=== PATIENT | male | born 1965 | race African-American/Black ===

== ENCOUNTER 2018-02-19 10:45 | Inpatient (IN) | payer OTHER ==
[2018-02-19] MEDS ORDERED: SODIUM CHLORIDE 0.9% 1000 ML INFUS.BAG IV ONE ×2 (11:26→14:38)
[2018-02-19] MEDS ORDERED: ACETAMINOPHEN 1000 MG/100 ML VIAL (NON FORMULARY) IVPB ONE (11:26)
--- NOTE | 2018-02-19 11:31 | PDOC ---
Attending Attestation - Resident Resident Name: DanielPhillip hollingsworth - ED Attending Attestation I have performed the following: I have examined & evaluated the patient, The case was reviewed & discussed with the resident, I agree w/resident's findings & plan, Exceptions are as noted - HPI HPI: 02/19/18 11:42 52y M hx of heroin abuse (currently on methadone maintenance), asthma presents with cough productive of yellowish/green x 3 days, fevers/body aches. no recent travel/known sick contacts. pt notes some mild chest pain when he coughs. denies any exertional dyspnea. pmd: dr. yuen vitals noted for hypoxia to 88r GENERAL: The patient is awake, alert, and fully oriented, Nontoxic - in no acute distress. HEAD: Normocephalic, atraumatic. EYES: extraocular movements intact, sclera anicteric, conjunctiva clear. ENT: Normal voice, Moist mucous membranes. NECK: Normal range of motion, supple LUNGS: mild expiratory wheezing/rales most prominent in R base, no acute respiratory distress, speaking complete sentences. HEART: tachycardic, normal S1 and S2 without murmur, rub or gallop. ABDOMEN: Soft, nontender, normoactive bowel sounds. No guarding, no rebound. . No CVA tenderness EXTREMITIES: Normal range of motion, no edema. negative homans, no calf tenderness NEUROLOGICAL: No facial assymetry, Normal speech, PSYCH: Normal mood, normal affect. SKIN: hot to touch, Dry, normal turgor,In your mouth in your eyes suspect pna vs flu sepsis orderset obtained pt placed on o2 2L with imrveoent of saturation to 96% 02/19/18 16:31 - Physicial Exam PE: 02/19/18 18:45 see aove - Critical Care Time Total Critical Care Time: 45 Critical Care Statement: The care of this patient involved high complexity decision making to prevent further life threatening deterioration of the patient 's condition and/or to evaluate & treat vital organ system(s) failure or risk of failure. - Medical Decision Making 02/19/18 16:31 The patient's lab work shows no signs of leukocytosis, left shift. Flu negative. Chest x-ray negative for acute processes. The patient's fever has defervesced. Unclear cause of the patient's hypoxia, we'll obtain a CT chest to rule out PE and further evaluated for parynchamal disease anticipate admission for further management 02/19/18 18:[address] chest is negative for PE there are signs of possible pneumonia the patient was given antibiotics will admit patient for further management A portion of this note was documented by scribe services under my direction. I have reviewed the details of the note, within reason, and agree with the documentation with the following case summary and management plan written by me Heart Score/ECG Review - ECG Impressions Comment:: 02/19/18 18:46 Twelve-lead EKG was performed and reviewed by me. There is normal sinus rhythm with a normal rate. rate of 92 The axis is normal. The intervals are normal. There is normal R wave progression nonspecific tw abnormalities
[2018-02-19] MEDS ORDERED: ACETAMINOPHEN INJECTION 100 ML IVPB ONE (11:32)
[2018-02-19 12:02] LABS: VENOUS PC02 37.1 mmHg (38-52); VENOUS PH 7.43 (7.32-7.42)
[2018-02-19 12:05] LABS: BASO % 0.4 % (0-2.0); HEMATOCRIT 38.9 % (35.4-49); HEMOGLOBIN 13.9 GM/dL (11.7-16.9); LYMPH % 12.4 % (8-40); MCH 32.8 pg (25.7-33.7); MCHC 35.6 g/dl (32.0-35.9); MEAN PLT VOLUME 7.8 fl (7.5-11.1); MONO % 6.3 % (3.8-10.2); NEUT % 80.9 % (42.8-82.8); PLATELET COUNT 153 K/MM3 (134-434); RBC 4.23 M/mm3 (4.00-5.60); RDW 12.7 % (11.9-15.9); WHITE BLOOD COUNT 9.9 K/mm3 (4.0-10.0)
[2018-02-19 12:33] LABS: ALBUMIN 3.8 g/dl (3.4-5.0); ALK PHOS 60 U/L (45-117); ANION GAP 8 MMOL/L (8-16); BILIRUBIN,TOTAL 0.6 mg/dL (0.2-1); BLOOD UREA NITROGEN 16 mg/dL (7-18); CALCIUM 8.1 mg/dL (8.5-10.1); CHLORIDE 102 mmol/L (98-107); CO2 25 mmol/L (21-32); CREATININE 1.3 mg/dL (0.55-1.3); GLUCOSE,RANDOM 116 mg/dL (74-106); POTASSIUM 3.6 mmol/L (3.5-5.1); SGOT/AST 59 U/L (15-37); SGPT/ALT 31 U/L (13-61); SODIUM 135 mmol/L (136-145); TOT PROT 7.7 g/dl (6.4-8.2)
--- NOTE | 2018-02-19 13:34 | EKG ---
Test Reason : Blood Pressure : / mmHG Vent. Rate : 092 BPM Atrial Rate : 092 BPM P-R Int : 158 ms QRS Dur : 088 ms QT Int : 334 ms P-R-T Axes : 061 059 034 degrees QTc Int : 413 ms NORMAL SINUS RHYTHM NONSPECIFIC T WAVE ABNORMALITY ABNORMAL ECG NO PREVIOUS ECGS AVAILABLE Confirmed by JUAN ALBERTO JAMISON MD ([id number]) on 02/19/2018 1:33:41 PM Referred By: Confirmed By:JUAN ALBERTO JAMISON MD
--- NOTE | 2018-02-19 14:26 | PDOC ---
History of Present Illness - General Chief Complaint: Respiratory Stated Complaint: Cold Symptoms Time Seen by Provider: 02/19/18 11:17 History Source: Patient Exam Limitations: No Limitations - History of Present Illness Initial Comments: 02/19/18 13:43 The patient is a 52M with a PMH of asthma and substance abuse in the past ( heroine, on methadone treatment currently) who presents to the ER with complaints of fever, chills, cough, and body aches x 3 days. The patient denies any sick contacts. He admits to a yellow/brown sputum with his cough. He states that he smokes "a few" cigarettes per day but denies any drinking and recreational drugs. Past History - Past Medical History Allergies/Adverse Reactions: Allergies Allergy/AdvReac Type Severity Reaction Status Date / Time No Known Allergies Allergy Verified 02/19/18 11:10 Home Medications: Ambulatory Orders NK [No Known Home Medication] 02/19/18 COPD: No - Immunization History Immunization Up to Date: Yes - Suicide/Smoking/Psychosocial Hx Smoking History: Current every day smoker Number of Cigarettes Smoked Daily: 5 Information on smoking cessation initiated: No Hx Alcohol Use: No Drug/Substance Use Hx: No Review of Systems - Review of Systems Able to Perform ROS?: Yes Comments:: 02/19/18 15:54 GENERAL/CONSTITUTIONAL: Positive for fevers and chills. No weakness. HEAD, EYES, EARS, NOSE AND THROAT: Positive for sore throat. No change in vision. No ear pain or discharge. CARDIOVASCULAR: No chest pain, palpitations, or lightheadedness. RESPIRATORY: Positive for cough. No wheezing, shortness of breath, or hemoptysis. GASTROINTESTINAL: Positive for nausea. No vomiting, diarrhea, constipation, or abdominal pain. GENITOURINARY: No dysuria, frequency, hematuria, or change in urination. MUSCULOSKELETAL: Positive for myalgias. No neck or back pain. SKIN: No rash or lesions. NEUROLOGIC: Positive for headache. No numbness, tingling, weakness, loss of consciousness, or change in strength/sensation. ENDOCRINE: No increased thirst. No abnormal weight change. HEMATOLOGIC/LYMPHATIC: No anemia, easy bleeding, or history of blood clots. ALLERGIC/IMMUNOLOGIC: No hives or skin allergy. Is the patient limited Green[place]ic proficient: No *Physical Exam - Vital Signs Last Vital Signs Temp Pulse Resp BP Pulse Ox 102.2 F H 114 H 20 126/73 100 02/19/18 11:11 02/19/18 11:11 02/19/18 11:11 02/19/18 11:11 02/19/18 11:15 - Physical Exam Comments: 02/19/18 15:56 GENERAL: Well developed, well nourished. Awake and alert. No acute distress. Warm to touch. HEENT: Normocephalic, atraumatic. Hearing grossly normal. Moist mucous membranes. PERRLA, EOMI. No conjunctival pallor. Sclera are non-icteric. NECK: Supple. Full ROM. No JVD. CARDIOVASCULAR: Regular rate and rhythm. No murmurs, rubs, or gallops. PULMONARY: No evidence of respiratory distress. Diffuse rhonchi in all lung sr. ABDOMINAL: Soft. Non-tender. Non-distended. No rebound or guarding. GENITOURINARY: No CVA tenderness bilaterally. MUSCULOSKELETAL: Normal range of motion at all joints. No bony deformities or tenderness. EXTREMITIES: No cyanosis. No clubbing. No edema. No calf tenderness or swelling. SKIN: Warm and dry. Normal capillary refill. No rashes. No jaundice. NEUROLOGICAL: Alert, awake, appropriate. Cranial nerves 2-12 grossly intact. Normal speech. Gait is normal without ataxia. PSYCHIATRIC: Cooperative. Good eye contact. Appropriate mood and affect. Moderate Sedation - Procedure Monitoring Vital Signs: Procedure Monitoring Vital Signs Temperature 102.2 F H 02/19/18 11:11 Pulse Rate 114 H 02/19/18 11:11 Respiratory Rate 20 02/19/18 11:11 Blood Pressure 126/73 02/19/18 11:11 O2 Sat by Pulse Oximetry (%) 100 02/19/18 11:15 ED Treatment Course - LABORATORY CBC & Chemistry Diagram: 02/19/18 11:50 02/19/18 11:26 - ADDITIONAL ORDERS Additional order review: Laboratory Results 02/19/18 02/19/18 02/19/18 11:40 11:33 11:30 VBG pH 7.43 H POC VBG pCO2 37.1 L POC VBG pO2 161.0 H* Mixed VBG HCO3 24.1 Sodium Potassium Chloride Carbon Dioxide Anion Gap BUN Creatinine Creat Clearance w eGFR Random Glucose Lactic Acid 1.3 Calcium Total Bilirubin AST ALT Alkaline Phosphatase Troponin I < 0.02 Total Protein Albumin 02/19/18 11:26 VBG pH POC VBG pCO2 POC VBG pO2 Mixed VBG HCO3 Sodium 135 L Potassium 3.6 Chloride 102 Carbon Dioxide 25 Anion Gap 8 BUN 16 Creatinine 1.3 Creat Clearance w eGFR 58.20 Random Glucose 116 H Lactic Acid Calcium 8.1 L Total Bilirubin 0.6 AST 59 H ALT 31 Alkaline Phosphatase 60 Troponin I Total Protein 7.7 Albumin 3.8 02/19/18 11:50 RBC 4.23 MCV 92.0 MCHC 35.6 RDW 12.7 MPV 7.8 Neutrophils % 80.9 Lymphocytes % 12.4 Monocytes % 6.3 Eosinophils % 0.0 Basophils % 0.4 - Medications Given in the ED: ED Medications Discontinued Medications Generic Name Dose Route Start Last Admin Trade Name Freq PRN Reason Stop Dose Admin Acetaminophen 1,000 mg 02/19/18 11:26 02/19/18 11:39 Ofirmev Injection - IVPB 02/19/18 11:27 1,000 mg ONCE ONE Administration Sodium Chloride 1,000 ml 02/19/18 11:26 02/19/18 11:39 Normal Saline - IV 02/19/18 11:27 1,000 ml ONCE ONE Administration Medical Decision Making - Medical Decision Making 02/19/18 15:58 The patient is a 52M with a PMH of asthma who presents with 3 days of cough, fevers, myalgias, concerning for PNA vs influenza. Giving fluids and tylenol for fever and tachycardia. Pt noted to be hypoxic, tachycardic, and tachypneic on initial evaluation - septic protocol is being followed. CXR negative. CBC, CMP WNL. Due to recurrent hypoxia, will order CT of chest to evaluate for lung pathology. 02/19/18 16:03 Pt off O2 for 5 minutes and desatted to 88. Will order CT. 02/19/18 17:53 CT Impression: No CT evidence of pulmonary embolism. Bilateral lower lobe and right upper lobe infiltrates as noted above. Probable centrilobular emphysema. Several nonspecific mildly enlarged mediastinal and bilateral hilar lymph nodes are noted - ? reactive in nature. 3 month follow-up CT may be performed. Attending ordered ceftriaxone. Will add azithromycin. Hospitalist microblogged for admission. 02/19/18 18:37 I have endorsed the patient to [employer] for admission under Dr. Nunez. *DC/Admit/Observation/Transfer Diagnosis at time of Disposition: Sepsis Qualifiers: Sepsis type: sepsis due to unspecified organism Qualified Code(s): A41.9 - Sepsis, unspecified organism Pneumonia Qualifiers: Pneumonia type: due to unspecified organism Laterality: right Lung location: unspecified part of lung Qualified Code(s): J18.9 - Pneumonia, unspecified organism - Discharge Dispostion Condition at time of disposition: Guarded Decision to Admit order: Yes Decision to Admit order Date/Time: Decision to Admit Order Category Date Time Status Decision to Admit to Hospital Routine Admission 02/19/18 13:26 Active - Referrals Referrals: Parker Carter MD [Primary Care Provider] - - Patient Instructions - Post Discharge Activity
[2018-02-19 15:28] LABS: INR 1.39 (0.83-1.09); PROTHROMBIN TIME (PATIENT) 16.4 SEC (9.7-13.0)
[2018-02-19] MEDS ORDERED: CEFTRIAXONE 1 GM in DEXTROSE 5%-WATER - 50 ML IVPB ONE (16:32)
[2018-02-19] MEDS ORDERED: CEFTRIAXONE 1 GM/50 ML BAG ONE (16:40)
[2018-02-19] MEDS ORDERED: AZITHROMYCIN IVPB 500 MG in DEXTROSE 5%-WATER - 250 ML IVPB ONE (17:52)
[2018-02-19 17:56] LABS: URINE APPEARANCE CLEAR; URINE BILIRUBIN NEGATIVE (<2.0 mg/dL); URINE COLOR YELLOW; URINE GLUCOSE (UA) NEGATIVE (NEGATIVE); URINE KETONE NEGATIVE (NEGATIVE); URINE LEUK ESTERASE NEGATIVE (NEGATIVE); URINE NITRITE NEGATIVE (NEGATIVE); URINE PROTEIN 1+ (NEGATIVE)
[2018-02-19] MEDS ORDERED: clonazePAM 0.5 MG TABLET PO ONE (17:56)
[2018-02-19 18:00] LABS: URINE MUCUS RARE
[2018-02-19] MEDS ORDERED: AZITHROMYCIN IVPB 500 MG/250 ML BAG IVPB ONE (18:12)
[2018-02-19] MEDS ORDERED: clonazePAM 0.5 MG TABLET ONE (18:12)
[2018-02-19] MEDS ORDERED: ALBUTEROL SO4 0.083% IH SOL 2.5 MG/3 ML VIAL.NEB. NEB PRN (19:08)
[2018-02-19] MEDS ORDERED: AZITHROMYCIN IVPB 250 MG in DEXTROSE 5%-WATER - 250 ML IVPB ONE (19:22)
--- NOTE | 2018-02-19 19:30 | HP ---
CHIEF COMPLAINT: SOB and cough PCP: Parker Carter MD HISTORY OF PRESENT ILLNESS: 52 year old male with a PMH of asthma and opiod dependence (On methadone) presented to the ED with 3 weeks of worsening SOB and cough. He first noticed he would become more out of breath than usual when walking up inclines. Over the past 3 days he started getting body aches and chills. Denies lightheadedness , syncope, seizure, chest pain, palpitations, n/v/d. Upon admission to the ED temperature was 102.2, pulse 114. CT positive for multilobe PNA. He was given a dose of Ceftriaxone and Azithromycin, IV APAP, and 2 liters of NS. Recent Travel: No PAST MEDICAL HISTORY: Opiod dependence (On methadone) Asthma PAST SURGICAL HISTORY: Left mcgregor cyst removal Social History: Smoking: Current every day smoker for 20 years Alcohol: Denies Drugs: Former IV heroin user, quit 3 years ago, used for 5 years Family History: Dad: Liver problems, Sister: Lung cancer Allergies No Known Allergies Allergy (Verified 02/19/18 11:10) HOME MEDICATIONS: Home Medications Medication Instructions Recorded NK [No Known Home Medication] 02/19/18 REVIEW OF SYSTEMS CONSTITUTIONAL: (+) generalized weakness, Absent: fever, chills, diaphoresis, malaise, loss of appetite, weight change HEENT: Absent: rhinorrhea, nasal congestion, throat pain, throat swelling, difficulty swallowing, mouth swelling, ear pain, eye pain, visual changes CARDIOVASCULAR: Absent: chest pain, syncope, palpitations, irregular heart rate, lightheadedness , peripheral edema RESPIRATORY: (+) dyspnea with exertion, cough, shortness of breath Absent: orthopnea, wheezing, stridor, hemoptysis GASTROINTESTINAL: Absent: abdominal pain, abdominal distension, nausea, vomiting, diarrhea, constipation, melena, hematochezia GENITOURINARY: Absent: dysuria, frequency, urgency, hesitancy, hematuria, flank pain, genital pain MUSCULOSKELETAL: Absent: myalgia, arthralgia, joint swelling, back pain, neck pain SKIN: Absent: rash, itching, pallor HEMATOLOGIC/IMMUNOLOGIC: Absent: easy bleeding, easy bruising, lymphadenopathy, frequent infections ENDOCRINE: Absent: unexplained weight gain, unexplained weight loss, heat intolerance, cold intolerance NEUROLOGIC: Absent: headache, focal weakness or paresthesias, dizziness, unsteady gait, seizure, mental status changes, bladder or bowel incontinence PSYCHIATRIC: (+) Anxiety Absent: depression, suicidal or homicidal ideation, hallucinations. PHYSICAL EXAMINATION Vital Signs - 24 hr 02/19/18 02/19/18 02/19/18 11:11 11:15 14:40 Temperature 102.2 F H 98.3 F Pulse Rate 114 H Pulse Rate [ 64 Right Radial] Respiratory 20 20 Rate Blood Pressure 126/73 Blood Pressure 98/73 [Right Arm] O2 Sat by Pulse 87 L 100 96 Oximetry (%) 02/19/18 02/19/18 18:49 19:03 Temperature 98.1 F Pulse Rate Pulse Rate [ 76 Right Radial] Respiratory 18 Rate Blood Pressure Blood Pressure 120/90 [Right Arm] O2 Sat by Pulse 97 Oximetry (%) GENERAL: Tremulous, weak, awake, alert, and fully oriented HEAD: Normal with no signs of trauma. EYES: Arcus senils b/l, muddy sclera, pupils equal, round and reactive to light , extraocular movements intact, conjunctiva clear. No lid lag. EARS, NOSE, THROAT: +NC,upper dentures,nares patent, oropharynx clear without exudates. Moist mucous membranes. NECK: Normal range of motion, supple without lymphadenopathy, JVD, or masses. LUNGS: Roncherous breath sounds b/l HEART: +Systolic murmor, Regular rate and rhythm ABDOMEN: Soft, nontender, not distended, normoactive bowel sounds, no guarding, no rebound, no masses. No hepatomegaly or splenomegaly. MUSCULOSKELETAL: Normal range of motion at all joints. No bony deformities or tenderness. No CVA tenderness. UPPER EXTREMITIES: 2+ pulses, warm, well-perfused. No cyanosis. No clubbing. No peripheral edema. LOWER EXTREMITIES: 2+ pulses, warm, well-perfused. No calf tenderness. No peripheral edema. NEUROLOGICAL: Normal speech, tongue midline PSYCHIATRIC: Cooperative. Good eye contact. Appropriate mood and affect. SKIN: Diaphoretic, warm, normal turgor, no rashes or lesions noted, normal capillary refill. Laboratory Results - last 24 hr 02/19/18 02/19/18 02/19/18 11:26 11:30 11:33 WBC RBC Hgb Hct MCV MCH MCHC RDW Plt Count MPV Absolute Neuts (auto) Neutrophils % Lymphocytes % Monocytes % Eosinophils % Basophils % Nucleated RBC % PT with INR INR PTT (Actin FS) VBG pH POC VBG pCO2 POC VBG pO2 Mixed VBG HCO3 Sodium 135 L Potassium 3.6 Chloride 102 Carbon Dioxide 25 Anion Gap 8 BUN 16 Creatinine 1.3 Creat Clearance w eGFR 58.20 Random Glucose 116 H Lactic Acid 1.3 Calcium 8.1 L Total Bilirubin 0.6 AST 59 H ALT 31 Alkaline Phosphatase 60 Troponin I < 0.02 Total Protein 7.7 Albumin 3.8 Urine Color Urine Appearance Urine pH Ur Specific [place] Urine Protein Urine Glucose (UA) Urine Ketones Urine Blood Urine Nitrite Urine Bilirubin Urine Urobilinogen Ur Leukocyte Esterase Urine WBC (Auto) Urine RBC (Auto) Urine Mucus Influenza A (Rapid) Influenza B (Rapid) 02/19/18 02/19/18 02/19/18 11:40 11:50 15:02 WBC 9.9 RBC 4.23 Hgb 13.9 Hct 38.9 MCV 92.0 MCH 32.8 MCHC 35.6 RDW 12.7 Plt Count 153 D MPV 7.8 Absolute Neuts (auto) 8.0 Neutrophils % 80.9 Lymphocytes % 12.4 Monocytes % 6.3 Eosinophils % 0.0 Basophils % 0.4 Nucleated RBC % 0 PT with INR INR PTT (Actin FS) VBG pH 7.43 H POC VBG pCO2 37.1 L POC VBG pO2 161.0 H* Mixed VBG HCO3 24.1 Sodium Potassium Chloride Carbon Dioxide Anion Gap BUN Creatinine Creat Clearance w eGFR Random Glucose Lactic Acid Calcium Total Bilirubin AST ALT Alkaline Phosphatase Troponin I Total Protein Albumin Urine Color Urine Appearance Urine pH Ur Specific [place] Urine Protein Urine Glucose (UA) Urine Ketones Urine Blood Urine Nitrite Urine Bilirubin Urine Urobilinogen Ur Leukocyte Esterase Urine WBC (Auto) Urine RBC (Auto) Urine Mucus Influenza A (Rapid) Negative Influenza B (Rapid) Negative 02/19/18 02/19/18 15:05 17:42 WBC RBC Hgb Hct MCV MCH MCHC RDW Plt Count MPV Absolute Neuts (auto) Neutrophils % Lymphocytes % Monocytes % Eosinophils % Basophils % Nucleated RBC % PT with INR 16.40 H INR 1.39 H PTT (Actin FS) 32.0 VBG pH POC VBG pCO2 POC VBG pO2 Mixed VBG HCO3 Sodium Potassium Chloride Carbon Dioxide Anion Gap BUN Creatinine Creat Clearance w eGFR Random Glucose Lactic Acid Calcium Total Bilirubin AST ALT Alkaline Phosphatase Troponin I Total Protein Albumin Urine Color Yellow Urine Appearance Clear Urine pH 5.0 Ur Specific [place] 1.044 H Urine Protein 1+ H Urine Glucose (UA) Negative Urine Ketones Negative Urine Blood 1+ H Urine Nitrite Negative Urine Bilirubin Negative Urine Urobilinogen 2.0 Ur Leukocyte Esterase Negative Urine WBC (Auto) 1 Urine RBC (Auto) 9 Urine Mucus Rare Influenza A (Rapid) Influenza B (Rapid) ASSESSMENT/PLAN: 52 year old male with a PMH of asthma and opiod dependence presented to the ED with 3 weeks of worsening SOB and cough. CT showed multilobar PNA. He was admitted for treatment with IV antibiotics. Sepsis secondary to multilobar PNA/Asthma - Continue Ceftiraxone and Axithromycin until ID sees - Supplemental o2 va NC - Nebs PRN - Pulmonary and ID consult ordered Opiod dependence - Methadone 125 mg PO qday Anxiety/Depression - Seroquel 50 mg PO QHS Prophylaxis - DVT: Heparin SQ FEN - PO intake adequate - Replete as needed - Regular diet Disp: Requires further inpatient monitoring. Visit type - Emergency Visit Emergency Visit: Yes Care time: The patient presented to the Emergency Department on the above date and was hospitalized for further evaluation of their emergent condition. - New Patient This patient is new to me today: Yes Date on this admission: 02/19/18 - Critical Care Critical Care patient: No
[2018-02-19] MEDS ORDERED: QUEtiapine FUMARATE 25 MG TABLET (FP) ONE (22:29)
[2018-02-19] MEDS: QUEtiapine FUMARATE 50 MG TABLET PO SCH (22:29)
[2018-02-20] MEDS: HEPARIN NA (PORCINE) 5,000 UNITS/ML 1ML VIAL SQ SCH ×3 (05:40→21:04)
[2018-02-20] MEDS ORDERED: cefTRIAXone SODIUM 1 GM VIAL ONE (08:34)
[2018-02-20] MEDS ORDERED: DEXTROSE 5%-WATER - 50 ML IVPB ONE ×2 (08:34→17:30)
[2018-02-20 09:39] LABS: HEMATOCRIT 35.8 % (35.4-49); HEMOGLOBIN 12.5 GM/dL (11.7-16.9); MCH 32.4 pg (25.7-33.7); MCHC 34.9 g/dl (32.0-35.9); MEAN CELL VOLUME 92.8 fl (80-96); MEAN PLT VOLUME 8.5 fl (7.5-11.1); PLATELET COUNT 135 K/MM3 (134-434); RBC 3.85 M/mm3 (4.00-5.60)
[2018-02-20] MEDS ORDERED: CEFTRIAXONE 1 GM in DEXTROSE 5%-WATER - 50 ML IVPB ONE (10:00)
[2018-02-20] MEDS ORDERED: AZITHROMYCIN IVPB 250 MG in DEXTROSE 5%-WATER - 250 ML IVPB ONE (10:00)
[2018-02-20] MEDS ORDERED: METHADONE HCL 40 MG DISPERSABLE TABLET PO SCH (10:00)
[2018-02-20 10:05] LABS: ANION GAP 7 MMOL/L (8-16); BLOOD UREA NITROGEN 8 mg/dL (7-18); CALCIUM 7.8 mg/dL (8.5-10.1); CHLORIDE 107 mmol/L (98-107); CO2 26 mmol/L (21-32); CREATININE 0.8 mg/dL (0.55-1.3); GLUCOSE,RANDOM 100 mg/dL (74-106); MAGNESIUM 2.1 mg/dL (1.8-2.4); POTASSIUM 3.7 mmol/L (3.5-5.1); SODIUM 141 mmol/L (136-145)
[2018-02-20] MEDS ORDERED: ALBUTEROL SO4 2.5/IPRATROPIUM 0.5 INH SOL 3 ML VIAL.NEB. NEB PRN (11:15)
[2018-02-20] MEDS ORDERED: D5-NS + 20 MEQ KCL - 20 MEQ/1,000 ML INFUS.BAG IV SCH (11:15)
--- NOTE | 2018-02-20 11:23 | PN ---
Progress Note, Physician History of Present Illness: pt seen/ examined chart reviewed awake/ no distress mild sob + cough + mild anxiety + - Current Medication List Current Medications: Active Medications Albuterol/Ipratropium (Duoneb -) 1 amp NEB Q6H PRN PRN Reason: SHORTNESS OF BREATH Heparin Sodium (Porcine) (Heparin -) 5,000 unit SQ TID CAN Last Admin: 02/20/18 05:40 Dose: 5,000 unit Potassium Chloride/Sodium Chloride (Ns+20 Meq Kcl -) 20 meq in 1,000 mls @ 100 mls/hr IV ASDIR CAN Ceftriaxone Sodium 1 gm/ (Dextrose) 100 mls @ 200 mls/hr IVPB DAILY CAN; Protocol Methadone HCl (Dolophine -) 125 mg PO DAILY CAN Quetiapine Fumarate (Seroquel -) 50 mg PO HS [facility] Last Admin: 02/19/18 22:29 Dose: 50 mg - Objective Vital Signs: Vital Signs Temperature 98.4 F 02/20/18 09:00 Pulse Rate 86 02/20/18 09:00 Respiratory Rate 18 02/20/18 09:00 Blood Pressure 104/63 02/20/18 09:00 O2 Sat by Pulse Oximetry (%) 95 02/20/18 01:00 Constitutional: Yes: No Distress Eyes: Yes: Conjunctiva Clear Neck: Yes: Supple Cardiovascular: Yes: Regular Rate and Rhythm Respiratory: Yes: Rhonchi Edema: No Neurological: Yes: Alert Psychiatric: Yes: Alert Labs: CBC, BMP 02/20/18 08:50 02/20/18 08:50 INR, PTT INR 1.39 (0.83-1.09) H 02/19/18 15:05 - ....Imaging Cat Scan: Report Reviewed Problem List - Problems (1) Methadone dependence Code(s): F11.20 - OPIOID DEPENDENCE, UNCOMPLICATED (2) Smoker Code(s): F17.200 - NICOTINE DEPENDENCE, UNSPECIFIED, UNCOMPLICATED (3) Pneumonia Code(s): J18.9 - PNEUMONIA, UNSPECIFIED ORGANISM Qualifiers: Pneumonia type: due to unspecified organism Laterality: right Lung location: unspecified part of lung Qualified Code(s): J18.9 - Pneumonia, unspecified organism Assessment/Plan community acquired pneumonia smoker On methadone program Continue abx Duoneb. On methadone 125 mg -- unable to cofirm with clinic - no one there Pharmacy refusing to give-- says per hospital policy --40 mg max discussed with pt-- agree forsame i/d, pulmonary consult pending check legionella/ mycoplasma start on fluids will follow discussed with nursing staff time spend approx 30 min .
[2018-02-20] MEDS ORDERED: PT OWN MED DRAWER 7, Y5N ONE ×2 (11:44→21:13)
[2018-02-20] MEDS ORDERED: CEFTRIAXONE 1 GM in DEXTROSE 5%-WATER - 50 ML IVPB SCH (12:00)
[2018-02-20] MEDS: METHADONE HCL 40 MG DISPERSABLE TABLET PO SCH (12:19)
--- NOTE | 2018-02-20 12:42 | PN ---
Progress Note (short form) - Note Progress Note: PULMONARY CONSULTATION DICTATED 02/20/18 IMP ACUTE HYPOXEMIC RESPIRATORY FAILURE BILATERAL PNEUMONIA ASTHMA EXACERBATION OPIOID DEPENDENCE TOBACCO ABUSE PLAN IV ABX O2 MEDROL INHALED BRONCHODILATORS CULTURES LEGIONELLA URINAY ANTIGEN PFTS OUTPATIENT F/U CHEST CT 6-8 WKS TO CONFIRM RESOLUTION OF INFILTRATES SMOKING CESSATION COUNSELED DR SAMSON Problem List - Problems (1) Asthma attack Code(s): J45.901 - UNSPECIFIED ASTHMA WITH (ACUTE) EXACERBATION (2) Methadone dependence Code(s): F11.20 - OPIOID DEPENDENCE, UNCOMPLICATED (3) Pneumonia Code(s): J18.9 - PNEUMONIA, UNSPECIFIED ORGANISM Qualifiers: Pneumonia type: due to unspecified organism Laterality: right Lung location: unspecified part of lung Qualified Code(s): J18.9 - Pneumonia, unspecified organism (4) Smoker Code(s): F17.200 - NICOTINE DEPENDENCE, UNSPECIFIED, UNCOMPLICATED (5) Acute hypoxemic respiratory failure Code(s): J96.01 - ACUTE RESPIRATORY FAILURE WITH HYPOXIA (6) Tobacco abuse Code(s): Z72.0 - TOBACCO USE (7) Tobacco abuse counseling Code(s): Z71.6 - TOBACCO ABUSE COUNSELING
[2018-02-20] MEDS: SODIUM CHLORIDE 0.9%/KCL 20 MEQ/1,000 ML INFUS.BAG IV SCH (12:43)
--- NOTE | 2018-02-20 13:51 | CON.ID ---
Consult Consult Specialty:: infectious diseases Referred by:: Stephanie Reason for Consultation:: pneumonia - History of Present Illness Chief Complaint: sob,cough History of Present Illness: 52 year old male with a PMH of asthma and opiod dependence (On methadone) admitted because of 3 weeks of worsening SOB and cough. He first noticed he would become more out of breath than usual when walking up inclines. Over the past 3 days he started getting body aches and chills. Denies lightheadedness, syncope, seizure, chest pain, palpitations, n/v/d. Upon admission to the ED temperature was 102.2, pulse 114. CT positive for multilobe PNA. He was given a dose of Ceftriaxone and Azithromycin, IV APAP, and 2 liters of NS. patient used to use heroin - History Source History Provided By: Patient Limitations to Obtaining History: No Limitations - Alcohol/Substance Use Hx Alcohol Use: No - Smoking History Smoking history: Former smoker Have you smoked in the past 12 months: Yes Aproximately how many cigarettes per day: 5 Home Medications - Allergies Allergies/Adverse Reactions: Allergies Allergy/AdvReac Type Severity Reaction Status Date / Time No Known Allergies Allergy Verified 02/19/18 11:10 - Home Medications Home Medications: Ambulatory Orders Albuterol 0.083% Nebulizer Chelsey [Ventolin 0.083%] 1 neb NEB Q4H 02/19/18 Methadone [Dolophine -] 125 mg PO DAILY 02/19/18 Quetiapine Fumarate [Seroquel -] 50 mg PO HS 02/19/18 clonazePAM [Klonopin -] 0.5 mg PO TID 02/20/18 Review of Systems - Review of Systems Constitutional: reports: No Symptoms Eyes: reports: No Symptoms HENT: reports: No Symptoms Neck: reports: No Symptoms Cardiovascular: reports: No Symptoms Respiratory: reports: Cough, SOB, SOB on Exertion Musculoskeletal: reports: No Symptoms Integumentary: reports: No Symptoms Neurological: reports: No Symptoms Endocrine: reports: No Symptoms Hematology/Lymphatic: reports: No Symptoms Psychiatric: reports: No Symptoms Physical Exam Vital Signs: Vital Signs Temperature 98.4 F 02/20/18 09:00 Pulse Rate 86 02/20/18 09:00 Respiratory Rate 18 02/20/18 09:00 Blood Pressure 104/63 02/20/18 09:00 O2 Sat by Pulse Oximetry (%) 95 02/20/18 01:00 Constitutional: Yes: No Distress, Calm Cardiovascular: Yes: Regular Rate and Rhythm Respiratory: Yes: On Nasal O2, Poor Air Entry, Rhonchi Gastrointestinal: Yes: Normal Bowel Sounds, Soft Musculoskeletal: Yes: WNL Extremities: Yes: WNL Neurological: Yes: Alert, Oriented Psychiatric: Yes: Alert, Oriented Labs: CBC, BMP 02/20/18 08:50 02/20/18 08:50 Imaging - Results Chest X-ray: Report Reviewed, Image Reviewed Cat Scan: Report Reviewed, Image Reviewed Assessment/Plan Problem List - Problems (1) Methadone dependence Code(s): F11.20 - OPIOID DEPENDENCE, UNCOMPLICATED (2) Smoker Code(s): F17.200 - NICOTINE DEPENDENCE, UNSPECIFIED, UNCOMPLICATED (3) Pneumonia Code(s): J18.9 - PNEUMONIA, UNSPECIFIED ORGANISM Qualifiers: Pneumonia type: due to unspecified organism Laterality: right Lung location: unspecified part of lung Qualified Code(s): J18.9 - Pneumonia, unspecified organism 4 weakness plan will switch to zosyn await for all reports incentive noman rest as per the team
[2018-02-20] MEDS: methylPREDNISolone NA SUCC 40 MG/1 ML VIAL IVPUSH SCH ×3 (14:43→21:04)
--- NOTE | 2018-02-20 14:59 | CONS ---
PULMONARY CONSULTATION DATE OF CONSULTATION: 02/20/2018 REFERRING PHYSICIAN: Dr. Carter HISTORY OF PRESENT ILLNESS: The patient is a 52-year-old, black male with past medical history of asthma, history of opioid dependence, currently on methadone, previous tobacco use, previously smoked approximately a pack a day, currently a few cigarettes daily for approximately 20 years, admitted to [facility], complaining of increasing shortness of breath, cough, and chest congestion. Patient states he started developing increasing shortness of breath and dyspnea on exertion approximately 3 weeks ago. His symptoms continued to worsen. Over the past 3 days prior to this admission, he started getting generalized body aches, chills, fevers, and cough. He presented to the emergency department. In the ER, he was noted to be febrile with a temp of 102.2. He underwent a CT scan of the chest which revealed bilateral pneumonia. He was admitted, started on broad-spectrum antibiotics, and transferred to the medical floor for further management. The patient has a history of asthma for approximately 4 years. There is no history of recent travel. He was previously employed [employer] and he states he was exposed to chemicals. There is no history of DVT or PE in the past. There is no history of respiratory failure in the past or any ventilatory support. He denies hemoptysis. PAST MEDICAL HISTORY: Again, includes asthma and opioid dependence. SOCIAL HISTORY: History of tobacco use, approximately 1 pack a day. Currently, smoking a few cigarettes daily. History of IVDA. Currently, on methadone for approximately 3 years. No EtOH. REVIEW OF SYSTEMS: Positive cough. Positive shortness of breath. Positive wheezing. No chest pain. No palpitations. No nausea. No vomiting. No hemoptysis. CURRENT MEDICATIONS: Include ceftriaxone, Seroquel, DuoNeb. PHYSICAL EXAMINATION: General: On physical examination, the patient is a well-developed, thin, black male, awake, alert, in no acute distress. Vital signs: He is afebrile, blood pressure 104/63, respiratory rate is 18, O2 saturation is 95% on 2 L. HEENT: Exam is normocephalic, atraumatic. Neck: Supple. Heart: Regular S1 and S2. Chest: Diffuse bilateral wheezes. Abdomen: Soft. Bowel sounds are positive. Extremities: No cyanosis, edema. LABORATORIES: WBC 6, hemoglobin 12.5, hematocrit 35.8, with a platelet count of 135,000. INR is 1.39. BUN 8, creatinine 0.8. IMAGING: Chest CT, as noted earlier, revealed bilateral lower lobe infiltrates, there is a right upper lobe infiltrate, as well as mild mediastinal adenopathy. IMPRESSION: 1. Bilateral pneumonia, community acquired. 2. Asthma exacerbation. 3. History of substance abuse. PLAN: IV antibiotics. Inhaled bronchodilators. A short course of IV steroids. Supplemental O2. Sputum for C and S, cold agglutinin, legionella urine antigen. Obtain follow up chest x-rays, as well as follow up chest CT as an outpatient to document resolution of infiltrates. Will follow closely with you. PFTs outpatient. USHA SAMSON M.D. DUONG/[id number]
[2018-02-20] MEDS ORDERED: PIPERACILLIN/TAZOBACTAM 3.375 GM VIAL IVPB ONE (17:30)
[2018-02-20] MEDS: PIPERACILLIN/TAZOB 3.375 GM 3.375 GM in DEXTROSE 5%-WATER - 50 ML IVPB SCH (18:00)
[2018-02-20] MEDS ORDERED: ACETAMINOPHEN 325 MG TABLET (FP) PO PRN (18:40)
[2018-02-20] MEDS ORDERED: QUEtiapine FUMARATE 25 MG TABLET (FP) ONE (20:58)
[2018-02-20] MEDS: clonazePAM 0.5 MG TABLET PO PRN (21:04)
[2018-02-20] MEDS: QUEtiapine FUMARATE 50 MG TABLET PO SCH (21:14)
[2018-02-21] MEDS ORDERED: PIPERACILLIN/TAZOBACTAM 3.375 GM VIAL IVPB ONE ×3 (01:52→17:24)
[2018-02-21] MEDS ORDERED: DEXTROSE 5%-WATER - 50 ML IVPB ONE ×3 (01:52→17:25)
[2018-02-21] MEDS: methylPREDNISolone NA SUCC 40 MG/1 ML VIAL IVPUSH SCH ×4 (02:19→21:20)
[2018-02-21] MEDS: PIPERACILLIN/TAZOB 3.375 GM 3.375 GM in DEXTROSE 5%-WATER - 50 ML IVPB SCH ×3 (02:19→17:51)
[2018-02-21] MEDS: SODIUM CHLORIDE 0.9%/KCL 20 MEQ/1,000 ML INFUS.BAG IV SCH ×3 (03:19→20:30)
[2018-02-21] MEDS: HEPARIN NA (PORCINE) 5,000 UNITS/ML 1ML VIAL SQ SCH ×3 (06:30→21:20)
[2018-02-21] MEDS ORDERED: METHADONE HCL 5 MG TABLET ONE (08:44)
[2018-02-21] MEDS ORDERED: METHADONE HCL 40 MG DISPERSABLE TABLET ONE (08:44)
[2018-02-21] MEDS ORDERED: PT OWN MED DRAWER 7, Y5N ONE (08:45)
[2018-02-21] MEDS: METHADONE 120 MG, METHADONE 5 MG PO SCH (09:06)
[2018-02-21] MEDS: METHADONE HCL 40 MG DISPERSABLE TABLET PO SCH (09:20)
--- NOTE | 2018-02-21 14:01 | PN ---
Progress Note (short form) - Note Progress Note: Better still tight and wheezing all f/u noted/ aprrecaited discussed with i/d and pulmonary denies pain decreased sob Vital Signs Temp 98.6 F 02/21/18 09:00 Pulse 68 02/21/18 09:00 Resp 18 02/21/18 09:00 BP 124/75 02/21/18 09:00 Pulse Ox 100 02/21/18 09:00 Intake & Output 02/20/18 02/21/18 02/21/18 23:59 11:59 23:59 Intake Total 1475 1080 Balance 1475 1080 Intake: IV 1025 700 NS+20 MEQ KCL - 20 meq In 1025 700 1,000 ml @ 100 mls/hr IV ASDIR CAN Rx#: [id number] IVPB 450 Oral 380 Other: Voiding Method Toilet Toilet Active Medications Acetaminophen (Tylenol -) 650 mg PO Q4H PRN PRN Reason: PAIN SCALE 3-8 Albuterol/Ipratropium (Duoneb -) 1 amp NEB Q6H PRN PRN Reason: SHORTNESS OF BREATH Clonazepam (Klonopin -) 0.5 mg PO Q8H PRN PRN Reason: ANXIETY Last Admin: 02/20/18 21:04 Dose: 0.5 mg Heparin Sodium (Porcine) (Heparin -) 5,000 unit SQ TID CAN Last Admin: 02/21/18 06:30 Dose: 5,000 unit Potassium Chloride/Sodium Chloride (Ns+20 Meq Kcl -) 20 meq in 1,000 mls @ 100 mls/hr IV ASDIR CAN Last Admin: 02/21/18 03:19 Dose: 100 mls/hr Piperacillin Sod/Tazobactam (Sod 3.375 gm/ Dextrose) 50 mls @ 100 mls/hr IVPB Q8H-IV CAN; Protocol Last Admin: 02/21/18 09:07 Dose: 100 mls/hr Methadone HCl (Dolophine -) 40 mg PO DAILY CAN Last Admin: 02/21/18 09:20 Dose: Not Given Methadone HCl 120 mg/ (Methadone HCl 5 mg) 125 mg PO DAILY@0600 [facility] Last Admin: 02/21/18 09:06 Dose: 125 mg Methylprednisolone Sodium Succinate (Solu-Medrol -) 40 mg IVPUSH Q6H-IV CAN Last Admin: 02/21/18 09:07 Dose: 40 mg Quetiapine Fumarate (Seroquel -) 50 mg PO HS CAN Last Admin: 02/20/18 21:14 Dose: 50 mg Ranitidine HCl (Zantac -) 150 mg PO BID CAN CBC, BMP 02/20/18 08:50 02/20/18 08:50 Microbiology 02/19/18 11:40 Blood Culture - Preliminary Blood - Peripheral Venous NO GROWTH OBTAINED AFTER 48 HOURS, INCUBATION TO CONTINUE FOR 3 DAYS. 02/19/18 11:30 Blood Culture - Preliminary Blood - Peripheral Venous NO GROWTH OBTAINED AFTER 48 HOURS, INCUBATION TO CONTINUE FOR 3 DAYS. 02/20/18 20:00 Legionella Antigen - Final Urine For Antigen Detection Streptococcus pneumoniae Antigen (M - Final 02/19/18 17:42 Urine Culture - Final Urine - Urine Clean Catch NO GROWTH OBTAINED Physical Exam Constitutional: Yes: No Distress. comfortable. Eyes: Yes: Conjunctiva Clear Neck: Yes: Supple. no jvd. Cardiovascular: Yes: Regular Rate and Rhythm Respiratory: Yes: Bilateral wheezes Edema: No Neurological: Yes: Alert Psychiatric: Yes: Alert Assessment/Plan Better Continue present care abx steroids On methadone daily oob - chair will follow Problem List - Problems (1) Methadone dependence Code(s): F11.20 - OPIOID DEPENDENCE, UNCOMPLICATED (2) Smoker Code(s): F17.200 - NICOTINE DEPENDENCE, UNSPECIFIED, UNCOMPLICATED (3) Pneumonia Code(s): J18.9 - PNEUMONIA, UNSPECIFIED ORGANISM Qualifiers: Pneumonia type: due to unspecified organism Laterality: right Lung location: unspecified part of lung Qualified Code(s): J18.9 - Pneumonia, unspecified organism
[2018-02-21] MEDS: clonazePAM 0.5 MG TABLET PO PRN ×2 (14:04→21:20)
--- NOTE | 2018-02-21 14:07 | PN ---
Progress Note, Physician History of Present Illness: pulmonary alert,feeling better,less dyspneic,less congested - Current Medication List Current Medications: Active Medications Acetaminophen (Tylenol -) 650 mg PO Q4H PRN PRN Reason: PAIN SCALE 3-8 Albuterol/Ipratropium (Duoneb -) 1 amp NEB Q6H PRN PRN Reason: SHORTNESS OF BREATH Clonazepam (Klonopin -) 0.5 mg PO Q8H PRN PRN Reason: ANXIETY Last Admin: 02/21/18 14:04 Dose: 0.5 mg Heparin Sodium (Porcine) (Heparin -) 5,000 unit SQ TID CAN Last Admin: 02/21/18 14:01 Dose: 5,000 unit Potassium Chloride/Sodium Chloride (Ns+20 Meq Kcl -) 20 meq in 1,000 mls @ 100 mls/hr IV ASDIR [facility] Last Admin: 02/21/18 14:02 Dose: Not Given Piperacillin Sod/Tazobactam (Sod 3.375 gm/ Dextrose) 50 mls @ 100 mls/hr IVPB Q8H-IV CAN; Protocol Last Admin: 02/21/18 09:07 Dose: 100 mls/hr Methadone HCl (Dolophine -) 40 mg PO DAILY [facility] Last Admin: 02/21/18 09:20 Dose: Not Given Methadone HCl 120 mg/ (Methadone HCl 5 mg) 125 mg PO DAILY@0600 [facility] Last Admin: 02/21/18 09:06 Dose: 125 mg Methylprednisolone Sodium Succinate (Solu-Medrol -) 40 mg IVPUSH Q6H-IV CAN Last Admin: 02/21/18 14:02 Dose: 40 mg Quetiapine Fumarate (Seroquel -) 50 mg PO HS [facility] Last Admin: 02/20/18 21:14 Dose: 50 mg Ranitidine HCl (Zantac -) 150 mg PO BID [facility] - Objective Vital Signs: Vital Signs Temperature 98.6 F 02/21/18 09:00 Pulse Rate 68 02/21/18 09:00 Respiratory Rate 18 02/21/18 09:00 Blood Pressure 124/75 02/21/18 09:00 O2 Sat by Pulse Oximetry (%) 100 02/21/18 09:00 Constitutional: Yes: Well Nourished, Calm Eyes: Yes: WNL HENT: Yes: WNL Neck: Yes: WNL Cardiovascular: Yes: Regular Rate and Rhythm, S1, S2 Respiratory: Yes: Wheezes (bilateral wheezes) Gastrointestinal: Yes: Normal Bowel Sounds, Soft Extremities: Yes: WNL Edema: No Labs: CBC, BMP Problem List - Problems (1) Asthma attack Code(s): J45.901 - UNSPECIFIED ASTHMA WITH (ACUTE) EXACERBATION (2) Methadone dependence Code(s): F11.20 - OPIOID DEPENDENCE, UNCOMPLICATED (3) Pneumonia Code(s): J18.9 - PNEUMONIA, UNSPECIFIED ORGANISM Qualifiers: Pneumonia type: due to unspecified organism Laterality: right Lung location: unspecified part of lung Qualified Code(s): J18.9 - Pneumonia, unspecified organism (4) Smoker Code(s): F17.200 - NICOTINE DEPENDENCE, UNSPECIFIED, UNCOMPLICATED (5) Acute hypoxemic respiratory failure Code(s): J96.01 - ACUTE RESPIRATORY FAILURE WITH HYPOXIA (6) Tobacco abuse Code(s): Z72.0 - TOBACCO USE (7) Tobacco abuse counseling Code(s): Z71.6 - TOBACCO ABUSE COUNSELING Assessment/Plan IMP ACUTE HYPOXEMIC RESPIRATORY FAILURE BILATERAL PNEUMONIA ASTHMA EXACERBATION OPIOID DEPENDENCE TOBACCO ABUSE PLAN IV ABX O2 MEDROL SAME DOSE INHALED BRONCHODILATORS CULTURES PFTS OUTPATIENT F/U CHEST CT 6-8 WKS TO CONFIRM RESOLUTION OF INFILTRATES SMOKING CESSATION COUNSELED DR SAMSON Problem List - Problems (1) Asthma attack Code(s): J45.901 - UNSPECIFIED ASTHMA WITH (ACUTE) EXACERBATION (2) Methadone dependence Code(s): F11.20 - OPIOID DEPENDENCE, UNCOMPLICATED (3) Pneumonia Code(s): J18.9 - PNEUMONIA, UNSPECIFIED ORGANISM Qualifiers: Pneumonia type: due to unspecified organism Laterality: right Lung location: unspecified part of lung Qualified Code(s): J18.9 - Pneumonia, unspecified organism (4) Smoker Code(s): F17.200 - NICOTINE DEPENDENCE, UNSPECIFIED, UNCOMPLICATED (5) Acute hypoxemic respiratory failure Code(s): J96.01 - ACUTE RESPIRATORY FAILURE WITH HYPOXIA (6) Tobacco abuse Code(s): Z72.0 - TOBACCO USE (7) Tobacco abuse counseling Code(s): Z71.6 - TOBACCO ABUSE COUNSELING
[2018-02-21] MEDS: QUEtiapine FUMARATE 50 MG TABLET PO SCH (21:20)
[2018-02-21] MEDS: RANITIDINE HCL 150 MG TABLET (FP) PO SCH (21:20)
[2018-02-21] MEDS: BUDESONIDE/FORMETEROL FUMARATE 160/4.5 mcg INHALER IH SCH (21:21)
[2018-02-22] MEDS ORDERED: PIPERACILLIN/TAZOBACTAM 3.375 GM VIAL IVPB ONE ×3 (01:48→17:33)
[2018-02-22] MEDS ORDERED: DEXTROSE 5%-WATER - 50 ML IVPB ONE ×3 (01:48→17:34)
[2018-02-22] MEDS: PIPERACILLIN/TAZOB 3.375 GM 3.375 GM in DEXTROSE 5%-WATER - 50 ML IVPB SCH ×3 (01:57→17:44)
[2018-02-22] MEDS: methylPREDNISolone NA SUCC 40 MG/1 ML VIAL IVPUSH SCH ×4 (02:07→20:37)
[2018-02-22] MEDS ORDERED: METHADONE HCL 5 MG TABLET ONE (05:21)
[2018-02-22] MEDS ORDERED: METHADONE HCL 40 MG DISPERSABLE TABLET ONE (05:22)
[2018-02-22] MEDS: HEPARIN NA (PORCINE) 5,000 UNITS/ML 1ML VIAL SQ SCH ×3 (05:34→21:00)
[2018-02-22] MEDS: METHADONE 120 MG, METHADONE 5 MG PO SCH (05:36)
[2018-02-22] MEDS: SODIUM CHLORIDE 0.9%/KCL 20 MEQ/1,000 ML INFUS.BAG IV SCH ×2 (05:58→13:52)
[2018-02-22] MEDS ORDERED: PT OWN MED DRAWER 7, Y5N ONE (10:23)
[2018-02-22] MEDS: RANITIDINE HCL 150 MG TABLET (FP) PO SCH ×2 (10:26→21:00)
[2018-02-22] MEDS: BUDESONIDE/FORMETEROL FUMARATE 160/4.5 mcg INHALER IH SCH ×2 (10:26→21:00)
--- NOTE | 2018-02-22 10:35 | PN ---
Progress Note, Physician History of Present Illness: patient doing well no new issues still with cough - Current Medication List Current Medications: Active Medications Acetaminophen (Tylenol -) 650 mg PO Q4H PRN PRN Reason: PAIN SCALE 3-8 Albuterol/Ipratropium (Duoneb -) 1 amp NEB Q6H PRN PRN Reason: SHORTNESS OF BREATH Budesonide/Formoterol Fumarate (Symbicort 160/4.5mcg -) 2 puff IH BID CAN Last Admin: 02/22/18 10:26 Dose: 2 puff Clonazepam (Klonopin -) 0.5 mg PO Q8H PRN PRN Reason: ANXIETY Last Admin: 02/21/18 21:20 Dose: 0.5 mg Heparin Sodium (Porcine) (Heparin -) 5,000 unit SQ TID [facility] Last Admin: 02/22/18 05:34 Dose: 5,000 unit Potassium Chloride/Sodium Chloride (Ns+20 Meq Kcl -) 20 meq in 1,000 mls @ 100 mls/hr IV ASDIR [facility] Last Admin: 02/22/18 05:58 Dose: 100 mls/hr Piperacillin Sod/Tazobactam (Sod 3.375 gm/ Dextrose) 50 mls @ 100 mls/hr IVPB Q8H-IV CAN; Protocol Last Admin: 02/22/18 10:26 Dose: 100 mls/hr Methadone HCl 120 mg/ (Methadone HCl 5 mg) 125 mg PO DAILY@0600 [facility] Last Admin: 02/22/18 05:36 Dose: 125 mg Methylprednisolone Sodium Succinate (Solu-Medrol -) 40 mg IVPUSH Q6H-IV CAN Last Admin: 02/22/18 08:14 Dose: 40 mg Quetiapine Fumarate (Seroquel -) 50 mg PO HS [facility] Last Admin: 02/21/18 21:20 Dose: 50 mg Ranitidine HCl (Zantac -) 150 mg PO BID [facility] Last Admin: 02/22/18 10:26 Dose: 150 mg - Objective Vital Signs: Vital Signs Temperature 97.5 F L 02/22/18 06:00 Pulse Rate 53 L 02/22/18 06:00 Respiratory Rate 20 02/22/18 06:00 Blood Pressure 139/81 02/22/18 06:00 O2 Sat by Pulse Oximetry (%) 100 02/21/18 21:00 Constitutional: Yes: No Distress, Calm Cardiovascular: Yes: Regular Rate and Rhythm Respiratory: Yes: Regular, On Nasal O2, Poor Air Entry, Rhonchi Gastrointestinal: Yes: Normal Bowel Sounds, Soft Musculoskeletal: Yes: WNL Extremities: Yes: WNL Neurological: Yes: Alert, Oriented Psychiatric: Yes: Alert, Oriented Labs: CBC, BMP 02/20/18 08:50 02/20/18 08:50 INR, PTT INR 1.39 (0.83-1.09) H 02/19/18 15:05 Assessment/Plan Problem List - Problems (1) Methadone dependence Code(s): F11.20 - OPIOID DEPENDENCE, UNCOMPLICATED (2) Smoker Code(s): F17.200 - NICOTINE DEPENDENCE, UNSPECIFIED, UNCOMPLICATED (3) Pneumonia Code(s): J18.9 - PNEUMONIA, UNSPECIFIED ORGANISM Qualifiers: Pneumonia type: due to unspecified organism Laterality: right Lung location: unspecified part of lung Qualified Code(s): J18.9 - Pneumonia, unspecified organism 4 weakness plan continue current abx incentive noman rest as per the team monitor cough
--- NOTE | 2018-02-22 10:36 | PN ---
Progress Note, Physician History of Present Illness: continues to improve still has cough dry non productive says he is still not feeling completely well - Current Medication List Current Medications: Active Medications Acetaminophen (Tylenol -) 650 mg PO Q4H PRN PRN Reason: PAIN SCALE 3-8 Albuterol/Ipratropium (Duoneb -) 1 amp NEB Q6H PRN PRN Reason: SHORTNESS OF BREATH Budesonide/Formoterol Fumarate (Symbicort 160/4.5mcg -) 2 puff IH BID CAN Last Admin: 02/22/18 10:26 Dose: 2 puff Clonazepam (Klonopin -) 0.5 mg PO Q8H PRN PRN Reason: ANXIETY Last Admin: 02/21/18 21:20 Dose: 0.5 mg Heparin Sodium (Porcine) (Heparin -) 5,000 unit SQ TID [facility] Last Admin: 02/22/18 05:34 Dose: 5,000 unit Potassium Chloride/Sodium Chloride (Ns+20 Meq Kcl -) 20 meq in 1,000 mls @ 100 mls/hr IV ASDIR CAN Last Admin: 02/22/18 05:58 Dose: 100 mls/hr Piperacillin Sod/Tazobactam (Sod 3.375 gm/ Dextrose) 50 mls @ 100 mls/hr IVPB Q8H-IV CAN; Protocol Last Admin: 02/22/18 10:26 Dose: 100 mls/hr Methadone HCl 120 mg/ (Methadone HCl 5 mg) 125 mg PO DAILY@0600 [facility] Last Admin: 02/22/18 05:36 Dose: 125 mg Methylprednisolone Sodium Succinate (Solu-Medrol -) 40 mg IVPUSH Q6H-IV CAN Last Admin: 02/22/18 08:14 Dose: 40 mg Quetiapine Fumarate (Seroquel -) 50 mg PO HS [facility] Last Admin: 02/21/18 21:20 Dose: 50 mg Ranitidine HCl (Zantac -) 150 mg PO BID [facility] Last Admin: 02/22/18 10:26 Dose: 150 mg - Objective Vital Signs: Vital Signs Temperature 97.5 F L 02/22/18 06:00 Pulse Rate 53 L 02/22/18 06:00 Respiratory Rate 20 02/22/18 06:00 Blood Pressure 139/81 02/22/18 06:00 O2 Sat by Pulse Oximetry (%) 100 02/21/18 21:00 Constitutional: Yes: No Distress, Calm Cardiovascular: Yes: Regular Rate and Rhythm Respiratory: Yes: Regular, On Nasal O2, Poor Air Entry Gastrointestinal: Yes: Normal Bowel Sounds, Soft Musculoskeletal: Yes: WNL Extremities: Yes: WNL Neurological: Yes: Alert, Oriented Psychiatric: Yes: Alert, Oriented Labs: CBC, BMP 02/20/18 08:50 02/20/18 08:50 INR, PTT INR 1.39 (0.83-1.09) H 02/19/18 15:05 Assessment/Plan Problem List - Problems (1) Methadone dependence Code(s): F11.20 - OPIOID DEPENDENCE, UNCOMPLICATED (2) Smoker Code(s): F17.200 - NICOTINE DEPENDENCE, UNSPECIFIED, UNCOMPLICATED (3) Pneumonia Code(s): J18.9 - PNEUMONIA, UNSPECIFIED ORGANISM Qualifiers: Pneumonia type: due to unspecified organism Laterality: right Lung location: unspecified part of lung Qualified Code(s): J18.9 - Pneumonia, unspecified organism 4 weakness plan continue current abx incentive noman rest as per the team monitor cough
--- NOTE | 2018-02-22 12:26 | PN ---
Progress Note (short form) - Note Progress Note: pt feels little better still coughing / wheezing afebrile all f/u noted Vital Signs Temp 97.9 F 02/22/18 10:42 Pulse 67 02/22/18 10:42 Resp 18 02/22/18 10:42 BP 128/77 02/22/18 10:42 Pulse Ox 100 02/21/18 21:00 Intake & Output 02/21/18 02/22/18 02/22/18 23:59 11:59 23:59 Intake Total 1400 1050 400 Balance 1400 1050 400 Intake: IV 1300 700 NS+20 MEQ KCL - 20 meq In 1300 700 1,000 ml @ 100 mls/hr IV ASDIR CAN Rx#: [id number] IVPB 100 50 Oral 300 400 Other: Voiding Method Toilet Toilet Active Medications Acetaminophen (Tylenol -) 650 mg PO Q4H PRN PRN Reason: PAIN SCALE 3-8 Albuterol/Ipratropium (Duoneb -) 1 amp NEB Q6H PRN PRN Reason: SHORTNESS OF BREATH Budesonide/Formoterol Fumarate (Symbicort 160/4.5mcg -) 2 puff IH BID [facility] Last Admin: 02/22/18 10:26 Dose: 2 puff Clonazepam (Klonopin -) 0.5 mg PO Q8H PRN PRN Reason: ANXIETY Last Admin: 02/21/18 21:20 Dose: 0.5 mg Heparin Sodium (Porcine) (Heparin -) 5,000 unit SQ TID CAN Last Admin: 02/22/18 05:34 Dose: 5,000 unit Potassium Chloride/Sodium Chloride (Ns+20 Meq Kcl -) 20 meq in 1,000 mls @ 100 mls/hr IV ASDIR CAN Last Admin: 02/22/18 05:58 Dose: 100 mls/hr Piperacillin Sod/Tazobactam (Sod 3.375 gm/ Dextrose) 50 mls @ 100 mls/hr IVPB Q8H-IV CAN; Protocol Last Admin: 02/22/18 10:26 Dose: 100 mls/hr Methadone HCl 120 mg/ (Methadone HCl 5 mg) 125 mg PO DAILY@0600 [facility] Last Admin: 02/22/18 05:36 Dose: 125 mg Methylprednisolone Sodium Succinate (Solu-Medrol -) 40 mg IVPUSH Q6H-IV CAN Last Admin: 02/22/18 08:14 Dose: 40 mg Quetiapine Fumarate (Seroquel -) 50 mg PO HS CAN Last Admin: 02/21/18 21:20 Dose: 50 mg Ranitidine HCl (Zantac -) 150 mg PO BID CAN Last Admin: 02/22/18 10:26 Dose: 150 mg CBC, BMP 02/20/18 08:50 02/20/18 08:50 Physical Exam. Constitutional: Yes: No Distress. comfortable. Eyes: Yes: Conjunctiva Clear Neck: Yes: Supple. no jvd. Cardiovascular: Yes: Regular Rate and Rhythm Respiratory: Yes: Bilateral wheezes Edema: No Neurological: Yes: Alert Psychiatric: Yes: Alert Assessment/Plan Clinically same stll wheezing Continue present care abx steroids On methadone daily oob - chair will follow. Problem List - Problems (1) Methadone dependence Code(s): F11.20 - OPIOID DEPENDENCE, UNCOMPLICATED (2) Smoker Code(s): F17.200 - NICOTINE DEPENDENCE, UNSPECIFIED, UNCOMPLICATED (3) Pneumonia Code(s): J18.9 - PNEUMONIA, UNSPECIFIED ORGANISM Qualifiers: Pneumonia type: due to unspecified organism Laterality: right Lung location: unspecified part of lung Qualified Code(s): J18.9 - Pneumonia, unspecified organism
--- NOTE | 2018-02-22 13:28 | PN ---
Progress Note, Physician History of Present Illness: PULMONARY ALERT,SLOWLY IMPROVING,LESS CONGESTED,LESS DYSPNEIC - Current Medication List Current Medications: Active Medications Acetaminophen (Tylenol -) 650 mg PO Q4H PRN PRN Reason: PAIN SCALE 3-8 Albuterol/Ipratropium (Duoneb -) 1 amp NEB Q6H PRN PRN Reason: SHORTNESS OF BREATH Budesonide/Formoterol Fumarate (Symbicort 160/4.5mcg -) 2 puff IH BID [facility] Last Admin: 02/22/18 10:26 Dose: 2 puff Clonazepam (Klonopin -) 0.5 mg PO Q8H PRN PRN Reason: ANXIETY Last Admin: 02/21/18 21:20 Dose: 0.5 mg Heparin Sodium (Porcine) (Heparin -) 5,000 unit SQ TID [facility] Last Admin: 02/22/18 05:34 Dose: 5,000 unit Potassium Chloride/Sodium Chloride (Ns+20 Meq Kcl -) 20 meq in 1,000 mls @ 100 mls/hr IV ASDIR [facility] Last Admin: 02/22/18 05:58 Dose: 100 mls/hr Piperacillin Sod/Tazobactam (Sod 3.375 gm/ Dextrose) 50 mls @ 100 mls/hr IVPB Q8H-IV [facility]; Protocol Last Admin: 02/22/18 10:26 Dose: 100 mls/hr Methadone HCl 120 mg/ (Methadone HCl 5 mg) 125 mg PO DAILY@0600 [facility] Last Admin: 02/22/18 05:36 Dose: 125 mg Methylprednisolone Sodium Succinate (Solu-Medrol -) 40 mg IVPUSH Q6H-IV [facility] Last Admin: 02/22/18 08:14 Dose: 40 mg Quetiapine Fumarate (Seroquel -) 50 mg PO HS [facility] Last Admin: 02/21/18 21:20 Dose: 50 mg Ranitidine HCl (Zantac -) 150 mg PO BID [facility] Last Admin: 02/22/18 10:26 Dose: 150 mg - Objective Vital Signs: Vital Signs Temperature 97.9 F 02/22/18 10:42 Pulse Rate 67 02/22/18 10:42 Respiratory Rate 18 02/22/18 10:42 Blood Pressure 128/77 02/22/18 10:42 O2 Sat by Pulse Oximetry (%) 100 02/21/18 21:00 Constitutional: Yes: Well Nourished, Calm Eyes: Yes: WNL HENT: Yes: WNL Neck: Yes: WNL Cardiovascular: Yes: Regular Rate and Rhythm, S1, S2 Respiratory: Yes: Wheezes (BILATERAL WHEEZES) Gastrointestinal: Yes: Normal Bowel Sounds, Soft Extremities: Yes: WNL Edema: No Labs: Problem List - Problems (1) Asthma attack Code(s): J45.901 - UNSPECIFIED ASTHMA WITH (ACUTE) EXACERBATION (2) Methadone dependence Code(s): F11.20 - OPIOID DEPENDENCE, UNCOMPLICATED (3) Pneumonia Code(s): J18.9 - PNEUMONIA, UNSPECIFIED ORGANISM Qualifiers: Pneumonia type: due to unspecified organism Laterality: right Lung location: unspecified part of lung Qualified Code(s): J18.9 - Pneumonia, unspecified organism (4) Smoker Code(s): F17.200 - NICOTINE DEPENDENCE, UNSPECIFIED, UNCOMPLICATED (5) Acute hypoxemic respiratory failure Code(s): J96.01 - ACUTE RESPIRATORY FAILURE WITH HYPOXIA (6) Tobacco abuse Code(s): Z72.0 - TOBACCO USE (7) Tobacco abuse counseling Code(s): Z71.6 - TOBACCO ABUSE COUNSELING Assessment/Plan IMP ACUTE HYPOXEMIC RESPIRATORY FAILURE BILATERAL PNEUMONIA ASTHMA EXACERBATION OPIOID DEPENDENCE TOBACCO ABUSE PLAN IV ABX O2 MEDROL SAME DOSE INHALED BRONCHODILATORS CULTURES PFTS OUTPATIENT F/U CHEST CT 6-8 WKS TO CONFIRM RESOLUTION OF INFILTRATES SMOKING CESSATION COUNSELED DR SAMSON Problem List - Problems (1) Asthma attack Code(s): J45.901 - UNSPECIFIED ASTHMA WITH (ACUTE) EXACERBATION (2) Methadone dependence Code(s): F11.20 - OPIOID DEPENDENCE, UNCOMPLICATED (3) Pneumonia Code(s): J18.9 - PNEUMONIA, UNSPECIFIED ORGANISM Qualifiers: Pneumonia type: due to unspecified organism Laterality: right Lung location: unspecified part of lung Qualified Code(s): J18.9 - Pneumonia, unspecified organism (4) Smoker Code(s): F17.200 - NICOTINE DEPENDENCE, UNSPECIFIED, UNCOMPLICATED (5) Acute hypoxemic respiratory failure Code(s): J96.01 - ACUTE RESPIRATORY FAILURE WITH HYPOXIA (6) Tobacco abuse Code(s): Z72.0 - TOBACCO USE (7) Tobacco abuse counseling Code(s): Z71.6 - TOBACCO ABUSE COUNSELING
[2018-02-22] MEDS: clonazePAM 0.5 MG TABLET PO PRN (13:52)
[2018-02-22] MEDS ORDERED: QUEtiapine FUMARATE 25 MG TABLET (FP) ONE (20:10)
[2018-02-22] MEDS: QUEtiapine FUMARATE 50 MG TABLET PO SCH (21:00)
[2018-02-22] MEDS ORDERED: LOPERAMIDE HCL 2 MG CAPSULE PO ONE (23:00)
[2018-02-23] MEDS ORDERED: PIPERACILLIN/TAZOBACTAM 3.375 GM VIAL IVPB ONE ×3 (01:03→16:46)
[2018-02-23] MEDS ORDERED: DEXTROSE 5%-WATER - 50 ML IVPB ONE ×3 (01:03→16:47)
[2018-02-23] MEDS: PIPERACILLIN/TAZOB 3.375 GM 3.375 GM in DEXTROSE 5%-WATER - 50 ML IVPB SCH ×3 (01:32→17:23)
[2018-02-23] MEDS: methylPREDNISolone NA SUCC 40 MG/1 ML VIAL IVPUSH SCH ×4 (02:10→21:41)
[2018-02-23] MEDS ORDERED: METHADONE HCL 5 MG TABLET ONE (05:29)
[2018-02-23] MEDS ORDERED: METHADONE HCL 40 MG DISPERSABLE TABLET ONE (05:29)
[2018-02-23] MEDS: METHADONE 120 MG, METHADONE 5 MG PO SCH (05:46)
[2018-02-23] MEDS: HEPARIN NA (PORCINE) 5,000 UNITS/ML 1ML VIAL SQ SCH ×3 (05:46→21:41)
--- NOTE | 2018-02-23 09:33 | PN ---
Progress Note (short form) - Note Progress Note: pt feels same still coughing / wheezing Vital Signs Temp 97.7 F 02/23/18 05:00 Pulse 46 L 02/23/18 05:00 Resp 20 02/23/18 05:00 BP 106/97 02/23/18 05:00 Pulse Ox 97 02/22/18 21:00 Intake & Output 02/22/18 02/22/18 02/23/18 11:59 23:59 11:59 Intake Total 1050 1650 640 Balance 1050 1650 640 Intake: IV 700 700 NS+20 MEQ KCL - 20 meq In 700 700 1,000 ml @ 100 mls/hr IV ASDIR [facility] Rx#: [id number] IVPB 50 150 Oral 300 800 640 Other: Voiding Method Toilet Toilet Toilet Active Medications Acetaminophen (Tylenol -) 650 mg PO Q4H PRN PRN Reason: PAIN SCALE 3-8 Albuterol/Ipratropium (Duoneb -) 1 amp NEB Q6H PRN PRN Reason: SHORTNESS OF BREATH Budesonide/Formoterol Fumarate (Symbicort 160/4.5mcg -) 2 puff IH BID [facility] Last Admin: 02/22/18 21:00 Dose: 2 puff Clonazepam (Klonopin -) 0.5 mg PO Q8H PRN PRN Reason: ANXIETY Last Admin: 02/22/18 13:52 Dose: 0.5 mg Heparin Sodium (Porcine) (Heparin -) 5,000 unit SQ TID [facility] Last Admin: 02/23/18 05:46 Dose: 5,000 unit Piperacillin Sod/Tazobactam (Sod 3.375 gm/ Dextrose) 50 mls @ 100 mls/hr IVPB Q8H-IV [facility]; Protocol Last Admin: 02/23/18 01:32 Dose: 100 mls/hr Methadone HCl 120 mg/ (Methadone HCl 5 mg) 125 mg PO DAILY@0600 [facility] Last Admin: 02/23/18 05:46 Dose: 125 mg Methylprednisolone Sodium Succinate (Solu-Medrol -) 40 mg IVPUSH Q6H-IV [facility] Last Admin: 02/23/18 02:10 Dose: 40 mg Quetiapine Fumarate (Seroquel -) 50 mg PO HS [facility] Last Admin: 02/22/18 21:00 Dose: 50 mg Ranitidine HCl (Zantac -) 150 mg PO BID [facility] Last Admin: 02/22/18 21:00 Dose: 150 mg CBC, BMP 02/20/18 08:50 02/20/18 08:50 Physical Exam. Constitutional: Yes: No Distress. mid anxiety + Eyes: Yes: Conjunctiva Clear Neck: Yes: Supple. no jvd. Cardiovascular: Yes: Regular Rate and Rhythm Respiratory: Yes: Bilateral wheezes Edema: No Neurological: Yes: Alert Psychiatric: Yes: Alert Assessment/Plan Clinically same still wheezing Continue present care abx steroids On methadone daily oob - chair Pulmonary to follow. will follow. Problem List - Problems (1) Methadone dependence Code(s): F11.20 - OPIOID DEPENDENCE, UNCOMPLICATED (2) Smoker Code(s): F17.200 - NICOTINE DEPENDENCE, UNSPECIFIED, UNCOMPLICATED (3) Pneumonia Code(s): J18.9 - PNEUMONIA, UNSPECIFIED ORGANISM Qualifiers: Pneumonia type: due to unspecified organism Laterality: right Lung location: unspecified part of lung Qualified Code(s): J18.9 - Pneumonia, unspecified organism
[2018-02-23] MEDS: RANITIDINE HCL 150 MG TABLET (FP) PO SCH ×2 (09:57→21:42)
[2018-02-23] MEDS: BUDESONIDE/FORMETEROL FUMARATE 160/4.5 mcg INHALER IH SCH ×2 (10:31→21:42)
[2018-02-23] MEDS: clonazePAM 0.5 MG TABLET PO PRN ×2 (10:58→17:26)
--- NOTE | 2018-02-23 14:34 | PN ---
Progress Note (short form) - Note Progress Note: PULMONARY Still with shortness of breath, cough with brown sputum and wheezing. No fevers. Vital Signs Period Temp Pulse Resp BP Sys/Bermudez Pulse Ox Last 24 Hr 97.6 F-98.2 F 46-80 18-20 106-143/78-97 97 Gen: tachypneic with ambulating Heart: RRR Lung: bilateral rhonchi, wheezes Abd: soft, nontender Ext: no edema CBC, BMP 02/20/18 08:50 02/20/18 08:50 Active Medications Acetaminophen (Tylenol -) 650 mg PO Q4H PRN PRN Reason: PAIN SCALE 3-8 Albuterol/Ipratropium (Duoneb -) 1 amp NEB Q6H PRN PRN Reason: SHORTNESS OF BREATH Budesonide/Formoterol Fumarate (Symbicort 160/4.5mcg -) 2 puff IH BID [facility] Last Admin: 02/23/18 10:31 Dose: 2 puff Clonazepam (Klonopin -) 0.5 mg PO Q8H PRN PRN Reason: ANXIETY Last Admin: 02/23/18 10:58 Dose: 0.5 mg Heparin Sodium (Porcine) (Heparin -) 5,000 unit SQ TID [facility] Last Admin: 02/23/18 13:58 Dose: 5,000 unit Piperacillin Sod/Tazobactam (Sod 3.375 gm/ Dextrose) 50 mls @ 100 mls/hr IVPB Q8H-IV [facility]; Protocol Last Admin: 02/23/18 09:57 Dose: 100 mls/hr Methadone HCl 120 mg/ (Methadone HCl 5 mg) 125 mg PO DAILY@0600 [facility] Last Admin: 02/23/18 05:46 Dose: 125 mg Methylprednisolone Sodium Succinate (Solu-Medrol -) 40 mg IVPUSH Q6H-IV [facility] Last Admin: 02/23/18 09:57 Dose: 40 mg Quetiapine Fumarate (Seroquel -) 50 mg PO HS [facility] Last Admin: 02/22/18 21:00 Dose: 50 mg Ranitidine HCl (Zantac -) 150 mg PO BID [facility] Last Admin: 02/23/18 09:57 Dose: 150 mg A/P Acute Hypoxic Respiratory Failure Pneumonia Acute Asthma Exacerbation Methadone Maintenance Smoker - continue medrol at current dose - inhaled bronchodilators - O2 to keep Spo2 >90% - continue antibiotics - DVT prophylaxis - will need outpt f/u of chest imaging to ensure resolution of infiltrates - smoking cessation
--- NOTE | 2018-02-23 17:43 | PN ---
Progress Note, Physician History of Present Illness: still coughing says he is getting better - Current Medication List Current Medications: Active Medications Acetaminophen (Tylenol -) 650 mg PO Q4H PRN PRN Reason: PAIN SCALE 3-8 Albuterol/Ipratropium (Duoneb -) 1 amp NEB Q6H PRN PRN Reason: SHORTNESS OF BREATH Budesonide/Formoterol Fumarate (Symbicort 160/4.5mcg -) 2 puff IH BID [facility] Last Admin: 02/23/18 10:31 Dose: 2 puff Clonazepam (Klonopin -) 0.5 mg PO Q8H PRN PRN Reason: ANXIETY Last Admin: 02/23/18 17:26 Dose: 0.5 mg Heparin Sodium (Porcine) (Heparin -) 5,000 unit SQ TID [facility] Last Admin: 02/23/18 13:58 Dose: 5,000 unit Piperacillin Sod/Tazobactam (Sod 3.375 gm/ Dextrose) 50 mls @ 100 mls/hr IVPB Q8H-IV [facility]; Protocol Last Admin: 02/23/18 17:23 Dose: 100 mls/hr Methadone HCl 120 mg/ (Methadone HCl 5 mg) 125 mg PO DAILY@0600 [facility] Last Admin: 02/23/18 05:46 Dose: 125 mg Methylprednisolone Sodium Succinate (Solu-Medrol -) 40 mg IVPUSH Q6H-IV [facility] Last Admin: 02/23/18 16:08 Dose: 40 mg Quetiapine Fumarate (Seroquel -) 50 mg PO HS [facility] Last Admin: 02/22/18 21:00 Dose: 50 mg Ranitidine HCl (Zantac -) 150 mg PO BID [facility] Last Admin: 02/23/18 09:57 Dose: 150 mg - Objective Vital Signs: Vital Signs Temperature 98.2 F 02/23/18 16:49 Pulse Rate 57 L 02/23/18 16:49 Respiratory Rate 20 02/23/18 16:49 Blood Pressure 134/94 02/23/18 16:49 O2 Sat by Pulse Oximetry (%) 97 02/22/18 21:00 Constitutional: Yes: No Distress, Calm Cardiovascular: Yes: Regular Rate and Rhythm Respiratory: Yes: Regular, Other (wheezins still present) Gastrointestinal: Yes: Normal Bowel Sounds, Soft Musculoskeletal: Yes: WNL Extremities: Yes: WNL Neurological: Yes: Alert, Oriented Psychiatric: Yes: Alert, Oriented Labs: CBC, BMP 02/20/18 08:50 02/20/18 08:50 INR, PTT INR 1.39 (0.83-1.09) H 02/19/18 15:05 Assessment/Plan Problem List - Problems (1) Methadone dependence Code(s): F11.20 - OPIOID DEPENDENCE, UNCOMPLICATED (2) Smoker Code(s): F17.200 - NICOTINE DEPENDENCE, UNSPECIFIED, UNCOMPLICATED (3) Pneumonia Code(s): J18.9 - PNEUMONIA, UNSPECIFIED ORGANISM Qualifiers: Pneumonia type: due to unspecified organism Laterality: right Lung location: unspecified part of lung Qualified Code(s): J18.9 - Pneumonia, unspecified organism 4 weakness plan continue current abx incentive noman rest as per the team monitor cough
[2018-02-23] MEDS ORDERED: QUEtiapine FUMARATE 25 MG TABLET (FP) ONE (21:38)
[2018-02-23] MEDS: QUEtiapine FUMARATE 50 MG TABLET PO SCH (21:42)
[2018-02-24] MEDS ORDERED: PIPERACILLIN/TAZOBACTAM 3.375 GM VIAL IVPB ONE ×3 (02:01→17:45)
[2018-02-24] MEDS ORDERED: DEXTROSE 5%-WATER - 50 ML IVPB ONE ×3 (02:01→17:46)
[2018-02-24] MEDS: methylPREDNISolone NA SUCC 40 MG/1 ML VIAL IVPUSH SCH ×4 (02:09→21:59)
[2018-02-24] MEDS: PIPERACILLIN/TAZOB 3.375 GM 3.375 GM in DEXTROSE 5%-WATER - 50 ML IVPB SCH ×3 (02:09→18:11)
[2018-02-24] MEDS ORDERED: MAG HYDROX/AL HYDROX/SIMETH 30 ML UNIT-DOSE CUP PO PRN (02:33)
[2018-02-24] MEDS ORDERED: METHADONE HCL 5 MG TABLET ONE (05:49)
[2018-02-24] MEDS ORDERED: METHADONE HCL 40 MG DISPERSABLE TABLET ONE (05:49)
[2018-02-24] MEDS: METHADONE 120 MG, METHADONE 5 MG PO SCH (05:54)
[2018-02-24] MEDS: HEPARIN NA (PORCINE) 5,000 UNITS/ML 1ML VIAL SQ SCH ×3 (05:55→21:59)
[2018-02-24] MEDS: RANITIDINE HCL 150 MG TABLET (FP) PO SCH ×2 (09:13→21:58)
[2018-02-24] MEDS: BUDESONIDE/FORMETEROL FUMARATE 160/4.5 mcg INHALER IH SCH ×2 (09:16→21:59)
[2018-02-24] MEDS ORDERED: ALBUTEROL SO4 0.083% IH SOL 2.5 MG/3 ML VIAL.NEB. NEB PRN (10:00)
--- NOTE | 2018-02-24 10:00 | PN ---
Progress Note (short form) - Note Progress Note: Vital Signs - 24 hr states that SOB is better Coughing_, productive-- yellowish to brown phlegm 02/23/18 02/23/18 02/23/18 15:52 16:49 21:00 Temperature 97.9 F 98.2 F 98.4 F Pulse Rate 68 57 L 83 Respiratory 18 20 22 H Rate Blood Pressure 119/92 134/94 143/85 O2 Sat by Pulse 94 L Oximetry (%) 02/24/18 02/24/18 06:35 09:11 Temperature 98.4 F 98.4 F Pulse Rate 79 92 H Respiratory 20 18 Rate Blood Pressure 144/74 100/70 O2 Sat by Pulse Oximetry (%) Current Medications Generic Name Dose Route Start Last Admin Trade Name Freq PRN Reason Stop Dose Admin Acetaminophen 650 mg 02/20/18 18:40 Tylenol - PO Q4H PRN PAIN SCALE 3-8 Al Hydroxide/Mg Hydroxide 30 ml 02/24/18 02:33 02/24/18 02:42 Mylanta Oral Suspension - PO 30 ml Q6H PRN Administration DYSPEPSIA Budesonide/Formoterol Fumarate 2 puff 02/21/18 22:00 02/24/18 09:16 Symbicort 160/4.5mcg - IH 2 puff BID [facility] Administration Clonazepam 0.5 mg 02/24/18 02:34 Klonopin - PO Q8H PRN ANXIETY Heparin Sodium (Porcine) 5,000 unit 02/20/18 06:00 02/24/18 05:55 Heparin - SQ 5,000 unit TID [facility] Administration Piperacillin Sod/Tazobactam 50 mls @ 100 mls/hr 02/20/18 18:00 02/24/18 09:13 Sod 3.375 gm/ Dextrose IVPB 100 mls/hr Q8H-IV [facility] Administration Protocol Methadone HCl 120 mg/ 125 mg 02/21/18 08:00 02/24/18 05:54 Methadone HCl 5 mg PO 125 mg DAILY@0600 [facility] Administration Methylprednisolone Sodium Succinate 40 mg 02/20/18 13:00 02/24/18 09:13 Solu-Medrol - IVPUSH 40 mg Q6H-IV [facility] Administration Quetiapine Fumarate 50 mg 02/19/18 22:00 02/23/18 21:42 Seroquel - PO 50 mg HS [facility] Administration Ranitidine HCl 150 mg 02/21/18 22:00 02/24/18 09:13 Zantac - PO 150 mg BID [facility] Administration S1 S2 RRR Lungs ronchi B/L Abd- soft, NT No edema PLAN B/L pneumonia -nebs standing - iv antibiotics - solumedrol add Robitussin Problem List - Problems (1) Acute hypoxemic respiratory failure Code(s): J96.01 - ACUTE RESPIRATORY FAILURE WITH HYPOXIA (2) Asthma attack Code(s): J45.901 - UNSPECIFIED ASTHMA WITH (ACUTE) EXACERBATION (3) Methadone dependence Code(s): F11.20 - OPIOID DEPENDENCE, UNCOMPLICATED (4) Pneumonia Code(s): J18.9 - PNEUMONIA, UNSPECIFIED ORGANISM Qualifiers: Pneumonia type: due to unspecified organism Laterality: right Lung location: unspecified part of lung Qualified Code(s): J18.9 - Pneumonia, unspecified organism (5) Sepsis Code(s): A41.9 - SEPSIS, UNSPECIFIED ORGANISM Qualifiers: Sepsis type: sepsis due to unspecified organism Qualified Code(s): A41.9 - Sepsis, unspecified organism (6) Smoker Code(s): F17.200 - NICOTINE DEPENDENCE, UNSPECIFIED, UNCOMPLICATED (7) Tobacco abuse Code(s): Z72.0 - TOBACCO USE
[2018-02-24] MEDS: clonazePAM 0.5 MG TABLET PO PRN ×2 (10:35→21:58)
[2018-02-24] MEDS: ALBUTEROL SO4 2.5/IPRATROPIUM 0.5 INH SOL 3 ML VIAL.NEB. NEB SCH ×3 (11:00→21:00)
--- NOTE | 2018-02-24 12:39 | PN ---
Progress Note, Physician History of Present Illness: still with wheeze says still coughing - Current Medication List Current Medications: Active Medications Acetaminophen (Tylenol -) 650 mg PO Q4H PRN PRN Reason: PAIN SCALE 3-8 Al Hydroxide/Mg Hydroxide (Mylanta Oral Suspension -) 30 ml PO Q6H PRN PRN Reason: DYSPEPSIA Last Admin: 02/24/18 02:42 Dose: 30 ml Albuterol Sulfate (Ventolin 0.083% Nebulizer Soln -) 1 amp NEB Q6H PRN PRN Reason: SHORT OF BREATH/WHEEZING Albuterol/Ipratropium (Duoneb -) 1 amp NEB RQ4H [facility] Budesonide/Formoterol Fumarate (Symbicort 160/4.5mcg -) 2 puff IH BID [facility] Last Admin: 02/24/18 09:16 Dose: 2 puff Clonazepam (Klonopin -) 0.5 mg PO Q8H PRN PRN Reason: ANXIETY Last Admin: 02/24/18 10:35 Dose: 0.5 mg Heparin Sodium (Porcine) (Heparin -) 5,000 unit SQ TID [facility] Last Admin: 02/24/18 05:55 Dose: 5,000 unit Piperacillin Sod/Tazobactam (Sod 3.375 gm/ Dextrose) 50 mls @ 100 mls/hr IVPB Q8H-IV [facility]; Protocol Last Admin: 02/24/18 09:13 Dose: 100 mls/hr Methadone HCl 120 mg/ (Methadone HCl 5 mg) 125 mg PO DAILY@0600 [facility] Last Admin: 02/24/18 05:54 Dose: 125 mg Methylprednisolone Sodium Succinate (Solu-Medrol -) 40 mg IVPUSH Q6H-IV [facility] Last Admin: 02/24/18 09:13 Dose: 40 mg Quetiapine Fumarate (Seroquel -) 50 mg PO HS [facility] Last Admin: 02/23/18 21:42 Dose: 50 mg Ranitidine HCl (Zantac -) 150 mg PO BID [facility] Last Admin: 02/24/18 09:13 Dose: 150 mg - Objective Vital Signs: Vital Signs Temperature 98.4 F 02/24/18 09:11 Pulse Rate 92 H 02/24/18 09:11 Respiratory Rate 18 02/24/18 09:11 Blood Pressure 100/70 02/24/18 09:11 O2 Sat by Pulse Oximetry (%) 94 L 02/23/18 21:00 Constitutional: Yes: No Distress, Calm Cardiovascular: Yes: Regular Rate and Rhythm Respiratory: Yes: Regular, On Nasal O2, Wheezes Gastrointestinal: Yes: Normal Bowel Sounds, Soft Musculoskeletal: Yes: WNL Extremities: Yes: WNL Neurological: Yes: Alert, Oriented Psychiatric: Yes: Alert, Oriented Labs: CBC, BMP 02/20/18 08:50 02/20/18 08:50 INR, PTT INR 1.39 (0.83-1.09) H 02/19/18 15:05 Assessment/Plan Problem List - Problems (1) Methadone dependence Code(s): F11.20 - OPIOID DEPENDENCE, UNCOMPLICATED (2) Smoker Code(s): F17.200 - NICOTINE DEPENDENCE, UNSPECIFIED, UNCOMPLICATED (3) Pneumonia Code(s): J18.9 - PNEUMONIA, UNSPECIFIED ORGANISM Qualifiers: Pneumonia type: due to unspecified organism Laterality: right Lung location: unspecified part of lung Qualified Code(s): J18.9 - Pneumonia, unspecified organism 4 weakness plan continue current abx incentive noman rest as per the team monitor cough
--- NOTE | 2018-02-24 14:06 | PN ---
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 No fevers. Vital Signs Period Temp Pulse Resp BP Sys/Bermudez Pulse Ox Last 24 Hr 97.9 F-98.4 F 57-92 18-22 100-145/70-94 94 Gen: less tachypneic with speaking Heart: RRR Lung: less rhonchi, wheezes Abd: soft, nontender Ext: no edema CBC, BMP 02/20/18 08:50 02/20/18 08:50 Active Medications Acetaminophen (Tylenol -) 650 mg PO Q4H PRN PRN Reason: PAIN SCALE 3-8 Al Hydroxide/Mg Hydroxide (Mylanta Oral Suspension -) 30 ml PO Q6H PRN PRN Reason: DYSPEPSIA Last Admin: 02/24/18 02:42 Dose: 30 ml Albuterol Sulfate (Ventolin 0.083% Nebulizer Soln -) 1 amp NEB Q6H PRN PRN Reason: SHORT OF BREATH/WHEEZING Albuterol/Ipratropium (Duoneb -) 1 amp NEB RQ4H [facility] Budesonide/Formoterol Fumarate (Symbicort 160/4.5mcg -) 2 puff IH BID [facility] Last Admin: 02/24/18 09:16 Dose: 2 puff Clonazepam (Klonopin -) 0.5 mg PO Q8H PRN PRN Reason: ANXIETY Last Admin: 02/24/18 10:35 Dose: 0.5 mg Heparin Sodium (Porcine) (Heparin -) 5,000 unit SQ TID [facility] Last Admin: 02/24/18 05:55 Dose: 5,000 unit Piperacillin Sod/Tazobactam (Sod 3.375 gm/ Dextrose) 50 mls @ 100 mls/hr IVPB Q8H-IV [facility]; Protocol Last Admin: 02/24/18 09:13 Dose: 100 mls/hr Methadone HCl 120 mg/ (Methadone HCl 5 mg) 125 mg PO DAILY@0600 [facility] Last Admin: 02/24/18 05:54 Dose: 125 mg Methylprednisolone Sodium Succinate (Solu-Medrol -) 40 mg IVPUSH Q6H-IV [facility] Last Admin: 02/24/18 09:13 Dose: 40 mg Quetiapine Fumarate (Seroquel -) 50 mg PO HS [facility] Last Admin: 02/23/18 21:42 Dose: 50 mg Ranitidine HCl (Zantac -) 150 mg PO BID [facility] Last Admin: 02/24/18 09:13 Dose: 150 mg A/P Acute Hypoxic Respiratory Failure Pneumonia Acute Asthma Exacerbation Methadone Maintenance Smoker - continue medrol at current dose - inhaled bronchodilators - O2 to keep Spo2 >90% - continue antibiotics - DVT prophylaxis - will need outpt f/u of chest imaging to ensure resolution of infiltrates - smoking cessation - when ready for discharge, check ambulatory SpO2 on room air to assess for home O2
[2018-02-24 17:17] LABS: MYCOPLASMA PNEUMONIAE,IG G AB 250 U/mL (0-99); MYCOPLASMA PNEUMONIAE,IGM AB <770 U/mL (0-769)
[2018-02-24] MEDS ORDERED: guaiFENesin 200 MG/10 ML 10 ML UNIT-DOSE CUPS PO PRN (19:21)
[2018-02-24] MEDS ORDERED: QUEtiapine FUMARATE 25 MG TABLET (FP) ONE (21:18)
[2018-02-24] MEDS: QUEtiapine FUMARATE 50 MG TABLET PO SCH (21:59)
[2018-02-25] MEDS: ALBUTEROL SO4 2.5/IPRATROPIUM 0.5 INH SOL 3 ML VIAL.NEB. NEB SCH ×6 (00:20→19:20)
[2018-02-25] MEDS ORDERED: PIPERACILLIN/TAZOBACTAM 3.375 GM VIAL IVPB ONE ×3 (00:56→18:20)
[2018-02-25] MEDS ORDERED: DEXTROSE 5%-WATER - 50 ML IVPB ONE ×3 (00:57→18:21)
[2018-02-25] MEDS: PIPERACILLIN/TAZOB 3.375 GM 3.375 GM in DEXTROSE 5%-WATER - 50 ML IVPB SCH ×3 (01:55→18:22)
[2018-02-25] MEDS: methylPREDNISolone NA SUCC 40 MG/1 ML VIAL IVPUSH SCH ×4 (01:59→18:22)
[2018-02-25] MEDS ORDERED: METHADONE HCL 5 MG TABLET ONE (05:15)
[2018-02-25] MEDS ORDERED: METHADONE HCL 40 MG DISPERSABLE TABLET ONE (05:15)
[2018-02-25] MEDS: METHADONE 120 MG, METHADONE 5 MG PO SCH (05:31)
[2018-02-25 08:01] LABS: ALBUMIN 3.2 g/dl (3.4-5.0); ALK PHOS 70 U/L (45-117); ANION GAP 6 MMOL/L (8-16); BILIRUBIN,TOTAL 0.2 mg/dL (0.2-1); BLOOD UREA NITROGEN 12 mg/dL (7-18); CALCIUM 8.9 mg/dL (8.5-10.1); CHLORIDE 102 mmol/L (98-107); CO2 30 mmol/L (21-32); CREATININE 0.9 mg/dL (0.55-1.3); GLUCOSE,RANDOM 151 mg/dL (74-106); POTASSIUM 4.2 mmol/L (3.5-5.1); SGOT/AST 37 U/L (15-37); SGPT/ALT 64 U/L (13-61); SODIUM 138 mmol/L (136-145); TOT PROT 7.2 g/dl (6.4-8.2)
[2018-02-25 08:30] LABS: BASO % 0.2 % (0-2.0); HEMATOCRIT 38.5 % (35.4-49); HEMOGLOBIN 13.4 GM/dL (11.7-16.9); LYMPH % 8.5 % (8-40); MCH 32.3 pg (25.7-33.7); MCHC 34.8 g/dl (32.0-35.9); MEAN CELL VOLUME 92.8 fl (80-96); MEAN PLT VOLUME 7.9 fl (7.5-11.1); NEUT % 86.3 % (42.8-82.8); PLATELET COUNT 319 K/MM3 (134-434); RBC 4.14 M/mm3 (4.00-5.60); WHITE BLOOD COUNT 9.2 K/mm3 (4.0-10.0)
--- NOTE | 2018-02-25 10:02 | PN ---
Progress Note (short form) - Note Progress Note: PULMONARY Feels about the same as yetserday. 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 No fevers. Vital Signs Period Temp Pulse Resp BP Sys/Bermudez Pulse Ox Last 24 Hr 97.7 F-98.9 F 54-76 20-20 131-149/80-85 95 Gen: less tachypneic with speaking Heart: RRR Lung: less rhonchi, wheezes Abd: soft, nontender Ext: no edema CBC, BMP 02/25/18 06:30 02/25/18 06:30 Active Medications Acetaminophen (Tylenol -) 650 mg PO Q4H PRN PRN Reason: PAIN SCALE 3-8 Al Hydroxide/Mg Hydroxide (Mylanta Oral Suspension -) 30 ml PO Q6H PRN PRN Reason: DYSPEPSIA Last Admin: 02/24/18 02:42 Dose: 30 ml Albuterol Sulfate (Ventolin 0.083% Nebulizer Soln -) 1 amp NEB Q6H PRN PRN Reason: SHORT OF BREATH/WHEEZING Albuterol/Ipratropium (Duoneb -) 1 amp NEB RQ4H [facility] Last Admin: 02/25/18 07:36 Dose: 1 amp Budesonide/Formoterol Fumarate (Symbicort 160/4.5mcg -) 2 puff IH BID [facility] Last Admin: 02/24/18 21:59 Dose: 2 puff Clonazepam (Klonopin -) 0.5 mg PO Q8H PRN PRN Reason: ANXIETY Last Admin: 02/24/18 21:58 Dose: 0.5 mg Guaifenesin (Robitussin -) 10 ml PO Q4H PRN PRN Reason: COUGH Heparin Sodium (Porcine) (Heparin -) 5,000 unit SQ BID [facility] Last Admin: 02/24/18 21:59 Dose: 5,000 unit Piperacillin Sod/Tazobactam (Sod 3.375 gm/ Dextrose) 50 mls @ 100 mls/hr IVPB Q8H-IV [facility]; Protocol Last Admin: 02/25/18 01:55 Dose: 100 mls/hr Methadone HCl 120 mg/ (Methadone HCl 5 mg) 125 mg PO DAILY@0600 [facility] Last Admin: 02/25/18 05:31 Dose: 125 mg Methylprednisolone Sodium Succinate (Solu-Medrol -) 40 mg IVPUSH Q8H-IV [facility] Quetiapine Fumarate (Seroquel -) 50 mg PO HS [facility] Last Admin: 02/24/18 21:59 Dose: 50 mg Ranitidine HCl (Zantac -) 150 mg PO BID [facility] Last Admin: 02/24/18 21:58 Dose: 150 mg A/P Acute Hypoxic Respiratory Failure Pneumonia Acute Asthma Exacerbation Methadone Maintenance Smoker - decreased medrol to q8h - inhaled bronchodilators - O2 to keep Spo2 >90% - continue antibiotics - DVT prophylaxis - will need outpt f/u of chest imaging to ensure resolution of infiltrates - smoking cessation - when ready for discharge, check ambulatory SpO2 on room air to assess for home O2
[2018-02-25] MEDS: RANITIDINE HCL 150 MG TABLET (FP) PO SCH ×2 (10:57→21:47)
[2018-02-25] MEDS: HEPARIN NA (PORCINE) 5,000 UNITS/ML 1ML VIAL SQ SCH ×2 (10:57→21:47)
[2018-02-25] MEDS: BUDESONIDE/FORMETEROL FUMARATE 160/4.5 mcg INHALER IH SCH ×2 (10:58→21:46)
--- NOTE | 2018-02-25 12:03 | PN ---
Progress Note (short form) - Note Progress Note: states that SOB is better he is able to ambulate the [place] Vital Signs - 24 hr 02/24/18 02/24/18 02/25/18 18:09 21:00 00:00 Temperature 98.2 F 98.9 F Pulse Rate 76 56 L Respiratory 20 20 20 Rate Blood Pressure 137/85 131/80 O2 Sat by Pulse 95 Oximetry (%) 02/25/18 02/25/18 02/25/18 06:39 11:18 15:04 Temperature 97.7 F 98.4 F Pulse Rate 54 L 86 84 Respiratory 20 18 Rate Blood Pressure 149/82 139/50 L O2 Sat by Pulse 94 L Oximetry (%) Current Medications Generic Name Dose Route Start Last Admin Trade Name Freq PRN Reason Stop Dose Admin Acetaminophen 650 mg 02/20/18 18:40 Tylenol - PO Q4H PRN PAIN SCALE 3-8 Al Hydroxide/Mg Hydroxide 30 ml 02/24/18 02:33 02/24/18 02:42 Mylanta Oral Suspension - PO 30 ml Q6H PRN Administration DYSPEPSIA Albuterol Sulfate 1 amp 02/24/18 10:00 Ventolin 0.083% Nebulizer Soln - NEB Q6H PRN SHORT OF BREATH/WHEEZING Albuterol/Ipratropium 1 amp 02/24/18 10:00 02/25/18 16:15 Duoneb - NEB 1 amp RQ4H CAN Administration Budesonide/Formoterol Fumarate 2 puff 02/21/18 22:00 02/25/18 10:58 Symbicort 160/4.5mcg - IH 2 puff BID CAN Administration Clonazepam 0.5 mg 02/24/18 02:34 02/24/18 21:58 Klonopin - PO 0.5 mg Q8H PRN Administration ANXIETY Guaifenesin 10 ml 02/24/18 19:21 Robitussin - PO Q4H PRN COUGH Heparin Sodium (Porcine) 5,000 unit 02/24/18 22:00 02/25/18 10:57 Heparin - SQ 5,000 unit BID CAN Administration Piperacillin Sod/Tazobactam 50 mls @ 100 mls/hr 02/20/18 18:00 02/25/18 10:57 Sod 3.375 gm/ Dextrose IVPB 100 mls/hr Q8H-IV CAN Administration Protocol Methadone HCl 120 mg/ 125 mg 02/21/18 08:00 02/25/18 05:31 Methadone HCl 5 mg PO 125 mg DAILY@0600 CAN Administration Methylprednisolone Sodium Succinate 40 mg 02/25/18 10:00 02/25/18 10:56 Solu-Medrol - IVPUSH 40 mg Q8H-IV CAN Administration Quetiapine Fumarate 50 mg 02/19/18 22:00 02/24/18 21:59 Seroquel - PO 50 mg HS CAN Administration Ranitidine HCl 150 mg 02/21/18 22:00 02/25/18 10:57 Zantac - PO 150 mg BID CAN Administration Laboratory Results - last 24 hr 02/21/18 02/25/18 02/25/18 06:00 06:30 06:30 WBC 9.2 RBC 4.14 Hgb 13.4 Hct 38.5 MCV 92.8 MCH 32.3 MCHC 34.8 RDW 13.0 Plt Count 319 D MPV 7.9 Absolute Neuts (auto) 8.0 Neutrophils % 86.3 H Lymphocytes % 8.5 D Monocytes % 5.0 Eosinophils % 0.0 Basophils % 0.2 Nucleated RBC % 0 Sodium 138 Potassium 4.2 Chloride 102 Carbon Dioxide 30 Anion Gap 6 L BUN 12 Creatinine 0.9 Creat Clearance w eGFR > 60 Random Glucose 151 H Calcium 8.9 Total Bilirubin 0.2 AST 37 ALT 64 H Alkaline Phosphatase 70 Total Protein 7.2 Albumin 3.2 L M.pneumoniae IgG Titer 250 H M.pneumoniae IgM Titer <770 S1 S2 RRR Lungs ronchi B/L Abd- soft, NT No edema PLAN B/L pneumonia COPD Smoker -nebs standing - iv antibiotics - solumedrol taper - pt does not qualify for O2 Problem List - Problems (1) Acute hypoxemic respiratory failure Code(s): J96.01 - ACUTE RESPIRATORY FAILURE WITH HYPOXIA (2) Asthma attack Code(s): J45.901 - UNSPECIFIED ASTHMA WITH (ACUTE) EXACERBATION (3) Methadone dependence Code(s): F11.20 - OPIOID DEPENDENCE, UNCOMPLICATED (4) Pneumonia Code(s): J18.9 - PNEUMONIA, UNSPECIFIED ORGANISM Qualifiers: Pneumonia type: due to unspecified organism Laterality: right Lung location: unspecified part of lung Qualified Code(s): J18.9 - Pneumonia, unspecified organism (5) Sepsis Code(s): A41.9 - SEPSIS, UNSPECIFIED ORGANISM Qualifiers: Sepsis type: sepsis due to unspecified organism Qualified Code(s): A41.9 - Sepsis, unspecified organism (6) Smoker Code(s): F17.200 - NICOTINE DEPENDENCE, UNSPECIFIED, UNCOMPLICATED (7) Tobacco abuse Code(s): Z72.0 - TOBACCO USE
--- NOTE | 2018-02-25 13:20 | PN ---
Progress Note, Physician History of Present Illness: stable still with sob but looks much comfortable walking around sputum color improving - Current Medication List Current Medications: Active Medications Acetaminophen (Tylenol -) 650 mg PO Q4H PRN PRN Reason: PAIN SCALE 3-8 Al Hydroxide/Mg Hydroxide (Mylanta Oral Suspension -) 30 ml PO Q6H PRN PRN Reason: DYSPEPSIA Last Admin: 02/24/18 02:42 Dose: 30 ml Albuterol Sulfate (Ventolin 0.083% Nebulizer Soln -) 1 amp NEB Q6H PRN PRN Reason: SHORT OF BREATH/WHEEZING Albuterol/Ipratropium (Duoneb -) 1 amp NEB RQ4H CAN Last Admin: 02/25/18 11:08 Dose: 1 amp Budesonide/Formoterol Fumarate (Symbicort 160/4.5mcg -) 2 puff IH BID [facility] Last Admin: 02/25/18 10:58 Dose: 2 puff Clonazepam (Klonopin -) 0.5 mg PO Q8H PRN PRN Reason: ANXIETY Last Admin: 02/24/18 21:58 Dose: 0.5 mg Guaifenesin (Robitussin -) 10 ml PO Q4H PRN PRN Reason: COUGH Heparin Sodium (Porcine) (Heparin -) 5,000 unit SQ BID [facility] Last Admin: 02/25/18 10:57 Dose: 5,000 unit Piperacillin Sod/Tazobactam (Sod 3.375 gm/ Dextrose) 50 mls @ 100 mls/hr IVPB Q8H-IV CAN; Protocol Last Admin: 02/25/18 10:57 Dose: 100 mls/hr Methadone HCl 120 mg/ (Methadone HCl 5 mg) 125 mg PO DAILY@0600 [facility] Last Admin: 02/25/18 05:31 Dose: 125 mg Methylprednisolone Sodium Succinate (Solu-Medrol -) 40 mg IVPUSH Q8H-IV CAN Last Admin: 02/25/18 10:56 Dose: 40 mg Quetiapine Fumarate (Seroquel -) 50 mg PO HS [facility] Last Admin: 02/24/18 21:59 Dose: 50 mg Ranitidine HCl (Zantac -) 150 mg PO BID [facility] Last Admin: 02/25/18 10:57 Dose: 150 mg - Objective Vital Signs: Vital Signs Temperature 97.7 F 02/25/18 06:39 Pulse Rate 86 02/25/18 11:18 Respiratory Rate 20 02/25/18 06:39 Blood Pressure 149/82 02/25/18 06:39 O2 Sat by Pulse Oximetry (%) 94 L 02/25/18 11:18 Constitutional: Yes: No Distress, Calm Cardiovascular: Yes: Regular Rate and Rhythm Respiratory: Yes: Regular, CTA Bilaterally Gastrointestinal: Yes: Normal Bowel Sounds, Soft Musculoskeletal: Yes: WNL Extremities: Yes: WNL Neurological: Yes: Alert, Oriented Psychiatric: Yes: Alert, Oriented Labs: CBC, BMP 02/25/18 06:30 02/25/18 06:30 INR, PTT INR 1.39 (0.83-1.09) H 02/19/18 15:05 Assessment/Plan Problem List - Problems (1) Methadone dependence Code(s): F11.20 - OPIOID DEPENDENCE, UNCOMPLICATED (2) Smoker Code(s): F17.200 - NICOTINE DEPENDENCE, UNSPECIFIED, UNCOMPLICATED (3) Pneumonia Code(s): J18.9 - PNEUMONIA, UNSPECIFIED ORGANISM Qualifiers: Pneumonia type: due to unspecified organism Laterality: right Lung location: unspecified part of lung Qualified Code(s): J18.9 - Pneumonia, unspecified organism 4 weakness plan continue current abx incentive noman rest as per the team monitor cough will d/w the team
[2018-02-25 13:35] VITALS: BMI 23.1
[2018-02-25] MEDS ORDERED: QUEtiapine FUMARATE 25 MG TABLET (FP) ONE (21:42)
[2018-02-25] MEDS: clonazePAM 0.5 MG TABLET PO PRN (21:47)
[2018-02-25] MEDS: QUEtiapine FUMARATE 50 MG TABLET PO SCH (21:47)
[2018-02-26] MEDS ORDERED: PIPERACILLIN/TAZOBACTAM 3.375 GM VIAL IVPB ONE ×3 (00:54→17:27)
[2018-02-26] MEDS ORDERED: DEXTROSE 5%-WATER - 50 ML IVPB ONE ×3 (00:54→17:27)
[2018-02-26] MEDS: methylPREDNISolone NA SUCC 40 MG/1 ML VIAL IVPUSH SCH ×3 (01:33→17:38)
[2018-02-26] MEDS: PIPERACILLIN/TAZOB 3.375 GM 3.375 GM in DEXTROSE 5%-WATER - 50 ML IVPB SCH ×3 (01:33→17:38)
[2018-02-26] MEDS ORDERED: METHADONE HCL 5 MG TABLET ONE (05:46)
[2018-02-26] MEDS ORDERED: METHADONE HCL 40 MG DISPERSABLE TABLET ONE (05:47)
[2018-02-26] MEDS: METHADONE 120 MG, METHADONE 5 MG PO SCH (05:52)
[2018-02-26] MEDS: ALBUTEROL SO4 2.5/IPRATROPIUM 0.5 INH SOL 3 ML VIAL.NEB. NEB SCH ×5 (07:20→23:58)
[2018-02-26] MEDS ORDERED: PT OWN MED DRAWER 7, Y5N ONE (09:50)
[2018-02-26] MEDS: BUDESONIDE/FORMETEROL FUMARATE 160/4.5 mcg INHALER IH SCH ×2 (09:55→21:58)
[2018-02-26] MEDS: HEPARIN NA (PORCINE) 5,000 UNITS/ML 1ML VIAL SQ SCH ×2 (09:55→21:57)
[2018-02-26] MEDS: RANITIDINE HCL 150 MG TABLET (FP) PO SCH ×2 (09:56→21:57)
--- NOTE | 2018-02-26 11:33 | PN ---
Progress Note (short form) - Note Progress Note: states that SOB is better he is able to ambulate the [place] Vital Signs - 24 hr Selected Entries 02/26/18 02/26/18 09:00 10:00 Temperature 98.8 F Pulse Rate 75 Respiratory 20 Rate Blood Pressure 103/75 O2 Sat by Pulse 98 Oximetry (%) Current Medications Generic Name Dose Route Start Last Admin Trade Name Freq PRN Reason Stop Dose Admin Acetaminophen 650 mg 02/20/18 18:40 Tylenol - PO Q4H PRN PAIN SCALE 3-8 Al Hydroxide/Mg Hydroxide 30 ml 02/24/18 02:33 02/24/18 02:42 Mylanta Oral Suspension - PO 30 ml Q6H PRN Administration DYSPEPSIA Albuterol Sulfate 1 amp 02/24/18 10:00 Ventolin 0.083% Nebulizer Soln - NEB Q6H PRN SHORT OF BREATH/WHEEZING Albuterol/Ipratropium 1 amp 02/24/18 10:00 02/25/18 16:15 Duoneb - NEB 1 amp RQ4H CAN Administration Budesonide/Formoterol Fumarate 2 puff 02/21/18 22:00 02/25/18 10:58 Symbicort 160/4.5mcg - IH 2 puff BID CAN Administration Clonazepam 0.5 mg 02/24/18 02:34 02/24/18 21:58 Klonopin - PO 0.5 mg Q8H PRN Administration ANXIETY Guaifenesin 10 ml 02/24/18 19:21 Robitussin - PO Q4H PRN COUGH Heparin Sodium (Porcine) 5,000 unit 02/24/18 22:00 02/25/18 10:57 Heparin - SQ 5,000 unit BID CAN Administration Piperacillin Sod/Tazobactam 50 mls @ 100 mls/hr 02/20/18 18:00 02/25/18 10:57 Sod 3.375 gm/ Dextrose IVPB 100 mls/hr Q8H-IV CAN Administration Protocol Methadone HCl 120 mg/ 125 mg 02/21/18 08:00 02/25/18 05:31 Methadone HCl 5 mg PO 125 mg DAILY@0600 CAN Administration Methylprednisolone Sodium Succinate 40 mg 02/25/18 10:00 02/25/18 10:56 Solu-Medrol - IVPUSH 40 mg Q8H-IV CAN Administration Quetiapine Fumarate 50 mg 02/19/18 22:00 02/24/18 21:59 Seroquel - PO 50 mg HS CAN Administration Ranitidine HCl 150 mg 02/21/18 22:00 02/25/18 10:57 Zantac - PO 150 mg BID CAN Administration Laboratory Results - last 24 hr 02/21/18 02/25/18 02/25/18 06:00 06:30 06:30 WBC 9.2 RBC 4.14 Hgb 13.4 Hct 38.5 MCV 92.8 MCH 32.3 MCHC 34.8 RDW 13.0 Plt Count 319 D MPV 7.9 Absolute Neuts (auto) 8.0 Neutrophils % 86.3 H Lymphocytes % 8.5 D Monocytes % 5.0 Eosinophils % 0.0 Basophils % 0.2 Nucleated RBC % 0 Sodium 138 Potassium 4.2 Chloride 102 Carbon Dioxide 30 Anion Gap 6 L BUN 12 Creatinine 0.9 Creat Clearance w eGFR > 60 Random Glucose 151 H Calcium 8.9 Total Bilirubin 0.2 AST 37 ALT 64 H Alkaline Phosphatase 70 Total Protein 7.2 Albumin 3.2 L M.pneumoniae IgG Titer 250 H M.pneumoniae IgM Titer <770 S1 S2 RRR Lungs ronchi B/L-- decreased, better air entry Abd- soft, NT No edema PLAN B/L pneumonia COPD Smoker -nebs standing - iv antibiotics - solumedrol taper - pt is ambulating in the [place] - he seems to be very anxious about going home - smoking cessation - pt does not qualify for O2 Problem List - Problems (1) Acute hypoxemic respiratory failure Code(s): J96.01 - ACUTE RESPIRATORY FAILURE WITH HYPOXIA (2) Asthma attack Code(s): J45.901 - UNSPECIFIED ASTHMA WITH (ACUTE) EXACERBATION (3) Methadone dependence Code(s): F11.20 - OPIOID DEPENDENCE, UNCOMPLICATED (4) Pneumonia Code(s): J18.9 - PNEUMONIA, UNSPECIFIED ORGANISM Qualifiers: Pneumonia type: due to unspecified organism Laterality: right Lung location: unspecified part of lung Qualified Code(s): J18.9 - Pneumonia, unspecified organism (5) Sepsis Code(s): A41.9 - SEPSIS, UNSPECIFIED ORGANISM Qualifiers: Sepsis type: sepsis due to unspecified organism Qualified Code(s): A41.9 - Sepsis, unspecified organism (6) Smoker Code(s): F17.200 - NICOTINE DEPENDENCE, UNSPECIFIED, UNCOMPLICATED (7) Tobacco abuse Code(s): Z72.0 - TOBACCO USE
--- NOTE | 2018-02-26 13:24 | PN ---
Progress Note (short form) - Note Progress Note: PULMONARY STILL WHEEZING VSS Gen: nad Heart: RRR Lung: rhonchi, wheezes Abd: soft, nontender Ext: no edema Active Medications noted labs/images/notes/micro reviewed A/P Acute Hypoxic Respiratory Failure Pneumonia Acute Asthma Exacerbation Methadone Maintenance Smoker - decreased medrol to q8h - inhaled bronchodilators - O2 to keep Spo2 >90% - continue antibiotics - DVT prophylaxis - will need outpt f/u of chest imaging to ensure resolution of infiltrates - smoking cessation - not ready for discharge Winston MULLIGAN MD
--- NOTE | 2018-02-26 13:35 | PN ---
Progress Note, Physician Chief Complaint: patient stable breathing much better still some wheeze - Current Medication List Current Medications: Active Medications Acetaminophen (Tylenol -) 650 mg PO Q4H PRN PRN Reason: PAIN SCALE 3-8 Al Hydroxide/Mg Hydroxide (Mylanta Oral Suspension -) 30 ml PO Q6H PRN PRN Reason: DYSPEPSIA Last Admin: 02/24/18 02:42 Dose: 30 ml Albuterol Sulfate (Ventolin 0.083% Nebulizer Soln -) 1 amp NEB Q6H PRN PRN Reason: SHORT OF BREATH/WHEEZING Albuterol/Ipratropium (Duoneb -) 1 amp NEB RQ4H CAN Last Admin: 02/26/18 11:01 Dose: 1 amp Budesonide/Formoterol Fumarate (Symbicort 160/4.5mcg -) 2 puff IH BID [facility] Last Admin: 02/26/18 09:55 Dose: 2 puff Clonazepam (Klonopin -) 0.5 mg PO Q8H PRN PRN Reason: ANXIETY Last Admin: 02/25/18 21:47 Dose: 0.5 mg Guaifenesin (Robitussin -) 10 ml PO Q4H PRN PRN Reason: COUGH Heparin Sodium (Porcine) (Heparin -) 5,000 unit SQ BID [facility] Last Admin: 02/26/18 09:55 Dose: 5,000 unit Piperacillin Sod/Tazobactam (Sod 3.375 gm/ Dextrose) 50 mls @ 100 mls/hr IVPB Q8H-IV CAN; Protocol Last Admin: 02/26/18 09:56 Dose: 100 mls/hr Methadone HCl 120 mg/ (Methadone HCl 5 mg) 125 mg PO DAILY@0600 [facility] Last Admin: 02/26/18 05:52 Dose: 125 mg Methylprednisolone Sodium Succinate (Solu-Medrol -) 40 mg IVPUSH Q8H-IV CAN Last Admin: 02/26/18 09:56 Dose: 40 mg Quetiapine Fumarate (Seroquel -) 50 mg PO HS [facility] Last Admin: 02/25/18 21:47 Dose: 50 mg Ranitidine HCl (Zantac -) 150 mg PO BID [facility] Last Admin: 02/26/18 09:56 Dose: 150 mg - Objective Vital Signs: Vital Signs Temperature 98.1 F 02/26/18 05:00 Pulse Rate 69 02/26/18 05:00 Respiratory Rate 20 02/26/18 05:00 Blood Pressure 126/84 02/26/18 05:00 O2 Sat by Pulse Oximetry (%) 94 L 02/25/18 21:00 Constitutional: Yes: No Distress, Calm Cardiovascular: Yes: Regular Rate and Rhythm Respiratory: Yes: Regular, Wheezes Gastrointestinal: Yes: Normal Bowel Sounds, Soft Musculoskeletal: Yes: WNL Extremities: Yes: WNL Neurological: Yes: Alert, Oriented Psychiatric: Yes: Alert, Oriented Labs: CBC, BMP 02/25/18 06:30 02/25/18 06:30 INR, PTT INR 1.39 (0.83-1.09) H 02/19/18 15:05 Assessment/Plan Problem List - Problems (1) Methadone dependence Code(s): F11.20 - OPIOID DEPENDENCE, UNCOMPLICATED (2) Smoker Code(s): F17.200 - NICOTINE DEPENDENCE, UNSPECIFIED, UNCOMPLICATED (3) Pneumonia Code(s): J18.9 - PNEUMONIA, UNSPECIFIED ORGANISM Qualifiers: Pneumonia type: due to unspecified organism Laterality: right Lung location: unspecified part of lung Qualified Code(s): J18.9 - Pneumonia, unspecified organism 4 weakness plan continue current abx incentive noman rest as per the team monitor cough will d/w the team will deescalate abx tomorrow
[2018-02-26] MEDS: clonazePAM 0.5 MG TABLET PO PRN ×2 (15:01→23:49)
[2018-02-26] MEDS ORDERED: QUEtiapine FUMARATE 25 MG TABLET (FP) ONE (20:39)
[2018-02-26] MEDS: QUEtiapine FUMARATE 50 MG TABLET PO SCH (21:57)
[2018-02-27] MEDS ORDERED: PIPERACILLIN/TAZOBACTAM 3.375 GM VIAL IVPB ONE ×2 (01:09→10:16)
[2018-02-27] MEDS ORDERED: DEXTROSE 5%-WATER - 50 ML IVPB ONE ×2 (01:10→10:16)
[2018-02-27] MEDS: methylPREDNISolone NA SUCC 40 MG/1 ML VIAL IVPUSH SCH ×3 (01:34→18:58)
[2018-02-27] MEDS: PIPERACILLIN/TAZOB 3.375 GM 3.375 GM in DEXTROSE 5%-WATER - 50 ML IVPB SCH ×2 (01:35→10:30)
[2018-02-27] MEDS: ALBUTEROL SO4 2.5/IPRATROPIUM 0.5 INH SOL 3 ML VIAL.NEB. NEB SCH ×5 (04:30→20:50)
[2018-02-27] MEDS ORDERED: METHADONE HCL 5 MG TABLET ONE (05:41)
[2018-02-27] MEDS ORDERED: METHADONE HCL 40 MG DISPERSABLE TABLET ONE (05:42)
[2018-02-27] MEDS: METHADONE 120 MG, METHADONE 5 MG PO SCH (05:50)
[2018-02-27] MEDS: BUDESONIDE/FORMETEROL FUMARATE 160/4.5 mcg INHALER IH SCH ×2 (10:30→21:37)
[2018-02-27] MEDS: HEPARIN NA (PORCINE) 5,000 UNITS/ML 1ML VIAL SQ SCH ×2 (10:30→21:35)
[2018-02-27] MEDS: RANITIDINE HCL 150 MG TABLET (FP) PO SCH ×2 (10:31→21:34)
--- NOTE | 2018-02-27 11:49 | PN ---
Progress Note (short form) - Note Progress Note: PULMONARY Feels about the same as yetserday. Still with shortness of breath, cough with brown sputum but glass glazier in color. No fevers. Vital Signs Period Temp Pulse Resp BP Sys/Bermudez Pulse Ox Last 24 Hr 97.7 F-98.7 F 60-92 18-20 112-138/69-94 97 Gen: less tachypneic with speaking Heart: RRR Lung: less rhonchi, wheezes Abd: soft, nontender Ext: no edema CBC, BMP 02/25/18 06:30 02/25/18 06:30 Active Medications Acetaminophen (Tylenol -) 650 mg PO Q4H PRN PRN Reason: PAIN SCALE 3-8 Al Hydroxide/Mg Hydroxide (Mylanta Oral Suspension -) 30 ml PO Q6H PRN PRN Reason: DYSPEPSIA Last Admin: 02/24/18 02:42 Dose: 30 ml Albuterol Sulfate (Ventolin 0.083% Nebulizer Soln -) 1 amp NEB Q6H PRN PRN Reason: SHORT OF BREATH/WHEEZING Albuterol/Ipratropium (Duoneb -) 1 amp NEB RQID CAN Budesonide/Formoterol Fumarate (Symbicort 160/4.5mcg -) 2 puff IH BID CAN Last Admin: 02/27/18 10:30 Dose: 2 puff Guaifenesin (Robitussin -) 10 ml PO Q4H PRN PRN Reason: COUGH Heparin Sodium (Porcine) (Heparin -) 5,000 unit SQ BID CAN Last Admin: 02/27/18 10:30 Dose: 5,000 unit Piperacillin Sod/Tazobactam (Sod 3.375 gm/ Dextrose) 50 mls @ 100 mls/hr IVPB Q8H-IV CAN; Protocol Last Admin: 02/27/18 10:30 Dose: 100 mls/hr Methadone HCl 120 mg/ (Methadone HCl 5 mg) 125 mg PO DAILY@0600 [facility] Last Admin: 02/27/18 05:50 Dose: 125 mg Methylprednisolone Sodium Succinate (Solu-Medrol -) 40 mg IVPUSH Q8H-IV CAN Last Admin: 02/27/18 11:00 Dose: 40 mg Quetiapine Fumarate (Seroquel -) 50 mg PO HS [facility] Last Admin: 02/26/18 21:57 Dose: 50 mg Ranitidine HCl (Zantac -) 150 mg PO BID CAN Last Admin: 02/27/18 10:31 Dose: 150 mg A/P Acute Hypoxic Respiratory Failure Pneumonia Acute Asthma Exacerbation Methadone Maintenance Smoker - continue medrol q8h - inhaled bronchodilators - O2 to keep Spo2 >90% - continue antibiotics - DVT prophylaxis - will need outpt f/u of chest imaging to ensure resolution of infiltrates - smoking cessation - when ready for discharge, check ambulatory SpO2 on room air to assess for home O2
--- NOTE | 2018-02-27 11:54 | PN ---
Progress Note (short form) - Note Progress Note: Pt seen/ examined feels same like yesterday Afebrile Vital Signs Temp 98.6 F 02/27/18 07:14 Pulse 77 02/27/18 07:14 Resp 20 02/27/18 07:14 BP 138/94 02/27/18 07:14 Pulse Ox 97 02/26/18 21:00 Intake & Output 02/26/18 02/26/18 02/27/18 11:59 23:59 11:59 Intake Total 460 290 290 Balance 460 290 290 Intake: IVPB 50 50 Oral 460 240 240 Other: Voiding Method Toilet Toilet # Unmeasured Voids Void 3 Bowel Movement No Yes No Active Medications Acetaminophen (Tylenol -) 650 mg PO Q4H PRN PRN Reason: PAIN SCALE 3-8 Al Hydroxide/Mg Hydroxide (Mylanta Oral Suspension -) 30 ml PO Q6H PRN PRN Reason: DYSPEPSIA Last Admin: 02/24/18 02:42 Dose: 30 ml Albuterol Sulfate (Ventolin 0.083% Nebulizer Soln -) 1 amp NEB Q6H PRN PRN Reason: SHORT OF BREATH/WHEEZING Albuterol/Ipratropium (Duoneb -) 1 amp NEB RQID CAN Budesonide/Formoterol Fumarate (Symbicort 160/4.5mcg -) 2 puff IH BID [facility] Last Admin: 02/27/18 10:30 Dose: 2 puff Guaifenesin (Robitussin -) 10 ml PO Q4H PRN PRN Reason: COUGH Heparin Sodium (Porcine) (Heparin -) 5,000 unit SQ BID [facility] Last Admin: 02/27/18 10:30 Dose: 5,000 unit Piperacillin Sod/Tazobactam (Sod 3.375 gm/ Dextrose) 50 mls @ 100 mls/hr IVPB Q8H-IV CAN; Protocol Last Admin: 02/27/18 10:30 Dose: 100 mls/hr Methadone HCl 120 mg/ (Methadone HCl 5 mg) 125 mg PO DAILY@0600 [facility] Last Admin: 02/27/18 05:50 Dose: 125 mg Methylprednisolone Sodium Succinate (Solu-Medrol -) 40 mg IVPUSH Q8H-IV CAN Last Admin: 02/27/18 11:00 Dose: 40 mg Quetiapine Fumarate (Seroquel -) 50 mg PO HS [facility] Last Admin: 02/26/18 21:57 Dose: 50 mg Ranitidine HCl (Zantac -) 150 mg PO BID CAN Last Admin: 02/27/18 10:31 Dose: 150 mg CBC, BMP 02/25/18 06:30 02/25/18 06:30 Physical Exam S1 S2 RRR Lungs ronchi B/L-- Abd- soft, NT No edema neuro- alert/ awake Anxiety + PLAN B/L pneumonia COPD Smoker -nebs standing - iv antibiotics - solumedrol -- keep same dose - pt is ambulating in the [place] - - smoking cessation - will follow Problem List - Problems (1) Methadone dependence Code(s): F11.20 - OPIOID DEPENDENCE, UNCOMPLICATED (2) Smoker Code(s): F17.200 - NICOTINE DEPENDENCE, UNSPECIFIED, UNCOMPLICATED (3) Pneumonia Code(s): J18.9 - PNEUMONIA, UNSPECIFIED ORGANISM Qualifiers: Pneumonia type: due to unspecified organism Laterality: right Lung location: unspecified part of lung Qualified Code(s): J18.9 - Pneumonia, unspecified organism
--- NOTE | 2018-02-27 16:15 | PN ---
Progress Note, Physician History of Present Illness: Pt seen and examined, events noted. He states he is feeling better but still with some shortness of breath. Cough has improved, less productive. Remains afebrile. - Current Medication List Current Medications: Active Medications Acetaminophen (Tylenol -) 650 mg PO Q4H PRN PRN Reason: PAIN SCALE 3-8 Al Hydroxide/Mg Hydroxide (Mylanta Oral Suspension -) 30 ml PO Q6H PRN PRN Reason: DYSPEPSIA Last Admin: 02/24/18 02:42 Dose: 30 ml Albuterol Sulfate (Ventolin 0.083% Nebulizer Soln -) 1 amp NEB Q6H PRN PRN Reason: SHORT OF BREATH/WHEEZING Albuterol/Ipratropium (Duoneb -) 1 amp NEB RQID [facility] Last Admin: 02/27/18 11:40 Dose: 1 amp Amoxicillin/Clavulanate Potassium (Augmentin - 875mg Tablet) 1 tab PO BID@0800, 1730 [facility] Budesonide/Formoterol Fumarate (Symbicort 160/4.5mcg -) 2 puff IH BID [facility] Last Admin: 02/27/18 10:30 Dose: 2 puff Guaifenesin (Robitussin -) 10 ml PO Q4H PRN PRN Reason: COUGH Heparin Sodium (Porcine) (Heparin -) 5,000 unit SQ BID [facility] Last Admin: 02/27/18 10:30 Dose: 5,000 unit Methadone HCl 120 mg/ (Methadone HCl 5 mg) 125 mg PO DAILY@0600 [facility] Last Admin: 02/27/18 05:50 Dose: 125 mg Methylprednisolone Sodium Succinate (Solu-Medrol -) 40 mg IVPUSH Q8H-IV [facility] Last Admin: 02/27/18 11:00 Dose: 40 mg Quetiapine Fumarate (Seroquel -) 50 mg PO HS [facility] Last Admin: 02/26/18 21:57 Dose: 50 mg Ranitidine HCl (Zantac -) 150 mg PO BID [facility] Last Admin: 02/27/18 10:31 Dose: 150 mg - Objective Vital Signs: Vital Signs Temperature 98.6 F 02/27/18 07:14 Pulse Rate 77 02/27/18 07:14 Respiratory Rate 20 02/27/18 07:14 Blood Pressure 138/94 02/27/18 07:14 O2 Sat by Pulse Oximetry (%) 97 02/26/18 21:00 Constitutional: Yes: No Distress, Calm Cardiovascular: Yes: Regular Rate and Rhythm Respiratory: Yes: On Nasal O2, Wheezes Gastrointestinal: Yes: Normal Bowel Sounds, Soft Extremities: Yes: WNL Neurological: Yes: Alert, Oriented Labs: CBC, BMP 02/25/18 06:30 02/25/18 06:30 INR, PTT INR 1.39 (0.83-1.09) H 02/19/18 15:05 Microbiology 02/19/18 11:40 Blood - Peripheral Venous Blood Culture - Final NO GROWTH AFTER 5 DAYS INCUBATION 02/19/18 11:30 Blood - Peripheral Venous Blood Culture - Final NO GROWTH AFTER 5 DAYS INCUBATION 02/22/18 18:30 Urine For Antigen Detection Legionella Antigen - Final 02/22/18 18:30 Urine For Antigen Detection Streptococcus pneumoniae Antigen (M - Final 02/20/18 20:00 Urine For Antigen Detection Legionella Antigen - Final 02/20/18 20:00 Urine For Antigen Detection Streptococcus pneumoniae Antigen (M - Final 02/19/18 17:42 Urine - Urine Clean Catch Urine Culture - Final NO GROWTH OBTAINED Problem List - Problems (1) Acute hypoxemic respiratory failure Code(s): J96.01 - ACUTE RESPIRATORY FAILURE WITH HYPOXIA (2) Methadone dependence Code(s): F11.20 - OPIOID DEPENDENCE, UNCOMPLICATED (3) Pneumonia Code(s): J18.9 - PNEUMONIA, UNSPECIFIED ORGANISM Qualifiers: Pneumonia type: due to unspecified organism Laterality: right Lung location: unspecified part of lung Qualified Code(s): J18.9 - Pneumonia, unspecified organism (4) Sepsis Code(s): A41.9 - SEPSIS, UNSPECIFIED ORGANISM Qualifiers: Sepsis type: sepsis due to unspecified organism Qualified Code(s): A41.9 - Sepsis, unspecified organism (5) Tobacco abuse Code(s): Z72.0 - TOBACCO USE Assessment/Plan Multilobar PNA Acute hypoxemic respiratory failure Asthma Opiod dependence Tobacco dependence -- d/c Zosyn, will switch to oral antibiotics -- clinically appears to be improving -- pulmonary followup
[2018-02-27] MEDS: clonazePAM 0.5 MG TABLET PO PRN (17:06)
[2018-02-27] MEDS: AMOX TR/POT CLAV 875MG/125MG TABLETS (FP) PO SCH (17:06)
[2018-02-27] MEDS ORDERED: PT OWN MED DRAWER 7, Y5N ONE ×2 (21:10→21:20)
[2018-02-27] MEDS ORDERED: QUEtiapine FUMARATE 25 MG TABLET (FP) ONE (21:33)
[2018-02-27] MEDS: QUEtiapine FUMARATE 50 MG TABLET PO SCH (21:35)
[2018-02-28] MEDS: methylPREDNISolone NA SUCC 40 MG/1 ML VIAL IVPUSH SCH ×3 (01:28→21:17)
[2018-02-28] MEDS ORDERED: METHADONE HCL 40 MG DISPERSABLE TABLET ONE (05:40)
[2018-02-28] MEDS ORDERED: METHADONE HCL 5 MG TABLET ONE (05:40)
[2018-02-28] MEDS: METHADONE 120 MG, METHADONE 5 MG PO SCH (05:42)
[2018-02-28] MEDS: ALBUTEROL SO4 2.5/IPRATROPIUM 0.5 INH SOL 3 ML VIAL.NEB. NEB SCH ×4 (07:45→19:42)
[2018-02-28] MEDS: BUDESONIDE/FORMETEROL FUMARATE 160/4.5 mcg INHALER IH SCH ×2 (10:12→21:21)
[2018-02-28] MEDS: HEPARIN NA (PORCINE) 5,000 UNITS/ML 1ML VIAL SQ SCH ×2 (10:12→21:17)
[2018-02-28] MEDS: AMOX TR/POT CLAV 875MG/125MG TABLETS (FP) PO SCH ×2 (10:14→17:51)
[2018-02-28] MEDS: RANITIDINE HCL 150 MG TABLET (FP) PO SCH ×2 (10:14→21:17)
[2018-02-28] MEDS: clonazePAM 0.5 MG TABLET PO PRN ×2 (10:20→21:17)
--- NOTE | 2018-02-28 10:37 | PN ---
Progress Note (short form) - Note Progress Note: PULMONARY Feels slightly better. Less cough. No fevers. Vital Signs Period Temp Pulse Resp BP Sys/Bermudez Pulse Ox Last 24 Hr 97.8 F-98.1 F 70-75 18-20 115-123/59-81 93 Gen: less tachypneic with speaking Heart: RRR Lung: scattered rhonchi, no wheezes today Abd: soft, nontender Ext: no edema CBC, BMP 02/25/18 06:30 02/25/18 06:30 Active Medications Acetaminophen (Tylenol -) 650 mg PO Q4H PRN PRN Reason: PAIN SCALE 3-8 Al Hydroxide/Mg Hydroxide (Mylanta Oral Suspension -) 30 ml PO Q6H PRN PRN Reason: DYSPEPSIA Last Admin: 02/24/18 02:42 Dose: 30 ml Albuterol Sulfate (Ventolin 0.083% Nebulizer Soln -) 1 amp NEB Q6H PRN PRN Reason: SHORT OF BREATH/WHEEZING Albuterol/Ipratropium (Duoneb -) 1 amp NEB RQID [facility] Last Admin: 02/28/18 07:45 Dose: 1 amp Amoxicillin/Clavulanate Potassium (Augmentin - 875mg Tablet) 1 tab PO BID@0800, 1730 [facility] Last Admin: 02/28/18 10:14 Dose: 1 tab Budesonide/Formoterol Fumarate (Symbicort 160/4.5mcg -) 2 puff IH BID [facility] Last Admin: 02/28/18 10:12 Dose: 2 puff Clonazepam (Klonopin -) 0.5 mg PO Q8H PRN PRN Reason: ANXIETY Last Admin: 02/28/18 10:20 Dose: 0.5 mg Guaifenesin (Robitussin -) 10 ml PO Q4H PRN PRN Reason: COUGH Heparin Sodium (Porcine) (Heparin -) 5,000 unit SQ BID [facility] Last Admin: 02/28/18 10:12 Dose: 5,000 unit Methylprednisolone Sodium Succinate (Solu-Medrol -) 40 mg IVPUSH Q8H-IV [facility] Last Admin: 02/28/18 10:12 Dose: 40 mg Quetiapine Fumarate (Seroquel -) 50 mg PO HS [facility] Last Admin: 02/27/18 21:35 Dose: 50 mg Ranitidine HCl (Zantac -) 150 mg PO BID [facility] Last Admin: 02/28/18 10:14 Dose: 150 mg A/P Acute Hypoxic Respiratory Failure Pneumonia Acute Asthma Exacerbation Methadone Maintenance Smoker - can decrease medrol to q12h - inhaled bronchodilators - O2 to keep Spo2 >90% - continue antibiotics - DVT prophylaxis - will need outpt f/u of chest imaging to ensure resolution of infiltrates - smoking cessation - when ready for discharge, check ambulatory SpO2 on room air to assess for home O2
[2018-02-28] MEDS ORDERED: PT OWN MED DRAWER 7, Y5N ONE (10:50)
--- NOTE | 2018-02-28 13:40 | PN ---
Progress Note (short form) - Note Progress Note: Better decreased sob/ cough afebrile Vital Signs Temp 98.4 F 02/28/18 10:00 Pulse 76 02/28/18 10:00 Resp 18 02/28/18 10:00 BP 120/60 02/28/18 10:00 Pulse Ox 94 L 02/28/18 09:00 Intake & Output 02/27/18 02/28/18 02/28/18 23:59 11:59 23:59 Intake Total 750 400 Balance 750 400 Intake: IVPB 50 Oral 700 400 Other: Voiding Method Toilet Toilet Bowel Movement No No Active Medications Acetaminophen (Tylenol -) 650 mg PO Q4H PRN PRN Reason: PAIN SCALE 3-8 Al Hydroxide/Mg Hydroxide (Mylanta Oral Suspension -) 30 ml PO Q6H PRN PRN Reason: DYSPEPSIA Last Admin: 02/24/18 02:42 Dose: 30 ml Albuterol Sulfate (Ventolin 0.083% Nebulizer Soln -) 1 amp NEB Q6H PRN PRN Reason: SHORT OF BREATH/WHEEZING Albuterol/Ipratropium (Duoneb -) 1 amp NEB RQID [facility] Last Admin: 02/28/18 11:31 Dose: 1 amp Amoxicillin/Clavulanate Potassium (Augmentin - 875mg Tablet) 1 tab PO BID@0800, 1730 [facility] Last Admin: 02/28/18 10:14 Dose: 1 tab Budesonide/Formoterol Fumarate (Symbicort 160/4.5mcg -) 2 puff IH BID [facility] Last Admin: 02/28/18 10:12 Dose: 2 puff Clonazepam (Klonopin -) 0.5 mg PO Q8H PRN PRN Reason: ANXIETY Last Admin: 02/28/18 10:20 Dose: 0.5 mg Guaifenesin (Robitussin -) 10 ml PO Q4H PRN PRN Reason: COUGH Heparin Sodium (Porcine) (Heparin -) 5,000 unit SQ BID [facility] Last Admin: 02/28/18 10:12 Dose: 5,000 unit Methylprednisolone Sodium Succinate (Solu-Medrol -) 40 mg IVPUSH Q12H [facility] Quetiapine Fumarate (Seroquel -) 50 mg PO HS [facility] Last Admin: 02/27/18 21:35 Dose: 50 mg Ranitidine HCl (Zantac -) 150 mg PO BID [facility] Last Admin: 02/28/18 10:14 Dose: 150 mg CBC, BMP 02/25/18 06:30 02/25/18 06:30 Physical Exam S1 S2 RRR Lungs ronchi B/L--Improved Abd- soft, NT No edema neuro- alert/ awake Anxiety + PLAN B/L pneumonia COPD Smoker -nebs standing - iv antibiotics - solumedrol - taper --pulmonary f/u noted - pt is ambulating in the [place] - - smoking cessation if better- anticipate d/c in 1-2 days - will follow Problem List - Problems (1) Methadone dependence Code(s): F11.20 - OPIOID DEPENDENCE, UNCOMPLICATED (2) Smoker Code(s): F17.200 - NICOTINE DEPENDENCE, UNSPECIFIED, UNCOMPLICATED (3) Pneumonia Code(s): J18.9 - PNEUMONIA, UNSPECIFIED ORGANISM Qualifiers: Pneumonia type: due to unspecified organism Laterality: right Lung location: unspecified part of lung Qualified Code(s): J18.9 - Pneumonia, unspecified organism
--- NOTE | 2018-02-28 14:52 | PN ---
Progress Note, Physician History of Present Illness: Pt with less SOB. Still with some cough with deep palpation but feels better overall. Afebrile, without any other specific complaints. - Current Medication List Current Medications: Active Medications Acetaminophen (Tylenol -) 650 mg PO Q4H PRN PRN Reason: PAIN SCALE 3-8 Al Hydroxide/Mg Hydroxide (Mylanta Oral Suspension -) 30 ml PO Q6H PRN PRN Reason: DYSPEPSIA Last Admin: 02/24/18 02:42 Dose: 30 ml Albuterol Sulfate (Ventolin 0.083% Nebulizer Soln -) 1 amp NEB Q6H PRN PRN Reason: SHORT OF BREATH/WHEEZING Albuterol/Ipratropium (Duoneb -) 1 amp NEB RQID [facility] Last Admin: 02/28/18 11:31 Dose: 1 amp Amoxicillin/Clavulanate Potassium (Augmentin - 875mg Tablet) 1 tab PO BID@0800, 1730 [facility] Last Admin: 02/28/18 10:14 Dose: 1 tab Budesonide/Formoterol Fumarate (Symbicort 160/4.5mcg -) 2 puff IH BID [facility] Last Admin: 02/28/18 10:12 Dose: 2 puff Clonazepam (Klonopin -) 0.5 mg PO Q8H PRN PRN Reason: ANXIETY Last Admin: 02/28/18 10:20 Dose: 0.5 mg Guaifenesin (Robitussin -) 10 ml PO Q4H PRN PRN Reason: COUGH Heparin Sodium (Porcine) (Heparin -) 5,000 unit SQ BID [facility] Last Admin: 02/28/18 10:12 Dose: 5,000 unit Methylprednisolone Sodium Succinate (Solu-Medrol -) 40 mg IVPUSH Q12H [facility] Quetiapine Fumarate (Seroquel -) 50 mg PO HS [facility] Last Admin: 02/27/18 21:35 Dose: 50 mg Ranitidine HCl (Zantac -) 150 mg PO BID [facility] Last Admin: 02/28/18 10:14 Dose: 150 mg - Objective Vital Signs: Vital Signs Temperature 98.4 F 02/28/18 14:46 Pulse Rate 85 02/28/18 14:46 Respiratory Rate 18 02/28/18 14:46 Blood Pressure 113/74 02/28/18 14:46 O2 Sat by Pulse Oximetry (%) 94 L 02/28/18 09:00 Constitutional: Yes: No Distress Cardiovascular: Yes: Regular Rate and Rhythm Respiratory: Yes: Wheezes (expiratory) Gastrointestinal: Yes: Normal Bowel Sounds, Soft Genitourinary: Yes: WNL Edema: No Integumentary: Yes: WNL Neurological: Yes: Alert, Oriented Labs: CBC, BMP 02/25/18 06:30 02/25/18 06:30 INR, PTT INR 1.39 (0.83-1.09) H 02/19/18 15:05 Microbiology 02/19/18 11:40 Blood - Peripheral Venous Blood Culture - Final NO GROWTH AFTER 5 DAYS INCUBATION 02/19/18 11:30 Blood - Peripheral Venous Blood Culture - Final NO GROWTH AFTER 5 DAYS INCUBATION 02/22/18 18:30 Urine For Antigen Detection Legionella Antigen - Final 02/22/18 18:30 Urine For Antigen Detection Streptococcus pneumoniae Antigen (M - Final 02/20/18 20:00 Urine For Antigen Detection Legionella Antigen - Final 02/20/18 20:00 Urine For Antigen Detection Streptococcus pneumoniae Antigen (M - Final 02/19/18 17:42 Urine - Urine Clean Catch Urine Culture - Final NO GROWTH OBTAINED Problem List - Problems (1) Acute hypoxemic respiratory failure Code(s): J96.01 - ACUTE RESPIRATORY FAILURE WITH HYPOXIA (2) Methadone dependence Code(s): F11.20 - OPIOID DEPENDENCE, UNCOMPLICATED (3) Pneumonia Code(s): J18.9 - PNEUMONIA, UNSPECIFIED ORGANISM Qualifiers: Pneumonia type: due to unspecified organism Laterality: right Lung location: unspecified part of lung Qualified Code(s): J18.9 - Pneumonia, unspecified organism (4) Sepsis Code(s): A41.9 - SEPSIS, UNSPECIFIED ORGANISM Qualifiers: Sepsis type: sepsis due to unspecified organism Qualified Code(s): A41.9 - Sepsis, unspecified organism (5) Tobacco abuse Code(s): Z72.0 - TOBACCO USE Assessment/Plan Multilobar PNA Acute hypoxemic respiratory failure Asthma Opiod dependence Tobacco dependence -- continue Augmentin, on steroids -- clinically appears to be improving -- pulmonary followup -- repeat CT as outpt
[2018-02-28] MEDS ORDERED: QUEtiapine FUMARATE 25 MG TABLET (FP) ONE (21:03)
[2018-02-28] MEDS: QUEtiapine FUMARATE 50 MG TABLET PO SCH (21:18)
[2018-03-01] MEDS ORDERED: METHADONE HCL 10 MG TABLET PO SCH (07:30)
[2018-03-01] MEDS: ALBUTEROL SO4 2.5/IPRATROPIUM 0.5 INH SOL 3 ML VIAL.NEB. NEB SCH ×4 (07:50→20:30)
[2018-03-01] MEDS ORDERED: METHADONE HCL 5 MG TABLET ONE (08:29)
[2018-03-01] MEDS ORDERED: METHADONE HCL 40 MG DISPERSABLE TABLET ONE (08:30)
[2018-03-01] MEDS: METHADONE 120 MG, METHADONE 5 MG PO SCH (08:32)
[2018-03-01] MEDS: AMOX TR/POT CLAV 875MG/125MG TABLETS (FP) PO SCH ×2 (08:34→18:16)
--- NOTE | 2018-03-01 10:06 | PN ---
Progress Note (short form) - Note Progress Note: Overall breathing is better. Still with some congested cough and wheezing. No fevers. Intake & Output 02/26/18 02/27/18 02/28/18 03/01/18 23:59 23:59 23:59 23:59 Intake Total 750 1090 1400 400 Balance 750 1090 1400 400 Last Vital Signs Temp Pulse Resp BP Pulse Ox 97.7 F 71 20 122/75 94 L 03/01/18 06:00 03/01/18 06:00 03/01/18 06:00 03/01/18 06:00 02/28/18 20:52 Active Medications Acetaminophen (Tylenol -) 650 mg PO Q4H PRN PRN Reason: PAIN SCALE 3-8 Al Hydroxide/Mg Hydroxide (Mylanta Oral Suspension -) 30 ml PO Q6H PRN PRN Reason: DYSPEPSIA Last Admin: 02/24/18 02:42 Dose: 30 ml Albuterol Sulfate (Ventolin 0.083% Nebulizer Soln -) 1 amp NEB Q6H PRN PRN Reason: SHORT OF BREATH/WHEEZING Albuterol/Ipratropium (Duoneb -) 1 amp NEB RQID [facility] Last Admin: 03/01/18 07:50 Dose: 1 amp Amoxicillin/Clavulanate Potassium (Augmentin - 875mg Tablet) 1 tab PO BID@0800, 1730 [facility] Last Admin: 03/01/18 08:34 Dose: 1 tab Budesonide/Formoterol Fumarate (Symbicort 160/4.5mcg -) 2 puff IH BID [facility] Last Admin: 02/28/18 21:21 Dose: 2 puff Clonazepam (Klonopin -) 0.5 mg PO Q8H PRN PRN Reason: ANXIETY Last Admin: 02/28/18 21:17 Dose: 0.5 mg Guaifenesin (Robitussin -) 10 ml PO Q4H PRN PRN Reason: COUGH Heparin Sodium (Porcine) (Heparin -) 5,000 unit SQ BID [facility] Last Admin: 02/28/18 21:17 Dose: 5,000 unit Methadone HCl 120 mg/ (Methadone HCl 5 mg) 125 mg PO DAILY@0600 [facility] Last Admin: 03/01/18 08:32 Dose: 125 mg Methylprednisolone Sodium Succinate (Solu-Medrol -) 40 mg IVPUSH Q12H [facility] Last Admin: 02/28/18 21:17 Dose: 40 mg Quetiapine Fumarate (Seroquel -) 50 mg PO HS [facility] Last Admin: 02/28/18 21:18 Dose: 50 mg Ranitidine HCl (Zantac -) 150 mg PO BID [facility] Last Admin: 02/28/18 21:17 Dose: 150 mg Gen: NAD Heart: RRR Lung: scattered rhonchi, mild expiratory wheezing Abd: soft, nontender Ext: no edema A/P Acute Hypoxic Respiratory Failure Pneumonia Acute Asthma Exacerbation Methadone Maintenance Smoker - can Likely change medrol to Prednisone taper today or latest tomorrow - inhaled bronchodilators - O2 to keep Spo2 >90% - continue antibiotics - DVT prophylaxis - will need outpt f/u of chest imaging to ensure resolution of infiltrates - smoking cessation - Check ambulatory SpO2 on room air to assess for home O2 Dr Spence
[2018-03-01] MEDS: BUDESONIDE/FORMETEROL FUMARATE 160/4.5 mcg INHALER IH SCH ×2 (10:13→22:11)
[2018-03-01] MEDS: methylPREDNISolone NA SUCC 40 MG/1 ML VIAL IVPUSH SCH ×2 (10:13→22:07)
[2018-03-01] MEDS: HEPARIN NA (PORCINE) 5,000 UNITS/ML 1ML VIAL SQ SCH ×2 (10:13→22:08)
--- NOTE | 2018-03-01 11:30 | PN ---
Progress Note (short form) - Note Progress Note: Feels little better still feels sob/ cough + overall looks better afebrile Vital Signs Temp 97.7 F 03/01/18 06:00 Pulse 71 03/01/18 06:00 Resp 20 03/01/18 06:00 BP 122/75 03/01/18 06:00 Pulse Ox 94 L 02/28/18 20:52 Intake & Output 02/28/18 02/28/18 03/01/18 11:59 23:59 11:59 Intake Total 400 1000 400 Balance 400 1000 400 Intake: Oral 400 1000 400 Other: Voiding Method Toilet Toilet Toilet # Unmeasured Voids Void 1 1 Bowel Movement No No No Active Medications Acetaminophen (Tylenol -) 650 mg PO Q4H PRN PRN Reason: PAIN SCALE 3-8 Al Hydroxide/Mg Hydroxide (Mylanta Oral Suspension -) 30 ml PO Q6H PRN PRN Reason: DYSPEPSIA Last Admin: 02/24/18 02:42 Dose: 30 ml Albuterol Sulfate (Ventolin 0.083% Nebulizer Soln -) 1 amp NEB Q6H PRN PRN Reason: SHORT OF BREATH/WHEEZING Albuterol/Ipratropium (Duoneb -) 1 amp NEB RQID [facility] Last Admin: 03/01/18 07:50 Dose: 1 amp Amoxicillin/Clavulanate Potassium (Augmentin - 875mg Tablet) 1 tab PO BID@0800, 1730 [facility] Last Admin: 03/01/18 08:34 Dose: 1 tab Budesonide/Formoterol Fumarate (Symbicort 160/4.5mcg -) 2 puff IH BID [facility] Last Admin: 03/01/18 10:13 Dose: 2 puff Clonazepam (Klonopin -) 0.5 mg PO Q8H PRN PRN Reason: ANXIETY Last Admin: 02/28/18 21:17 Dose: 0.5 mg Guaifenesin (Robitussin -) 10 ml PO Q4H PRN PRN Reason: COUGH Heparin Sodium (Porcine) (Heparin -) 5,000 unit SQ BID [facility] Last Admin: 03/01/18 10:13 Dose: 5,000 unit Methadone HCl 120 mg/ (Methadone HCl 5 mg) 125 mg PO DAILY@0600 [facility] Last Admin: 03/01/18 08:32 Dose: 125 mg Methylprednisolone Sodium Succinate (Solu-Medrol -) 40 mg IVPUSH Q12H [facility] Last Admin: 03/01/18 10:13 Dose: 40 mg Quetiapine Fumarate (Seroquel -) 50 mg PO HS [facility] Last Admin: 02/28/18 21:18 Dose: 50 mg Ranitidine HCl (Zantac -) 150 mg PO BID [facility] Last Admin: 02/28/18 21:17 Dose: 150 mg CBC, BMP 02/25/18 06:30 02/25/18 06:30 Physical Exam S1 S2 RRR Lungs ronchi B/L-- Abd- soft, NT No edema neuro- alert/ awake Anxiety + PLAN B/L pneumonia COPD Smoker -nebs standing - iv antibiotics - solumedrol - tapering --pulmonary f/u noted - pt is ambulating in the [place] - - smoking cessation slowly getting better - anticipate d/c tomorrow - Discussed with pulmonary also today - will follow Problem List - Problems (1) Methadone dependence Code(s): F11.20 - OPIOID DEPENDENCE, UNCOMPLICATED (2) Smoker Code(s): F17.200 - NICOTINE DEPENDENCE, UNSPECIFIED, UNCOMPLICATED (3) Pneumonia Code(s): J18.9 - PNEUMONIA, UNSPECIFIED ORGANISM Qualifiers: Pneumonia type: due to unspecified organism Laterality: right Lung location: unspecified part of lung Qualified Code(s): J18.9 - Pneumonia, unspecified organism
[2018-03-01] MEDS: RANITIDINE HCL 150 MG TABLET (FP) PO SCH ×2 (11:58→22:08)
[2018-03-01] MEDS: clonazePAM 0.5 MG TABLET PO PRN ×2 (13:30→22:09)
--- NOTE | 2018-03-01 15:03 | PN ---
Progress Note, Physician History of Present Illness: doing well breathing better still congested - Current Medication List Current Medications: Active Medications Acetaminophen (Tylenol -) 650 mg PO Q4H PRN PRN Reason: PAIN SCALE 3-8 Al Hydroxide/Mg Hydroxide (Mylanta Oral Suspension -) 30 ml PO Q6H PRN PRN Reason: DYSPEPSIA Last Admin: 02/24/18 02:42 Dose: 30 ml Albuterol Sulfate (Ventolin 0.083% Nebulizer Soln -) 1 amp NEB Q6H PRN PRN Reason: SHORT OF BREATH/WHEEZING Albuterol/Ipratropium (Duoneb -) 1 amp NEB RQID [facility] Last Admin: 03/01/18 11:25 Dose: 1 amp Amoxicillin/Clavulanate Potassium (Augmentin - 875mg Tablet) 1 tab PO BID@0800, 1730 [facility] Last Admin: 03/01/18 08:34 Dose: 1 tab Budesonide/Formoterol Fumarate (Symbicort 160/4.5mcg -) 2 puff IH BID [facility] Last Admin: 03/01/18 10:13 Dose: 2 puff Clonazepam (Klonopin -) 0.5 mg PO Q8H PRN PRN Reason: ANXIETY Last Admin: 03/01/18 13:30 Dose: 0.5 mg Guaifenesin (Robitussin -) 10 ml PO Q4H PRN PRN Reason: COUGH Heparin Sodium (Porcine) (Heparin -) 5,000 unit SQ BID [facility] Last Admin: 03/01/18 10:13 Dose: 5,000 unit Methadone HCl 120 mg/ (Methadone HCl 5 mg) 125 mg PO DAILY@0600 [facility] Last Admin: 03/01/18 08:32 Dose: 125 mg Methylprednisolone Sodium Succinate (Solu-Medrol -) 40 mg IVPUSH Q12H [facility] Last Admin: 03/01/18 10:13 Dose: 40 mg Quetiapine Fumarate (Seroquel -) 50 mg PO HS [facility] Last Admin: 02/28/18 21:18 Dose: 50 mg Ranitidine HCl (Zantac -) 150 mg PO BID [facility] Last Admin: 03/01/18 11:58 Dose: 150 mg - Objective Vital Signs: Vital Signs Temperature 98 F 03/01/18 14:42 Pulse Rate 77 03/01/18 14:42 Respiratory Rate 17 03/01/18 14:42 Blood Pressure 114/69 03/01/18 14:42 O2 Sat by Pulse Oximetry (%) 94 L 02/28/18 20:52 Constitutional: Yes: No Distress, Calm Respiratory: Yes: Regular, Wheezes, Other Gastrointestinal: Yes: Normal Bowel Sounds, Soft Musculoskeletal: Yes: WNL Extremities: Yes: WNL Neurological: Yes: Alert, Oriented Psychiatric: Yes: Alert, Oriented Labs: CBC, BMP 02/25/18 06:30 02/25/18 06:30 INR, PTT INR 1.39 (0.83-1.09) H 02/19/18 15:05 Assessment/Plan Problem List - Problems (1) Methadone dependence Code(s): F11.20 - OPIOID DEPENDENCE, UNCOMPLICATED (2) Smoker Code(s): F17.200 - NICOTINE DEPENDENCE, UNSPECIFIED, UNCOMPLICATED (3) Pneumonia Code(s): J18.9 - PNEUMONIA, UNSPECIFIED ORGANISM Qualifiers: Pneumonia type: due to unspecified organism Laterality: right Lung location: unspecified part of lung Qualified Code(s): J18.9 - Pneumonia, unspecified organism 4 weakness plan continue oral abx incentive noman steroids rest as per the team
[2018-03-01] MEDS ORDERED: PT OWN MED DRAWER 7, Y5N ONE (17:34)
[2018-03-01] MEDS ORDERED: QUEtiapine FUMARATE 25 MG TABLET (FP) ONE (22:06)
[2018-03-01] MEDS: QUEtiapine FUMARATE 50 MG TABLET PO SCH (22:11)
[2018-03-02] MEDS ORDERED: METHADONE HCL 40 MG DISPERSABLE TABLET ONE (05:55)
[2018-03-02] MEDS ORDERED: METHADONE HCL 5 MG TABLET ONE (05:55)
[2018-03-02] MEDS: METHADONE 120 MG, METHADONE 5 MG PO SCH (06:01)
[2018-03-02] MEDS: ALBUTEROL SO4 2.5/IPRATROPIUM 0.5 INH SOL 3 ML VIAL.NEB. NEB SCH ×4 (08:05→21:52)
[2018-03-02] MEDS: AMOX TR/POT CLAV 875MG/125MG TABLETS (FP) PO SCH ×2 (08:07→17:06)
--- NOTE | 2018-03-02 09:03 | PN ---
Progress Note (short form) - Note Progress Note: Overall breathing is better. Still with some congested cough and "tightness". No fevers. Intake & Output 02/27/18 02/28/18 03/01/18 03/02/18 23:59 23:59 23:59 23:59 Intake Total 1090 1400 2050 Balance 1090 1400 2049 Last Vital Signs Temp Pulse Resp BP Pulse Ox 97.6 F 89 20 123/82 95 03/02/18 06:00 03/02/18 06:00 03/02/18 06:00 03/02/18 06:00 03/01/18 20:38 Active Medications Acetaminophen (Tylenol -) 650 mg PO Q4H PRN PRN Reason: PAIN SCALE 3-8 Al Hydroxide/Mg Hydroxide (Mylanta Oral Suspension -) 30 ml PO Q6H PRN PRN Reason: DYSPEPSIA Last Admin: 02/24/18 02:42 Dose: 30 ml Albuterol Sulfate (Ventolin 0.083% Nebulizer Soln -) 1 amp NEB Q6H PRN PRN Reason: SHORT OF BREATH/WHEEZING Albuterol/Ipratropium (Duoneb -) 1 amp NEB RQID [facility] Last Admin: 03/01/18 20:30 Dose: 1 amp Amoxicillin/Clavulanate Potassium (Augmentin - 875mg Tablet) 1 tab PO BID@0800, 1730 [facility] Last Admin: 03/02/18 08:07 Dose: 1 tab Budesonide/Formoterol Fumarate (Symbicort 160/4.5mcg -) 2 puff IH BID [facility] Last Admin: 03/01/18 22:11 Dose: 2 puff Clonazepam (Klonopin -) 0.5 mg PO Q8H PRN PRN Reason: ANXIETY Last Admin: 03/01/18 22:09 Dose: 0.5 mg Guaifenesin (Robitussin -) 10 ml PO Q4H PRN PRN Reason: COUGH Heparin Sodium (Porcine) (Heparin -) 5,000 unit SQ BID [facility] Last Admin: 03/01/18 22:08 Dose: 5,000 unit Methadone HCl 120 mg/ (Methadone HCl 5 mg) 125 mg PO DAILY@0600 [facility] Last Admin: 03/02/18 06:01 Dose: 125 mg Methylprednisolone Sodium Succinate (Solu-Medrol -) 40 mg IVPUSH Q12H [facility] Last Admin: 03/01/18 22:07 Dose: 40 mg Quetiapine Fumarate (Seroquel -) 50 mg PO HS [facility] Last Admin: 03/01/18 22:11 Dose: 50 mg Ranitidine HCl (Zantac -) 150 mg PO BID [facility] Last Admin: 03/01/18 22:08 Dose: 150 mg Gen: NAD Heart: RRR Lung: scattered rhonchi, No expiratory wheezing heard today Abd: soft, nontender Ext: no edema A/P Acute Hypoxic Respiratory Failure Pneumonia Acute Asthma Exacerbation Methadone Maintenance Smoker - can consider change medrol to Prednisone taper today or latest tomorrow - inhaled bronchodilators - O2 to keep Spo2 >90% - continue antibiotics - DVT prophylaxis - will need outpt f/u of chest imaging to ensure resolution of infiltrates - smoking cessation Dr Spence
[2018-03-02] MEDS ORDERED: PT OWN MED DRAWER 7, Y5N ONE (09:20)
[2018-03-02] MEDS: BUDESONIDE/FORMETEROL FUMARATE 160/4.5 mcg INHALER IH SCH ×2 (09:22→21:32)
[2018-03-02] MEDS: HEPARIN NA (PORCINE) 5,000 UNITS/ML 1ML VIAL SQ SCH ×2 (09:22→21:29)
[2018-03-02] MEDS: clonazePAM 0.5 MG TABLET PO PRN ×2 (09:22→17:20)
[2018-03-02] MEDS: RANITIDINE HCL 150 MG TABLET (FP) PO SCH ×2 (09:22→21:28)
[2018-03-02] MEDS: methylPREDNISolone NA SUCC 40 MG/1 ML VIAL IVPUSH SCH ×2 (09:22→21:29)
--- NOTE | 2018-03-02 10:35 | PN ---
Progress Note (short form) - Note Progress Note: Feels better no distress afebrile Vital Signs Temp 97.9 F 03/02/18 10:00 Pulse 66 03/02/18 10:00 Resp 20 03/02/18 10:00 BP 122/92 03/02/18 10:00 Pulse Ox 95 03/01/18 20:38 Intake & Output 03/01/18 03/01/18 03/02/18 11:59 23:59 11:59 Intake Total 400 1650 Balance 400 1650 Intake: Oral 400 1650 Other: Voiding Method Toilet Toilet # Unmeasured Voids Void 1 1 2 Bowel Movement No Active Medications Acetaminophen (Tylenol -) 650 mg PO Q4H PRN PRN Reason: PAIN SCALE 3-8 Al Hydroxide/Mg Hydroxide (Mylanta Oral Suspension -) 30 ml PO Q6H PRN PRN Reason: DYSPEPSIA Last Admin: 02/24/18 02:42 Dose: 30 ml Albuterol Sulfate (Ventolin 0.083% Nebulizer Soln -) 1 amp NEB Q6H PRN PRN Reason: SHORT OF BREATH/WHEEZING Albuterol/Ipratropium (Duoneb -) 1 amp NEB RQID [facility] Last Admin: 03/01/18 07:50 Dose: 1 amp Amoxicillin/Clavulanate Potassium (Augmentin - 875mg Tablet) 1 tab PO BID@0800, 1730 [facility] Last Admin: 03/01/18 08:34 Dose: 1 tab Budesonide/Formoterol Fumarate (Symbicort 160/4.5mcg -) 2 puff IH BID [facility] Last Admin: 03/01/18 10:13 Dose: 2 puff Clonazepam (Klonopin -) 0.5 mg PO Q8H PRN PRN Reason: ANXIETY Last Admin: 02/28/18 21:17 Dose: 0.5 mg Guaifenesin (Robitussin -) 10 ml PO Q4H PRN PRN Reason: COUGH Heparin Sodium (Porcine) (Heparin -) 5,000 unit SQ BID [facility] Last Admin: 03/01/18 10:13 Dose: 5,000 unit Methadone HCl 120 mg/ (Methadone HCl 5 mg) 125 mg PO DAILY@0600 [facility] Last Admin: 03/01/18 08:32 Dose: 125 mg Methylprednisolone Sodium Succinate (Solu-Medrol -) 40 mg IVPUSH Q12H [facility] Last Admin: 03/01/18 10:13 Dose: 40 mg Quetiapine Fumarate (Seroquel -) 50 mg PO HS [facility] Last Admin: 02/28/18 21:18 Dose: 50 mg Ranitidine HCl (Zantac -) 150 mg PO BID [facility] Last Admin: 02/28/18 21:17 Dose: 150 mg CBC, BMP 02/25/18 06:30 02/25/18 06:30 Physical Exam S1 S2 RRR Lungs --ronchi B/L--improved Abd- soft, NT No edema neuro- alert/ awake Anxiety + PLAN B/L pneumonia COPD Smoker -nebs standing - iv antibiotics - solumedrol - tapering --pulmonary f/u noted - pt is ambulating in the [place] [address] - - smoking cessation slowly getting better -- much better -- dont want to go home today -- says not fully ready yet -- discussed - d/c tomorrow - will follow Problem List - Problems (1) Methadone dependence Code(s): F11.20 - OPIOID DEPENDENCE, UNCOMPLICATED (2) Smoker Code(s): F17.200 - NICOTINE DEPENDENCE, UNSPECIFIED, UNCOMPLICATED (3) Pneumonia Code(s): J18.9 - PNEUMONIA, UNSPECIFIED ORGANISM Qualifiers: Pneumonia type: due to unspecified organism Laterality: right Lung location: unspecified part of lung Qualified Code(s): J18.9 - Pneumonia, unspecified organism
[2018-03-02] MEDS ORDERED: QUEtiapine FUMARATE 25 MG TABLET (FP) ONE (20:11)
[2018-03-02] MEDS: QUEtiapine FUMARATE 50 MG TABLET PO SCH (21:28)
[2018-03-03] MEDS ORDERED: METHADONE HCL 5 MG TABLET ONE (05:25)
[2018-03-03] MEDS ORDERED: METHADONE HCL 40 MG DISPERSABLE TABLET ONE (05:25)
[2018-03-03] MEDS: METHADONE 120 MG, METHADONE 5 MG PO SCH (06:05)
[2018-03-03 06:58] VITALS: PULSE 76
[2018-03-03] MEDS: AMOX TR/POT CLAV 875MG/125MG TABLETS (FP) PO SCH (08:33)
[2018-03-03] MEDS: ALBUTEROL SO4 2.5/IPRATROPIUM 0.5 INH SOL 3 ML VIAL.NEB. NEB SCH (08:48)
[2018-03-03] MEDS: RANITIDINE HCL 150 MG TABLET (FP) PO SCH (09:13)
[2018-03-03] MEDS: BUDESONIDE/FORMETEROL FUMARATE 160/4.5 mcg INHALER IH SCH (09:14)
[2018-03-03] MEDS: methylPREDNISolone NA SUCC 40 MG/1 ML VIAL IVPUSH SCH (09:14)
[2018-03-03] MEDS: HEPARIN NA (PORCINE) 5,000 UNITS/ML 1ML VIAL SQ SCH (09:14)
--- NOTE | 2018-03-03 09:30 | PN ---
Progress Note (short form) - Note Progress Note: Overall breathing is better. Less congested cough and "tightness". No fevers. Intake & Output 02/28/18 03/01/18 03/02/18 03/03/18 23:59 23:59 23:59 23:59 Intake Total 1400 2050 750 400 Balance 1400 2049 750 400 Last Vital Signs Temp Pulse Resp BP Pulse Ox 98.4 F 76 18 109/66 96 03/03/18 06:57 03/03/18 06:57 03/03/18 06:57 03/03/18 06:57 03/02/18 21:00 Active Medications Acetaminophen (Tylenol -) 650 mg PO Q4H PRN PRN Reason: PAIN SCALE 3-8 Al Hydroxide/Mg Hydroxide (Mylanta Oral Suspension -) 30 ml PO Q6H PRN PRN Reason: DYSPEPSIA Last Admin: 02/24/18 02:42 Dose: 30 ml Albuterol Sulfate (Ventolin 0.083% Nebulizer Soln -) 1 amp NEB Q6H PRN PRN Reason: SHORT OF BREATH/WHEEZING Albuterol/Ipratropium (Duoneb -) 1 amp NEB RQID [facility] Last Admin: 03/03/18 08:48 Dose: 1 amp Amoxicillin/Clavulanate Potassium (Augmentin - 875mg Tablet) 1 tab PO BID@0800, 1730 [facility] Last Admin: 03/03/18 08:33 Dose: 1 tab Budesonide/Formoterol Fumarate (Symbicort 160/4.5mcg -) 2 puff IH BID [facility] Last Admin: 03/03/18 09:14 Dose: 2 puff Clonazepam (Klonopin -) 0.5 mg PO Q8H PRN PRN Reason: ANXIETY Last Admin: 03/02/18 17:20 Dose: 0.5 mg Guaifenesin (Robitussin -) 10 ml PO Q4H PRN PRN Reason: COUGH Heparin Sodium (Porcine) (Heparin -) 5,000 unit SQ BID [facility] Last Admin: 03/03/18 09:14 Dose: 5,000 unit Methadone HCl 120 mg/ (Methadone HCl 5 mg) 125 mg PO DAILY@0600 [facility] Last Admin: 03/03/18 06:05 Dose: 125 mg Methylprednisolone Sodium Succinate (Solu-Medrol -) 40 mg IVPUSH Q12H [facility] Last Admin: 03/03/18 09:14 Dose: 40 mg Quetiapine Fumarate (Seroquel -) 50 mg PO HS [facility] Last Admin: 03/02/18 21:28 Dose: 50 mg Ranitidine HCl (Zantac -) 150 mg PO BID [facility] Last Admin: 03/03/18 09:13 Dose: 150 mg Gen: NAD Heart: RRR Lung: Minimal scattered rhonchi, No expiratory wheezing heard today Abd: soft, nontender Ext: no edema A/P Acute Hypoxic Respiratory Failure Pneumonia Acute Asthma Exacerbation Methadone Maintenance Smoker - Prednisone taper - inhaled bronchodilators - O2 to keep Spo2 >90% - continue antibiotics - DVT prophylaxis - will need outpt f/u of chest imaging to ensure resolution of infiltrates - smoking cessation - No Pulmonary contraindication for D/C home today Dr Spence
[2018-03-03] MEDS: clonazePAM 0.5 MG TABLET PO PRN (09:33)
--- NOTE | 2018-03-03 10:13 | PN ---
Progress Note, Physician History of Present Illness: patient doing well no new issues breathing better - Current Medication List Current Medications: Active Medications Acetaminophen (Tylenol -) 650 mg PO Q4H PRN PRN Reason: PAIN SCALE 3-8 Al Hydroxide/Mg Hydroxide (Mylanta Oral Suspension -) 30 ml PO Q6H PRN PRN Reason: DYSPEPSIA Last Admin: 02/24/18 02:42 Dose: 30 ml Albuterol Sulfate (Ventolin 0.083% Nebulizer Soln -) 1 amp NEB Q6H PRN PRN Reason: SHORT OF BREATH/WHEEZING Albuterol/Ipratropium (Duoneb -) 1 amp NEB RQID [facility] Last Admin: 03/03/18 08:48 Dose: 1 amp Amoxicillin/Clavulanate Potassium (Augmentin - 875mg Tablet) 1 tab PO BID@0800, 1730 [facility] Last Admin: 03/03/18 08:33 Dose: 1 tab Budesonide/Formoterol Fumarate (Symbicort 160/4.5mcg -) 2 puff IH BID [facility] Last Admin: 03/03/18 09:14 Dose: 2 puff Clonazepam (Klonopin -) 0.5 mg PO Q8H PRN PRN Reason: ANXIETY Last Admin: 03/03/18 09:33 Dose: 0.5 mg Guaifenesin (Robitussin -) 10 ml PO Q4H PRN PRN Reason: COUGH Heparin Sodium (Porcine) (Heparin -) 5,000 unit SQ BID [facility] Last Admin: 03/03/18 09:14 Dose: 5,000 unit Methadone HCl 120 mg/ (Methadone HCl 5 mg) 125 mg PO DAILY@0600 [facility] Last Admin: 03/03/18 06:05 Dose: 125 mg Methylprednisolone Sodium Succinate (Solu-Medrol -) 40 mg IVPUSH Q12H [facility] Last Admin: 03/03/18 09:14 Dose: 40 mg Quetiapine Fumarate (Seroquel -) 50 mg PO HS [facility] Last Admin: 03/02/18 21:28 Dose: 50 mg Ranitidine HCl (Zantac -) 150 mg PO BID [facility] Last Admin: 03/03/18 09:13 Dose: 150 mg - Objective Vital Signs: Vital Signs Temperature 98.4 F 03/03/18 06:57 Pulse Rate 76 03/03/18 06:57 Respiratory Rate 18 03/03/18 06:57 Blood Pressure 109/66 03/03/18 06:57 O2 Sat by Pulse Oximetry (%) 96 03/02/18 21:00 Constitutional: Yes: No Distress, Calm Cardiovascular: Yes: Regular Rate and Rhythm Respiratory: Yes: Regular, CTA Bilaterally Gastrointestinal: Yes: Normal Bowel Sounds, Soft Musculoskeletal: Yes: WNL Extremities: Yes: WNL Neurological: Yes: Alert, Oriented Psychiatric: Yes: Alert, Oriented Labs: CBC, BMP 02/25/18 06:30 02/25/18 06:30 INR, PTT INR 1.39 (0.83-1.09) H 02/19/18 15:05 Assessment/Plan Problem List - Problems (1) Methadone dependence Code(s): F11.20 - OPIOID DEPENDENCE, UNCOMPLICATED (2) Smoker Code(s): F17.200 - NICOTINE DEPENDENCE, UNSPECIFIED, UNCOMPLICATED (3) Pneumonia Code(s): J18.9 - PNEUMONIA, UNSPECIFIED ORGANISM Qualifiers: Pneumonia type: due to unspecified organism Laterality: right Lung location: unspecified part of lung Qualified Code(s): J18.9 - Pneumonia, unspecified organism 4 weakness plan will stop abx incentive noman rest as per the team doing well
[2018-03-03 11:02] VITALS: BP 126/86; TEMP 97.9
--- NOTE | 2018-03-03 11:50 | DS ---
Physical Examination Vital Signs: Vital Signs Temperature 97.9 F 03/03/18 10:00 Pulse Rate 76 03/03/18 10:00 Respiratory Rate 18 03/03/18 10:58 Blood Pressure 126/86 03/03/18 10:00 O2 Sat by Pulse Oximetry (%) 96 03/03/18 10:58 Constitutional: Yes: No Distress, Calm Cardiovascular: Yes: Regular Rate and Rhythm Respiratory: Yes: Wheezes Gastrointestinal: Yes: Normal Bowel Sounds, Soft. No: Tenderness Edema: No Labs: CBC, BMP 02/25/18 06:30 02/25/18 06:30 Discharge Summary Reason For Visit: HYPOXIA,PNEUMONIA,SEPSIS Current Active Problems Acute hypoxemic respiratory failure (Acute) Asthma attack (Acute) Methadone dependence (Acute) Pneumonia (Acute) Sepsis (Acute) Smoker (Acute) Tobacco abuse (Acute) Tobacco abuse counseling (Acute) Hospital Course: Admitted for COPD exacerbation, B/L Pneumonia- community acquired Pt was seen by ID and Pulmonary Was on Solumedrol, iv antibiotics completed antibiotics today Pt is ambulating-- does not needs O2 Smoking cessation will dc home on PO prednisone Follow up with Pulmonary and PMD Repeat CT chest in a few weeks for resolution of infiltrates Condition: Improved - Instructions Diet, Activity, Other Instructions: needs CT chest in a few weeks- for pneumonia resolution Referrals: Parker Carter MD [Primary Care Provider] - Pedro Shafer MD, MD [Staff Physician] - Disposition: HOME - Home Medications Comprehensive Discharge Medication List: Ambulatory Orders Albuterol 0.083% Nebulizer Chelsey [Ventolin 0.083%] 1 neb NEB Q4H 02/19/18 Methadone [Dolophine -] 125 mg PO DAILY 02/19/18 Quetiapine Fumarate [Seroquel -] 50 mg PO HS 02/19/18 clonazePAM [Klonopin -] 0.5 mg PO TID 02/20/18
== END 2018-03-03 13:54 | disposition home or self-care (01) | DRG 133 ==
LOC: JER 10:45 → JERBED 19:38 → J8W 22:10
PROVIDERS: ADMIT Internal Medicine; ATTEND Internal Medicine
DX: J96.01 Acute respiratory failure with hypoxia (principal); J18.9 Pneumonia, unspecified organism; F11.20 Opioid dependence, uncomplicated; F41.8 Other specified anxiety disorders; F17.210 Nicotine dependence, cigarettes, uncomplicated; J44.1 Chronic obstructive pulmonary disease with (acute) exacerbation; J45.901 Unspecified asthma with (acute) exacerbation
CPT/HCPCS: 36415; 71046-TC-FY; 71275-TC; 80048; 80053; 81003; 81015; 82803; 83605; 83735; 84484; 85025; 85027; 85610; 85730; 86738; 87040; 87086; 87804; 87899; 93005; 93010; 94010; 94640; 94761; 99283-25; J0131; J1644; J7030

== ENCOUNTER 2018-05-21 14:42 | Emergency (ER) | payer OTHER ==
[2018-05-21] MEDS ORDERED: ALBUTEROL SO4 2.5/IPRATROPIUM 0.5 INH SOL 3 ML VIAL.NEB. NEB ONE ×4 (14:47→19:42)
--- NOTE | 2018-05-21 14:47 | PDOC ---
Rapid Medical Evaluation Chief Complaint: Asthma Time Seen by Provider: 05/21/18 14:46 Medical Evaluation: Allergies Allergy/AdvReac Type Severity Reaction Status Date / Time No Known Allergies Allergy Verified 05/21/18 14:44 05/21/18 14:46 I performed a brief in-person evaluation of this patient. Chief complaint: Dyspnea, hx asthma and admission 02/2018 for exacerbation and PNA, active smoker Pertinent physical exam findings: Diffuse expiratory wheezing in all lung sr , SpO2 94% I have ordered the following: CXR, duonebs Patient to proceed to the ED for further evaluation. Discharge Disposition - Diagnosis Dyspnea - Referrals - Patient Instructions - Post Discharge Activity
[2018-05-21 14:49] VITALS: BP 129/85; PULSE 110; TEMP 98.4; BMI 23.3
[2018-05-21] MEDS: ALBUTEROL SO4 0.083% IH SOL 2.5 MG/3 ML VIAL.NEB. NEB SCH ×3 (15:33→16:10)
--- NOTE | 2018-05-21 19:14 | PDOC ---
History of Present Illness - General Chief Complaint: Asthma Stated Complaint: ASTHMA Time Seen by Provider: 05/21/18 14:46 History Source: Patient Exam Limitations: No Limitations - History of Present Illness Initial Comments: 05/21/18 19:09 Best Contact:[phone] PCP: Dr. Parker Carter ([phone]) Timber Repairer: Dr. Florentino Nicole [phone]/ [phone] Pmhx: Asthma/ last ad,mission on 02/2018,no hx of intubations, Anxiety Pshx: Denies Allergies: NKDA FH:N/A Social Hx: Cigarettes/ 1 cigarette daily x8 months Alcohol/ social Drugs/ Methadone pt x18 months (heroin snort/last 2017) Recent ad,mission to [facility] on 02/20/2016 - 03/03/2018 for PNA 52-year-old male presents to the emergency department complaining of cough, dyspnea on exertion periodically for approximately 1 month. Patient states he was coughing up a thick brownish substance which turned clear recently. Patient was also experiencing some chills but his main concern is the dyspnea on exertion. Patient states he cannot walk a short distance without feeling short of breath. Patient states he's been feeling like this for the past month and prior to this past month, he's been feeling like this back in February when he was admitted to the hospital for pneumonia. Patient was subsequently discharged 12 days later. Patient denies headache, dizziness, lightheadedness, fever, nausea/vomiting, facial pain, rhinorrhea, nasal congestion, earache, sore throat , neck pain, chest pain, back pains, flank pains, abdominal pains, urinary symptoms, extremity numbness or tingling sensation, weakness. Past History - Past Medical History Allergies/Adverse Reactions: Allergies Allergy/AdvReac Type Severity Reaction Status Date / Time No Known Allergies Allergy Verified 05/21/18 14:44 Home Medications: Ambulatory Orders Albuterol 0.083% Nebulizer Chelsey [Ventolin 0.083% Nebulizer Soln -] 1 neb NEB Q4H 02/19/18 Methadone [Dolophine -] 120 mg PO DAILY 02/19/18 Quetiapine Fumarate [Seroquel -] 50 mg PO HS 02/19/18 clonazePAM [Klonopin -] 0.5 mg PO TID 02/20/18 Nebulizer [Aeroneb Go Nebulizer] 1 each NEB Q8H #1 each 03/03/18 Ranitidine [Zantac -] 150 mg PO BID #20 tablet 03/03/18 Asthma: Yes COPD: No Psychiatric Problems: Yes (ANXIETY) - Immunization History Immunization Up to Date: Yes - Suicide/Smoking/Psychosocial Hx Smoking History: Current every day smoker Have you smoked in the past 12 months: Yes Number of Cigarettes Smoked Daily: 10 Information on smoking cessation initiated: No Hx Alcohol Use: No Drug/Substance Use Hx: Yes (METHADONE) Substance Use Type: None Hx Substance Use Treatment: No Review of Systems - Review of Systems Able to Perform ROS?: Yes Comments:: 05/21/18 19:14 CONSTITUTIONAL: Absent: fever, chills, diaphoresis, generalized weakness, malaise, loss of appetite HEENT: Absent: rhinorrhea, nasal congestion, throat pain, throat swelling, difficulty swallowing, mouth swelling, ear pain, eye pain, visual Changes CARDIOVASCULAR: Absent: chest pain, loss of consciousness, palpitations, irregular heart rate, peripheral edema RESPIRATORY: +cough, shortness of breath, dyspnea with exertion Absent: , orthopnea, wheezing, stridor, hemoptysis GASTROINTESTINAL: Absent: abdominal pain, abdominal distension, nausea, vomiting, diarrhea, constipation, melena, hematochezia GENITOURINARY: Absent: dysuria, frequency, urgency, hesitancy, hematuria, flank pain, genital pain MUSCULOSKELETAL: Absent: myalgia, arthralgia, joint swelling SKIN: Absent: rash, itching, pallor HEMATOLOGIC/IMMUNOLOGIC: Absent: easy bleeding, easy bruising, lymphadenopathy, frequent infections ENDOCRINE: Absent: unexplained weight gain, unexplained weight loss, heat intolerance, cold intolerance NEUROLOGIC: Absent: headache, focal weakness or paresthesias, dizziness, unsteady gait, seizure, mental status changes, bladder or bowel incontinence PSYCHIATRIC: Absent: anxiety, depression, suicidal or homicidal ideation, hallucinations. Is the patient limited Brazilian proficient: No *Physical Exam - Vital Signs Last Vital Signs Temp Pulse Resp BP Pulse Ox 98.4 F 110 H 18 129/85 94 L 05/21/18 14:44 05/21/18 14:44 05/21/18 14:44 05/21/18 14:44 05/21/18 14:44 - Physical Exam Comments: 05/21/18 19:14 GENERAL: Well developed, well nourished. Awake and alert. No acute distress. HEENT: Normocephalic, atraumatic. PERRLA, EOMI. No conjunctival pallor. Sclera are non- icteric. Moist mucous membranes. Oropharynx is clear. NECK: Supple. Full ROM. No JVD. Carotid pulses 2+ and symmetric, without bruits. No thyromegaly. No lymphadenopathy. CARDIOVASCULAR: Regular rate and rhythm. No murmurs, rubs, or gallops. Distal pulses are 2+ and symmetric. PULMONARY: Diffuse exp wheezes throughout lung sr No evidence of respiratory distress. No wheezing, rales or rhonchi. ABDOMINAL: Soft. Non-tender. Non-distended. No rebound or guarding. No organomegaly. Normoactive bowel sounds. MUSCULOSKELETAL Normal range of motion at all joints. No bony deformities or tenderness. No CVA tenderness. EXTREMITIES: No cyanosis. No clubbing. No edema. No calf tenderness. SKIN: Warm and dry. Normal capillary refill. No rashes. No jaundice. NEUROLOGICAL: Alert, awake, appropriate. Cranial nerves 2-12 intact. No deficits to light touch and temperature in face, upper extremities and lower extremities. No motor deficits in the in face, upper extremities and lower extremities. Normoreflexic in the upper and lower extremities. Normal speech. Toes are down- going bilaterally. Gait is normal without ataxia. Moderate Sedation - Procedure Monitoring Vital Signs: Procedure Monitoring Vital Signs Temperature 98.4 F 05/21/18 14:44 Pulse Rate 110 H 05/21/18 14:44 Respiratory Rate 18 05/21/18 14:44 Blood Pressure 129/85 05/21/18 14:44 O2 Sat by Pulse Oximetry (%) 94 L 05/21/18 14:44 Heart Score/ECG Review - History History: Slightly suspicious - Electrocardiogram EKG: Normal - Age Age: >/= 65 - Risk Factors Risk Factors Heart Score: Yes Smoking History Based on the list above the patient has:: 1-2 risk factors - Troponin Troponin: </= normal limit - Score Heart Score - Total: 3 ED Treatment Course - LABORATORY CBC & Chemistry Diagram: 05/21/18 19:46 05/21/18 19:46 - Medications Given in the ED: ED Medications Discontinued Medications Generic Name Dose Route Start Last Admin Trade Name Nas PRN Reason Stop Dose Admin Albuterol/Ipratropium 1 amp 05/21/18 14:47 05/21/18 15:22 Duoneb - NEB 05/21/18 14:48 1 amp ONCE ONE Administration Progress Note - Progress Note Progress Note: 2126hrs: Pulse ox 94%, mild exp wheezes 2205hrs: Pulse ox 98%, Mild b/l lower exp wheezes Pt was always able to speak in full sentences. 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 *DC/Admit/Observation/Transfer Diagnosis at time of Disposition: Asthma Qualifiers: Asthma severity: moderate Asthma persistence: unspecified Asthma complication type: uncomplicated Qualified Code(s): J45.909 - Unspecified asthma, uncomplicated - Discharge Dispostion Disposition: HOME Condition at time of disposition: Stable Decision to Admit order: No - Referrals Referrals: Parker Carter MD [Primary Care Provider] - - Patient Instructions Printed Discharge Instructions: Asthma -- Adult Additional Instructions: You must follow up with your primary care physician and special class welder within 2 days Supportive care Return back to the ER for severe/persistent or worsening symptoms - Post Discharge Activity
[2018-05-21] MEDS ORDERED: ALBUTEROL SO4 0.083% IH SOL 2.5 MG/3 ML VIAL.NEB. NEB ONE ×2 (19:40→19:42)
[2018-05-21] MEDS ORDERED: MAGNESIUM 1GM/D5W - 1 GM/100 ML IVPB IVPB ONE (19:42)
[2018-05-21 20:06] LABS: EOS % 1.4 % (0-4.5); HEMATOCRIT 40.4 % (35.4-49); HEMOGLOBIN 13.8 GM/dL (11.7-16.9); LYMPH % 39.1 % (8-40); MCH 32.1 pg (25.7-33.7); MCHC 34.2 g/dl (32.0-35.9); MEAN CELL VOLUME 93.9 fl (80-96); MEAN PLT VOLUME 7.6 fl (7.5-11.1); NEUT % 49.5 % (42.8-82.8); PLATELET COUNT 214 K/MM3 (134-434); RDW 13.9 % (11.9-15.9); WHITE BLOOD COUNT 4.2 K/mm3 (4.0-10.0)
[2018-05-21 21:00] LABS: VENOUS PC02 49.1 mmHg (41-51); VENOUS PH 7.34 (7.31-7.41)
[2018-05-21 21:08] LABS: ALBUMIN 3.8 g/dl (3.4-5.0); ALK PHOS 62 U/L (45-117); ANION GAP 7 MMOL/L (8-16); BILIRUBIN,TOTAL 0.2 mg/dL (0.2-1); BLOOD UREA NITROGEN 11 mg/dL (7-18); CALCIUM 8.2 mg/dL (8.5-10.1); CHLORIDE 107 mmol/L (98-107); CO2 26 mmol/L (21-32); CREATININE 0.9 mg/dL (0.55-1.3); GLUCOSE,RANDOM 92 mg/dL (74-106); POTASSIUM 4.2 mmol/L (3.5-5.1); SGOT/AST 23 U/L (15-37); SGPT/ALT 15 U/L (13-61); SODIUM 139 mmol/L (136-145); TOT PROT 7.2 g/dl (6.4-8.2)
[2018-05-21] MEDS ORDERED: methylPREDNISolone NA SUCC 125 MG/2 ML VIAL IVPB ONE (21:25)
--- NOTE | 2018-05-22 13:14 | EKG ---
Test Reason : Blood Pressure : / mmHG Vent. Rate : 069 BPM Atrial Rate : 069 BPM P-R Int : 188 ms QRS Dur : 084 ms QT Int : 432 ms P-R-T Axes : 067 080 057 degrees QTc Int : 462 ms NORMAL SINUS RHYTHM WITH SINUS ARRHYTHMIA NORMAL ECG WHEN COMPARED WITH ECG OF 19-FEB-2018 11:50, NONSPECIFIC T WAVE ABNORMALITY NO LONGER EVIDENT IN INFERIOR LEADS T WAVE INVERSION NO LONGER EVIDENT IN ANTERIOR LEADS Confirmed by MD ABHINAV, ALIREZA ([id number]) on 05/22/2018 1:13:51 PM Referred By: Confirmed By:ALIREZA LA MD
== END 2018-05-21 23:10 | disposition home or self-care (01) ==
LOC: JER 14:42
PROC: 3E0F7GC Introduction of Other Therapeutic Substance into Respiratory Tract, Via Natural or Artificial Opening (ICD-10-PCS; principal; 2018-05-21)
PROC: 3E0F7GC Introduction of Other Therapeutic Substance into Respiratory Tract, Via Natural or Artificial Opening (ICD-10-PCS; 2018-05-21)
PROC: 3E0F7GC Introduction of Other Therapeutic Substance into Respiratory Tract, Via Natural or Artificial Opening (ICD-10-PCS; 2018-05-21)
PROC: 3E033GC Introduction of Other Therapeutic Substance into Peripheral Vein, Percutaneous Approach (ICD-10-PCS; 2018-05-21)
PROC: 3E0333Z Introduction of Anti-inflammatory into Peripheral Vein, Percutaneous Approach (ICD-10-PCS; 2018-05-21)
DX: J45.909 Unspecified asthma, uncomplicated (principal)
CPT/HCPCS: 36415; 71046-TC-FY; 80053; 82803; 85025; 93005; 93010; 94640; 96365; 96375; 99282-25

== ENCOUNTER 2018-05-27 11:21 | Inpatient (IN) | payer OTHER ==
[2018-05-27] MEDS ORDERED: ALBUTEROL SO4 2.5/IPRATROPIUM 0.5 INH SOL 3 ML VIAL.NEB. NEB ONE ×4 (11:30→16:03)
[2018-05-27] MEDS ORDERED: DEXAMETHASONE SOD PHOSPHATE 10 MG/1 ML VIAL ONE (11:31)
--- NOTE | 2018-05-27 12:15 | PDOC ---
Attending Attestation - Resident Resident Name: BerryanneToya - ED Attending Attestation I have performed the following: I have examined & evaluated the patient, The case was reviewed & discussed with the resident, I agree w/resident's findings & plan, Exceptions are as noted - HPI HPI: 05/27/18 12:14 52y m hx of asthma, heroin abuse (methadone maintenance), presents with SOB and VICTORIA - patient states that recently he's been feeling very out of breath especially when walking up a hill. He endorses a cough productive of sputum, denies any chest pain, the patient denies any fevers, leg swelling, hemoptysis. Upon arrival the patient was noted to be hypoxic, somnolent The patient was in the ER recently for evaluation of asthma social: +daily smoker PMD: Raul GENERAL: The patient is somnolent but arouses easily to verbal stimulus HEAD: Normocephalic, atraumatic. EYES: extraocular movements intact, sclera anicteric, conjunctiva clear, pupils 3mm ENT: Normal voice, Moist mucous membranes. NECK: Normal range of motion, supple LUNGS: no acute distress, diffuse wheezing bilaterally, HEART: tachycardic ABDOMEN: Soft, nontender, EXTREMITIES: Normal range of motion, no edema. no calf tenderness NEUROLOGICAL: No facial assymetry, Normal speech, PSYCH: Normal mood, normal affect. SKIN: Warm, Dry, normal turgor, pt noted hypoxic - suspect chronic in nature will treat for asthma pt also somnolent - suspect secondary to opiate use pt on residential monitor cxr to r/o pna labs reassess - Physicial Exam PE: 05/27/18 17:59 see above - Medical Decision Making 05/27/18 17:59 pts labs reviewed no leukcoytosis cxr clear will admit for further managment of asthma exacerbation pt iven multiple nebs, steroids and mag, no acute respiratry status currenlty Heart Score/ECG Review - ECG Impressions Comment:: 05/27/18 12:59 Twelve-lead EKG was performed and reviewed by me. There is normal sinus rhythm with a rate of [address] changes suggestive of acute ischemia Normal R wave progression Impression sinus tachycardia
[2018-05-27] MEDS: ALBUTEROL SO4 2.5/IPRATROPIUM 0.5 INH SOL 3 ML VIAL.NEB. NEB SCH ×7 (12:39→16:58)
[2018-05-27 13:07] LABS: BASO % 0.4 % (0-2.0); EOS % 0.3 % (0-4.5); HEMATOCRIT 39.2 % (35.4-49); HEMOGLOBIN 13.9 GM/dL (11.7-16.9); LYMPH % 7.7 % (8-40); MCH 33.1 pg (25.7-33.7); MCHC 35.3 g/dl (32.0-35.9); MEAN CELL VOLUME 93.7 fl (80-96); MEAN PLT VOLUME 7.2 fl (7.5-11.1); NEUT % 88.6 % (42.8-82.8); PLATELET COUNT 178 K/MM3 (134-434); RBC 4.19 M/mm3 (4.00-5.60); RDW 13.7 % (11.9-15.9); WHITE BLOOD COUNT 5.9 K/mm3 (4.0-10.0)
[2018-05-27 13:44] LABS: ALBUMIN 3.8 g/dl (3.4-5.0); ALK PHOS 66 U/L (45-117); ANION GAP 3 MMOL/L (8-16); BILIRUBIN,TOTAL 0.3 mg/dL (0.2-1); BLOOD UREA NITROGEN 9 mg/dL (7-18); CALCIUM 8.2 mg/dL (8.5-10.1); CHLORIDE 105 mmol/L (98-107); CO2 29 mmol/L (21-32); CREATININE 0.9 mg/dL (0.55-1.3); GLUCOSE,RANDOM 92 mg/dL (74-106); PHOSPHOROUS 3.4 mg/dL (2.5-4.9); POTASSIUM 4.1 mmol/L (3.5-5.1); SGOT/AST 19 U/L (15-37); SGPT/ALT 20 U/L (13-61); SODIUM 137 mmol/L (136-145); TOT PROT 7.2 g/dl (6.4-8.2)
--- NOTE | 2018-05-27 15:07 | PDOC ---
History of Present Illness - General Chief Complaint: Shortness of Breath Stated Complaint: SHORTNESS OF BREATHE Time Seen by Provider: 05/27/18 11:47 - History of Present Illness Initial Comments: Misbah Camp is a 52yo man with a PMH of asthma/COPD, current smoking, currently on methadone (former heroin abuse) who was brought to the ED by ambulance from his methadone clinic for SOB and due to unusual sleepiness. Per EMS, the clinic was concerned that Mr Camp may have used heroin in addition to receiving his normal methadone dose today. Mr Camp continuously falls asleep during his exam and does not answer questions coherently. He states that he was up all night when asked why he is so sleepy. He also states that he was trying to walk up a hill. No additional information is available. Past History - Past Medical History Allergies/Adverse Reactions: Allergies Allergy/AdvReac Type Severity Reaction Status Date / Time No Known Allergies Allergy Verified 05/27/18 11:22 Home Medications: Ambulatory Orders Albuterol 0.083% Nebulizer Chelsey [Ventolin 0.083% Nebulizer Soln -] 1 neb NEB Q4H 02/19/18 Methadone [Dolophine -] 120 mg PO DAILY 02/19/18 Quetiapine Fumarate [Seroquel -] 50 mg PO HS 02/19/18 clonazePAM [Klonopin -] 0.5 mg PO TID 02/20/18 Nebulizer [Aeroneb Go Nebulizer] 1 each NEB Q8H #1 each 03/03/18 Ranitidine [Zantac -] 150 mg PO BID #20 tablet 03/03/18 Asthma: Yes COPD: No Psychiatric Problems: Yes (ANXIETY) - Immunization History Immunization Up to Date: Yes - Suicide/Smoking/Psychosocial Hx Smoking History: Unknown if ever smoked Have you smoked in the past 12 months: Yes Number of Cigarettes Smoked Daily: 10 Hx Alcohol Use: No Drug/Substance Use Hx: Yes (METHADONE) Substance Use Type: None Hx Substance Use Treatment: No Review of Systems - Review of Systems Comments:: Could not obtain *Physical Exam - Vital Signs Last Vital Signs Temp Pulse Resp BP Pulse Ox 97.5 F L 102 H 14 124/69 94 L 05/27/18 11:23 05/27/18 14:23 05/27/18 14:23 05/27/18 14:23 05/27/18 14:23 - Physical Exam Comments: General: Extremely sleepy, falls asleep between every 2-3 words HEENT: PERRL, EOMI, dry lips Cards: RRR Pulm: Diffuse wheezing bilaterally Abd: Soft, nontender, nondistended Ext: Atraumatic. No LE edema. ROM intact Vasc: Extremities WWP. Skin: Normal color, no rashes or lesions Neuro: Sleepy, easily aroused but falls asleep nearly immediately, CN grossly intact, mumbling speech, motor/sensory grossly intact and symmetric Moderate Sedation - Procedure Monitoring Vital Signs: Procedure Monitoring Vital Signs Temperature 97.5 F L 05/27/18 11:23 Pulse Rate 102 H 05/27/18 14:23 Respiratory Rate 14 05/27/18 14:23 Blood Pressure 124/69 05/27/18 14:23 O2 Sat by Pulse Oximetry (%) 94 L 05/27/18 14:23 ED Treatment Course - LABORATORY CBC & Chemistry Diagram: 05/27/18 13:00 05/27/18 13:00 - ADDITIONAL ORDERS Additional order review: Laboratory Results 05/27/18 13:00 Sodium 137 Potassium 4.1 Chloride 105 Carbon Dioxide 29 Anion Gap 3 L BUN 9 Creatinine 0.9 Creat Clearance w eGFR 88.96 Random Glucose 92 Calcium 8.2 L Phosphorus 3.4 Magnesium 2.0 Total Bilirubin 0.3 AST 19 ALT 20 Alkaline Phosphatase 66 Total Protein 7.2 Albumin 3.8 05/27/18 13:00 RBC 4.19 MCV 93.7 MCHC 35.3 RDW 13.7 MPV 7.2 L Neutrophils % 88.6 H D Lymphocytes % 7.7 L D Monocytes % 3.0 L Eosinophils % 0.3 Basophils % 0.4 - RADIOLOGY Radiology Studies Ordered: Category Date Time Status CHEST X-RAY PORTABLE* [RAD] Stat Radiology 05/27/18 12:10 Completed - Medications Given in the ED: ED Medications Discontinued Medications Generic Name Dose Route Start Last Admin Trade Name Freq PRN Reason Stop Dose Admin Albuterol/Ipratropium 1 amp 05/27/18 12:15 05/27/18 13:18 Duoneb - NEB 05/27/18 13:01 1 amp Q15M CAN Administration Medical Decision Making - Medical Decision Making 05/27/18 12:25 Misbah Camp is a 52yo man with a PMH of asthma/COPD, current smoking, on methadone for heroin abuse who presents from his methadone clinic with SOB and sleepiness. Per EMS, the clinic was concerned that he had used heroin despite being on methadone. - Significant wheezing on exam w/ hypoxia. 89-90% on 3L - DDx includes asthma v COPD exacerbation, hypoxia due to heroin use on methadone (denying), pneumonia, or unknown pulm diseas - CBC, chemistry, CXR, EKG - Duonebs for wheezing - No narcan at this time as pt is maintaining a normal RR 05/27/18 15:55 - Labs reviewed. Notable for ABG with O2 of 48. Othewise unremarkable - EKG with sinus tach, HR 117 - CXR without acute abnormalities noted - Giving additional nebs, IV magnesium for continued wheezing and hypoxia. Still in high 80's now on 5L O2 by NC 05/27/18 16:14 - Pt noted to be pointing nebulizer at bed, sleeping with hand at his side. Placed mask, giving a new dose of duonebs - Much more awake and alert. 05/27/18 16:46 - Continued diffuse wheezing, but sats improved to mid 90's - Pt reports needing his rescue inhaler multiple times per day every day. 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 05/27/18 17:37 - Signed out to RODNEY Nascimento. Discussed with Dr Ashanti Herbert PGY1 *DC/Admit/Observation/Transfer Diagnosis at time of Disposition: Acute hypoxemic respiratory failure Asthma attack Qualifiers: Asthma severity: moderate Asthma persistence: persistent Qualified Code(s): J45.41 - Moderate persistent asthma with (acute) exacerbation - Discharge Dispostion Decision to Admit order: Yes - Referrals - Patient Instructions - Post Discharge Activity
[2018-05-27] MEDS ORDERED: MAGNESIUM SULF 50% (8.12 MEQ/2 ML-1 GM VIAL) IVPB ONE (15:14)
[2018-05-27 15:17] LABS: ARTERIAL BLOOD GAS PCO2 49.2 mmHg (35-45); ARTERIAL BLOOD GAS pH 7.36 (7.35-7.45)
[2018-05-27 15:18] LABS: ALLENS TEST POSITIVE; ARTERIAL BLD GAS O2 SATURATION 84.1 % (95-98)
[2018-05-27 15:20] LABS: ARTERIAL BLOOD GAS PO2 48.4 mmHg (80-105)
[2018-05-27] MEDS ORDERED: MAGNESIUM SULF 50% (8.12 MEQ/2 ML-1 GM VIAL) ONE (15:25)
[2018-05-27] MEDS ORDERED: MAGNESIUM 1GM/D5W - 2 GM/200 ML IVPB IVPB ONE (15:25)
--- NOTE | 2018-05-27 15:49 | EKG ---
Test Reason : Blood Pressure : / mmHG Vent. Rate : 117 BPM Atrial Rate : 117 BPM P-R Int : 138 ms QRS Dur : 082 ms QT Int : 356 ms P-R-T Axes : 074 081 066 degrees QTc Int : 496 ms SINUS TACHYCARDIA OTHERWISE NORMAL ECG WHEN COMPARED WITH ECG OF 21-MAY-2018 22:39, VENT. RATE HAS INCREASED BY 48 BPM Confirmed by NAPOLEON GARCIA MD ([id number]) on 05/27/2018 3:49:36 PM Referred By: Confirmed By:NAPOLEON GARCIA MD
[2018-05-27] MEDS ORDERED: ALBUTEROL SO4 0.083% IH SOL 2.5 MG/3 ML VIAL.NEB. NEB PRN (18:00)
--- NOTE | 2018-05-27 18:19 | HP ---
CHIEF COMPLAINT:lethargy, sob, PCP:Parker Carter HISTORY OF PRESENT ILLNESS: Misbah Camp is a 52yo man with a PMH of asthma/COPD, current smoking, currently on methadone (former heroin abuse) who was brought to the ED by ambulance from his methadone clinic for SOB and due to unusual sleepiness. Per EMS, the clinic was concerned that Mr Camp may have used heroin in addition to receiving his normal methadone dose today. pt seen in ED, awake, mother present, reports feeling sob walking up on inclines, pt seen in ED last week, not able to see Dr/ Pulanne. pt required continuous neb tx in ED. received decadron, Mag pt denies hx of intubation, ER course was notable for: (1)hypoxia (2)+diffuse wheezing (3)ABG Po2 48 Recent Travel: PAST MEDICAL HISTORY:asthma, COPD, +current smoker, hx of opiod dependance PAST SURGICAL HISTORY: Social History: Smoking:current smoker, 3 cigarettes/day Alcohol:denies Drugs: former heroin use, on methadone Family History: Allergies No Known Allergies Allergy (Verified 05/27/18 11:22) HOME MEDICATIONS: Home Medications Medication Instructions Recorded Albuterol 0.083% Nebulizer Chelsey 1 neb NEB Q4H 02/19/18 [Ventolin 0.083% Nebulizer Soln -] Methadone [Dolophine -] 120 mg PO DAILY 02/19/18 Quetiapine Fumarate [Seroquel -] 50 mg PO HS 02/19/18 clonazePAM [Klonopin -] 0.5 mg PO TID 02/20/18 Nebulizer [Aeroneb Go Nebulizer] 1 each NEB Q8H #1 each 03/03/18 Ranitidine [Zantac -] 150 mg PO BID #20 tablet 03/03/18 REVIEW OF SYSTEMS CONSTITUTIONAL: Absent: fever, chills, diaphoresis, generalized weakness, malaise, loss of appetite, weight change HEENT: Absent: rhinorrhea, nasal congestion, throat pain, throat swelling, difficulty swallowing, mouth swelling, ear pain, eye pain, visual changes CARDIOVASCULAR: Absent: chest pain, syncope, palpitations, irregular heart rate, lightheadedness , peripheral edema RESPIRATORY: +SOB on exertion, +Wheezing Absent: cough, dyspnea with exertion, orthopnea, stridor, hemoptysis GASTROINTESTINAL: Absent: abdominal pain, abdominal distension, nausea, vomiting, diarrhea, constipation, melena, hematochezia GENITOURINARY: Absent: dysuria, frequency, urgency, hesitancy, hematuria, flank pain, genital pain MUSCULOSKELETAL: Absent: myalgia, arthralgia, joint swelling, back pain, neck pain SKIN: Absent: rash, itching, pallor HEMATOLOGIC/IMMUNOLOGIC: Absent: easy bleeding, easy bruising, lymphadenopathy, frequent infections ENDOCRINE: Absent: unexplained weight gain, unexplained weight loss, heat intolerance, cold intolerance NEUROLOGIC: Absent: headache, focal weakness or paresthesias, dizziness, unsteady gait, seizure, mental status changes, bladder or bowel incontinence PSYCHIATRIC: Absent: anxiety, depression, suicidal or homicidal ideation, hallucinations. PHYSICAL EXAMINATION Vital Signs - 24 hr 05/27/18 05/27/18 05/27/18 11:23 13:02 14:23 Temperature 97.5 F L Pulse Rate 113 H Pulse Rate [ 102 H Apical] Respiratory 18 14 Rate Blood Pressure 150/105 H Blood Pressure 124/69 [Right] O2 Sat by Pulse 98 90 L 94 L Oximetry (%) 05/27/18 16:54 Temperature Pulse Rate Pulse Rate [ 97 H Apical] Respiratory 18 Rate Blood Pressure Blood Pressure 106/76 [Right] O2 Sat by Pulse 98 Oximetry (%) GENERAL: Awake, alert, and oriented, takes time to complete sentences HEAD: Normal with no signs of trauma. EYES: Pupils equal, round and reactive to light, extraocular movements intact, sclera anicteric, conjunctiva clear. No lid lag. EARS, NOSE, THROAT: Ears normal, nares patent, oropharynx clear without exudates. Moist mucous membranes. NECK: Normal range of motion, supple without lymphadenopathy, JVD, or masses. LUNGS: +diffuse wheezing bilaterally HEART: Regular rate and rhythm, normal S1 and S2 without murmur, rub or gallop. ABDOMEN: Soft, nontender, not distended, normoactive bowel sounds, no guarding, no rebound, no masses. No hepatomegaly or splenomegaly. MUSCULOSKELETAL: Normal range of motion at all joints. No bony deformities or tenderness. No CVA tenderness. UPPER EXTREMITIES: 2+ pulses, warm, well-perfused. No cyanosis. No clubbing. No peripheral edema. LOWER EXTREMITIES: 2+ pulses, warm, well-perfused. No calf tenderness. No peripheral edema. NEUROLOGICAL: Cranial nerves II-XII intact. Normal speech. Normal gait. PSYCHIATRIC: Cooperative. Good eye contact. Appropriate mood and affect. SKIN: Warm, dry, normal turgor, no rashes or lesions noted, normal capillary refill. Laboratory Results - last 24 hr 05/27/18 05/27/18 05/27/18 13:00 13:00 14:30 WBC 5.9 RBC 4.19 Hgb 13.9 Hct 39.2 MCV 93.7 MCH 33.1 MCHC 35.3 RDW 13.7 Plt Count 178 MPV 7.2 L Absolute Neuts (auto) 5.3 Neutrophils % 88.6 H D Lymphocytes % 7.7 L D Monocytes % 3.0 L Eosinophils % 0.3 Basophils % 0.4 Nucleated RBC % 0 Anticoagulation Therapy No Result Required. Puncture Site Left radial ABG pH 7.36 ABG pCO2 at Pt Temp 49.2 H ABG pO2 at Pt Temp 48.4 L ABG HCO3 27.6 H ABG O2 Sat (Measured) 84.1 L ABG O2 Content 15.2 ABG Base Excess No Result Required. Dav Test Positive Carboxyhemoglobin 3.0 H Methemoglobin 0.2 O2 Delivery Device No Result Required. Oxygen Flow Rate Yes Vent Mode No Result Required. Vent Rate No Result Required. Mechanical Rate No Result Required. Pressure Support Vent No Result Required. Sodium 137 Potassium 4.1 Chloride 105 Carbon Dioxide 29 Anion Gap 3 L BUN 9 Creatinine 0.9 Creat Clearance w eGFR 88.96 Random Glucose 92 Calcium 8.2 L Phosphorus 3.4 Magnesium 2.0 Total Bilirubin 0.3 AST 19 ALT 20 Alkaline Phosphatase 66 Total Protein 7.2 Albumin 3.8 ASSESSMENT/PLAN: Misbah Camp is a 52 yr old M, medical condition asthma, COPD, +current smoker, hx of opiod addiction on methadone admitted for Admitting Diagnosis Asthma exacerbation, hypoxia Chronic Problems COPD Hx of opiod abuse Tobacco use A/P: #Asthma exacerbation, Hypoxia -fio2 to keep O2 > 94% -Oxygen 3-4L NC -Solumedrol 40mg q6hrs -Duonebs q6hrs -Pulm consult -chest xray no active disease -peak flow #Hx of opiod use -on methadone -[facility] Meth program ([phone]) -call in AM to verify dose -Drug screen ordered #Tobacco use -nicotine patch DVT prophylaxis: Heparin q12hrs Dispo: requires inpatient treatment Full Code Visit type - Emergency Visit Emergency Visit: Yes Care time: The patient presented to the Emergency Department on the above date and was hospitalized for further evaluation of their emergent condition. - New Patient This patient is new to me today: Yes Date on this admission: 05/27/18 - Critical Care Critical Care patient: No
[2018-05-27 20:03] VITALS: BMI 21.4
[2018-05-27] MEDS: ALBUTEROL SO4 0.083% IH SOL 2.5 MG/3 ML VIAL.NEB. NEB SCH (20:34)
[2018-05-27] MEDS: SODIUM CHLORIDE 1,000 ML IV SCH (21:54)
[2018-05-27] MEDS: HEPARIN NA (PORCINE) 5,000 UNITS/ML 1ML VIAL SQ SCH (21:55)
[2018-05-27] MEDS: BUDESONIDE/FORMETEROL FUMARATE 160/4.5 mcg INHALER IH SCH (21:55)
[2018-05-27] MEDS: methylPREDNISolone NA SUCC 40 MG/1 ML VIAL IVPUSH SCH (21:56)
[2018-05-27 23:09] LABS: COCAINE, UR NEGATIVE ng/ml (CUTOFF=300); OPIATES, URI NEGATIVE ng/ml (CUTOFF=300); PHENCYCLIDINE,URINE NEGATIVE ng/ml (CUTOFF=25); URINE AMPHETAMINES NEGATIVE ng/ml (CUTOFF=500); URINE BARBITURATES NEGATIVE ng/ml (CUTOFF=200)
[2018-05-27 23:25] LABS: METHADONE, UR POSITIVE ng/ml (CUTOFF=300); URINE BENZODIAZEPINES POSITIVE ng/ml (CUTOFF=200)
[2018-05-27 23:38] LABS: EPI CELLS 0.1 /HPF (0-5); HYALINE CASTS 1 /hpf (0-8); PH,URINE 6.5 (5.0-8.0); URINE APPEARANCE CLEAR; URINE BACTERIA 0.162 /hpf (NEGATIVE); URINE BILIRUBIN NEGATIVE (<2.0 mg/dL); URINE COLOR YELLOW; URINE GLUCOSE (UA) NEGATIVE (NEGATIVE); URINE KETONE NEGATIVE (NEGATIVE); URINE LEUK ESTERASE NEGATIVE (NEGATIVE); URINE NITRITE NEGATIVE (NEGATIVE); URINE PROTEIN NEGATIVE (NEGATIVE); URINE RBC 2 /hpf (0-4); URINE UROBILINOGEN 0.2 mg/dL (0.2-1.0); URINE WBC 0 /hpf (0-5)
[2018-05-28] MEDS: methylPREDNISolone NA SUCC 40 MG/1 ML VIAL IVPUSH SCH ×4 (02:41→22:47)
[2018-05-28] MEDS: ALBUTEROL SO4 0.083% IH SOL 2.5 MG/3 ML VIAL.NEB. NEB SCH ×4 (07:25→20:33)
[2018-05-28 08:32] LABS: BASO % 0.1 % (0-2.0); HEMATOCRIT 39.9 % (35.4-49); HEMOGLOBIN 13.7 GM/dL (11.7-16.9); LYMPH % 13.6 % (8-40); MCH 32.3 pg (25.7-33.7); MCHC 34.4 g/dl (32.0-35.9); MEAN CELL VOLUME 94.1 fl (80-96); MEAN PLT VOLUME 7.4 fl (7.5-11.1); MONO % 1.8 % (3.8-10.2); NEUT % 84.5 % (42.8-82.8); PLATELET COUNT 204 K/MM3 (134-434); RBC 4.24 M/mm3 (4.00-5.60); WHITE BLOOD COUNT 5.4 K/mm3 (4.0-10.0)
[2018-05-28 08:55] LABS: ALBUMIN 3.6 g/dl (3.4-5.0); ALK PHOS 65 U/L (45-117); ANION GAP 8 MMOL/L (8-16); BILIRUBIN,TOTAL 0.2 mg/dL (0.2-1); BLOOD UREA NITROGEN 10 mg/dL (7-18); CALCIUM 8.1 mg/dL (8.5-10.1); CHLORIDE 106 mmol/L (98-107); CO2 25 mmol/L (21-32); CREATININE 0.8 mg/dL (0.55-1.3); GLUCOSE,RANDOM 123 mg/dL (74-106); POTASSIUM 4.3 mmol/L (3.5-5.1); SGOT/AST 21 U/L (15-37); SGPT/ALT 19 U/L (13-61); SODIUM 138 mmol/L (136-145); TOT PROT 7.1 g/dl (6.4-8.2)
[2018-05-28] MEDS: SODIUM CHLORIDE 1,000 ML IV SCH (09:50)
[2018-05-28] MEDS: HEPARIN NA (PORCINE) 5,000 UNITS/ML 1ML VIAL SQ SCH ×2 (10:12→22:48)
[2018-05-28] MEDS: NICOTINE 7 MG/24 HOURS TOPICAL PATCH TD SCH (10:13)
--- NOTE | 2018-05-28 10:27 | PN ---
Progress Note (short form) - Note Progress Note: pt seen/ examined chart reviewed awake anxious did not get methadone yet today-- takes 120 mg dose-- confirmed with clinic. Vital Signs Temp 98 F 05/28/18 06:10 Pulse 70 05/28/18 06:10 Resp 18 05/28/18 06:10 BP 104/67 05/28/18 06:10 Pulse Ox 91 L 05/27/18 21:00 Intake & Output 05/27/18 05/27/18 05/28/18 11:59 23:59 11:59 Intake Total 350 600 Output Total 700 Balance 350 -100 Weight 185 lb 149 lb 4.8 oz Intake: IV 150 600 Normal Saline - 1,000 ml 150 600 @ 75 mls/hr IV ASDIR CAN Rx#:[id number] Oral 200 Output: Urine 700 Void 700 Other: Voiding Method Toilet Toilet # Unmeasured Voids Void 1 Bowel Movement No Height 5 ft 10 in 5 ft 10 in Body Mass Index (BMI) 26.5 21.4 Weight Measurement Method Standing Scale Active Medications Albuterol Sulfate (Ventolin 0.083% Nebulizer Soln -) 1 amp NEB Q4H PRN PRN Reason: ASTHMA Albuterol Sulfate (Ventolin 0.083% Nebulizer Soln -) 1 amp NEB RQID [facility] Last Admin: 05/28/18 07:25 Dose: 1 amp Budesonide/Formoterol Fumarate (Symbicort 160/4.5mcg -) 2 puff IH BID [facility] Last Admin: 05/27/18 21:55 Dose: 2 puff Heparin Sodium (Porcine) (Heparin -) 5,000 unit SQ BID [facility] Last Admin: 05/28/18 10:12 Dose: 5,000 unit Methadone HCl (Dolophine -) 120 mg PO DAILY@1000 [facility] Methylprednisolone Sodium Succinate (Solu-Medrol -) 40 mg IVPUSH Q6H-IV [facility] Last Admin: 05/28/18 10:12 Dose: 40 mg Nicotine (Nicoderm Patch -) 7 mg TD DAILY [facility] Last Admin: 05/28/18 10:13 Dose: 7 mg CBC, BMP 05/28/18 07:40 05/28/18 07:40 Physical Exam Awake/Anxious Heent- throat - clear lungs- Bilateral wheezes cvs-- S1, S2 rrr Abd - soft Ext- no edema Neuro- aox3 . Anxious a/p continue present care steroids Methadone -- attempt to taper in future-- per methadone clinic. restart Clonopine/ seroquel -- pt requesting pulmonary consult pending d/c fluids will follow
[2018-05-28] MEDS: METHADONE HCL 40 MG DISPERSABLE TABLET PO SCH (10:35)
[2018-05-28] MEDS: BUDESONIDE/FORMETEROL FUMARATE 160/4.5 mcg INHALER IH SCH ×2 (11:27→23:52)
--- NOTE | 2018-05-28 13:28 | PN ---
Problem List - Problems (1) COPD exacerbation Code(s): J44.1 - CHRONIC OBSTRUCTIVE PULMONARY DISEASE W (ACUTE) EXACERBATION (2) Anxiety Code(s): F41.9 - ANXIETY DISORDER, UNSPECIFIED (3) Methadone dependence Code(s): F11.20 - OPIOID DEPENDENCE, UNCOMPLICATED (4) Tobacco abuse Code(s): Z72.0 - TOBACCO USE (5) Tobacco abuse counseling Code(s): Z71.6 - TOBACCO ABUSE COUNSELING
[2018-05-28] MEDS: clonazePAM 0.5 MG TABLET PO SCH ×2 (13:48→22:48)
--- NOTE | 2018-05-28 15:21 | CON.PULM ---
Consult Consult Specialty:: PULMONARY Referred by:: GUIDO Reason for Consultation:: ASTHMA - History of Present Illness Chief Complaint: SOB/COUGH/WHEEZE History of Present Illness: 52y m hx of asthma, heroin abuse (methadone maintenance), presents with SOB and VICTORIA - patient states that recently he's been feeling very out of breath especially when walking up a hill. He endorses a cough productive of sputum, denies any chest pain, the patient denies any fevers, leg swelling, hemoptysis. Upon arrival the patient was noted to be hypoxic, somnolent. The patient was in the ER recently for evaluation of asthma. He is an active smoker. - History Source History Provided By: Patient, Medical Record Limitations to Obtaining History: No Limitations - Past Medical History FOUNDATION ASSISTANT: No: Alzheimer's Cardio/Vascular: No: AFIB Pulmonary: Yes: Asthma, COPD. No: O2 Dependent Gastrointestinal: No: Ascites Hepatobiliary: No: Cirrhosis Renal/: No: Renal Failure Heme/Onc: No: Anemia - Alcohol/Substance Use Hx Alcohol Use: No History of Substance Use: reports: Heroin - Smoking History Smoking history: Current every day smoker Have you smoked in the past 12 months: Yes Aproximately how many cigarettes per day: 1 - Social History Place of : [facility] History of Recent Travel: No Home Medications - Allergies Allergies/Adverse Reactions: Allergies Allergy/AdvReac Type Severity Reaction Status Date / Time No Known Allergies Allergy Verified 05/27/18 11:22 - Home Medications Home Medications: Ambulatory Orders Albuterol 0.083% Nebulizer Chelsey [Ventolin 0.083% Nebulizer Soln -] 1 neb NEB Q4H 02/19/18 Methadone [Dolophine -] 120 mg PO DAILY 02/19/18 Quetiapine Fumarate [Seroquel -] 50 mg PO HS 02/19/18 clonazePAM [Klonopin -] 0.5 mg PO TID 02/20/18 Nebulizer [Aeroneb Go Nebulizer] 1 each NEB Q8H #1 each 03/03/18 Ranitidine [Zantac -] 150 mg PO BID #20 tablet 03/03/18 Family Disease History - Family Disease History Family History: Unremarkable Review of Systems - Review of Systems Constitutional: denies: Fever Eyes: denies: Blurred Vision HENT: denies: Difficult Swallowing Neck: denies: Decreased ROM Cardiovascular: denies: Chest Pain Respiratory: reports: Cough, Exercise Intolerance, SOB on Exertion, Wheezing. denies: Hemoptysis Gastrointestinal: denies: Abdominal Pain Genitourinary: denies: Burning Physical Exam Vital Sings: Vital Signs Temperature 97.5 F L 05/28/18 10:00 Pulse Rate 86 05/28/18 10:00 Respiratory Rate 18 05/28/18 10:00 Blood Pressure 156/80 05/28/18 10:00 O2 Sat by Pulse Oximetry (%) 91 L 05/28/18 09:00 Constitutional: Yes: Calm Eyes: Yes: EOM Intact HENT: Yes: Normocephalic Neck: Yes: Trachea Midline Cardiovascular: Yes: Regular Rate and Rhythm Respiratory: Yes: Wheezes (BILATERAL ANTERIOR/POSTERIOR) ...Inspection: Yes: WNL Gastrointestinal: Yes: Normal Bowel Sounds Edema: No Labs: CBC, BMP 05/28/18 07:40 05/28/18 07:40 ABG Results ABG pH 7.36 (7.35-7.45) 05/27/18 14:30 ABG pCO2 at Pt Temp 49.2 mmHg (35-45) H 05/27/18 14:30 ABG pO2 at Pt Temp 48.4 mmHg (80-105) L 05/27/18 14:30 ABG HCO3 27.6 mmol/L (22-27) H 05/27/18 14:30 ABG O2 Sat (Measured) 84.1 % (95-98) L 05/27/18 14:30 ABG O2 Content 15.2 % vol (15-22) 05/27/18 14:30 ABG Base Excess No Result Required. 05/27/18 14:30 Imaging - Results Chest X-ray: Report Reviewed, Image Reviewed Problem List - Problems (1) Acute hypoxemic respiratory failure Code(s): J96.01 - ACUTE RESPIRATORY FAILURE WITH HYPOXIA (2) Asthma attack Code(s): J45.901 - UNSPECIFIED ASTHMA WITH (ACUTE) EXACERBATION Qualifiers: Asthma severity: moderate Asthma persistence: persistent Qualified Code(s ): J45.41 - Moderate persistent asthma with (acute) exacerbation (3) Asthma Code(s): J45.909 - UNSPECIFIED ASTHMA, UNCOMPLICATED Qualifiers: Asthma severity: moderate Asthma persistence: unspecified Asthma complication type: uncomplicated Qualified Code(s): J45.909 - Unspecified asthma, uncomplicated (4) Methadone dependence Code(s): F11.20 - OPIOID DEPENDENCE, UNCOMPLICATED Assessment/Plan IV MEDROL/ICS/LABA/TYRA/LAMA/SINGULAIR/O2 SUPPLEMENTATION DVT PROPHYLAXSIS NICOTINE REPLACEMENT THERAPY SMOKING CESSATION DAILY PEAK FLOW Winston MULLIGAN MD
[2018-05-28] MEDS ORDERED: PT OWN MED DRAWER 7, Y5N ONE (22:04)
[2018-05-28] MEDS ORDERED: QUEtiapine FUMARATE 25 MG TABLET (FP) ONE (22:04)
[2018-05-28] MEDS: QUEtiapine FUMARATE 50 MG TABLET PO SCH (22:47)
[2018-05-29] MEDS: methylPREDNISolone NA SUCC 40 MG/1 ML VIAL IVPUSH SCH ×4 (03:03→21:25)
[2018-05-29] MEDS: clonazePAM 0.5 MG TABLET PO SCH ×3 (06:58→21:25)
[2018-05-29] MEDS: ALBUTEROL SO4 0.083% IH SOL 2.5 MG/3 ML VIAL.NEB. NEB SCH ×4 (07:33→21:35)
[2018-05-29] MEDS: HEPARIN NA (PORCINE) 5,000 UNITS/ML 1ML VIAL SQ SCH ×2 (09:23→21:30)
[2018-05-29] MEDS: NICOTINE 7 MG/24 HOURS TOPICAL PATCH TD SCH (09:25)
[2018-05-29] MEDS: METHADONE HCL 40 MG DISPERSABLE TABLET PO SCH (09:25)
[2018-05-29] MEDS: BUDESONIDE/FORMETEROL FUMARATE 160/4.5 mcg INHALER IH SCH ×2 (10:29→21:26)
--- NOTE | 2018-05-29 12:08 | PN ---
Progress Note (short form) - Note Progress Note: comfortable anxious still wheezing Vital Signs Temp 98.1 F 05/29/18 08:49 Pulse 73 05/29/18 08:49 Resp 18 05/29/18 08:49 BP 131/83 05/29/18 08:49 Pulse Ox 96 05/28/18 21:00 Intake & Output 05/28/18 05/29/18 05/29/18 23:59 11:59 23:59 Intake Total 1000 975 Balance 1000 975 Intake: IV 900 525 Normal Saline - 1,000 ml 900 525 @ 75 mls/hr IV ASDIR CAN Rx#:[id number] IVPB 100 Oral 450 Other: Voiding Method Toilet Toilet # Unmeasured Voids Void 1 2 Bowel Movement No Active Medications Albuterol Sulfate (Ventolin 0.083% Nebulizer Soln -) 1 amp NEB Q4H PRN PRN Reason: ASTHMA Albuterol Sulfate (Ventolin 0.083% Nebulizer Soln -) 1 amp NEB RQID [facility] Last Admin: 05/29/18 07:33 Dose: 1 amp Budesonide/Formoterol Fumarate (Symbicort 160/4.5mcg -) 2 puff IH BID [facility] Last Admin: 05/29/18 10:29 Dose: 2 puff Clonazepam (Klonopin -) 0.5 mg PO TID [facility] Last Admin: 05/29/18 06:58 Dose: 0.5 mg Heparin Sodium (Porcine) (Heparin -) 5,000 unit SQ BID [facility] Last Admin: 05/29/18 09:23 Dose: 5,000 unit Methadone HCl (Dolophine -) 120 mg PO DAILY@1000 [facility] Last Admin: 05/29/18 09:25 Dose: 120 mg Methylprednisolone Sodium Succinate (Solu-Medrol -) 40 mg IVPUSH Q6H-IV [facility] Last Admin: 05/29/18 09:22 Dose: 40 mg Nicotine (Nicoderm Patch -) 7 mg TD DAILY [facility] Last Admin: 05/29/18 09:25 Dose: 7 mg Quetiapine Fumarate (Seroquel -) 50 mg PO HS [facility] Last Admin: 05/28/18 22:47 Dose: 50 mg CBC, BMP 05/28/18 07:40 05/28/18 07:40 Physical Exam Awake/Anxious Heent- throat - clear lungs- Bilateral wheezes-- improved cvs-- S1, S2 rrr Abd - soft Ext- no edema Neuro- aox3 . Anxious a/p continue present care steroids Methadone -- attempt to taper in future-- per methadone clinic. restarted Clonopine/ seroquel -- will follow Problem List - Problems (1) COPD exacerbation Code(s): J44.1 - CHRONIC OBSTRUCTIVE PULMONARY DISEASE W (ACUTE) EXACERBATION (2) Anxiety Code(s): F41.9 - ANXIETY DISORDER, UNSPECIFIED (3) Methadone dependence Code(s): F11.20 - OPIOID DEPENDENCE, UNCOMPLICATED (4) Tobacco abuse Code(s): Z72.0 - TOBACCO USE (5) Tobacco abuse counseling Code(s): Z71.6 - TOBACCO ABUSE COUNSELING
--- NOTE | 2018-05-29 12:32 | PN ---
Progress Note (short form) - Note Progress Note: PULMONARY VSS Constitutional: Yes: Calm Eyes: Yes: EOM Intact HENT: Yes: Normocephalic Neck: Yes: Trachea Midline Cardiovascular: Yes: Regular Rate and Rhythm Respiratory: Yes: Wheezes (BILATERAL ANTERIOR/POSTERIOR) ...Inspection: Yes: WNL Gastrointestinal: Yes: Normal Bowel Sounds Edema: No Labs noted Chest X-ray: Report Reviewed, Image Reviewed - Problems (1) Acute hypoxemic respiratory failure Code(s): J96.01 - ACUTE RESPIRATORY FAILURE WITH HYPOXIA (2) Asthma attack Code(s): J45.901 - UNSPECIFIED ASTHMA WITH (ACUTE) EXACERBATION Qualifiers: Asthma severity: moderate Asthma persistence: persistent Qualified Code(s ): J45.41 - Moderate persistent asthma with (acute) exacerbation (3) Asthma Code(s): J45.909 - UNSPECIFIED ASTHMA, UNCOMPLICATED Qualifiers: Asthma severity: moderate Asthma persistence: unspecified Asthma complication type: uncomplicated Qualified Code(s): J45.909 - Unspecified asthma, uncomplicated (4) Methadone dependence Code(s): F11.20 - OPIOID DEPENDENCE, UNCOMPLICATED Assessment/Plan IV MEDROL/ICS/LABA/TYRA/LAMA/SINGULAIR/O2 SUPPLEMENTATION DVT PROPHYLAXSIS NICOTINE REPLACEMENT THERAPY SMOKING CESSATION DAILY PEAK FLOW Winston MULLIGAN MD Problem List - Problems (1) Acute hypoxemic respiratory failure Code(s): J96.01 - ACUTE RESPIRATORY FAILURE WITH HYPOXIA (2) Asthma attack Code(s): J45.901 - UNSPECIFIED ASTHMA WITH (ACUTE) EXACERBATION Qualifiers: Asthma severity: moderate Asthma persistence: persistent Qualified Code(s ): J45.41 - Moderate persistent asthma with (acute) exacerbation (3) Asthma Code(s): J45.909 - UNSPECIFIED ASTHMA, UNCOMPLICATED Qualifiers: Asthma severity: moderate Asthma persistence: unspecified Asthma complication type: uncomplicated Qualified Code(s): J45.909 - Unspecified asthma, uncomplicated (4) Methadone dependence Code(s): F11.20 - OPIOID DEPENDENCE, UNCOMPLICATED
[2018-05-29] MEDS ORDERED: QUEtiapine FUMARATE 25 MG TABLET (FP) ONE (21:00)
[2018-05-29] MEDS: QUEtiapine FUMARATE 50 MG TABLET PO SCH (21:25)
[2018-05-30] MEDS: methylPREDNISolone NA SUCC 40 MG/1 ML VIAL IVPUSH SCH ×4 (02:20→21:46)
[2018-05-30] MEDS: clonazePAM 0.5 MG TABLET PO SCH ×3 (05:51→21:46)
[2018-05-30] MEDS: ALBUTEROL SO4 0.083% IH SOL 2.5 MG/3 ML VIAL.NEB. NEB SCH ×4 (07:47→20:26)
[2018-05-30] MEDS: METHADONE HCL 40 MG DISPERSABLE TABLET PO SCH (09:27)
[2018-05-30] MEDS: NICOTINE 7 MG/24 HOURS TOPICAL PATCH TD SCH (09:30)
[2018-05-30] MEDS: HEPARIN NA (PORCINE) 5,000 UNITS/ML 1ML VIAL SQ SCH ×2 (09:30→21:46)
[2018-05-30] MEDS: BUDESONIDE/FORMETEROL FUMARATE 160/4.5 mcg INHALER IH SCH ×2 (09:35→21:47)
--- NOTE | 2018-05-30 11:44 | PN ---
Progress Note (short form) - Note Progress Note: PULMONARY SEEN IN SOLARIUM APPEARS COMFORTABLE VSS Constitutional: Yes: Calm Eyes: Yes: EOM Intact HENT: Yes: Normocephalic Neck: Yes: Trachea Midline Cardiovascular: Yes: Regular Rate and Rhythm Respiratory: Yes: Wheezes (BILATERAL ANTERIOR/POSTERIOR) ...Inspection: Yes: WNL Gastrointestinal: Yes: Normal Bowel Sounds Edema: No Labs noted Chest X-ray: Report Reviewed, Image Reviewed - Problems (1) Acute hypoxemic respiratory failure Code(s): J96.01 - ACUTE RESPIRATORY FAILURE WITH HYPOXIA (2) Asthma attack Code(s): J45.901 - UNSPECIFIED ASTHMA WITH (ACUTE) EXACERBATION Qualifiers: Asthma severity: moderate Asthma persistence: persistent Qualified Code(s ): J45.41 - Moderate persistent asthma with (acute) exacerbation (3) Asthma Code(s): J45.909 - UNSPECIFIED ASTHMA, UNCOMPLICATED Qualifiers: Asthma severity: moderate Asthma persistence: unspecified Asthma complication type: uncomplicated Qualified Code(s): J45.909 - Unspecified asthma, uncomplicated (4) Methadone dependence Code(s): F11.20 - OPIOID DEPENDENCE, UNCOMPLICATED Assessment/Plan IV MEDROL/ICS/LABA/TYRA/LAMA/SINGULAIR/O2 SUPPLEMENTATION DVT PROPHYLAXSIS NICOTINE REPLACEMENT THERAPY SMOKING CESSATION DAILY PEAK FLOW SHOULD BE READY FOR DISCHARGE 24-48 HRS Winston MULLIGAN MD Problem List - Problems (1) Acute hypoxemic respiratory failure Code(s): J96.01 - ACUTE RESPIRATORY FAILURE WITH HYPOXIA (2) Asthma attack Code(s): J45.901 - UNSPECIFIED ASTHMA WITH (ACUTE) EXACERBATION Qualifiers: Asthma severity: moderate Asthma persistence: persistent Qualified Code(s ): J45.41 - Moderate persistent asthma with (acute) exacerbation (3) Asthma Code(s): J45.909 - UNSPECIFIED ASTHMA, UNCOMPLICATED Qualifiers: Asthma severity: moderate Asthma persistence: unspecified Asthma complication type: uncomplicated Qualified Code(s): J45.909 - Unspecified asthma, uncomplicated (4) Methadone dependence Code(s): F11.20 - OPIOID DEPENDENCE, UNCOMPLICATED
--- NOTE | 2018-05-30 13:30 | PN ---
Progress Note (short form) - Note Progress Note: comfortable breathing better anxiety better Vital Signs Temp 99 F 05/30/18 09:00 Pulse 79 05/30/18 09:00 Resp 18 05/30/18 09:00 BP 131/85 05/30/18 09:00 Pulse Ox 96 05/30/18 09:00 Intake & Output 05/29/18 05/30/18 05/30/18 23:59 11:59 23:59 Intake Total 280 100 Balance 280 100 Intake: IVPB 0 0 Oral 280 100 Other: Voiding Method Toilet Toilet # Unmeasured Voids Void 1 Bowel Movement No Active Medications Albuterol Sulfate (Ventolin 0.083% Nebulizer Soln -) 1 amp NEB Q4H PRN PRN Reason: ASTHMA Albuterol Sulfate (Ventolin 0.083% Nebulizer Soln -) 1 amp NEB RQID [facility] Last Admin: 05/30/18 11:20 Dose: 1 amp Budesonide/Formoterol Fumarate (Symbicort 160/4.5mcg -) 2 puff IH BID [facility] Last Admin: 05/30/18 09:35 Dose: 2 puff Clonazepam (Klonopin -) 0.5 mg PO TID [facility] Last Admin: 05/30/18 05:51 Dose: 0.5 mg Heparin Sodium (Porcine) (Heparin -) 5,000 unit SQ BID [facility] Last Admin: 05/30/18 09:30 Dose: 5,000 unit Methadone HCl (Dolophine -) 120 mg PO DAILY@1000 [facility] Last Admin: 05/30/18 09:27 Dose: 120 mg Methylprednisolone Sodium Succinate (Solu-Medrol -) 40 mg IVPUSH Q6H-IV [facility] Last Admin: 05/30/18 09:30 Dose: 40 mg Nicotine (Nicoderm Patch -) 7 mg TD DAILY [facility] Last Admin: 05/30/18 09:30 Dose: 7 mg Quetiapine Fumarate (Seroquel -) 50 mg PO HS [facility] Last Admin: 05/29/18 21:25 Dose: 50 mg CBC, BMP 05/28/18 07:40 05/28/18 07:40 Physical Exam Awake/Anxious Heent- throat - clear lungs- Bilateral wheezes-- improved cvs-- S1, S2 rrr Abd - soft Ext- no edema Neuro- aox3 . Anxious a/p continue present care steroids Methadone -- attempt to taper in future-- per methadone clinic. restarted Clonopine/ seroquel -- pulmonary f/u noted will follow Problem List - Problems (1) COPD exacerbation Code(s): J44.1 - CHRONIC OBSTRUCTIVE PULMONARY DISEASE W (ACUTE) EXACERBATION (2) Anxiety Code(s): F41.9 - ANXIETY DISORDER, UNSPECIFIED (3) Methadone dependence Code(s): F11.20 - OPIOID DEPENDENCE, UNCOMPLICATED (4) Tobacco abuse Code(s): Z72.0 - TOBACCO USE (5) Tobacco abuse counseling Code(s): Z71.6 - TOBACCO ABUSE COUNSELING
[2018-05-30] MEDS ORDERED: QUEtiapine FUMARATE 25 MG TABLET (FP) ONE (21:20)
[2018-05-30] MEDS: QUEtiapine FUMARATE 50 MG TABLET PO SCH (21:47)
[2018-05-31] MEDS: methylPREDNISolone NA SUCC 40 MG/1 ML VIAL IVPUSH SCH ×3 (02:01→17:27)
[2018-05-31] MEDS: clonazePAM 0.5 MG TABLET PO SCH ×3 (05:39→22:33)
[2018-05-31] MEDS: ALBUTEROL SO4 0.083% IH SOL 2.5 MG/3 ML VIAL.NEB. NEB SCH ×4 (07:27→20:45)
[2018-05-31] MEDS: METHADONE HCL 40 MG DISPERSABLE TABLET PO SCH (10:08)
[2018-05-31] MEDS: BUDESONIDE/FORMETEROL FUMARATE 160/4.5 mcg INHALER IH SCH ×2 (10:08→22:33)
[2018-05-31] MEDS: HEPARIN NA (PORCINE) 5,000 UNITS/ML 1ML VIAL SQ SCH ×2 (10:08→22:33)
[2018-05-31] MEDS: NICOTINE 7 MG/24 HOURS TOPICAL PATCH TD SCH (10:08)
--- NOTE | 2018-05-31 11:03 | PN ---
Progress Note (short form) - Note Progress Note: pt seen/ examined better Vital Signs Temp 97.7 F 05/31/18 06:02 Pulse 63 05/31/18 06:02 Resp 18 05/31/18 06:02 BP 108/25 L 05/31/18 06:02 Pulse Ox 95 05/30/18 20:49 Intake & Output 05/30/18 05/30/18 05/31/18 11:59 23:59 11:59 Intake Total 100 800 Balance 100 800 Intake: IVPB 0 0 Oral 100 800 Other: Voiding Method Toilet Toilet # Unmeasured Voids Void 1 Bowel Movement Yes # Bowel Movements 1 Active Medications Albuterol Sulfate (Ventolin 0.083% Nebulizer Soln -) 1 amp NEB Q4H PRN PRN Reason: ASTHMA Albuterol Sulfate (Ventolin 0.083% Nebulizer Soln -) 1 amp NEB RQID [facility] Last Admin: 05/31/18 07:27 Dose: 1 amp Budesonide/Formoterol Fumarate (Symbicort 160/4.5mcg -) 2 puff IH BID [facility] Last Admin: 05/31/18 10:08 Dose: 2 puff Clonazepam (Klonopin -) 0.5 mg PO TID [facility] Last Admin: 05/31/18 05:39 Dose: 0.5 mg Heparin Sodium (Porcine) (Heparin -) 5,000 unit SQ BID [facility] Last Admin: 05/31/18 10:08 Dose: 5,000 unit Methadone HCl (Dolophine -) 120 mg PO DAILY@1000 [facility] Last Admin: 05/31/18 10:08 Dose: 120 mg Methylprednisolone Sodium Succinate (Solu-Medrol -) 40 mg IVPUSH Q8H-IV [facility] Nicotine (Nicoderm Patch -) 7 mg TD DAILY [facility] Last Admin: 05/31/18 10:08 Dose: 7 mg Quetiapine Fumarate (Seroquel -) 50 mg PO HS [facility] CBC, BMP 05/28/18 07:40 05/28/18 07:40 Physical exam S1 S2 RRR Lungs ---bilateral wheezes--- improved Abd- soft, NT no edema neuro--- Alert and awake a/p better taper steroids smoking cessation counselling ambulate anticipate d/c in 1-2 days Problem List - Problems (1) COPD exacerbation Code(s): J44.1 - CHRONIC OBSTRUCTIVE PULMONARY DISEASE W (ACUTE) EXACERBATION (2) Anxiety Code(s): F41.9 - ANXIETY DISORDER, UNSPECIFIED (3) Methadone dependence Code(s): F11.20 - OPIOID DEPENDENCE, UNCOMPLICATED (4) Tobacco abuse Code(s): Z72.0 - TOBACCO USE (5) Tobacco abuse counseling Code(s): Z71.6 - TOBACCO ABUSE COUNSELING
--- NOTE | 2018-05-31 11:04 | PN ---
Progress Note (short form) - Note Progress Note: PULMONARY Breathing slightly improving. +nonproductive cough and wheezing. No fevers or chills. Vital Signs Period Temp Pulse Resp BP Sys/Bermudez Pulse Ox Last 24 Hr 97.7 F-98.0 F 59-69 18-18 108-120/25-78 95 Gen: NAD at rest Heart: RRR Lung: scattered wheezes, distant breath sounds Abd: soft, nontender Ext: no edema CBC, BMP 05/28/18 07:40 05/28/18 07:40 Active Medications Albuterol Sulfate (Ventolin 0.083% Nebulizer Soln -) 1 amp NEB Q4H PRN PRN Reason: ASTHMA Albuterol Sulfate (Ventolin 0.083% Nebulizer Soln -) 1 amp NEB RQID [facility] Last Admin: 05/31/18 07:27 Dose: 1 amp Budesonide/Formoterol Fumarate (Symbicort 160/4.5mcg -) 2 puff IH BID [facility] Last Admin: 05/31/18 10:08 Dose: 2 puff Clonazepam (Klonopin -) 0.5 mg PO TID [facility] Last Admin: 05/31/18 05:39 Dose: 0.5 mg Heparin Sodium (Porcine) (Heparin -) 5,000 unit SQ BID [facility] Last Admin: 05/31/18 10:08 Dose: 5,000 unit Methadone HCl (Dolophine -) 120 mg PO DAILY@1000 [facility] Last Admin: 05/31/18 10:08 Dose: 120 mg Methylprednisolone Sodium Succinate (Solu-Medrol -) 40 mg IVPUSH Q8H-IV CAN Nicotine (Nicoderm Patch -) 7 mg TD DAILY [facility] Last Admin: 05/31/18 10:08 Dose: 7 mg Quetiapine Fumarate (Seroquel -) 50 mg PO HS CAN A/P Acute COPD Exacerbation Smoker Methadone Maintenance - agree with medrol q8h - inhaled bronchodilators - O2 to keep Spo2 >90% - smoking cessation discussed - DVT prophylaxis
[2018-05-31] MEDS: QUEtiapine FUMARATE 25 MG TABLET (FP) PO SCH (22:32)
[2018-06-01] MEDS: methylPREDNISolone NA SUCC 40 MG/1 ML VIAL IVPUSH SCH ×3 (01:07→17:51)
[2018-06-01] MEDS: clonazePAM 0.5 MG TABLET PO SCH ×3 (06:07→22:04)
[2018-06-01] MEDS: ALBUTEROL SO4 0.083% IH SOL 2.5 MG/3 ML VIAL.NEB. NEB SCH ×4 (07:35→19:50)
[2018-06-01] MEDS: METHADONE HCL 40 MG DISPERSABLE TABLET PO SCH (09:18)
[2018-06-01] MEDS: HEPARIN NA (PORCINE) 5,000 UNITS/ML 1ML VIAL SQ SCH ×2 (09:18→22:04)
[2018-06-01] MEDS: NICOTINE 7 MG/24 HOURS TOPICAL PATCH TD SCH (09:19)
[2018-06-01] MEDS: BUDESONIDE/FORMETEROL FUMARATE 160/4.5 mcg INHALER IH SCH ×2 (09:19→22:05)
--- NOTE | 2018-06-01 11:35 | PN ---
Progress Note (short form) - Note Progress Note: PULMONARY Breathing continues to improve. Less nonproductive cough and wheezing. No fevers or chills. Vital Signs Period Temp Pulse Resp BP Sys/Bermudez Pulse Ox Last 24 Hr 97.4 F-98.1 F 67-79 18-20 117-138/57-91 94-94 Gen: NAD at rest Heart: RRR Lung: better air entry Abd: soft, nontender Ext: no edema CBC, BMP 05/28/18 07:40 05/28/18 07:40 Active Medications Albuterol Sulfate (Ventolin 0.083% Nebulizer Soln -) 1 amp NEB Q4H PRN PRN Reason: ASTHMA Albuterol Sulfate (Ventolin 0.083% Nebulizer Soln -) 1 amp NEB RQID [facility] Last Admin: 06/01/18 07:35 Dose: 1 amp Budesonide/Formoterol Fumarate (Symbicort 160/4.5mcg -) 2 puff IH BID [facility] Last Admin: 06/01/18 09:19 Dose: 2 puff Clonazepam (Klonopin -) 0.5 mg PO TID [facility] Last Admin: 06/01/18 06:07 Dose: 0.5 mg Heparin Sodium (Porcine) (Heparin -) 5,000 unit SQ BID [facility] Last Admin: 06/01/18 09:18 Dose: 5,000 unit Methadone HCl (Dolophine -) 120 mg PO DAILY@1000 [facility] Last Admin: 06/01/18 09:18 Dose: 120 mg Methylprednisolone Sodium Succinate (Solu-Medrol -) 40 mg IVPUSH Q8H-IV [facility] Last Admin: 06/01/18 09:18 Dose: 40 mg Nicotine (Nicoderm Patch -) 7 mg TD DAILY [facility] Last Admin: 06/01/18 09:19 Dose: 7 mg Quetiapine Fumarate (Seroquel -) 50 mg PO HS [facility] Last Admin: 05/31/18 22:32 Dose: 50 mg A/P Acute COPD Exacerbation Smoker Methadone Maintenance - continue medrol at current dose - if continues to improve, can likely change steroids to PO prednisone 40mg daily in AM - inhaled bronchodilators - O2 to keep Spo2 >90% - smoking cessation discussed - DVT prophylaxis
--- NOTE | 2018-06-01 12:35 | PN ---
Progress Note (short form) - Note Progress Note: SOB less He ambulated with respiratory-- does not qualify for O2 He requests for o2 when he ambulates [place] no chest pain family at bedside Vital Signs - 24 hr 05/31/18 05/31/18 05/31/18 13:45 18:00 21:00 Temperature 97.9 F 97.4 F L Pulse Rate 79 67 Respiratory 20 20 18 Rate Blood Pressure 121/73 137/78 O2 Sat by Pulse 94 L Oximetry (%) 05/31/18 06/01/18 06/01/18 22:00 05:39 08:50 Temperature 98 F 98.1 F Pulse Rate 67 68 Respiratory 18 18 18 Rate Blood Pressure 138/91 125/89 O2 Sat by Pulse 94 L Oximetry (%) 06/01/18 06/01/18 09:12 12:15 Temperature 98 F Pulse Rate 75 86 Respiratory 18 Rate Blood Pressure 117/57 L O2 Sat by Pulse 94 L Oximetry (%) Current Medications Generic Name Dose Route Start Last Admin Trade Name Freq PRN Reason Stop Dose Admin Albuterol Sulfate 1 amp 05/27/18 18:00 Ventolin 0.083% Nebulizer Soln - NEB Q4H PRN ASTHMA Albuterol Sulfate 1 amp 05/27/18 20:00 06/01/18 11:40 Ventolin 0.083% Nebulizer Soln - NEB 1 amp RQID [facility] Administration Budesonide/Formoterol Fumarate 2 puff 05/27/18 22:00 06/01/18 09:19 Symbicort 160/4.5mcg - IH 2 puff BID CAN Administration Clonazepam 0.5 mg 05/28/18 14:00 06/01/18 06:07 Klonopin - PO 0.5 mg TID CAN Administration Heparin Sodium (Porcine) 5,000 unit 05/27/18 22:00 06/01/18 09:18 Heparin - SQ 5,000 unit BID CAN Administration Methadone HCl 120 mg 05/28/18 10:00 06/01/18 09:18 Dolophine - PO 120 mg DAILY@1000 CAN Administration Methylprednisolone Sodium Succinate 40 mg 05/31/18 18:00 06/01/18 09:18 Solu-Medrol - IVPUSH 40 mg Q8H-IV CAN Administration Nicotine 7 mg 05/28/18 10:00 06/01/18 09:19 Nicoderm Patch - TD 7 mg DAILY CAN Administration Quetiapine Fumarate 50 mg 05/31/18 22:00 05/31/18 22:32 Seroquel - PO 50 mg HS CAN Administration Tiotropium [place] 2 puff 06/01/18 12:30 Spiriva Respimat IH DAILY CAN S1 S2 RRR Decreased breath sounds ronchi less Abd- soft, NT no edema PLAN solumedrol plan for Prednisone in AM pulm follow up noted dc in AM may need cardiopulm rehab as outpt Problem List - Problems (1) Acute hypoxemic respiratory failure Code(s): J96.01 - ACUTE RESPIRATORY FAILURE WITH HYPOXIA (2) Anxiety Code(s): F41.9 - ANXIETY DISORDER, UNSPECIFIED (3) Asthma attack Code(s): J45.901 - UNSPECIFIED ASTHMA WITH (ACUTE) EXACERBATION Qualifiers: Asthma severity: moderate Asthma persistence: persistent Qualified Code(s ): J45.41 - Moderate persistent asthma with (acute) exacerbation (4) COPD exacerbation Code(s): J44.1 - CHRONIC OBSTRUCTIVE PULMONARY DISEASE W (ACUTE) EXACERBATION
[2018-06-01] MEDS: TIOTROPIUM BROMIDE 2.5 MCG (SPIRIVA) RESPIMAT INHALER IH SCH (17:52)
[2018-06-01] MEDS: QUEtiapine FUMARATE 25 MG TABLET (FP) PO SCH (22:04)
[2018-06-02] MEDS: methylPREDNISolone NA SUCC 40 MG/1 ML VIAL IVPUSH SCH ×2 (01:14→09:51)
[2018-06-02] MEDS ORDERED: PT OWN MED DRAWER 7, Y5N ONE (03:16)
[2018-06-02] MEDS: clonazePAM 0.5 MG TABLET PO SCH ×2 (05:24→13:37)
[2018-06-02] MEDS: ALBUTEROL SO4 0.083% IH SOL 2.5 MG/3 ML VIAL.NEB. NEB SCH ×2 (08:29→12:11)
[2018-06-02] MEDS: METHADONE HCL 40 MG DISPERSABLE TABLET PO SCH (09:50)
[2018-06-02] MEDS: HEPARIN NA (PORCINE) 5,000 UNITS/ML 1ML VIAL SQ SCH (09:50)
[2018-06-02] MEDS: NICOTINE 7 MG/24 HOURS TOPICAL PATCH TD SCH (09:51)
[2018-06-02] MEDS: BUDESONIDE/FORMETEROL FUMARATE 160/4.5 mcg INHALER IH SCH (09:54)
[2018-06-02] MEDS: TIOTROPIUM BROMIDE 2.5 MCG (SPIRIVA) RESPIMAT INHALER IH SCH (09:55)
--- NOTE | 2018-06-02 11:31 | DS ---
Physical Examination Vital Signs: Vital Signs Temperature 98.3 F 06/02/18 06:23 Pulse Rate 75 06/02/18 06:23 Respiratory Rate 20 06/02/18 06:23 Blood Pressure 115/73 06/02/18 06:23 O2 Sat by Pulse Oximetry (%) 91 L 06/01/18 21:00 Constitutional: Yes: No Distress, Calm Cardiovascular: Yes: Regular Rate and Rhythm Respiratory: Yes: Diminished, Rhonchi (less) Gastrointestinal: Yes: Normal Bowel Sounds, Soft. No: Palpable Mass, Tenderness Edema: No Labs: CBC, BMP 05/28/18 07:40 05/28/18 07:40 Discharge Summary Reason For Visit: EXACERBATION OF ASTHMA,ACTE RESP FAILURE W/HYPOXEM Current Active Problems Acute hypoxemic respiratory failure (Acute) Anxiety (Acute) Asthma attack (Acute) COPD exacerbation (Acute) Hospital Course: Admitted for COPD exacerbation/Asthma Evaluated by Pulmonary Was on solumedrol and antibiotics Now better on PO prednisone Pt is stable for dc home Will need follow up with Pulmonary Recommend cardiopulm rehab smoking cessation Condition: Improved - Instructions Referrals: Pedro Shafer MD, MD [Staff Physician] - Disposition: HOME - Home Medications Comprehensive Discharge Medication List: Ambulatory Orders Albuterol 0.083% Nebulizer Chelsey [Ventolin 0.083% Nebulizer Soln -] 1 neb NEB Q4H 02/19/18 Methadone [Dolophine -] 120 mg PO DAILY 02/19/18 Quetiapine Fumarate [Seroquel -] 50 mg PO HS 02/19/18 clonazePAM [Klonopin -] 0.5 mg PO TID 02/20/18 Nebulizer [Aeroneb Go Nebulizer] 1 each NEB Q8H #1 each 03/03/18 Ranitidine [Zantac -] 150 mg PO BID #20 tablet 03/03/18
[2018-06-02 13:21] VITALS: TEMP 98.1
[2018-06-02 13:52] VITALS: BP 133/79; PULSE 86
== END 2018-06-02 14:38 | disposition home or self-care (01) | DRG 140 ==
LOC: JER 11:21 → JERBED 16:51 → OBSVTOIN 18:58 → J7W 19:31
PROVIDERS: ADMIT Internal Medicine; ATTEND Internal Medicine
DX: J44.1 Chronic obstructive pulmonary disease with (acute) exacerbation (principal); J96.01 Acute respiratory failure with hypoxia; J45.41 Moderate persistent asthma with (acute) exacerbation; F11.20 Opioid dependence, uncomplicated; R00.0 Tachycardia, unspecified; F17.210 Nicotine dependence, cigarettes, uncomplicated; F41.9 Anxiety disorder, unspecified
CPT/HCPCS: 36415; 36600; 71045-TC-FY; 80053; 80307; 81003; 82375; 82803; 83050; 83735; 84100; 85025; 93005; 93010; 94150; 94640; 94761; 99283-25; G0378; J1644; J7030

== ENCOUNTER 2018-11-12 14:47 | Inpatient (IN) | payer OTHER ==
--- NOTE | 2018-11-12 16:17 | PDOC ---
History of Present Illness - General Chief Complaint: Wheezing Stated Complaint: SENT BY PCP Time Seen by Provider: 11/12/18 16:13 History Source: Patient Exam Limitations: No Limitations - History of Present Illness Initial Comments: 11/12/18 16:44 HISTORY OF PRESENT ILLNESS: This is a 53-year-old male with history of COPD/ asthma presents emergency department for evaluation of worsening shortness of breath. Patient reports he has been feeling increasingly short of breath intermittently months which is worse in the winter time. He patient was seen and evaluated by his hand funnel coater Dr. Jose 2 days ago and was found to turn around quickly in the office after receiving a couple of nebulizer treatments and a dose of steroids. Patient was discharged from the office with prescription for steroids and strict ER return precautions. Patient has had worsening shortness of breath while on the steroids and nebulizer treatments and return to care today. Dr. Ruiz was in the emergency Department upon patient 's arrival. No recent travel or sick contacts. PAST MEDICAL HISTORY: see HPI SURGICAL HISTORY: Denies ALLERGIES: No known drug allergies REVIEW OF SYSTEMS General/Constitutional: Denies fever or chills. Denies weakness, weight change. HEENT: Denies change in vision. Denies ear pain or discharge. Denies sore throat. Cardiovascular: Denies chest pain or shortness of breath. Respiratory: see HPI Gastrointestinal: Denies nausea, vomiting, diarrhea or constipation. Denies rectal bleeding. Genitourinary: Denies dysuria, frequency, or change in urination. Musculoskeletal: Denies joint or muscle swelling or pain. Denies neck or back pain. Skin and breasts: Denies rash or easy bruising. Neurologic: Denies headache, vertigo, loss of consciousness, or loss of sensation. Psychiatric: Denies depression or anxiety. Endocrine: Denies increased thirst. Denies abnormal weight change. Hematologic/Lymphatic: Denies anemia, easy bleeding, or history of blood clots. Allergic/Immunologic: Denies hives or skin allergy. Denies latex allergy. PHYSICAL EXAM General Appearance: Well-appearing, appropriately dressed. No apparent distress , no intoxication. HEENT: EOMI, PERRLA, normal ENT inspection, normal voice, TMs normal, pharynx normal. No conjunctival pallor. No photophobia, scleral icterus. Neck: Supple. Trachea midline. No tenderness, rigidity, carotid bruit, stridor , lymphadenopathy, or thyromegaly. Respiratory/Chest: Speaking full sentences. Scattered inspiratory and expiratory wheezes present in all lung sr. No accessory muscle use noted. No diaphoresis noted. Skin color and temperature normal. Cardiovascular: RRR. S1, S2. No JVD, murmur, bradycardia, tachycardia. Vascular Pulses: Dorsalis-Pedis (R): 2+, Dorsalis-Pedis (L): 2+ Past History - Past Medical History Allergies/Adverse Reactions: Allergies Allergy/AdvReac Type Severity Reaction Status Date / Time No Known Allergies Allergy Verified 05/27/18 11:22 Home Medications: Ambulatory Orders Albuterol 0.083% Nebulizer Chelsey [Ventolin 0.083% Nebulizer Soln -] 1 neb NEB Q4H 02/19/18 Methadone [Dolophine -] 120 mg PO DAILY 02/19/18 Quetiapine Fumarate [Seroquel -] 50 mg PO HS 02/19/18 clonazePAM [Klonopin -] 0.5 mg PO TID 02/20/18 Nebulizer [Aeroneb Go Nebulizer] 1 each NEB Q8H #1 each 03/03/18 Ranitidine [Zantac -] 150 mg PO BID #20 tablet 03/03/18 Albuterol 0.083% Nebulizer Chelsey [Ventolin 0.083% Nebulizer Soln -] 1 amp NEB Q4H PRN #30 amp 06/02/18 Budesonide/Formeterol Fumarate [SYMBICORT 160/4.5mcg -] 2 puff IH BID #1 inhaler 06/02/18 Nicotine Patch [Nicoderm Patch -] 7 mg TD DAILY #20 patch 06/02/18 predniSONE [Deltasone -] See Taper PO ASDIR #30 tab 06/02/18 Anemia: No Asthma: Yes Cancer: No Cardiac Disorders: No CVA: No COPD: No CHF: No Dementia: No Diabetes: No GI Disorders: No Disorders: No HTN: No Hypercholesterolemia: No Liver Disease: No Psychiatric Problems: Yes (ANXIETY) Seizures: No Thyroid Disease: No - Surgical History Abdominal Surgery: No Appendectomy: No Cardiac Surgery: No Cholecystectomy: No Lung Surgery: No Neurologic Surgery: No Orthopedic Surgery: No - Immunization History Immunization Up to Date: Yes - Suicide/Smoking/Psychosocial Hx Smoking History: Current some day smoker Have you smoked in the past 12 months: Yes Number of Cigarettes Smoked Daily: 1 Information on smoking cessation initiated: No Hx Alcohol Use: No Drug/Substance Use Hx: No Substance Use Type: None Hx Substance Use Treatment: No *Physical Exam - Vital Signs Last Vital Signs Temp Pulse Resp BP Pulse Ox 98.8 F 82 16 103/74 95 11/12/18 14:52 11/12/18 14:52 11/12/18 14:52 11/12/18 14:52 11/12/18 14:52 ED Treatment Course - LABORATORY CBC & Chemistry Diagram: 11/12/18 16:43 11/12/18 16:23 Medical Decision Making - Medical Decision Making 11/12/18 16:47 A/P: 53-year-old male with acute on chronic shortness of breath Case has been discussed with Dr. Ruiz who recommends increasing steroids to every 6 hours and to continue nebulizer treatments. Dr. Ruiz has requested an ABG in addition to all the laboratory testing. Cardiac profile, BNP in addition to CBC and chemistries Chest x-ray EKG Patient will be admitted once laboratory testing returns. 11/12/18 18:23 Chest x-ray as read by me: Angles are sharp. Cardiac silhouette is within normal limits. Lung sr clear without evidence of consolidations or infiltrates noted. No pneumothorax is seen. No significant change from study performed 05/27/18. I will contact hospitalist for admission. 11/12/18 18:38 Case has been discussed with Dr. Flores who accepts patient for admission under Dr. Carter. Dr. Ruiz placed as pulmonary consult. *DC/Admit/Observation/Transfer Diagnosis at time of Disposition: COPD exacerbation - Discharge Dispostion Condition at time of disposition: Stable Decision to Admit order: Yes - Referrals Referrals: Parker Carter MD [Primary Care Provider] - - Patient Instructions - Post Discharge Activity
[2018-11-12] MEDS ORDERED: predniSONE 20 MG TABLET (UD) PO ONE (16:48)
[2018-11-12] MEDS ORDERED: ALBUTEROL SO4 2.5/IPRATROPIUM 0.5 INH SOL 3 ML VIAL.NEB. NEB ONE ×2 (16:49→16:53)
[2018-11-12] MEDS ORDERED: predniSONE 20 MG TABLET (UD) ONE ×2 (16:53→16:54)
[2018-11-12] MEDS: ALBUTEROL SO4 2.5/IPRATROPIUM 0.5 INH SOL 3 ML VIAL.NEB. NEB SCH ×3 (17:01→17:20)
[2018-11-12 17:03] LABS: EOS % 0.1 % (0-4.5); HEMATOCRIT 41.9 % (35.4-49); HEMOGLOBIN 14.2 GM/dL (11.7-16.9); LYMPH % 11.6 % (8-40); MCH 31.8 pg (25.7-33.7); MEAN CELL VOLUME 93.6 fl (80-96); MEAN PLT VOLUME 8.1 fl (7.5-11.1); MONO % 2.8 % (3.8-10.2); NEUT % 84.5 % (42.8-82.8); PLATELET COUNT 215 K/MM3 (134-434); RBC 4.47 M/mm3 (4.00-5.60); RDW 13.6 % (11.9-15.9); WHITE BLOOD COUNT 10.2 K/mm3 (4.0-10.0)
--- NOTE | 2018-11-12 17:27 | PDOC ---
*Physical Exam - Vital Signs Last Vital Signs Temp Pulse Resp BP Pulse Ox 98.8 F 82 16 103/74 95 11/12/18 14:52 11/12/18 14:52 11/12/18 14:52 11/12/18 14:52 11/12/18 14:52 Heart Score/ECG Review #1 ECG reviewed & interpreted by me at: 17:11 General ECG Interpretation: Sinus Rhythm, Normal Rate (58), Normal Intervals, No acute ischemic changes Compared to previous ECG there are: No significant change (c/w 05/27/18) ED Treatment Course - LABORATORY CBC & Chemistry Diagram: 11/12/18 16:43 11/12/18 16:23 - ADDITIONAL ORDERS Additional order review: 11/12/18 16:43 RBC 4.47 MCV 93.6 MCHC 34.0 RDW 13.6 MPV 8.1 D Neutrophils % 84.5 H Lymphocytes % 11.6 Monocytes % 2.8 L Eosinophils % 0.1 D Basophils % 1.0 D - Medications Given in the ED: ED Medications Discontinued Medications Generic Name Dose Route Start Last Admin Trade Name Freq PRN Reason Stop Dose Admin Albuterol/Ipratropium 1 amp 11/12/18 16:30 11/12/18 17:20 Duoneb - NEB 11/12/18 17:16 1 amp Q15M CAN Administration Prednisone 60 mg 11/12/18 16:48 11/12/18 17:01 Deltasone - PO 11/12/18 16:49 60 mg ONCE ONE Administration Medical Decision Making - Medical Decision Making 11/12/18 17:22 Patient seen and evaluated with the nurse practitioner. I agree with the overall evaluation, assessment, and management with the following summary of visit: 53-year-old male sent in for progressive COPD exacerbation. Patient seen by Dr. Ruiz in office 3 days ago, started on nebulizers and steroids without relief, presents now for persistent shortness of breath. vitals wnl no acute distress but scattered I and E wheezing on exam 53y/o M with COPD p/w persistent sxs despite attempted outpt management. labs, cxr, ekg ABG iv steroids Dr. Ruiz consulted admit *DC/Admit/Observation/Transfer Diagnosis at time of Disposition: COPD exacerbation - Discharge Dispostion Condition at time of disposition: Stable - Referrals Referrals: Parker Carter MD [Primary Care Provider] - - Patient Instructions - Post Discharge Activity
[2018-11-12 17:29] LABS: ALBUMIN 4.1 g/dl (3.4-5.0); ALK PHOS 70 U/L (45-117); ANION GAP 5 MMOL/L (8-16); BILIRUBIN,TOTAL 0.2 mg/dL (0.2-1); BLOOD UREA NITROGEN 11.2 mg/dL (7-18); CALCIUM 9.1 mg/dL (8.5-10.1); CHLORIDE 106 mmol/L (98-107); CO2 28 mmol/L (21-32); GLUCOSE,RANDOM 107 mg/dL (74-106); POTASSIUM 4.2 mmol/L (3.5-5.1); SGOT/AST 20 U/L (15-37); SGPT/ALT 27 U/L (13-61); SODIUM 138 mmol/L (136-145); TOT PROT 7.4 g/dl (6.4-8.2)
[2018-11-12 17:30] LABS: ARTERIAL BLD GAS O2 SATURATION 99.3 % (95-98); ARTERIAL BLOOD GAS PCO2 51.6 mmHg (35-45); ARTERIAL BLOOD GAS PO2 165 mmHg (80-100); ARTERIAL BLOOD GAS pH 7.34 (7.35-7.45); CARBOXYHEMOGLOBIN 3.1 % (0-2)
[2018-11-12 17:38] LABS: ALLENS TEST POSITIVE
[2018-11-12 17:59] LABS: N-TERMINAL BNP 62.8 pg/ml (5-125)
--- NOTE | 2018-11-12 20:53 | HP ---
CHIEF COMPLAINT: sob, wheezing PCP: Dr. 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 Patient complains of sob worse when ambulating, has been getting worse over the course of the months. 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 Jose 2 days was given nebulizer and PO steroids, and instructed to go to ER if no relief in couple of days. Patient with worsening sob and wheezing even with course of treatment and arrived to ED for further care. Patient denies CP, dizziness, headache, N/V, constipation and diarrhea. ER course was notable for: (1)ECG: NSR (2)CXR: no acute disease (3)given prednisone 60 mg x1, dr. Ruiz evaluated patient in ED Recent Travel: denies PAST MEDICAL HISTORY: anxiety, COPD PAST SURGICAL HISTORY: denies Social History: Smokin cigarettes a day Alcohol:occasional Drugs: history of heroine use on/off 5 - years now on methadone program Family History: sister: lung ca, mother/father: denies Allergies: No Known Allergies Allergy (Verified 05/27/18 11:22) HOME MEDICATIONS: Home Medications Medication Instructions Recorded Albuterol 0.083% Nebulizer Chelsey 1 neb NEB Q4H 02/19/18 [Ventolin 0.083% Nebulizer Soln -] Methadone [Dolophine -] 120 mg PO DAILY 02/19/18 Quetiapine Fumarate [Seroquel -] 50 mg PO HS 02/19/18 clonazePAM [Klonopin -] 0.5 mg PO TID 02/20/18 Nebulizer [Aeroneb Go Nebulizer] 1 each NEB Q8H #1 each 03/03/18 Ranitidine [Zantac -] 150 mg PO BID #20 tablet 03/03/18 Albuterol 0.083% Nebulizer Chelsey 1 amp NEB Q4H PRN #30 amp 06/02/18 [Ventolin 0.083% Nebulizer Soln -] Budesonide/Formeterol Fumarate 2 puff IH BID #1 inhaler 06/02/18 [SYMBICORT 160/4.5mcg -] Nicotine Patch [Nicoderm Patch -] 7 mg TD DAILY #20 patch 06/02/18 predniSONE [Deltasone -] See Taper PO ASDIR #30 tab 06/02/18 REVIEW OF SYSTEMS CONSTITUTIONAL: + malaise Absent: fever, chills, diaphoresis, loss of appetite, weight change HEENT: Absent: rhinorrhea, nasal congestion,difficulty swallowing, mouth swelling, ear pain, eye pain, visual changes CARDIOVASCULAR: Absent: chest pain, syncope, palpitations, irregular heart rate , lightheadedness, peripheral edema RESPIRATORY: + cough, shortness of breath, dyspnea with exertion, wheezing GASTROINTESTINAL:Absent: abdominal pain, abdominal distension, nausea, vomiting , diarrhea, constipation GENITOURINARY: Absent: dysuria, frequency, urgency, hesitancy, hematuria, flank pain, genital pain MUSCULOSKELETAL: Absent: myalgia, arthralgia, joint swelling, back pain, neck pain SKIN: Absent: rash, itching, pallor HEMATOLOGIC/IMMUNOLOGIC: Absent: easy bleeding, easy bruising, lymphadenopathy, frequent infections ENDOCRINE:Absent: unexplained weight gain, unexplained weight loss NEUROLOGIC: Absent: headache, focal weakness or paresthesias, dizziness, unsteady gait, seizure, mental status changes, bladder or bowel incontinence PSYCHIATRIC: Absent: depression, suicidal or homicidal ideation, hallucinations. PHYSICAL EXAMINATION Vital Signs - 24 hr 11/12/18 11/12/18 11/12/18 14:52 15:30 19:39 Temperature 98.8 F 97.6 F Pulse Rate 82 Pulse Rate [ 71 Right Superficial Temporal] Respiratory 16 Rate Blood Pressure 103/74 Blood Pressure 100/69 [Left Arm] O2 Sat by Pulse 95 95 91 L Oximetry (%) GENERAL: Awake, alert, and fully oriented, in no acute distress. HEENT: NC/AT, EOMI, PERRLA, no JVD LUNGS: air entry equal, noted with b/l wheezing HEART: Regular rate and rhythm, normal S1 and S2 without murmur, rub or gallop. ABDOMEN: Soft, nontender, not distended, normoactive bowel sounds, no guarding, no rebound, no masses. MUSCULOSKELETAL: Normal range of motion at all joints. No bony deformities or tenderness. NEUROLOGICAL: Cranial nerves II-XII intact. Normal speech PSYCHIATRIC: Cooperative. Good eye contact. Appropriate mood and affect. SKIN: Warm, dry Laboratory Results - last 24 hr 11/12/18 11/12/18 11/12/18 16:23 16:43 17:19 WBC 10.2 H RBC 4.47 Hgb 14.2 Hct 41.9 MCV 93.6 MCH 31.8 MCHC 34.0 RDW 13.6 Plt Count 215 MPV 8.1 D Absolute Neuts (auto) 8.6 H Neutrophils % 84.5 H Lymphocytes % 11.6 Monocytes % 2.8 L Eosinophils % 0.1 D Basophils % 1.0 D Nucleated RBC % 0 Anticoagulation Therapy No Result Required. Puncture Site Right radial ABG pH 7.34 L ABG pCO2 at Pt Temp 51.6 H ABG pO2 at Pt Temp 165 H ABG HCO3 27.2 H ABG O2 Sat (Measured) 99.3 H ABG O2 Content 19.5 ABG Base Excess 1.0 Dav Test Positive Carboxyhemoglobin 3.1 H Methemoglobin < 1.0 O2 Delivery Device Aerosol mask Oxygen Flow Rate 6l Vent Mode No Result Required. Vent Rate No Result Required. Mechanical Rate No Result Required. Pressure Support Vent No Result Required. 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 Ruiz will follow up in AM #H/o heroine abuse - continue with Methadone 120 mg PO DAILY #Anxiety - continue with Quetiapine [id number] mg PO HS - continue with clonazePAM 0.5 mg PO TID # GERD - continue with Ranitidine 150 mg PO BID Problem List - Problem (1) COPD exacerbation Code(s): J44.1 - CHRONIC OBSTRUCTIVE PULMONARY DISEASE W (ACUTE) EXACERBATION (2) Asthma Code(s): J45.909 - UNSPECIFIED ASTHMA, UNCOMPLICATED Qualifiers: Asthma severity: moderate Asthma persistence: unspecified Asthma complication type: uncomplicated Qualified Code(s): J45.909 - Unspecified asthma, uncomplicated (3) GERD (gastroesophageal reflux disease) Code(s): K21.9 - GASTRO-ESOPHAGEAL REFLUX DISEASE WITHOUT ESOPHAGITIS (4) Anxiety Code(s): F41.9 - ANXIETY DISORDER, UNSPECIFIED (5) Methadone dependence Code(s): F11.20 - OPIOID DEPENDENCE, UNCOMPLICATED (6) Tobacco abuse Code(s): Z72.0 - TOBACCO USE Visit type - Emergency Visit Emergency Visit: Yes ED Registration Date: 11/12/18 Care time: The patient presented to the Emergency Department on the above date and was hospitalized for further evaluation of their emergent condition. - New Patient This patient is new to me today: Yes Date on this admission: 11/12/18 - Critical Care Critical Care patient: No
[2018-11-12] MEDS ORDERED: methylPREDNISolone NA SUCC 40 MG/1 ML VIAL ONE (21:41)
[2018-11-12] MEDS: methylPREDNISolone NA SUCC 40 MG/1 ML VIAL IVPUSH SCH (21:57)
[2018-11-12] MEDS ORDERED: RANITIDINE HCL 150 MG TABLET (FP) ONE (22:30)
[2018-11-12] MEDS: QUEtiapine FUMARATE 50 MG TABLET PO SCH (22:37)
[2018-11-12] MEDS: clonazePAM 0.5 MG TABLET PO SCH (22:37)
[2018-11-12] MEDS: RANITIDINE HCL 150 MG TABLET (FP) PO SCH (22:37)
[2018-11-12] MEDS: BUDESONIDE/FORMETEROL FUMARATE 160/4.5 mcg INHALER IH SCH (22:50)
[2018-11-12 23:50] VITALS: BMI 25.0
[2018-11-13] MEDS: methylPREDNISolone NA SUCC 40 MG/1 ML VIAL IVPUSH SCH ×2 (02:53→09:47)
[2018-11-13 06:51] LABS: ARTERIAL BLD GAS O2 SATURATION 92.7 % (95-98); ARTERIAL BLOOD GAS BASE EXCESS 2.8 meq/l (-2-2); ARTERIAL BLOOD GAS PCO2 44.6 mmHg (35-45); ARTERIAL BLOOD GAS PO2 63.7 mmHg (80-100); ARTERIAL BLOOD GAS pH 7.41 (7.35-7.45)
[2018-11-13 06:58] LABS: ALLENS TEST POSITIVE
[2018-11-13] MEDS: clonazePAM 0.5 MG TABLET PO SCH ×3 (07:12→21:42)
[2018-11-13] MEDS: METHADONE HCL 40 MG DISPERSABLE TABLET PO SCH (07:12)
[2018-11-13 07:17] LABS: HEMATOCRIT 41.5 % (35.4-49); MCH 31.7 pg (25.7-33.7); MCHC 33.7 g/dl (32.0-35.9); MEAN CELL VOLUME 94.1 fl (80-96); MEAN PLT VOLUME 7.5 fl (7.5-11.1); PLATELET COUNT 212 K/MM3 (134-434); RBC 4.42 M/mm3 (4.00-5.60); RDW 13.4 % (11.9-15.9); WHITE BLOOD COUNT 7.5 K/mm3 (4.0-10.0)
[2018-11-13] MEDS: ALBUTEROL SO4 2.5/IPRATROPIUM 0.5 INH SOL 3 ML VIAL.NEB. NEB PRN ×2 (07:45→20:00)
[2018-11-13 07:51] LABS: BLOOD UREA NITROGEN 9.8 mg/dL (7-18); CALCIUM 9.1 mg/dL (8.5-10.1); CREATININE 0.8 mg/dL (0.55-1.3); POTASSIUM 4.1 mmol/L (3.5-5.1)
[2018-11-13] MEDS: RANITIDINE HCL 150 MG TABLET (FP) PO SCH ×2 (09:46→21:42)
[2018-11-13] MEDS: NICOTINE 7 MG/24 HOURS TOPICAL PATCH TD SCH (09:47)
[2018-11-13] MEDS: BUDESONIDE/FORMETEROL FUMARATE 160/4.5 mcg INHALER IH SCH ×2 (09:48→21:43)
--- NOTE | 2018-11-13 11:45 | PN ---
Progress Note (short form) - Note Progress Note: sister at bedside events noted pt very anxious tells me that extreme temps makes him anxious and causes flare of COPD he still is smoking-- 3 cigs now today breathing better Vital Signs - 24 hr 11/12/18 11/12/18 11/12/18 19:35 19:39 21:00 Temperature 97.8 F 97.6 F Pulse Rate Pulse Rate [ 79 Right Radial] Pulse Rate [ 71 Right Superficial Temporal] Respiratory 20 18 Rate Blood Pressure Blood Pressure 114/76 100/69 [Left Arm] O2 Sat by Pulse 98 91 L 94 L Oximetry (%) 11/12/18 11/13/18 11/13/18 23:00 06:00 09:00 Temperature 97.8 F 98.0 F Pulse Rate 74 67 Pulse Rate [ Right Radial] Pulse Rate [ Right Superficial Temporal] Respiratory 18 18 18 Rate Blood Pressure 121/81 106/59 L Blood Pressure [Left Arm] O2 Sat by Pulse 94 L Oximetry (%) 11/13/18 11/13/18 11/13/18 09:05 13:54 18:31 Temperature 97.8 F 98.3 F 97.7 F Pulse Rate 80 66 57 L Pulse Rate [ Right Radial] Pulse Rate [ Right Superficial Temporal] Respiratory 18 20 18 Rate Blood Pressure 142/80 127/83 117/83 Blood Pressure [Left Arm] O2 Sat by Pulse Oximetry (%) Current Medications Generic Name Dose Route Start Last Admin Trade Name Freq PRN Reason Stop Dose Admin Albuterol/Ipratropium 1 amp 11/12/18 20:44 11/13/18 07:45 Duoneb - NEB 1 amp Q6H PRN Administration SHORTNESS OF BREATH Budesonide/Formoterol Fumarate 2 puff 11/12/18 22:00 11/13/18 09:48 Symbicort 160/4.5mcg - IH 2 puff BID CAN Administration Clonazepam 0.5 mg 11/12/18 22:00 11/13/18 14:57 Klonopin - PO 0.5 mg TID CAN Administration Methadone HCl 120 mg 11/13/18 06:00 11/13/18 07:12 Dolophine - PO 120 mg DAILY@0600 CAN Administration Methylprednisolone Sodium Succinate 40 mg 11/14/18 10:00 Solu-Medrol - IVPUSH DAILY CAN Nicotine 7 mg 11/13/18 10:00 11/13/18 09:47 Nicoderm Patch - TD 7 mg DAILY CAN Administration Quetiapine Fumarate 50 mg 11/12/18 22:00 11/12/18 22:37 Seroquel - PO 50 mg HS CAN Administration Ranitidine HCl 150 mg 11/12/18 22:00 11/13/18 09:46 Zantac - PO 150 mg BID CAN Administration Laboratory Results - last 24 hr 11/13/18 11/13/18 11/13/18 06:30 06:30 06:30 WBC 7.5 RBC 4.42 Hgb 14.0 Hct 41.5 MCV 94.1 MCH 31.7 MCHC 33.7 RDW 13.4 Plt Count 212 MPV 7.5 Anticoagulation Therapy No Result Required. Puncture Site Right radial ABG pH 7.41 ABG pCO2 at Pt Temp 44.6 ABG pO2 at Pt Temp 63.7 L ABG HCO3 27.5 H ABG O2 Sat (Measured) 92.7 L ABG O2 Content 18.3 ABG Base Excess 2.8 H Dav Test Positive O2 Delivery Device Room air Oxygen Flow Rate No Vent Mode No Result Required. Vent Rate No Result Required. Mechanical Rate No Result Required. Pressure Support Vent No Result Required. Sodium 142 Potassium 4.1 Chloride 105 Carbon Dioxide 27 Anion Gap 10 BUN 9.8 Creatinine 0.8 Est GFR (CKD-EPI)AfAm 119.04 Est GFR (CKD-EPI)NonAf 102.71 Random Glucose 141 H Calcium 9.1 S1 S2 RRR expiratory wheeze Abd- soft, NT no edema PLAN Anxiety-- he sees a psychiatrist outpt-- on meds COPD,asthma-- solumedrol, nebs, O2 as needed, check CT chest smoking cessation meds reviewed Pulm eval Problem List - Problems (1) COPD exacerbation Code(s): J44.1 - CHRONIC OBSTRUCTIVE PULMONARY DISEASE W (ACUTE) EXACERBATION (2) GERD (gastroesophageal reflux disease) Code(s): K21.9 - GASTRO-ESOPHAGEAL REFLUX DISEASE WITHOUT ESOPHAGITIS (3) Anxiety Code(s): F41.9 - ANXIETY DISORDER, UNSPECIFIED (4) Asthma Code(s): J45.909 - UNSPECIFIED ASTHMA, UNCOMPLICATED Qualifiers: Asthma severity: moderate Asthma persistence: unspecified Asthma complication type: uncomplicated Qualified Code(s): J45.909 - Unspecified asthma, uncomplicated (5) Asthma attack Code(s): J45.901 - UNSPECIFIED ASTHMA WITH (ACUTE) EXACERBATION Qualifiers: Asthma severity: moderate Asthma persistence: persistent Qualified Code(s ): J45.41 - Moderate persistent asthma with (acute) exacerbation
--- NOTE | 2018-11-13 12:56 | CON.PULM ---
Consult Consult Specialty:: PULMONARY Referred by:: GUIDO Reason for Consultation:: COPD - History of Present Illness Chief Complaint: COUGH/SOB/WHEEZE History of Present Illness: This is a 53-year-old male with history of COPD/asthma presents emergency department for evaluation of worsening shortness of breath. Patient reports he has been feeling increasingly short of breath intermittently months which is worse in the winter time. He patient was seen and evaluated by his wet cleaner machine Patient has had worsening shortness of breath while on steroids and nebulizer treatments by his wet cleaner machine and comes to ED for further evaluation.. Dr. Ruiz was in the emergency Department upon patient's arrival and advised admission. - History Source History Provided By: Patient, Medical Record Limitations to Obtaining History: No Limitations - Past Medical History KNIFER UP: No: Alzheimer's Cardio/Vascular: No: AFIB Pulmonary: Yes: Asthma, COPD. No: O2 Dependent - Alcohol/Substance Use Hx Alcohol Use: No History of Substance Use: reports: Heroin - Smoking History Smoking history: Current some day smoker Have you smoked in the past 12 months: Yes Aproximately how many cigarettes per day: 1 - Social History History of Recent Travel: No Home Medications - Allergies Allergies/Adverse Reactions: Allergies Allergy/AdvReac Type Severity Reaction Status Date / Time No Known Allergies Allergy Verified 05/27/18 11:22 - Home Medications Home Medications: Ambulatory Orders Albuterol 0.083% Nebulizer Chelsey [Ventolin 0.083% Nebulizer Soln -] 1 neb NEB Q4H 02/19/18 Methadone [Dolophine -] 120 mg PO DAILY 02/19/18 Quetiapine Fumarate [Seroquel -] 50 mg PO HS 02/19/18 clonazePAM [Klonopin -] 0.5 mg PO TID 02/20/18 Nebulizer [Aeroneb Go Nebulizer] 1 each NEB Q8H #1 each 03/03/18 Ranitidine [Zantac -] 150 mg PO BID #20 tablet 03/03/18 Albuterol 0.083% Nebulizer Chelsey [Ventolin 0.083% Nebulizer Soln -] 1 amp NEB Q4H PRN #30 amp 06/02/18 Budesonide/Formeterol Fumarate [SYMBICORT 160/4.5mcg -] 2 puff IH BID #1 inhaler 06/02/18 Nicotine Patch [Nicoderm Patch -] 7 mg TD DAILY #20 patch 06/02/18 predniSONE [Deltasone -] See Taper PO ASDIR #30 tab 06/02/18 Family Disease History - Family Disease History Family History: Unremarkable Review of Systems - Review of Systems Respiratory: reports: Cough, Exercise Intolerance, SOB on Exertion, Wheezing. denies: Hemoptysis Physical Exam Vital Sings: Vital Signs Temperature 97.8 F 11/13/18 09:05 Pulse Rate 80 11/13/18 09:05 Respiratory Rate 18 11/13/18 09:05 Blood Pressure 142/80 11/13/18 09:05 O2 Sat by Pulse Oximetry (%) 94 L 11/13/18 09:00 Constitutional: Yes: Calm Eyes: Yes: EOM Intact HENT: Yes: Normocephalic Neck: Yes: Trachea Midline Cardiovascular: Yes: S1, S2 Respiratory: Yes: Wheezes (minimal) Gastrointestinal: Yes: Normal Bowel Sounds Extremities: Yes: WNL Labs: CBC, BMP 11/13/18 06:30 11/13/18 06:30 ABG Results ABG pH 7.41 (7.35-7.45) 11/13/18 06:30 ABG pCO2 at Pt Temp 44.6 mmHg (35-45) 11/13/18 06:30 ABG pO2 at Pt Temp 63.7 mmHg (80-100) L 11/13/18 06:30 ABG HCO3 27.5 mmol/L (22-27) H 11/13/18 06:30 ABG O2 Sat (Measured) 92.7 % (95-98) L 11/13/18 06:30 ABG O2 Content 18.3 % vol 11/13/18 06:30 ABG Base Excess 2.8 meq/l (-2-2) H 11/13/18 06:30 Imaging - Results Chest X-ray: Report Reviewed, Image Reviewed Problem List - Problems (1) COPD exacerbation Code(s): J44.1 - CHRONIC OBSTRUCTIVE PULMONARY DISEASE W (ACUTE) EXACERBATION (2) GERD (gastroesophageal reflux disease) Code(s): K21.9 - GASTRO-ESOPHAGEAL REFLUX DISEASE WITHOUT ESOPHAGITIS (3) Methadone dependence Code(s): F11.20 - OPIOID DEPENDENCE, UNCOMPLICATED (4) Smoker Code(s): F17.200 - NICOTINE DEPENDENCE, UNSPECIFIED, UNCOMPLICATED (5) Tobacco abuse Code(s): Z72.0 - TOBACCO USE Assessment/Plan MILD EXACERBATION COPD CONTINUES TO SMOKE NO EVIDENCE TO SUPPORT PNEUMONIA BRIEF COURSE OF STEROIDS/ICS/LABA/TYRA O2 PRN SMOKING CESSATION Winston MULLIGAN MD
[2018-11-13] MEDS ORDERED: QUEtiapine FUMARATE 25 MG TABLET (FP) ONE (21:41)
[2018-11-13] MEDS: QUEtiapine FUMARATE 50 MG TABLET PO SCH (21:42)
[2018-11-14] MEDS: clonazePAM 0.5 MG TABLET PO SCH ×3 (06:28→22:45)
[2018-11-14] MEDS: METHADONE HCL 40 MG DISPERSABLE TABLET PO SCH (06:28)
[2018-11-14] MEDS ORDERED: PT OWN MED DRAWER 7, Y5N ONE (08:00)
--- NOTE | 2018-11-14 09:55 | PN ---
Progress Note (short form) - Note Progress Note: pt very anxious repeating yesterday's conversation--tell me that extreme temps makes him anxious and causes flare of COPD today breathing better Vital Signs - 24 hr 11/13/18 11/13/18 11/13/18 13:54 18:31 21:00 Temperature 98.3 F 97.7 F Pulse Rate 66 57 L Respiratory 20 18 Rate Blood Pressure 127/83 117/83 O2 Sat by Pulse 97 Oximetry (%) 11/13/18 11/14/18 11/14/18 22:00 02:00 06:00 Temperature 97.6 F 97.9 F 97.9 F Pulse Rate 54 L 71 68 Respiratory 20 18 16 Rate Blood Pressure 125/78 126/68 103/57 L O2 Sat by Pulse Oximetry (%) Current Medications Generic Name Dose Route Start Last Admin Trade Name Freq PRN Reason Stop Dose Admin Albuterol/Ipratropium 1 amp 11/12/18 20:44 11/13/18 20:00 Duoneb - NEB 1 amp Q6H PRN Administration SHORTNESS OF BREATH Budesonide/Formoterol Fumarate 2 puff 11/12/18 22:00 11/13/18 21:43 Symbicort 160/4.5mcg - IH 2 puff BID CAN Administration Clonazepam 0.5 mg 11/12/18 22:00 11/14/18 06:28 Klonopin - PO 0.5 mg TID CAN Administration Enoxaparin Sodium 40 mg 11/14/18 10:00 Lovenox - SQ DAILY CAN Methadone HCl 120 mg 11/13/18 06:00 11/14/18 06:28 Dolophine - PO 120 mg DAILY@0600 CAN Administration Methylprednisolone Sodium Succinate 40 mg 11/14/18 10:00 Solu-Medrol - IVPUSH DAILY CAN Nicotine 7 mg 11/13/18 10:00 11/13/18 09:47 Nicoderm Patch - TD 7 mg DAILY CAN Administration Quetiapine Fumarate 50 mg 11/12/18 22:00 11/13/18 21:42 Seroquel - PO 50 mg HS CAN Administration Ranitidine HCl 150 mg 11/12/18 22:00 11/13/18 21:42 Zantac - PO 150 mg BID CAN Administration S1 S2 RRR expiratory wheeze Abd- soft, NT no edema PLAN Anxiety-- he sees a psychiatrist outpt-- on meds COPD,asthma-- solumedrol taper, nebs, O2 as needed--CT chest-->COPD smoking cessation meds reviewed Pulm jose miguel noted clinically improving-- dc plan Problem List - Problems (1) COPD exacerbation Code(s): J44.1 - CHRONIC OBSTRUCTIVE PULMONARY DISEASE W (ACUTE) EXACERBATION (2) GERD (gastroesophageal reflux disease) Code(s): K21.9 - GASTRO-ESOPHAGEAL REFLUX DISEASE WITHOUT ESOPHAGITIS (3) Anxiety Code(s): F41.9 - ANXIETY DISORDER, UNSPECIFIED (4) Asthma Code(s): J45.909 - UNSPECIFIED ASTHMA, UNCOMPLICATED Qualifiers: Asthma severity: moderate Asthma persistence: unspecified Asthma complication type: uncomplicated Qualified Code(s): J45.909 - Unspecified asthma, uncomplicated (5) Asthma attack Code(s): J45.901 - UNSPECIFIED ASTHMA WITH (ACUTE) EXACERBATION Qualifiers: Asthma severity: moderate Asthma persistence: persistent Qualified Code(s ): J45.41 - Moderate persistent asthma with (acute) exacerbation
[2018-11-14] MEDS ORDERED: methylPREDNISolone NA SUCC 40 MG/1 ML VIAL IVPUSH SCH (10:00)
[2018-11-14] MEDS: RANITIDINE HCL 150 MG TABLET (FP) PO SCH ×2 (10:38→22:45)
[2018-11-14] MEDS: ENOXAPARIN NA (PORCINE) 40 MG/0.4 ML DISP.SYRIN SQ SCH (10:38)
[2018-11-14] MEDS: BUDESONIDE/FORMETEROL FUMARATE 160/4.5 mcg INHALER IH SCH ×2 (10:38→22:48)
[2018-11-14] MEDS: NICOTINE 7 MG/24 HOURS TOPICAL PATCH TD SCH (10:39)
--- NOTE | 2018-11-14 12:18 | PN ---
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
[2018-11-14] MEDS: methylPREDNISolone NA SUCC 40 MG/1 ML VIAL IVPUSH SCH ×2 (15:21→22:00)
--- NOTE | 2018-11-14 17:05 | EKG ---
Test Reason : Blood Pressure : / mmHG Vent. Rate : 058 BPM Atrial Rate : 058 BPM P-R Int : 168 ms QRS Dur : 084 ms QT Int : 436 ms P-R-T Axes : 062 077 063 degrees QTc Int : 428 ms SINUS BRADYCARDIA WITH SINUS ARRHYTHMIA OTHERWISE NORMAL ECG WHEN COMPARED WITH ECG OF 27-MAY-2018 11:24, VENT. RATE HAS DECREASED BY 59 BPM Confirmed by ANUJA JARAMILLO MD ([id number]) on 11/14/2018 5:05:23 PM Referred By: Confirmed By:ANUJA JARAMILLO MD
[2018-11-14] MEDS: QUEtiapine FUMARATE 50 MG TABLET PO SCH (22:00)
[2018-11-14] MEDS ORDERED: QUEtiapine FUMARATE 25 MG TABLET (FP) ONE (22:43)
[2018-11-15] MEDS: methylPREDNISolone NA SUCC 40 MG/1 ML VIAL IVPUSH SCH ×4 (02:55→21:30)
[2018-11-15] MEDS: clonazePAM 0.5 MG TABLET PO SCH ×3 (05:47→21:30)
[2018-11-15] MEDS: METHADONE HCL 40 MG DISPERSABLE TABLET PO SCH (05:47)
[2018-11-15] MEDS: ALBUTEROL SO4 2.5/IPRATROPIUM 0.5 INH SOL 3 ML VIAL.NEB. NEB PRN (07:44)
[2018-11-15] MEDS ORDERED: ALBUTEROL SO4 0.083% IH SOL 2.5 MG/3 ML VIAL.NEB. NEB PRN (09:32)
--- NOTE | 2018-11-15 09:32 | PN ---
Progress Note (short form) - Note Progress Note: PULMONARY Breathing about the same as yesterday. Still with chest tightness and wheezing. Earbud from headphones impacted in right ear. Vital Signs Period Temp Pulse Resp BP Sys/Bermudez Pulse Ox Last 24 Hr 97.6 F-98.4 F 60-71 18-20 105-120/62-72 97 Gen: NAD at rest Heart: RRR Lung: decreased air movement, + wheezing Abd: soft, nontender Ext: no edema CBC, BMP 11/13/18 06:30 11/13/18 06:30 Active Medications Albuterol/Ipratropium (Duoneb -) 1 amp NEB Q6H PRN PRN Reason: SHORTNESS OF BREATH Last Admin: 11/15/18 07:44 Dose: 1 amp Budesonide/Formoterol Fumarate (Symbicort 160/4.5mcg -) 2 puff IH BID [facility] Last Admin: 11/14/18 22:48 Dose: 2 puff Clonazepam (Klonopin -) 0.5 mg PO TID [facility] Last Admin: 11/15/18 05:47 Dose: 0.5 mg Enoxaparin Sodium (Lovenox -) 40 mg SQ DAILY [facility] Last Admin: 11/14/18 10:38 Dose: 40 mg Methadone HCl (Dolophine -) 120 mg PO DAILY@0600 [facility] Last Admin: 11/15/18 05:47 Dose: 120 mg Methylprednisolone Sodium Succinate (Solu-Medrol -) 40 mg IVPUSH Q6H-IV [facility] Last Admin: 11/15/18 02:55 Dose: 40 mg Nicotine (Nicoderm Patch -) 7 mg TD DAILY [facility] Last Admin: 11/14/18 10:39 Dose: 7 mg Quetiapine Fumarate (Seroquel -) 50 mg PO HS [facility] Last Admin: 11/14/18 22:00 Dose: 50 mg Ranitidine HCl (Zantac -) 150 mg PO BID [facility] Last Admin: 11/14/18 22:45 Dose: 150 mg A/P Acute COPD Exacerbation Smoker Impacted R Ear - continue medrol at current dose - inhaled bronchodilators standing and PRN - removed ear bud at bedside - DVT prophylaxis
--- NOTE | 2018-11-15 09:59 | PN ---
Progress Note (short form) - Note Progress Note: pt seen/ examined. chart reviewed awake anxiety + all f/u noted comfortable no distress Vital Signs Temp 98.2 F 11/15/18 05:00 Pulse 71 11/15/18 05:00 Resp 20 11/15/18 05:00 BP 120/72 11/15/18 05:00 Pulse Ox 97 11/14/18 21:00 Intake & Output 11/14/18 11/14/18 11/15/18 11:59 23:59 11:59 Intake Total 500 120 Balance 500 120 Intake: Oral 500 120 Other: Voiding Method Toilet Toilet # Unmeasured Voids Void 1 1 Bowel Movement Yes # Bowel Movements 1 Active Medications Albuterol Sulfate (Ventolin 0.083% Nebulizer Soln -) 1 amp NEB Q4H PRN PRN Reason: SHORT OF BREATH/WHEEZING Albuterol/Ipratropium (Duoneb -) 1 amp NEB RQID CAN Budesonide/Formoterol Fumarate (Symbicort 160/4.5mcg -) 2 puff IH BID [facility] Last Admin: 11/14/18 22:48 Dose: 2 puff Clonazepam (Klonopin -) 0.5 mg PO TID [facility] Last Admin: 11/15/18 05:47 Dose: 0.5 mg Enoxaparin Sodium (Lovenox -) 40 mg SQ DAILY [facility] Last Admin: 11/14/18 10:38 Dose: 40 mg Methadone HCl (Dolophine -) 120 mg PO DAILY@0600 [facility] Last Admin: 11/15/18 05:47 Dose: 120 mg Methylprednisolone Sodium Succinate (Solu-Medrol -) 40 mg IVPUSH Q6H-IV [facility] Last Admin: 11/15/18 02:55 Dose: 40 mg Nicotine (Nicoderm Patch -) 7 mg TD DAILY [facility] Last Admin: 11/14/18 10:39 Dose: 7 mg Quetiapine Fumarate (Seroquel -) 50 mg PO HS [facility] Last Admin: 11/14/18 22:00 Dose: 50 mg Ranitidine HCl (Zantac -) 150 mg PO BID [facility] Last Admin: 11/14/18 22:45 Dose: 150 mg CBC, BMP 11/13/18 06:30 11/13/18 06:30 Physical Exam S1 S2 RRR expiratory wheezes Abd- soft, NT no edema PLAN Anxiety-- he sees a psychiatrist outpt-- on meds COPD,asthma-- solumedrol taper, nebs, O2 as needed--CT chest-->COPD smoking cessation counselled again meds reviewed Pulm following overall fells better If better - anticipate d/c in am Problem List - Problems (1) COPD exacerbation Code(s): J44.1 - CHRONIC OBSTRUCTIVE PULMONARY DISEASE W (ACUTE) EXACERBATION (2) GERD (gastroesophageal reflux disease) Code(s): K21.9 - GASTRO-ESOPHAGEAL REFLUX DISEASE WITHOUT ESOPHAGITIS (3) Anxiety Code(s): F41.9 - ANXIETY DISORDER, UNSPECIFIED (4) Asthma Code(s): J45.909 - UNSPECIFIED ASTHMA, UNCOMPLICATED Qualifiers: Asthma severity: moderate Asthma persistence: unspecified Asthma complication type: uncomplicated Qualified Code(s): J45.909 - Unspecified asthma, uncomplicated (5) Asthma attack Code(s): J45.901 - UNSPECIFIED ASTHMA WITH (ACUTE) EXACERBATION Qualifiers: Asthma severity: moderate Asthma persistence: persistent Qualified Code(s ): J45.41 - Moderate persistent asthma with (acute) exacerbation
[2018-11-15] MEDS ORDERED: PT OWN MED DRAWER 7, Y5N ONE (10:29)
[2018-11-15] MEDS: RANITIDINE HCL 150 MG TABLET (FP) PO SCH ×2 (10:32→21:30)
[2018-11-15] MEDS: NICOTINE 7 MG/24 HOURS TOPICAL PATCH TD SCH (10:32)
[2018-11-15] MEDS: ENOXAPARIN NA (PORCINE) 40 MG/0.4 ML DISP.SYRIN SQ SCH (10:32)
[2018-11-15] MEDS: BUDESONIDE/FORMETEROL FUMARATE 160/4.5 mcg INHALER IH SCH ×2 (10:34→21:30)
[2018-11-15] MEDS: ALBUTEROL SO4 2.5/IPRATROPIUM 0.5 INH SOL 3 ML VIAL.NEB. NEB SCH ×3 (12:59→19:33)
[2018-11-15] MEDS ORDERED: QUEtiapine FUMARATE 25 MG TABLET (FP) ONE (20:43)
[2018-11-15] MEDS: QUEtiapine FUMARATE 50 MG TABLET PO SCH (21:30)
[2018-11-16] MEDS: methylPREDNISolone NA SUCC 40 MG/1 ML VIAL IVPUSH SCH ×3 (02:19→21:43)
[2018-11-16] MEDS: clonazePAM 0.5 MG TABLET PO SCH ×3 (05:42→21:33)
[2018-11-16] MEDS: METHADONE HCL 40 MG DISPERSABLE TABLET PO SCH (05:42)
[2018-11-16 06:07] LABS: ALPHA-1-ANTITRYPSIN 119 mg/dL (90-200)
[2018-11-16] MEDS: ALBUTEROL SO4 2.5/IPRATROPIUM 0.5 INH SOL 3 ML VIAL.NEB. NEB SCH ×4 (07:30→20:37)
[2018-11-16] MEDS ORDERED: PT OWN MED DRAWER 7, Y5N ONE (09:51)
[2018-11-16] MEDS: RANITIDINE HCL 150 MG TABLET (FP) PO SCH ×2 (10:01→21:43)
[2018-11-16] MEDS: NICOTINE 7 MG/24 HOURS TOPICAL PATCH TD SCH (10:01)
[2018-11-16] MEDS: ENOXAPARIN NA (PORCINE) 40 MG/0.4 ML DISP.SYRIN SQ SCH (10:02)
[2018-11-16] MEDS: BUDESONIDE/FORMETEROL FUMARATE 160/4.5 mcg INHALER IH SCH ×2 (10:04→21:43)
--- NOTE | 2018-11-16 11:12 | PN ---
Progress Note (short form) - Note Progress Note: PULMONARY Breathing slightly better. Still with chest tightness and wheezing. Vital Signs Period Temp Pulse Resp BP Sys/Bermudez Pulse Ox Last 24 Hr 98 F-98.3 F 65-73 18-18 108-140/68-77 97 Gen: NAD at rest Heart: RRR Lung: decreased air movement, + wheezing Abd: soft, nontender Ext: no edema CBC, BMP 11/13/18 06:30 11/13/18 06:30 Active Medications Albuterol Sulfate (Ventolin 0.083% Nebulizer Soln -) 1 amp NEB Q4H PRN PRN Reason: SHORT OF BREATH/WHEEZING Albuterol/Ipratropium (Duoneb -) 1 amp NEB RQID [facility] Last Admin: 11/16/18 07:30 Dose: 1 amp Budesonide/Formoterol Fumarate (Symbicort 160/4.5mcg -) 2 puff IH BID [facility] Last Admin: 11/16/18 10:04 Dose: 2 puff Clonazepam (Klonopin -) 0.5 mg PO TID [facility] Last Admin: 11/16/18 05:42 Dose: 0.5 mg Enoxaparin Sodium (Lovenox -) 40 mg SQ DAILY [facility] Last Admin: 11/16/18 10:02 Dose: 40 mg Methadone HCl (Dolophine -) 120 mg PO DAILY@0600 [facility] Last Admin: 11/16/18 05:42 Dose: 120 mg Methylprednisolone Sodium Succinate (Solu-Medrol -) 40 mg IVPUSH Q6H-IV [facility] Last Admin: 11/16/18 10:01 Dose: 40 mg Nicotine (Nicoderm Patch -) 7 mg TD DAILY [facility] Last Admin: 11/16/18 10:01 Dose: 7 mg Quetiapine Fumarate (Seroquel -) 50 mg PO HS [facility] Last Admin: 11/15/18 21:30 Dose: 50 mg Ranitidine HCl (Zantac -) 150 mg PO BID [facility] Last Admin: 11/16/18 10:01 Dose: 150 mg A/P Acute COPD Exacerbation Smoker Impacted R Ear - will decrease medrol to q12h - inhaled bronchodilators standing and PRN - smoking cessation - DVT prophylaxis
--- NOTE | 2018-11-16 11:20 | PN ---
Progress Note (short form) - Note Progress Note: pt very anxious he tried walking and feels he's unsteady \Vital Signs - 24 hr 11/15/18 11/15/18 11/15/18 14:21 18:00 21:00 Temperature 98.3 F 98 F Pulse Rate 72 73 Respiratory 18 18 Rate Blood Pressure 108/74 116/68 O2 Sat by Pulse 97 Oximetry (%) 11/15/18 11/16/18 22:00 06:08 Temperature 98.3 F 98.0 F Pulse Rate 71 65 Respiratory 18 18 Rate Blood Pressure 117/72 140/77 O2 Sat by Pulse Oximetry (%) Current Medications Generic Name Dose Route Start Last Admin Trade Name Freq PRN Reason Stop Dose Admin Albuterol Sulfate 1 amp 11/15/18 09:32 Ventolin 0.083% Nebulizer Soln - NEB Q4H PRN SHORT OF BREATH/WHEEZING Albuterol/Ipratropium 1 amp 11/15/18 12:00 11/16/18 07:30 Duoneb - NEB 1 amp RQID CAN Administration Budesonide/Formoterol Fumarate 2 puff 11/12/18 22:00 11/16/18 10:04 Symbicort 160/4.5mcg - IH 2 puff BID CAN Administration Clonazepam 0.5 mg 11/12/18 22:00 11/16/18 05:42 Klonopin - PO 0.5 mg TID CAN Administration Enoxaparin Sodium 40 mg 11/14/18 10:00 11/16/18 10:02 Lovenox - SQ 40 mg DAILY CAN Administration Methadone HCl 120 mg 11/13/18 06:00 11/16/18 05:42 Dolophine - PO 120 mg DAILY@0600 CAN Administration Methylprednisolone Sodium Succinate 40 mg 11/16/18 22:00 Solu-Medrol - IVPUSH BID CAN Nicotine 7 mg 11/13/18 10:00 11/16/18 10:01 Nicoderm Patch - TD 7 mg DAILY CAN Administration Quetiapine Fumarate 50 mg 11/12/18 22:00 11/15/18 21:30 Seroquel - PO 50 mg HS CAN Administration Ranitidine HCl 150 mg 11/12/18 22:00 11/16/18 10:01 Zantac - PO 150 mg BID CAN Administration Laboratory Results - last 24 hr 11/13/18 17:48 [id number] 119 S1 S2 RRR expiratory wheeze Abd- soft, NT no edema PLAN Anxiety-- he sees a psychiatrist outpt-- on meds COPD,asthma-- solumedrol taper, nebs, O2 as needed--CT chest-->COPD spoke to Pulmonary smoking cessation meds reviewed PT eval Problem List - Problems (1) COPD exacerbation Code(s): J44.1 - CHRONIC OBSTRUCTIVE PULMONARY DISEASE W (ACUTE) EXACERBATION (2) GERD (gastroesophageal reflux disease) Code(s): K21.9 - GASTRO-ESOPHAGEAL REFLUX DISEASE WITHOUT ESOPHAGITIS (3) Anxiety Code(s): F41.9 - ANXIETY DISORDER, UNSPECIFIED (4) Asthma Code(s): J45.909 - UNSPECIFIED ASTHMA, UNCOMPLICATED Qualifiers: Asthma severity: moderate Asthma persistence: unspecified Asthma complication type: uncomplicated Qualified Code(s): J45.909 - Unspecified asthma, uncomplicated (5) Asthma attack Code(s): J45.901 - UNSPECIFIED ASTHMA WITH (ACUTE) EXACERBATION Qualifiers: Asthma severity: moderate Asthma persistence: persistent Qualified Code(s ): J45.41 - Moderate persistent asthma with (acute) exacerbation
[2018-11-16] MEDS ORDERED: QUEtiapine FUMARATE 25 MG TABLET (FP) ONE (21:08)
[2018-11-16] MEDS: QUEtiapine FUMARATE 50 MG TABLET PO SCH (21:49)
[2018-11-17] MEDS: METHADONE HCL 40 MG DISPERSABLE TABLET PO SCH (05:51)
[2018-11-17] MEDS: clonazePAM 0.5 MG TABLET PO SCH ×2 (05:51→13:18)
[2018-11-17] MEDS: ALBUTEROL SO4 2.5/IPRATROPIUM 0.5 INH SOL 3 ML VIAL.NEB. NEB SCH ×2 (09:30→12:03)
[2018-11-17] MEDS: ENOXAPARIN NA (PORCINE) 40 MG/0.4 ML DISP.SYRIN SQ SCH (09:43)
[2018-11-17] MEDS: RANITIDINE HCL 150 MG TABLET (FP) PO SCH (09:43)
[2018-11-17] MEDS: methylPREDNISolone NA SUCC 40 MG/1 ML VIAL IVPUSH SCH (09:43)
[2018-11-17] MEDS: NICOTINE 7 MG/24 HOURS TOPICAL PATCH TD SCH (09:43)
[2018-11-17] MEDS: BUDESONIDE/FORMETEROL FUMARATE 160/4.5 mcg INHALER IH SCH (09:54)
--- NOTE | 2018-11-17 10:34 | PN ---
Progress Note (short form) - Note Progress Note: see dc summary Problem List - Problems (1) COPD exacerbation Code(s): J44.1 - CHRONIC OBSTRUCTIVE PULMONARY DISEASE W (ACUTE) EXACERBATION (2) GERD (gastroesophageal reflux disease) Code(s): K21.9 - GASTRO-ESOPHAGEAL REFLUX DISEASE WITHOUT ESOPHAGITIS (3) Anxiety Code(s): F41.9 - ANXIETY DISORDER, UNSPECIFIED (4) Asthma Code(s): J45.909 - UNSPECIFIED ASTHMA, UNCOMPLICATED Qualifiers: Asthma severity: moderate Asthma persistence: unspecified Asthma complication type: uncomplicated Qualified Code(s): J45.909 - Unspecified asthma, uncomplicated (5) Asthma attack Code(s): J45.901 - UNSPECIFIED ASTHMA WITH (ACUTE) EXACERBATION Qualifiers: Asthma severity: moderate Asthma persistence: persistent Qualified Code(s ): J45.41 - Moderate persistent asthma with (acute) exacerbation
--- NOTE | 2018-11-17 11:00 | DS ---
Physical Examination Vital Signs: Vital Signs Temperature 97.8 F 11/17/18 06:00 Pulse Rate 65 11/17/18 06:00 Respiratory Rate 18 11/17/18 06:00 Blood Pressure 121/86 11/17/18 06:00 O2 Sat by Pulse Oximetry (%) 98 11/16/18 21:00 Constitutional: Yes: No Distress, Anxious Cardiovascular: Yes: Regular Rate and Rhythm Respiratory: Yes: Diminished Gastrointestinal: Yes: Normal Bowel Sounds, Soft. No: Tenderness Edema: No Labs: CBC, BMP 11/13/18 06:30 11/13/18 06:30 Discharge Summary Reason For Visit: COPD Current Active Problems COPD exacerbation (Acute) GERD (gastroesophageal reflux disease) (Acute) Hospital Course: Admitted for COPD exacerbation CT chest-->COPD Seen by Pulmonary Was on IV solumedrol NO antibiotics- as he did not have pneumonia Allergy panel pending Pt clinically improving will need a rolling walker for unsteady gait Recommend Pulmonary rehab as outpatient follow up with Pulmonary as outpt Stable for dc home on PO prednisone Condition: Stable - Instructions Disposition: HOME - Home Medications Comprehensive Discharge Medication List: Ambulatory Orders Albuterol 0.083% Nebulizer Chelsey [Ventolin 0.083% Nebulizer Soln -] 1 neb NEB Q4H 02/19/18 Methadone [Dolophine -] 120 mg PO DAILY 02/19/18 Quetiapine Fumarate [Seroquel -] 50 mg PO HS 02/19/18 clonazePAM [Klonopin -] 0.5 mg PO TID 02/20/18 Nebulizer [Aeroneb Go Nebulizer] 1 each NEB Q8H #1 each 03/03/18 Ranitidine [Zantac -] 150 mg PO BID #20 tablet 03/03/18 Albuterol 0.083% Nebulizer Chelsey [Ventolin 0.083% Nebulizer Soln -] 1 amp NEB Q4H PRN #30 amp 06/02/18 Budesonide/Formeterol Fumarate [SYMBICORT 160/4.5mcg -] 2 puff IH BID #1 inhaler 06/02/18 Nicotine Patch [Nicoderm Patch -] 7 mg TD DAILY #20 patch 06/02/18 predniSONE [Deltasone -] See Taper PO ASDIR #30 tab 06/02/18
[2018-11-17 11:41] VITALS: BP 122/75; PULSE 66; TEMP 97.9
--- NOTE | 2018-11-17 13:00 | PN ---
Progress Note (short form) - Note Progress Note: PULMONARY Breathing continues to improve. Vital Signs Period Temp Pulse Resp BP Sys/Bermudez Pulse Ox Last 24 Hr 97.4 F-97.9 F 63-84 18-18 109-144/70-93 94-98 Gen: NAD at rest Heart: RRR Lung: better air movement, no wheezing Abd: soft, nontender Ext: no edema CBC, BMP 11/13/18 06:30 11/13/18 06:30 Active Medications Albuterol Sulfate (Ventolin 0.083% Nebulizer Soln -) 1 amp NEB Q4H PRN PRN Reason: SHORT OF BREATH/WHEEZING Albuterol/Ipratropium (Duoneb -) 1 amp NEB RQID [facility] Last Admin: 11/17/18 12:03 Dose: 1 amp Budesonide/Formoterol Fumarate (Symbicort 160/4.5mcg -) 2 puff IH BID [facility] Last Admin: 11/17/18 09:54 Dose: 2 puff Clonazepam (Klonopin -) 0.5 mg PO TID [facility] Last Admin: 11/17/18 05:51 Dose: 0.5 mg Enoxaparin Sodium (Lovenox -) 40 mg SQ DAILY [facility] Last Admin: 11/17/18 09:43 Dose: 40 mg Methadone HCl (Dolophine -) 120 mg PO DAILY@0600 [facility] Last Admin: 11/17/18 05:51 Dose: 120 mg Methylprednisolone Sodium Succinate (Solu-Medrol -) 40 mg IVPUSH BID [facility] Last Admin: 11/17/18 09:43 Dose: Not Given Nicotine (Nicoderm Patch -) 7 mg TD DAILY [facility] Last Admin: 11/17/18 09:43 Dose: 7 mg Quetiapine Fumarate (Seroquel -) 50 mg PO HS [facility] Last Admin: 11/16/18 21:49 Dose: 50 mg Ranitidine HCl (Zantac -) 150 mg PO BID [facility] Last Admin: 11/17/18 09:43 Dose: 150 mg A/P Acute COPD Exacerbation Smoker - prednisone taper - inhaled bronchodilators standing and PRN - smoking cessation - DVT prophylaxis
[2018-11-17 13:44] LABS: D001 D PTERONYSSINUS 3.54 kU/L (Class III); D002 D FARINAE MITE 8.18 kU/L (Class IV); E005 DOG HAIR/DANDER <0.10 kU/L (Class 0); F001 EGG WHITE <0.10 kU/L (Class 0); F018 BRAZIL NUT < 0.10 kU/L (Class 0); F201 PECAN NUT < 0.10 kU/L (Class 0); M006-ALTERNARIA <0.10 kU/L (Class 0)
== END 2018-11-17 14:29 | disposition home or self-care (01) | DRG 140 ==
LOC: JER 14:47 → JERBED 18:39 → J7W 11-13 00:58
PROVIDERS: ADMIT Internal Medicine; ATTEND Internal Medicine
DX: J44.1 Chronic obstructive pulmonary disease with (acute) exacerbation (principal); F41.9 Anxiety disorder, unspecified; K21.9 Gastro-esophageal reflux disease without esophagitis; F11.20 Opioid dependence, uncomplicated; J45.41 Moderate persistent asthma with (acute) exacerbation; F17.210 Nicotine dependence, cigarettes, uncomplicated
CPT/HCPCS: 36415; 36600; 71046-TC-FY; 71250-TC; 80048; 80053; 82103; 82375; 82550; 82803; 83050; 83880; 84484; 85025; 85027; 86003; 93005; 93010; 94640; 97116-GP; 97161-GP; 99284-25

== ENCOUNTER 2019-01-30 20:55 | Inpatient (IN) | payer OTHER ==
[2019-01-30] MEDS ORDERED: methylPREDNISolone NA SUCC 125 MG/2 ML VIAL IVPUSH STA (21:09)
--- NOTE | 2019-01-30 21:10 | PDOC ---
Attending Attestation - Resident Resident Name: BandarMonik - ED Attending Attestation I have performed the following: I have examined & evaluated the patient, The case was reviewed & discussed with the resident, I agree w/resident's findings & plan - HPI HPI: 01/31/19 00:01 Pt comes with COPD exacerbation; he was unable to breathe at home. He is frightened because he never had this before at home in such a severe manner that he can't breath. Pt arrived by EMS and was appearing better on arrival. Pt states that he smokes only 2 cigs per day. He does no drugs; quit that life and he is on methadone. - Physicial Exam PE: 01/31/19 00:03 Normal exam; afebrile; decreased breath sounds. However pt is able to speak in full sentences. He has 3L NC and his O2sat is 92%. Abd soft NT ND Heart [id number] neuro exam normal AGREE WITH RESIDENT EXAM - Medical Decision Making 01/31/19 00:04 Pt is afebrile, but we will treat with abx for community acquired pneumonia, in accordance with COPD exacerbation treatment recommendations 01/31/19 00:20 Pt will be admitted to the hospitalist team Heart Score/ECG Review - ECG Intrepretation Rhythm: Regular Rhythm - [place]: Normal - P and [place] Delta Wave(s) Present: No WPW: No - QRS Poor R Wave Progression: No Q Wave Present: No - ST and T Early Repolarization: No Non Specific ST-T Wave changes: No Flattened T Waves: No Prolonged Q-T Interval: No - ECG Impressions Normal ECG: Yes Non-specific ST Elevation: No Ischemic Changes: No
[2019-01-30] MEDS ORDERED: ALBUTEROL SO4 2.5/IPRATROPIUM 0.5 INH SOL 3 ML VIAL.NEB. NEB ONE (21:29)
[2019-01-30] MEDS ORDERED: MAGNESIUM 1GM/D5W - 1 GM/100 ML IVPB IVPB ONE (21:29)
[2019-01-30] MEDS ORDERED: methylPREDNISolone NA SUCC 125 MG/2 ML VIAL ONE (21:29)
[2019-01-30] MEDS: ALBUTEROL SO4 2.5/IPRATROPIUM 0.5 INH SOL 3 ML VIAL.NEB. NEB SCH ×2 (21:48→21:49)
[2019-01-30 21:49] LABS: BASO % 1.1 % (0-2.0); EOS % 0.8 % (0-4.5); HEMATOCRIT 44.3 % (35.4-49); HEMOGLOBIN 15.2 GM/dL (11.7-16.9); LYMPH % 33.4 % (8-40); MCH 32.7 pg (25.7-33.7); MCHC 34.3 g/dl (32.0-35.9); MEAN CELL VOLUME 95.1 fl (80-96); MEAN PLT VOLUME 7.4 fl (7.5-11.1); MONO % 11.4 % (3.8-10.2); NEUT % 53.3 % (42.8-82.8); PLATELET COUNT 202 K/MM3 (134-434); RBC 4.65 M/mm3 (4.00-5.60); RDW 13.7 % (11.9-15.9); WHITE BLOOD COUNT 6.1 K/mm3 (4.0-10.0)
[2019-01-30] MEDS ORDERED: AZITHROMYCIN IVPB 500 MG in DEXTROSE 5%-WATER - 250 ML IVPB ONE (22:04)
[2019-01-30] MEDS ORDERED: CEFTRIAXONE 1 GM in DEXTROSE 5%-WATER - 50 ML IVPB ONE (22:04)
[2019-01-30 22:11] LABS: ARTERIAL BLD GAS O2 SATURATION 97.8 % (95-98); ARTERIAL BLOOD GAS PCO2 49.7 mmHg (35-45); ARTERIAL BLOOD GAS PO2 111 mmHg (80-100); ARTERIAL BLOOD GAS pH 7.37 (7.35-7.45); CARBOXYHEMOGLOBIN 3.7 % (0-2)
[2019-01-30] MEDS ORDERED: SODIUM CHLORIDE 1,000 ML IV STA (22:11)
--- NOTE | 2019-01-30 22:18 | PDOC ---
History of Present Illness - General Chief Complaint: Shortness of Breath Stated Complaint: ASTHMA Time Seen by Provider: 01/30/19 21:03 History Source: Patient Exam Limitations: No Limitations - History of Present Illness Initial Comments: Pt is a 53 yo M, with PMH of asthma/COPD (on albuterol and symbicort), anxiety, prior heroin abuse (on methadone program), who is presenting with complaints of chest tightness, SOB, and wheezing. Pt states he was walking from outdoors in the cold air when he "felt an attack coming". He took his albuterol inhaler and sat in the bathroom with the warm steam, which somewhat helped his symptoms. Pt has been taking symbicort BID as prescribed, but has been taking the albuterol inhaler "throughout the day". Pt also endorses clear, watery drainage of his R eye since yesterday, with no purulent drainage. Pt denies any recent fevers/ chills, headache, vision changes, syncope, chest pain, palpitations, nausea/ vomiting, abdominal pain, urinary symptoms, diarrhea/constipation, or leg swelling. Allergies: NKDA PCP: Dr. Parker Carter Pulm: Dr Ruiz/Hollis Social: Pt smokes ~1-2 cigarettes per day. Pt denies any current alcohol or drug use. Pt has been steady on his methadone program, with remote history of heroin use. Pt denies any recent travel or sick contacts. Surgical: no relevant history. Family: sister - lung CA 01/30/19 22:11 Past History - Travel Traveled outside of the country in the last 30 days: No Close contact w/someone who was outside of country & ill: No - Past Medical History Allergies/Adverse Reactions: Allergies Allergy/AdvReac Type Severity Reaction Status Date / Time No Known Allergies Allergy Verified 01/30/19 21:01 Home Medications: Ambulatory Orders Albuterol 0.083% Nebulizer Chelsey [Ventolin 0.083% Nebulizer Soln -] 1 neb NEB Q4H 02/19/18 Methadone [Dolophine -] 120 mg PO DAILY 02/19/18 Quetiapine Fumarate [Seroquel -] 50 mg PO HS 02/19/18 clonazePAM [Klonopin -] 0.5 mg PO TID 02/20/18 Nebulizer [Aeroneb Go Nebulizer] 1 each NEB Q8H #1 each 03/03/18 Ranitidine [Zantac -] 150 mg PO BID #20 tablet 03/03/18 Albuterol 0.083% Nebulizer Chelsey [Ventolin 0.083% Nebulizer Soln -] 1 amp NEB Q4H PRN #30 amp 06/02/18 Budesonide/Formeterol Fumarate [SYMBICORT 160/4.5mcg -] 2 puff IH BID #1 inhaler 06/02/18 Nicotine Patch [Nicoderm Patch -] 7 mg TD DAILY #20 patch 06/02/18 predniSONE [Deltasone -] See Taper PO ASDIR #30 tab 06/02/18 Anemia: No Asthma: Yes Cancer: No Cardiac Disorders: No CVA: No COPD: Yes CHF: No Dementia: No Diabetes: No GI Disorders: No Disorders: No HTN: No Hypercholesterolemia: No Liver Disease: No Psychiatric Problems: Yes (ANXIETY) Seizures: No Thyroid Disease: No - Surgical History Abdominal Surgery: No Appendectomy: No Cardiac Surgery: No Cholecystectomy: No Lung Surgery: No Neurologic Surgery: No Orthopedic Surgery: No - Immunization History Immunization Up to Date: Yes - Psycho Social/Smoking Cessation Hx Smoking History: Never smoked Have you smoked in the past 12 months: Yes Number of Cigarettes Smoked Daily: 1 Hx Alcohol Use: No Drug/Substance Use Hx: No Substance Use Type: None Hx Substance Use Treatment: No Respiratory Specific PMHX - Complaint Specific PMHX Hx Airway Support: No Hx Intubation: No Hx Asthma: Yes Hx Smoking Exposure: Yes Hx Vaping: No Hx Allergic Rhinitis: No Hx Exposure to Respiratory Irritants: Yes Hx Bronchitis: Yes Hx Pneumonia: Yes Hx Pulmonary Embolus: No Hx TB (Tuberculosis): No Review of Systems - Review of Systems Able to Perform ROS?: Yes Is the patient limited Maltese proficient: No Constitutional: Yes: Weight Stable. No: Chills, Diaphoresis, Fever, Loss of Appetite, Malaise, Weakness HEENTM: Yes: See HPI, Tearing. No: Recent change in vision, Nose Congestion, Throat Pain, Throat Swelling, Difficulty Swallowing Respiratory: Yes: Shortness of Breath, SOB with Exertion, SOB at Rest, Wheezing. No: Cough, Orthopnea, Productive cough, Hemoptysis Cardiac (ROS): Yes: Chest Tightness. No: Chest Pain, Edema, Irregular Heart Rate, Lightheadedness, Palpitations, Syncope ABD/GI: No: Constipated, Diarrhea, Nausea, Poor Appetite, Poor Fluid Intake, Vomiting : No: Burning, Dysuria, Frequency, Pain, Urgency Musculoskeletal: Yes: Muscle Pain (muscle cramping in his hands b/l ). No: Back Pain, Muscle Weakness Integumentary: No: Rash Neurological: No: Headache, Numbness, Weakness, Unsteady Gait, Dizziness Psychiatric: No: Sleep Pattern Change, Change in Appetite Endocrine: No: Increased Urine, Change in Weight Hematologic/Lymphatic: No: Anemia, Blood Clots, Easy Bleeding, Easy Bruising All Other Systems: Reviewed and Negative *Physical Exam - Vital Signs Last Vital Signs Temp Pulse Resp BP Pulse Ox 98.5 F 104 H 20 138/111 H 88 L 01/30/19 20:56 01/30/19 20:56 01/30/19 20:56 01/30/19 20:56 01/30/19 20:56 - Physical Exam Comments: BP 138/111, HR 104, O2 88% on RA, pt afebrile. Pt with increased WOB, working hard to complete sentences. Normal body habitus. Pt alert and oriented x3. 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 No midline spinal tenderness, step-offs, or crepitus. Head normocephalic, atraumatic. Eyes PERRLA, EOMI. Oropharynx without erythema or exudates, no LAD b/l. No nasal congestion. Hearing intact. Clear heart sounds, S1/S2, no JVD, b/l pedal edema, or heart murmur. Diminished breath sounds with prolonged expiratory phase and diffuse wheezing. Increased WOB. No crackles. No abdominal or CVA tenderness to palpation, no rebound, no guarding. Abdomen soft, non-distended, and with normoactive bowel sounds. Skin without jaundice or rash. 01/30/19 22:20 ED Treatment Course - LABORATORY CBC & Chemistry Diagram: 01/30/19 21:39 01/30/19 21:39 - ADDITIONAL ORDERS Additional order review: Laboratory Results 01/30/19 21:52 Anticoagulation Therapy No Result Required. O2 Delivery Device No Result Required. Oxygen Flow Rate No Result Required. Vent Mode No Result Required. Vent Rate No Result Required. Mechanical Rate No Result Required. Pressure Support Vent No Result Required. 01/30/19 21:39 RBC 4.65 MCV 95.1 MCHC 34.3 RDW 13.7 MPV 7.4 L Neutrophils % 53.3 D Lymphocytes % 33.4 D Monocytes % 11.4 H Eosinophils % 0.8 D Basophils % 1.1 - RADIOLOGY Radiology Studies Ordered: Category Date Time Status CHEST PA & LAT [RAD] Stat Radiology 01/30/19 21:07 Ordered - Medications Given in the ED: ED Medications Discontinued Medications Generic Name Dose Route Start Last Admin Trade Name Freq PRN Reason Stop Dose Admin Albuterol/Ipratropium 1 amp 01/30/19 21:15 01/30/19 21:49 Duoneb - NEB 01/30/19 21:46 1 amp Q15M CAN Administration Methylprednisolone Sodium Succinate 125 mg 01/30/19 21:09 01/30/19 21:48 Solu-Medrol - IVPUSH 01/30/19 21:10 125 mg ONCE STA Administration Medical Decision Making - Critical Care Time Total Critical Care Time (minutes): 30 Critical Care Statement: The care of this patient involved high complexity decision making to prevent further life threatening deterioration of the patient 's condition and/or to evaluate & treat vital organ system(s) failure or risk of failure. - Medical Decision Making Pt was seen at bedside, also will be seen by attending Dr. Meng. Pt presenting with diminished breath sounds, SOB, chest tightness, consistent with COPD/ asthma exacerbation. Will evaluate for electrolyte imbalances considering recent hand cramping, and chest x-ray to evaluate for overlying pneumonia. Provided 1 L IV NS, 3 doses duonebs, 1 gm Mg, 125 mg solumedrol, 500 mg azithromycin, and 1 gm IV ceftriaxone for improvement of dyspnea, hydration, and abx coverage. Will continue to reassess pt and monitor for symptomatic improvement. 01/30/19 22:22 CBC and CMP WNL Trop and BNP WNL Chest x-ray with no focal infiltrates ABG shows CO2 retention Pt moving better air, still with posterior wheezing. Pt continues to require O2 supplementation, on 3 L NC and saturating 93-94% (pt baseline). ECG: NSR, intervals WNL (HR 93, [place] 150, QRS 72, QTc 387). No TWIs or significant ST segment changes. No significant changes from prior ECG. Paging hospitalist team for admission for management of acute on chronic COPD and hypoxia. 01/30/19 22:44 Pt admitted to hospitalist team. Resting comfortably and can speak in full sentences. 01/31/19 00:03 Discharge - Discharge Information Problems reviewed: Yes Clinical Impression/Diagnosis: COPD exacerbation, Acute hypoxemic respiratory failure, Tobacco abuse Condition: Stable - Admission Yes - Follow up/Referral - Patient Discharge Instructions - Post Discharge Activity
[2019-01-30 22:26] LABS: ALBUMIN 3.8 g/dl (3.4-5.0); ALK PHOS 70 U/L (45-117); ANION GAP 4 MMOL/L (8-16); BILIRUBIN,TOTAL 0.3 mg/dL (0.2-1); BLOOD UREA NITROGEN 15.5 mg/dL (7-18); CALCIUM 8.6 mg/dL (8.5-10.1); CHLORIDE 102 mmol/L (98-107); CO2 30 mmol/L (21-32); CREATININE 1.1 mg/dL (0.55-1.3); GLUCOSE,RANDOM 116 mg/dL (74-106); N-TERMINAL BNP 17.9 pg/ml (5-125); POTASSIUM 4.4 mmol/L (3.5-5.1); SGOT/AST 25 U/L (15-37); SGPT/ALT 38 U/L (13-61); SODIUM 136 mmol/L (136-145); TOT PROT 7.1 g/dl (6.4-8.2)
[2019-01-30] MEDS ORDERED: AZITHROMYCIN IVPB 500 MG/250 ML BAG IVPB ONE (23:06)
[2019-01-30] MEDS ORDERED: CEFTRIAXONE 1 GM/50 ML BAG ONE (23:06)
--- NOTE | 2019-01-31 00:29 | HP ---
Admitting History and Physical - Primary Care Physician PCP: Parker Carter - Admission Chief Complaint: SOB, Chest Tightness, Wheezing History of Present Illness: This is a 53 y/o man with a PMHx of Asthma, COPD (no O2), Anxiety, Heroin Abuse (on Methadone), Tobacco Dependence, last admission 11/12-11/17 for COPD Exacerbation. Who presents to the ED with SOB, chest tightness, wheezing x 1 day. Patient reports increased SOB with wheezing and chest tightness after walking outside. Patient reprots using his Pro Air MDI numerous times without relief. Patient denies fever, chills, dizziness, LAINEZ, palpitations, AP, N/V/D, constipation, dysuria. Patient denies sick contacts or recent travel History Source: Patient Limitations to Obtaining History: No Limitations - Past Medical History Pulmonary: Yes: Asthma, COPD. No: O2 Dependent Psych: Yes: Anxiety - Past Surgical History Past Surgical History: Yes: None - Smoking History Smoking history: Current every day smoker Have you smoked in the past 12 months: Yes Aproximately how many cigarettes per day: 1 - Alcohol/Substance Use Hx Alcohol Use: No History of Substance Use: reports: Heroin (on methadone) - Social History Usual Living Arrangement: Yes: Alone Do you think of yourself as: Straight/Heterosexual ADL: Independent History of Recent Travel: No Home Medications - Allergies Allergies/Adverse Reactions: Allergies Allergy/AdvReac Type Severity Reaction Status Date / Time No Known Allergies Allergy Verified 01/30/19 21:01 - Home Medications Home Medications: Ambulatory Orders Albuterol 0.083% Nebulizer Chelsey [Ventolin 0.083% Nebulizer Soln -] 1 neb NEB Q4H 02/19/18 Methadone [Dolophine -] 120 mg PO DAILY 02/19/18 Quetiapine Fumarate [Seroquel -] 50 mg PO HS 02/19/18 clonazePAM [Klonopin -] 0.5 mg PO TID 02/20/18 Nebulizer [Aeroneb Go Nebulizer] 1 each NEB Q8H #1 each 03/03/18 Ranitidine [Zantac -] 150 mg PO BID #20 tablet 03/03/18 Albuterol 0.083% Nebulizer Chelsey [Ventolin 0.083% Nebulizer Soln -] 1 amp NEB Q4H PRN #30 amp 06/02/18 Budesonide/Formeterol Fumarate [SYMBICORT 160/4.5mcg -] 2 puff IH BID #1 inhaler 06/02/18 Nicotine Patch [Nicoderm Patch -] 7 mg TD DAILY #20 patch 06/02/18 predniSONE [Deltasone -] See Taper PO ASDIR #30 tab 06/02/18 Family Medical History Family Hx Cancer: Sister (Lung) Review of Systems - Review of Systems Constitutional: reports: Diaphoresis Eyes: reports: No Symptoms HENT: reports: No Symptoms Neck: reports: No Symptoms Cardiovascular: reports: Chest Pain, Shortness of Breath Respiratory: reports: Cough, SOB, SOB on Exertion, Wheezing Gastrointestinal: reports: No Symptoms Genitourinary: reports: No Symptoms Breasts: reports: No Symptoms Reported Musculoskeletal: reports: No Symptoms Integumentary: reports: No Symptoms Neurological: reports: No Symptoms Endocrine: reports: No Symptoms Hematology/Lymphatic: reports: No Symptoms Psychiatric: reports: No Symptoms Pain Intensity: 6 Physical Examination Vital Signs: Vital Signs Temperature 98.5 F 01/30/19 20:56 Pulse Rate 88 01/31/19 00:14 Respiratory Rate 20 01/31/19 00:14 Blood Pressure 115/65 01/31/19 00:14 O2 Sat by Pulse Oximetry (%) 95 01/31/19 00:14 Constitutional: Yes: Anxious, Mild Distress, Thin Eyes: Yes: WNL, Conjunctiva Clear, EOM Intact, PERRL HENT: Yes: WNL, Atraumatic, Normocephalic Neck: Yes: WNL, Supple, Trachea Midline Cardiovascular: Yes: Regular Rate and Rhythm, S1, S2 Respiratory: Yes: Diminished, On Nasal O2, Rhonchi, SOB, SOB on Exertion, Wheezes Gastrointestinal: Yes: WNL, Normal Bowel Sounds, Soft ...Rectal Exam: Yes: Deferred Renal/: Yes: WNL Musculoskeletal: Yes: WNL Extremities: Yes: WNL Edema: No Peripheral Pulses WNL: Yes Integumentary: Yes: WNL Neurological: Yes: WNL, Alert, Oriented, Cran Nerves II-XII Intact ...Motor Strength: WNL Psychiatric: Yes: WNL, Alert, Oriented Labs: CBC, BMP 01/30/19 21:39 01/30/19 21:39 Laboratory Results - last 24 hr 11/24/19 11/24/19 11/24/19 21:39 21:39 21:42 WBC 6.1 RBC 4.65 Hgb 15.2 Hct 44.3 MCV 95.1 MCH 32.7 MCHC 34.3 RDW 13.7 Plt Count 202 MPV 7.4 L Absolute Neuts (auto) 3.2 Neutrophils % 53.3 D Lymphocytes % 33.4 D Monocytes % 11.4 H Eosinophils % 0.8 D Basophils % 1.1 Nucleated RBC % 0 Anticoagulation Therapy Puncture Site ABG pH ABG pCO2 at Pt Temp ABG pO2 at Pt Temp ABG HCO3 ABG O2 Sat (Measured) ABG O2 Content ABG Base Excess Dav Test Carboxyhemoglobin Methemoglobin O2 Delivery Device Oxygen Flow Rate Vent Mode Vent Rate Mechanical Rate Pressure Support Vent Sodium 136 Potassium 4.4 Chloride 102 Carbon Dioxide 30 Anion Gap 4 L BUN 15.5 Creatinine 1.1 Est GFR (CKD-EPI)AfAm 88.98 Est GFR (CKD-EPI)NonAf 76.77 Random Glucose 116 H Calcium 8.6 Total Bilirubin 0.3 AST 25 ALT 38 Alkaline Phosphatase 70 Creatine Kinase 220 Creatine Kinase Index 0.8 CK-MB (CK-2) 1.9 Troponin I < 0.02 B-Natriuretic Peptide 17.9 Total Protein 7.1 Albumin 3.8 Influenza A (Rapid) Negative Influenza B (Rapid) Negative 01/30/19 21:52 WBC RBC Hgb Hct MCV MCH MCHC RDW Plt Count MPV Absolute Neuts (auto) Neutrophils % Lymphocytes % Monocytes % Eosinophils % Basophils % Nucleated RBC % Anticoagulation Therapy No Result Required. Puncture Site No Result Required. ABG pH 7.37 ABG pCO2 at Pt Temp 49.7 H ABG pO2 at Pt Temp 111 H ABG HCO3 28.0 H ABG O2 Sat (Measured) 97.8 ABG O2 Content 24.0 ABG Base Excess 2.0 Dav Test No Result Required. Carboxyhemoglobin 3.7 H Methemoglobin < 1.0 O2 Delivery Device No Result Required. Oxygen Flow Rate No Result Required. Vent Mode No Result Required. Vent Rate No Result Required. Mechanical Rate No Result Required. Pressure Support Vent No Result Required. Sodium Potassium Chloride Carbon Dioxide Anion Gap BUN Creatinine Est GFR (CKD-EPI)AfAm Est GFR (CKD-EPI)NonAf Random Glucose Calcium Total Bilirubin AST ALT Alkaline Phosphatase Creatine Kinase Creatine Kinase Index CK-MB (CK-2) Troponin I B-Natriuretic Peptide Total Protein Albumin Influenza A (Rapid) Influenza B (Rapid) Intake & Output 01/28/19 01/29/19 01/30/19 01/31/19 23:59 23:59 23:59 23:59 Weight 68.039 kg Imaging - Results Chest X-ray: Image Reviewed EKG: Image Reviewed Problem List - Problems (1) Acute chronic obstructive pulmonary disease with respiratory distress Assessment/Plan: Likely secondary to infection vs tobacco use vs eosinophilic inflammation Rapid Influenza neg A+B Chest Xray image reviewed- no focal infiltrates No leukocytosis, afebrile Eosinophil 0.8-nl Duonebs, Mag Sulfate, Solumederol, Azithromycin, Ceftriaxone given in ED Will hold off on ABX for now, will order sputum culture first Sputum Culture Continue O2 Appreciate Pulmonology consult Solumederol w/taper Duonebs Peak Flow Code(s): J44.9 - CHRONIC OBSTRUCTIVE PULMONARY DISEASE, UNSPECIFIED; R06.03 - ACUTE RESPIRATORY DISTRESS (2) Acute hypoxemic respiratory failure Assessment/Plan: Likely secondary to COPD flare Chest Xray image no infiltrates no effusion Appreciate Pulm consult O2 Code(s): J96.01 - ACUTE RESPIRATORY FAILURE WITH HYPOXIA (3) Asthma Assessment/Plan: Continue Duonebs Peak Flow O2 Code(s): J45.909 - UNSPECIFIED ASTHMA, UNCOMPLICATED Qualifiers: Asthma severity: moderate Asthma persistence: unspecified Asthma complication type: uncomplicated Qualified Code(s): J45.909 - Unspecified asthma, uncomplicated (4) Anxiety Assessment/Plan: Continue Klonipin Code(s): F41.9 - ANXIETY DISORDER, UNSPECIFIED (5) Tobacco abuse Assessment/Plan: Counseled on smoking cessation Nicoderm Patch Code(s): Z72.0 - TOBACCO USE (6) Methadone dependence Assessment/Plan: Continue methadone 95mg Confirmed with the [facility] ([phone]), spoke with SCOTTY Gonzalez Code(s): F11.20 - OPIOID DEPENDENCE, UNCOMPLICATED (7) GERD (gastroesophageal reflux disease) Assessment/Plan: Continue Zantac Code(s): K21.9 - GASTRO-ESOPHAGEAL REFLUX DISEASE WITHOUT ESOPHAGITIS Assessment/Plan This is a 53 y/o man admitted to /S for Acute on Chronic COPD Exacerbation, Respiratory Failure with Hypoxia for further evaluation of their emergent condition. Plan: See Problem List FEN PO fluids as tolerated Replete lytes prn Low Na Diet DVT ppx OOB SCDs Heparin SQ Code Status: Full Code Dispo: Requires Inpatient Care Visit type - Emergency Visit Emergency Visit: Yes ED Registration Date: 01/30/19 Care time: The patient presented to the Emergency Department on the above date and was hospitalized for further evaluation of their emergent condition. - New Patient This patient is new to me today: Yes Date on this admission: 01/31/19 - Critical Care Critical Care patient: No
[2019-01-31] MEDS ORDERED: DIPHTH,PERTUSS(ACELL),TET 0.5 ML DISP.SYRIN IM ONE (04:08)
[2019-01-31] MEDS: methylPREDNISolone NA SUCC 40 MG/1 ML VIAL IVPUSH SCH ×4 (04:55→21:28)
[2019-01-31] MEDS ORDERED: clonazePAM 0.5 MG TABLET ONE (06:13)
[2019-01-31] MEDS ORDERED: METHADONE HCL 40 MG DISPERSABLE TABLET PO SCH (06:15)
[2019-01-31] MEDS: clonazePAM 0.5 MG TABLET PO SCH ×3 (06:22→21:30)
[2019-01-31] MEDS ORDERED: METHADONE HCL 10 MG TABLET ONE (06:26)
[2019-01-31] MEDS ORDERED: METHADONE HCL 5 MG TABLET ONE (06:27)
[2019-01-31] MEDS: METHADONE 80 MG, METHADONE 10 MG, METHADONE 5 MG PO SCH (07:23)
[2019-01-31 07:46] LABS: BASO % 0.3 % (0-2.0); HEMATOCRIT 42.5 % (35.4-49); HEMOGLOBIN 14.6 GM/dL (11.7-16.9); MCH 32.8 pg (25.7-33.7); MCHC 34.5 g/dl (32.0-35.9); MEAN CELL VOLUME 95.1 fl (80-96); MEAN PLT VOLUME 7.3 fl (7.5-11.1); MONO % 1.4 % (3.8-10.2); NEUT % 84.3 % (42.8-82.8); PLATELET COUNT 189 K/MM3 (134-434); RBC 4.47 M/mm3 (4.00-5.60); RDW 13.6 % (11.9-15.9); WHITE BLOOD COUNT 3.3 K/mm3 (4.0-10.0)
[2019-01-31] MEDS ORDERED: ALBUTEROL SO4 2.5/IPRATROPIUM 0.5 INH SOL 3 ML VIAL.NEB. NEB ONE (08:06)
[2019-01-31] MEDS: ALBUTEROL SO4 2.5/IPRATROPIUM 0.5 INH SOL 3 ML VIAL.NEB. NEB SCH ×4 (08:15→20:38)
[2019-01-31 08:20] LABS: BLOOD UREA NITROGEN 15.4 mg/dL (7-18); CALCIUM 8.6 mg/dL (8.5-10.1); CREATININE 0.8 mg/dL (0.55-1.3); MAGNESIUM 2.5 mg/dL (1.8-2.4)
[2019-01-31] MEDS: NICOTINE 7 MG/24 HOURS TOPICAL PATCH TD SCH (09:20)
[2019-01-31] MEDS: HEPARIN NA (PORCINE) 5,000 UNITS/ML 1ML VIAL SQ SCH ×2 (09:20→21:29)
[2019-01-31] MEDS: FAMOTIDINE 20 MG TABLET PO SCH ×2 (09:20→21:30)
[2019-01-31] MEDS ORDERED: PATIENT'S OWN MEDICATION (NON-FORMULARY) (Ranitidine [Zantac -] 150 MG) PO SCH (10:00)
--- NOTE | 2019-01-31 12:04 | PN ---
Progress Note (short form) - Note Progress Note: pt seen/ examined chart reviewed anxious wheezing Continue to smoke No distress Vital Signs Temp 98.1 F 01/31/19 11:39 Pulse 70 01/31/19 11:39 Resp 22 H 01/31/19 11:39 BP 115/79 01/31/19 11:39 Pulse Ox 94 L 01/31/19 11:39 Intake & Output 01/30/19 01/31/19 01/31/19 23:59 11:59 23:59 Weight 150 lb Other: Voiding Method Urinal Height 5 ft 6 in Body Mass Index (BMI) 24.2 Weight Measurement Method Est/Stated by Patient Active Medications Albuterol/Ipratropium (Duoneb -) 1 amp NEB RQID [facility] Last Admin: 01/31/19 08:15 Dose: 1 amp Clonazepam (Klonopin -) 0.5 mg PO TID [facility] Last Admin: 01/31/19 06:22 Dose: 0.5 mg Famotidine (Pepcid -) 20 mg PO BID [facility] Last Admin: 01/31/19 09:20 Dose: 20 mg Heparin Sodium (Porcine) (Heparin -) 5,000 unit SQ BID [facility] Last Admin: 01/31/19 09:20 Dose: 5,000 unit Methadone HCl 80 mg/ Methadone (HCl 10 mg/ Methadone HCl 5 mg) 95 mg PO DAILY@ 0600 [facility] Last Admin: 01/31/19 07:23 Dose: Not Given Methylprednisolone Sodium Succinate (Solu-Medrol -) 60 mg IVPUSH Q6H-IV [facility] Nicotine (Nicoderm Patch -) 7 mg TD DAILY [facility] Last Admin: 01/31/19 09:20 Dose: 7 mg Quetiapine Fumarate (Seroquel -) 50 mg PO HS [facility] CBC, BMP 01/31/19 06:31 01/31/19 06:31 cxr- copd. Physical Exam Awake/Anxious Lungs- Bilateral Wheezes cvs- s1, s2 rrr abd- soft ext- no edema A/p Increase Solumedrol Smoking cessation counselling Duo Neb daily oob- chair Pulmonary to follow will follow
--- NOTE | 2019-01-31 12:47 | CON.PULM ---
Consult Consult Specialty:: PULM/CCM Referred by:: GUIDO Reason for Consultation:: SOB - History of Present Illness Chief Complaint: SOB History of Present Illness: 53 M, Asthma, COPD and active smoker, Anxiety, and Heroin Abuse (on Methadone). Recent admission 11/25 for COPD Exacerbation. 2 days of Viral type URI symptoms with progressive SOB, chest tightness, and wheezing. No travel history or sick contacts. No night sweats or hemoptysis. CXR: no acute process - History Source History Provided By: Patient Limitations to Obtaining History: No Limitations - Past Medical History Pulmonary: Yes: Asthma, Bronchitis, COPD. No: Cancer, O2 Dependent, Pneumonia, Previously Intubated, Pulmonary Embolus, Pulmonary Fibrosis, Sleep Apnea Psych: Yes: Anxiety - Past Surgical History Past Surgical History: Yes: None - Alcohol/Substance Use Hx Alcohol Use: No History of Substance Use: reports: Heroin (on methadone) - Smoking History Smoking history: Current every day smoker Have you smoked in the past 12 months: Yes Aproximately how many cigarettes per day: 1 - Social History ADL: Independent History of Recent Travel: No Home Medications - Allergies Allergies/Adverse Reactions: Allergies Allergy/AdvReac Type Severity Reaction Status Date / Time No Known Allergies Allergy Verified 01/30/19 21:01 - Home Medications Home Medications: Ambulatory Orders Albuterol 0.083% Nebulizer Chelsey [Ventolin 0.083% Nebulizer Soln -] 1 neb NEB Q4H 02/19/18 Methadone [Dolophine -] 120 mg PO DAILY 02/19/18 Quetiapine Fumarate [Seroquel -] 50 mg PO HS 02/19/18 clonazePAM [Klonopin -] 0.5 mg PO TID 02/20/18 Nebulizer [Aeroneb Go Nebulizer] 1 each NEB Q8H #1 each 03/03/18 Ranitidine [Zantac -] 150 mg PO BID #20 tablet 03/03/18 Albuterol 0.083% Nebulizer Chelsey [Ventolin 0.083% Nebulizer Soln -] 1 amp NEB Q4H PRN #30 amp 06/02/18 Budesonide/Formeterol Fumarate [SYMBICORT 160/4.5mcg -] 2 puff IH BID #1 inhaler 06/02/18 Nicotine Patch [Nicoderm Patch -] 7 mg TD DAILY #20 patch 06/02/18 predniSONE [Deltasone -] See Taper PO ASDIR #30 tab 06/02/18 Review of Systems - Review of Systems Constitutional: denies: Chills, Fever, Loss of Appetite Eyes: reports: Eye Pain HENT: reports: No Symptoms Neck: reports: No Symptoms Cardiovascular: reports: Shortness of Breath. denies: Chest Pain, Edema, Palpitations Respiratory: reports: Cough, SOB, SOB on Exertion, Wheezing. denies: Hemoptysis , Snoring Gastrointestinal: reports: No Symptoms Genitourinary: reports: No Symptoms Breasts: reports: No Symptoms Reported Musculoskeletal: reports: No Symptoms Integumentary: reports: No Symptoms Neurological: reports: No Symptoms Endocrine: reports: No Symptoms Hematology/Lymphatic: reports: No Symptoms Psychiatric: reports: No Symptoms Physical Exam Vital Sings: Vital Signs Temperature 98.1 F 01/31/19 11:39 Pulse Rate 70 01/31/19 11:39 Respiratory Rate 22 H 01/31/19 11:39 Blood Pressure 115/79 01/31/19 11:39 O2 Sat by Pulse Oximetry (%) 94 L 01/31/19 11:39 Constitutional: Yes: Anxious, Mild Distress Eyes: Yes: Conjunctiva Clear, EOM Intact HENT: Yes: Atraumatic, Normocephalic Neck: Yes: Supple, Trachea Midline Cardiovascular: Yes: Tachycardia Respiratory: Yes: Cough, Diminished, On Nasal O2, Poor Air Entry, Rhonchi, SOB, SOB on Exertion, Tachypnea, Wheezes. No: Accessory Muscle Use, Rales, Stridor ...Inspection: Yes: WNL ...Clubbing: No Gastrointestinal: Yes: Normal Bowel Sounds, Soft Renal/: Yes: WNL Musculoskeletal: Yes: WNL Extremities: Yes: WNL Edema: No Peripheral Pulses WNL: Yes Integumentary: Yes: WNL Neurological: Yes: WNL, Alert, Oriented ...Motor Strength: WNL Psychiatric: Yes: WNL, Alert, Oriented Labs: CBC, BMP 01/31/19 06:31 01/31/19 06:31 ABG Results ABG pH 7.37 (7.35-7.45) 01/30/19 21:52 ABG pCO2 at Pt Temp 49.7 mmHg (35-45) H 01/30/19 21:52 ABG pO2 at Pt Temp 111 mmHg (80-100) H 01/30/19 21:52 ABG HCO3 28.0 mmol/L (22-27) H 01/30/19 21:52 ABG O2 Sat (Measured) 97.8 % (95-98) 01/30/19 21:52 ABG O2 Content 24.0 % vol 01/30/19 21:52 ABG Base Excess 2.0 meq/l (-2-2) 01/30/19 21:52 Imaging - Results Chest X-ray: Report Reviewed, Image Reviewed Problem List - Problems (1) Acute chronic obstructive pulmonary disease with respiratory distress Code(s): J44.9 - CHRONIC OBSTRUCTIVE PULMONARY DISEASE, UNSPECIFIED; R06.03 - ACUTE RESPIRATORY DISTRESS (2) COPD exacerbation Code(s): J44.1 - CHRONIC OBSTRUCTIVE PULMONARY DISEASE W (ACUTE) EXACERBATION (3) Tobacco abuse Code(s): Z72.0 - TOBACCO USE (4) Anxiety Code(s): F41.9 - ANXIETY DISORDER, UNSPECIFIED (5) Asthma Code(s): J45.909 - UNSPECIFIED ASTHMA, UNCOMPLICATED Qualifiers: Asthma severity: moderate Asthma persistence: unspecified Asthma complication type: uncomplicated Qualified Code(s): J45.909 - Unspecified asthma, uncomplicated (6) GERD (gastroesophageal reflux disease) Code(s): K21.9 - GASTRO-ESOPHAGEAL REFLUX DISEASE WITHOUT ESOPHAGITIS (7) Methadone dependence Code(s): F11.20 - OPIOID DEPENDENCE, UNCOMPLICATED (8) Smoker Code(s): F17.200 - NICOTINE DEPENDENCE, UNSPECIFIED, UNCOMPLICATED Assessment/Plan Medrol BD TX standing and PRN Supplemental O2 as needed to maintain saturation Would continue to monitor off ABX Smoking cessation counseled PFTs once stable as an outpatient Will follow Thank you. Dr Spence
[2019-01-31 12:59] VITALS: BMI 24.9
--- NOTE | 2019-01-31 15:58 | EKG ---
Test Reason : Blood Pressure : / mmHG Vent. Rate : 093 BPM Atrial Rate : 093 BPM P-R Int : 150 ms QRS Dur : 072 ms QT Int : 312 ms P-R-T Axes : 059 079 060 degrees QTc Int : 387 ms NORMAL SINUS RHYTHM NORMAL ECG WHEN COMPARED WITH ECG OF 12-NOV-2018 17:11, VENT. RATE HAS INCREASED BY 35 BPM Confirmed by BRYAN CHRISTOPHER MD ([id number]) on 01/31/2019 3:58:31 PM Referred By: Confirmed By:BRYAN CHRISTOPHER MD
[2019-01-31] MEDS ORDERED: QUEtiapine FUMARATE 25 MG TABLET (FP) ONE (20:58)
[2019-01-31] MEDS: QUEtiapine FUMARATE 50 MG TABLET PO SCH (21:30)
[2019-02-01] MEDS: methylPREDNISolone NA SUCC 40 MG/1 ML VIAL IVPUSH SCH ×4 (03:53→21:32)
[2019-02-01] MEDS ORDERED: METHADONE HCL 40 MG DISPERSABLE TABLET ONE (06:05)
[2019-02-01] MEDS ORDERED: METHADONE HCL 10 MG TABLET ONE (06:06)
[2019-02-01] MEDS ORDERED: METHADONE HCL 5 MG TABLET ONE (06:06)
[2019-02-01] MEDS: METHADONE 80 MG, METHADONE 10 MG, METHADONE 5 MG PO SCH (06:11)
[2019-02-01] MEDS: clonazePAM 0.5 MG TABLET PO SCH ×3 (06:12→21:33)
[2019-02-01] MEDS: ALBUTEROL SO4 2.5/IPRATROPIUM 0.5 INH SOL 3 ML VIAL.NEB. NEB SCH ×4 (08:00→20:45)
[2019-02-01] MEDS ORDERED: PT OWN MED DRAWER 7, Y5N ONE (09:09)
[2019-02-01] MEDS: HEPARIN NA (PORCINE) 5,000 UNITS/ML 1ML VIAL SQ SCH ×2 (10:30→21:33)
[2019-02-01] MEDS: FAMOTIDINE 20 MG TABLET PO SCH ×2 (10:30→21:34)
[2019-02-01] MEDS: NICOTINE 7 MG/24 HOURS TOPICAL PATCH TD SCH (10:31)
--- NOTE | 2019-02-01 12:18 | PN ---
Progress Note (short form) - Note Progress Note: SOB anxious Vital Signs - 24 hr 01/31/19 01/31/19 01/31/19 12:49 12:59 14:00 Temperature 97.7 F 98.4 F Pulse Rate 86 74 Respiratory 20 20 Rate Blood Pressure 121/57 L 108/78 O2 Sat by Pulse 97 Oximetry (%) 01/31/19 01/31/19 01/31/19 18:00 21:00 22:00 Temperature 98.5 F 98.3 F Pulse Rate 77 81 Respiratory 20 20 Rate Blood Pressure 129/81 139/77 O2 Sat by Pulse 95 Oximetry (%) 02/01/19 02/01/19 02:20 06:28 Temperature 98.1 F 97.8 F Pulse Rate 91 H 78 Respiratory 20 20 Rate Blood Pressure 102/77 133/87 O2 Sat by Pulse Oximetry (%) Current Medications Generic Name Dose Route Start Last Admin Trade Name Freq PRN Reason Stop Dose Admin Albuterol/Ipratropium 1 amp 01/31/19 08:00 02/01/19 08:00 Duoneb - NEB 1 amp RQID CAN Administration Clonazepam 0.5 mg 01/31/19 06:00 02/01/19 06:12 Klonopin - PO 0.5 mg TID CAN Administration Famotidine 20 mg 01/31/19 10:00 02/01/19 10:30 Pepcid - PO 20 mg BID CAN Administration Heparin Sodium (Porcine) 5,000 unit 01/31/19 10:00 02/01/19 10:30 Heparin - SQ 5,000 unit BID CAN Administration Methadone HCl 80 mg/ Methadone 95 mg 01/31/19 07:30 02/01/19 06:11 HCl 10 mg/ Methadone HCl 5 mg PO 95 mg DAILY@0600 CAN Administration Methylprednisolone Sodium Succinate 60 mg 01/31/19 15:00 02/01/19 10:30 Solu-Medrol - IVPUSH 60 mg Q6H-IV CAN Administration Nicotine 7 mg 01/31/19 10:00 02/01/19 10:31 Nicoderm Patch - TD 7 mg DAILY CAN Administration Quetiapine Fumarate 50 mg 01/31/19 22:00 01/31/19 21:30 Seroquel - PO 50 mg HS CAN Administration S1 S2 RRR Lungs ronchi B/L Abd- soft, NT no edema PLAN IV solumedrol Pulm eval noted nebs O2 OOB Problem List - Problems (1) Acute chronic obstructive pulmonary disease with respiratory distress Code(s): J44.9 - CHRONIC OBSTRUCTIVE PULMONARY DISEASE, UNSPECIFIED; R06.03 - ACUTE RESPIRATORY DISTRESS (2) Acute hypoxemic respiratory failure Code(s): J96.01 - ACUTE RESPIRATORY FAILURE WITH HYPOXIA (3) COPD exacerbation Code(s): J44.1 - CHRONIC OBSTRUCTIVE PULMONARY DISEASE W (ACUTE) EXACERBATION (4) Anxiety Code(s): F41.9 - ANXIETY DISORDER, UNSPECIFIED (5) GERD (gastroesophageal reflux disease) Code(s): K21.9 - GASTRO-ESOPHAGEAL REFLUX DISEASE WITHOUT ESOPHAGITIS
--- NOTE | 2019-02-01 12:56 | PN ---
Progress Note, Physician History of Present Illness: pulmonary alert,feeling better,less congested ,less dyspneic - Current Medication List Current Medications: Active Medications Albuterol/Ipratropium (Duoneb -) 1 amp NEB RQID [facility] Last Admin: 02/01/19 12:25 Dose: Not Given Clonazepam (Klonopin -) 0.5 mg PO TID [facility] Last Admin: 02/01/19 06:12 Dose: 0.5 mg Famotidine (Pepcid -) 20 mg PO BID [facility] Last Admin: 02/01/19 10:30 Dose: 20 mg Heparin Sodium (Porcine) (Heparin -) 5,000 unit SQ BID [facility] Last Admin: 02/01/19 10:30 Dose: 5,000 unit Methadone HCl 80 mg/ Methadone (HCl 10 mg/ Methadone HCl 5 mg) 95 mg PO DAILY@ 0600 [facility] Last Admin: 02/01/19 06:11 Dose: 95 mg Methylprednisolone Sodium Succinate (Solu-Medrol -) 60 mg IVPUSH Q6H-IV [facility] Last Admin: 02/01/19 10:30 Dose: 60 mg Nicotine (Nicoderm Patch -) 7 mg TD DAILY [facility] Last Admin: 02/01/19 10:31 Dose: 7 mg Quetiapine Fumarate (Seroquel -) 50 mg PO HS [facility] Last Admin: 01/31/19 21:30 Dose: 50 mg - Objective Vital Signs: Vital Signs Temperature 97.8 F 02/01/19 06:28 Pulse Rate 78 02/01/19 06:28 Respiratory Rate 20 02/01/19 06:28 Blood Pressure 133/87 02/01/19 06:28 O2 Sat by Pulse Oximetry (%) 95 01/31/19 21:00 Constitutional: Yes: Well Nourished, Calm Eyes: Yes: WNL HENT: Yes: WNL Neck: Yes: WNL Cardiovascular: Yes: Regular Rate and Rhythm, S1, S2 Respiratory: Yes: Wheezes (scattered dang wheezes) Gastrointestinal: Yes: Normal Bowel Sounds, Soft Extremities: Yes: WNL Edema: No Labs: CBC, BMP 01/31/19 06:31 Assessment/Plan Problem List - Problems (1) Acute chronic obstructive pulmonary disease with respiratory distress Code(s): J44.9 - CHRONIC OBSTRUCTIVE PULMONARY DISEASE, UNSPECIFIED; R06.03 - ACUTE RESPIRATORY DISTRESS (2) COPD exacerbation Code(s): J44.1 - CHRONIC OBSTRUCTIVE PULMONARY DISEASE W (ACUTE) EXACERBATION (3) Tobacco abuse Code(s): Z72.0 - TOBACCO USE (4) Anxiety Code(s): F41.9 - ANXIETY DISORDER, UNSPECIFIED (5) Asthma Code(s): J45.909 - UNSPECIFIED ASTHMA, UNCOMPLICATED Qualifiers: Asthma severity: moderate Asthma persistence: unspecified Asthma complication type: uncomplicated Qualified Code(s): J45.909 - Unspecified asthma, uncomplicated (6) GERD (gastroesophageal reflux disease) Code(s): K21.9 - GASTRO-ESOPHAGEAL REFLUX DISEASE WITHOUT ESOPHAGITIS (7) Methadone dependence Code(s): F11.20 - OPIOID DEPENDENCE, UNCOMPLICATED (8) Smoker Code(s): F17.200 - NICOTINE DEPENDENCE, UNSPECIFIED, UNCOMPLICATED Assessment/Plan Medrol same dose start taper in am BD TX standing and PRN Supplemental O2 as needed to maintain saturation Smoking cessation counseled DR SAMSON
[2019-02-01] MEDS ORDERED: QUEtiapine FUMARATE 25 MG TABLET (FP) ONE (21:28)
[2019-02-01] MEDS: QUEtiapine FUMARATE 50 MG TABLET PO SCH (21:34)
[2019-02-02] MEDS: methylPREDNISolone NA SUCC 40 MG/1 ML VIAL IVPUSH SCH ×4 (03:40→21:46)
[2019-02-02] MEDS ORDERED: METHADONE HCL 40 MG DISPERSABLE TABLET ONE (06:32)
[2019-02-02] MEDS ORDERED: METHADONE HCL 10 MG TABLET ONE (06:33)
[2019-02-02] MEDS ORDERED: METHADONE HCL 5 MG TABLET ONE (06:33)
[2019-02-02] MEDS: METHADONE 80 MG, METHADONE 10 MG, METHADONE 5 MG PO SCH (06:36)
[2019-02-02] MEDS: clonazePAM 0.5 MG TABLET PO SCH ×3 (06:37→21:47)
[2019-02-02] MEDS: ALBUTEROL SO4 2.5/IPRATROPIUM 0.5 INH SOL 3 ML VIAL.NEB. NEB SCH (08:38)
[2019-02-02] MEDS: HEPARIN NA (PORCINE) 5,000 UNITS/ML 1ML VIAL SQ SCH ×2 (09:33→21:46)
[2019-02-02] MEDS: FAMOTIDINE 20 MG TABLET PO SCH ×2 (09:34→21:47)
[2019-02-02] MEDS: NICOTINE 7 MG/24 HOURS TOPICAL PATCH TD SCH (09:34)
[2019-02-02] MEDS ORDERED: ALBUTEROL SO4 0.083% IH SOL 2.5 MG/3 ML VIAL.NEB. NEB STA (11:45)
--- NOTE | 2019-02-02 11:45 | PN ---
Progress Note, Physician History of Present Illness: pulmonary alert,c/o sob,chest tightness - Current Medication List Current Medications: Active Medications Albuterol/Ipratropium (Duoneb -) 1 amp NEB RQID [facility] Last Admin: 02/02/19 08:38 Dose: 1 amp Clonazepam (Klonopin -) 0.5 mg PO TID [facility] Last Admin: 02/02/19 06:37 Dose: 0.5 mg Famotidine (Pepcid -) 20 mg PO BID [facility] Last Admin: 02/02/19 09:34 Dose: 20 mg Heparin Sodium (Porcine) (Heparin -) 5,000 unit SQ BID [facility] Last Admin: 02/02/19 09:33 Dose: 5,000 unit Methadone HCl 80 mg/ Methadone (HCl 10 mg/ Methadone HCl 5 mg) 95 mg PO DAILY@ 0600 [facility] Last Admin: 02/02/19 06:36 Dose: 95 mg Methylprednisolone Sodium Succinate (Solu-Medrol -) 60 mg IVPUSH Q6H-IV [facility] Last Admin: 02/02/19 08:52 Dose: 60 mg Nicotine (Nicoderm Patch -) 7 mg TD DAILY [facility] Last Admin: 02/02/19 09:34 Dose: 7 mg Quetiapine Fumarate (Seroquel -) 50 mg PO HS [facility] Last Admin: 02/01/19 21:34 Dose: 50 mg - Objective Vital Signs: Vital Signs Temperature 98.1 F 02/02/19 06:00 Pulse Rate 79 02/02/19 06:00 Respiratory Rate 20 02/02/19 06:00 Blood Pressure 130/85 02/02/19 06:00 O2 Sat by Pulse Oximetry (%) 96 02/02/19 01:15 Constitutional: Yes: Well Nourished, Calm Eyes: Yes: WNL HENT: Yes: WNL Neck: Yes: WNL Cardiovascular: Yes: Regular Rate and Rhythm, S1, S2 Respiratory: Yes: Wheezes (bilateral diffuse wheezes) Gastrointestinal: Yes: Normal Bowel Sounds, Soft Extremities: Yes: WNL Edema: No Labs: CBC, BMP 01/31/19 06:31 Assessment/Plan Problem List - Problems (1) Acute chronic obstructive pulmonary disease with respiratory distress Code(s): J44.9 - CHRONIC OBSTRUCTIVE PULMONARY DISEASE, UNSPECIFIED; R06.03 - ACUTE RESPIRATORY DISTRESS (2) COPD exacerbation Code(s): J44.1 - CHRONIC OBSTRUCTIVE PULMONARY DISEASE W (ACUTE) EXACERBATION (3) Tobacco abuse Code(s): Z72.0 - TOBACCO USE (4) Anxiety Code(s): F41.9 - ANXIETY DISORDER, UNSPECIFIED (5) Asthma Code(s): J45.909 - UNSPECIFIED ASTHMA, UNCOMPLICATED Qualifiers: Asthma severity: moderate Asthma persistence: unspecified Asthma complication type: uncomplicated Qualified Code(s): J45.909 - Unspecified asthma, uncomplicated (6) GERD (gastroesophageal reflux disease) Code(s): K21.9 - GASTRO-ESOPHAGEAL REFLUX DISEASE WITHOUT ESOPHAGITIS (7) Methadone dependence Code(s): F11.20 - OPIOID DEPENDENCE, UNCOMPLICATED (8) Smoker Code(s): F17.200 - NICOTINE DEPENDENCE, UNSPECIFIED, UNCOMPLICATED Assessment/Plan Medrol same dose BD TX standing and PRN Supplemental O2 as needed to maintain saturation Smoking cessation counseled Tara SAMSON
[2019-02-02] MEDS ORDERED: ALBUTEROL SO4 0.083% IH SOL 2.5 MG/3 ML VIAL.NEB. NEB PRN (11:47)
[2019-02-02] MEDS: ALBUTEROL SO4 0.083% IH SOL 2.5 MG/3 ML VIAL.NEB. NEB SCH ×3 (12:02→20:00)
--- NOTE | 2019-02-02 12:22 | PN ---
Progress Note (short form) - Note Progress Note: SOB anxious Vital Signs - 24 hr 02/01/19 02/01/19 02/01/19 14:00 18:10 22:00 Temperature 98.2 F 98.3 F Pulse Rate 76 81 83 Respiratory 20 20 20 Rate Blood Pressure 110/69 108/80 105/84 O2 Sat by Pulse Oximetry (%) 02/02/19 02/02/19 01:15 06:00 Temperature 98.1 F Pulse Rate 79 Respiratory 20 20 Rate Blood Pressure 130/85 O2 Sat by Pulse 96 Oximetry (%) Current Medications Generic Name Dose Route Start Last Admin Trade Name Freq PRN Reason Stop Dose Admin Albuterol Sulfate 1 amp 02/02/19 12:00 02/02/19 12:02 Ventolin 0.083% Nebulizer Soln - NEB 1 amp RQID CAN Administration Albuterol Sulfate 1 amp 02/02/19 11:47 Ventolin 0.083% Nebulizer Soln - NEB Q4H PRN SHORT OF BREATH/WHEEZING Clonazepam 0.5 mg 01/31/19 06:00 02/02/19 06:37 Klonopin - PO 0.5 mg TID CAN Administration Famotidine 20 mg 01/31/19 10:00 02/02/19 09:34 Pepcid - PO 20 mg BID CAN Administration Heparin Sodium (Porcine) 5,000 unit 01/31/19 10:00 02/02/19 09:33 Heparin - SQ 5,000 unit BID CAN Administration Methadone HCl 80 mg/ Methadone 95 mg 01/31/19 07:30 02/02/19 06:36 HCl 10 mg/ Methadone HCl 5 mg PO 95 mg DAILY@0600 CAN Administration Methylprednisolone Sodium Succinate 60 mg 01/31/19 15:00 02/02/19 08:52 Solu-Medrol - IVPUSH 60 mg Q6H-IV CAN Administration Nicotine 7 mg 01/31/19 10:00 02/02/19 09:34 Nicoderm Patch - TD 7 mg DAILY CAN Administration Quetiapine Fumarate 50 mg 01/31/19 22:00 02/01/19 21:34 Seroquel - PO 50 mg HS CAN Administration Tiotropium [place] 2 puff 02/02/19 11:45 Spiriva Respimat IH DAILY CAN S1 S2 RRR Lungs ronchi B/L Abd- soft, NT no edema PLAN IV solumedrol same dose Pulm eval noted nebs scheduled O2 klonopin OOB Problem List - Problems (1) Acute chronic obstructive pulmonary disease with respiratory distress Code(s): J44.9 - CHRONIC OBSTRUCTIVE PULMONARY DISEASE, UNSPECIFIED; R06.03 - ACUTE RESPIRATORY DISTRESS (2) Acute hypoxemic respiratory failure Code(s): J96.01 - ACUTE RESPIRATORY FAILURE WITH HYPOXIA (3) COPD exacerbation Code(s): J44.1 - CHRONIC OBSTRUCTIVE PULMONARY DISEASE W (ACUTE) EXACERBATION (4) Anxiety Code(s): F41.9 - ANXIETY DISORDER, UNSPECIFIED (5) GERD (gastroesophageal reflux disease) Code(s): K21.9 - GASTRO-ESOPHAGEAL REFLUX DISEASE WITHOUT ESOPHAGITIS
[2019-02-02] MEDS ORDERED: PT OWN MED DRAWER 7, Y5N ONE (15:58)
[2019-02-02] MEDS: TIOTROPIUM BROMIDE 2.5 MCG (SPIRIVA) RESPIMAT INHALER IH SCH (16:10)
[2019-02-02] MEDS ORDERED: QUEtiapine FUMARATE 25 MG TABLET (FP) ONE (21:15)
[2019-02-02] MEDS: QUEtiapine FUMARATE 50 MG TABLET PO SCH (21:47)
[2019-02-03] MEDS: methylPREDNISolone NA SUCC 40 MG/1 ML VIAL IVPUSH SCH ×4 (03:53→21:44)
[2019-02-03] MEDS ORDERED: METHADONE HCL 40 MG DISPERSABLE TABLET ONE (06:17)
[2019-02-03] MEDS ORDERED: METHADONE HCL 5 MG TABLET ONE (06:18)
[2019-02-03] MEDS ORDERED: METHADONE HCL 10 MG TABLET ONE (06:18)
[2019-02-03] MEDS: METHADONE 80 MG, METHADONE 10 MG, METHADONE 5 MG PO SCH (06:20)
[2019-02-03] MEDS: clonazePAM 0.5 MG TABLET PO SCH ×3 (06:24→21:46)
[2019-02-03] MEDS ORDERED: PT OWN MED DRAWER 7, Y5N ONE (09:12)
[2019-02-03] MEDS: ALBUTEROL SO4 0.083% IH SOL 2.5 MG/3 ML VIAL.NEB. NEB SCH ×4 (09:26→20:37)
[2019-02-03] MEDS: HEPARIN NA (PORCINE) 5,000 UNITS/ML 1ML VIAL SQ SCH ×2 (09:47→21:45)
[2019-02-03] MEDS: FAMOTIDINE 20 MG TABLET PO SCH ×2 (09:47→21:46)
[2019-02-03] MEDS: NICOTINE 7 MG/24 HOURS TOPICAL PATCH TD SCH (09:48)
[2019-02-03] MEDS: TIOTROPIUM BROMIDE 2.5 MCG (SPIRIVA) RESPIMAT INHALER IH SCH (09:48)
--- NOTE | 2019-02-03 10:20 | PN ---
Progress Note, Physician History of Present Illness: PULMONARY ALERT,FEELING BETTER,LESS DYSPNEIC - Current Medication List Current Medications: Active Medications Albuterol Sulfate (Ventolin 0.083% Nebulizer Soln -) 1 amp NEB RQID [facility] Last Admin: 02/03/19 09:26 Dose: 1 amp Albuterol Sulfate (Ventolin 0.083% Nebulizer Soln -) 1 amp NEB Q4H PRN PRN Reason: SHORT OF BREATH/WHEEZING Clonazepam (Klonopin -) 0.5 mg PO TID [facility] Last Admin: 02/03/19 06:24 Dose: 0.5 mg Famotidine (Pepcid -) 20 mg PO BID [facility] Last Admin: 02/03/19 09:47 Dose: 20 mg Heparin Sodium (Porcine) (Heparin -) 5,000 unit SQ BID [facility] Last Admin: 02/03/19 09:47 Dose: 5,000 unit Methadone HCl 80 mg/ Methadone (HCl 10 mg/ Methadone HCl 5 mg) 95 mg PO DAILY@ 0600 [facility] Last Admin: 02/03/19 06:20 Dose: 95 mg Methylprednisolone Sodium Succinate (Solu-Medrol -) 60 mg IVPUSH Q6H-IV [facility] Last Admin: 02/03/19 09:46 Dose: 60 mg Nicotine (Nicoderm Patch -) 7 mg TD DAILY [facility] Last Admin: 02/03/19 09:48 Dose: 7 mg Quetiapine Fumarate (Seroquel -) 50 mg PO HS [facility] Last Admin: 02/02/19 21:47 Dose: 50 mg Tiotropium [place] (Spiriva Respimat) 2 puff IH DAILY [facility] Last Admin: 02/03/19 09:48 Dose: 2 puff - Objective Vital Signs: Vital Signs Temperature 98.1 F 02/03/19 09:00 Pulse Rate 83 02/03/19 09:00 Respiratory Rate 18 02/03/19 09:00 Blood Pressure 144/79 02/03/19 09:00 O2 Sat by Pulse Oximetry (%) 95 02/02/19 21:00 Constitutional: Yes: Well Nourished, Calm Eyes: Yes: WNL HENT: Yes: WNL Neck: Yes: WNL Cardiovascular: Yes: Regular Rate and Rhythm, S1, S2 Respiratory: Yes: Wheezes (LESS WHEEZES SUDAHKAR) Gastrointestinal: Yes: Normal Bowel Sounds, Soft Extremities: Yes: WNL Edema: No Labs: CBC, BMP 01/31/19 06:31 01/31/19 06:31 Assessment/Plan Problem List - Problems (1) Acute chronic obstructive pulmonary disease with respiratory distress Code(s): J44.9 - CHRONIC OBSTRUCTIVE PULMONARY DISEASE, UNSPECIFIED; R06.03 - ACUTE RESPIRATORY DISTRESS (2) COPD exacerbation Code(s): J44.1 - CHRONIC OBSTRUCTIVE PULMONARY DISEASE W (ACUTE) EXACERBATION (3) Tobacco abuse Code(s): Z72.0 - TOBACCO USE (4) Anxiety Code(s): F41.9 - ANXIETY DISORDER, UNSPECIFIED (5) Asthma Code(s): J45.909 - UNSPECIFIED ASTHMA, UNCOMPLICATED Qualifiers: Asthma severity: moderate Asthma persistence: unspecified Asthma complication type: uncomplicated Qualified Code(s): J45.909 - Unspecified asthma, uncomplicated (6) GERD (gastroesophageal reflux disease) Code(s): K21.9 - GASTRO-ESOPHAGEAL REFLUX DISEASE WITHOUT ESOPHAGITIS (7) Methadone dependence Code(s): F11.20 - OPIOID DEPENDENCE, UNCOMPLICATED (8) Smoker Code(s): F17.200 - NICOTINE DEPENDENCE, UNSPECIFIED, UNCOMPLICATED Assessment/Plan Medrol same dose ,start taper in am BD TX standing and PRN Supplemental O2 as needed to maintain saturation Smoking cessation counseled Tara SAMSON
--- NOTE | 2019-02-03 18:48 | PN ---
Progress Note (short form) - Note Progress Note: SOB less anxious Vital Signs - 24 hr 02/02/19 02/02/19 02/03/19 21:00 21:44 05:00 Temperature 98.8 F 99.1 F Pulse Rate 86 102 H Respiratory 20 20 Rate Blood Pressure 118/77 105/69 O2 Sat by Pulse 95 Oximetry (%) 02/03/19 02/03/19 09:00 13:00 Temperature 98.1 F 98.5 F Pulse Rate 83 79 Respiratory 18 18 Rate Blood Pressure 144/79 129/73 O2 Sat by Pulse Oximetry (%) Current Medications Generic Name Dose Route Start Last Admin Trade Name Freq PRN Reason Stop Dose Admin Albuterol Sulfate 1 amp 02/02/19 12:00 02/03/19 16:26 Ventolin 0.083% Nebulizer Soln - NEB 1 amp RQID CAN Administration Albuterol Sulfate 1 amp 02/02/19 11:47 Ventolin 0.083% Nebulizer Soln - NEB Q4H PRN SHORT OF BREATH/WHEEZING Clonazepam 0.5 mg 01/31/19 06:00 02/03/19 15:36 Klonopin - PO 0.5 mg TID CAN Administration Famotidine 20 mg 01/31/19 10:00 02/03/19 09:47 Pepcid - PO 20 mg BID CAN Administration Heparin Sodium (Porcine) 5,000 unit 01/31/19 10:00 02/03/19 09:47 Heparin - SQ 5,000 unit BID CAN Administration Methadone HCl 80 mg/ Methadone 95 mg 01/31/19 07:30 02/03/19 06:20 HCl 10 mg/ Methadone HCl 5 mg PO 95 mg DAILY@0600 CAN Administration Methylprednisolone Sodium Succinate 60 mg 01/31/19 15:00 02/03/19 17:28 Solu-Medrol - IVPUSH 60 mg Q6H-IV CAN Administration Nicotine 7 mg 01/31/19 10:00 02/03/19 09:48 Nicoderm Patch - TD 7 mg DAILY CAN Administration Quetiapine Fumarate 50 mg 01/31/19 22:00 02/02/19 21:47 Seroquel - PO 50 mg HS CAN Administration Tiotropium [place] 2 puff 02/02/19 11:45 02/03/19 09:48 Spiriva Respimat IH 2 puff DAILY CAN Administration S1 S2 RRR Lungs ronchi B/L Abd- soft, NT no edema PLAN IV solumedrol same dose taper steroids tomorrow Pulm eval noted nebs scheduled O2 klonopin OJESUS Problem List - Problems (1) Acute chronic obstructive pulmonary disease with respiratory distress Code(s): J44.9 - CHRONIC OBSTRUCTIVE PULMONARY DISEASE, UNSPECIFIED; R06.03 - ACUTE RESPIRATORY DISTRESS (2) Acute hypoxemic respiratory failure Code(s): J96.01 - ACUTE RESPIRATORY FAILURE WITH HYPOXIA (3) COPD exacerbation Code(s): J44.1 - CHRONIC OBSTRUCTIVE PULMONARY DISEASE W (ACUTE) EXACERBATION (4) Anxiety Code(s): F41.9 - ANXIETY DISORDER, UNSPECIFIED (5) GERD (gastroesophageal reflux disease) Code(s): K21.9 - GASTRO-ESOPHAGEAL REFLUX DISEASE WITHOUT ESOPHAGITIS
[2019-02-03] MEDS ORDERED: QUEtiapine FUMARATE 25 MG TABLET (FP) ONE (21:36)
[2019-02-03] MEDS: QUEtiapine FUMARATE 50 MG TABLET PO SCH (21:46)
[2019-02-04] MEDS: methylPREDNISolone NA SUCC 40 MG/1 ML VIAL IVPUSH SCH ×3 (02:00→17:26)
[2019-02-04] MEDS ORDERED: METHADONE HCL 5 MG TABLET ONE (05:49)
[2019-02-04] MEDS ORDERED: METHADONE HCL 40 MG DISPERSABLE TABLET ONE (05:49)
[2019-02-04] MEDS ORDERED: METHADONE HCL 10 MG TABLET ONE (05:49)
[2019-02-04] MEDS: METHADONE 80 MG, METHADONE 10 MG, METHADONE 5 MG PO SCH (06:16)
[2019-02-04] MEDS: clonazePAM 0.5 MG TABLET PO SCH ×3 (06:17→22:03)
[2019-02-04] MEDS: ALBUTEROL SO4 0.083% IH SOL 2.5 MG/3 ML VIAL.NEB. NEB SCH ×4 (07:35→21:00)
[2019-02-04] MEDS ORDERED: PT OWN MED DRAWER 7, Y5N ONE ×2 (09:02→13:36)
[2019-02-04] MEDS: FAMOTIDINE 20 MG TABLET PO SCH ×2 (09:32→22:03)
[2019-02-04] MEDS: HEPARIN NA (PORCINE) 5,000 UNITS/ML 1ML VIAL SQ SCH ×2 (09:32→22:04)
[2019-02-04] MEDS: NICOTINE 7 MG/24 HOURS TOPICAL PATCH TD SCH (09:32)
[2019-02-04] MEDS: TIOTROPIUM BROMIDE 2.5 MCG (SPIRIVA) RESPIMAT INHALER IH SCH (09:33)
--- NOTE | 2019-02-04 11:13 | PN ---
Progress Note (short form) - Note Progress Note: PULMONARY MILD SUBJECTIVE IMPROVEMENT VSS/AFEBRILE Constitutional: Yes: Well Nourished, Calm Eyes: Yes: WNL HENT: Yes: WNL Neck: Yes: WNL Cardiovascular: Yes: Regular Rate and Rhythm, S1, S2 Respiratory: Yes: Wheezes (LESS WHEEZES SUDHAKAR) Gastrointestinal: Yes: Normal Bowel Sounds, Soft Extremities: Yes: WNL Edema: No Labs: REVIEWED A/E COPD/B. ASTHMA Assessment/Plan Medrol same dose BD TX standing and PRN Supplemental O2 as needed to maintain saturation Smoking cessation counseled Tara MULLIGAN MD
[2019-02-04] MEDS ORDERED: FLUCONAZOLE 150 MG TABLET PO ONE (12:03)
--- NOTE | 2019-02-04 12:03 | PN ---
Progress Note (short form) - Note Progress Note: SOB less anxious feels better Vital Signs - 24 hr 02/03/19 02/03/19 02/03/19 13:00 18:30 20:57 Temperature 98.5 F 97.8 F Pulse Rate 79 76 75 Respiratory 18 20 18 Rate Blood Pressure 129/73 124/81 128/77 O2 Sat by Pulse Oximetry (%) 02/03/19 02/04/19 02/04/19 21:00 02:04 06:04 Temperature 98.6 F 98.4 F Pulse Rate 79 72 Respiratory 18 18 Rate Blood Pressure 128/84 141/92 O2 Sat by Pulse 96 Oximetry (%) 02/04/19 09:51 Temperature 97.5 F L Pulse Rate 88 Respiratory 20 Rate Blood Pressure 124/88 O2 Sat by Pulse Oximetry (%) Current Medications Generic Name Dose Route Start Last Admin Trade Name Freq PRN Reason Stop Dose Admin Albuterol Sulfate 1 amp 02/02/19 12:00 02/04/19 07:35 Ventolin 0.083% Nebulizer Soln - NEB 1 amp RQID CAN Administration Albuterol Sulfate 1 amp 02/02/19 11:47 Ventolin 0.083% Nebulizer Soln - NEB Q4H PRN SHORT OF BREATH/WHEEZING Clonazepam 0.5 mg 01/31/19 06:00 02/04/19 06:17 Klonopin - PO 0.5 mg TID CAN Administration Famotidine 20 mg 01/31/19 10:00 02/04/19 09:32 Pepcid - PO 20 mg BID CAN Administration Heparin Sodium (Porcine) 5,000 unit 01/31/19 10:00 02/04/19 09:32 Heparin - SQ 5,000 unit BID CAN Administration Methadone HCl 80 mg/ Methadone 95 mg 01/31/19 07:30 02/04/19 06:16 HCl 10 mg/ Methadone HCl 5 mg PO 95 mg DAILY@0600 CAN Administration Methylprednisolone Sodium Succinate 60 mg 01/31/19 15:00 02/04/19 09:32 Solu-Medrol - IVPUSH 60 mg Q6H-IV CAN Administration Nicotine 7 mg 01/31/19 10:00 02/04/19 09:32 Nicoderm Patch - TD 7 mg DAILY CAN Administration Quetiapine Fumarate 50 mg 01/31/19 22:00 02/03/19 21:46 Seroquel - PO 50 mg HS CAN Administration Tiotropium [place] 2 puff 02/02/19 11:45 02/04/19 09:33 Spiriva Respimat IH 2 puff DAILY CAN Administration S1 S2 RRR Lungs ronchi B/L-->decreased Abd- soft, NT no edema PLAN IV solumedrol taper slow sputum culture yeast-->start diflucan nebs scheduled O2 klonopin OOB Problem List - Problems (1) Acute chronic obstructive pulmonary disease with respiratory distress Code(s): J44.9 - CHRONIC OBSTRUCTIVE PULMONARY DISEASE, UNSPECIFIED; R06.03 - ACUTE RESPIRATORY DISTRESS (2) Acute hypoxemic respiratory failure Code(s): J96.01 - ACUTE RESPIRATORY FAILURE WITH HYPOXIA (3) COPD exacerbation Code(s): J44.1 - CHRONIC OBSTRUCTIVE PULMONARY DISEASE W (ACUTE) EXACERBATION (4) Anxiety Code(s): F41.9 - ANXIETY DISORDER, UNSPECIFIED (5) GERD (gastroesophageal reflux disease) Code(s): K21.9 - GASTRO-ESOPHAGEAL REFLUX DISEASE WITHOUT ESOPHAGITIS
[2019-02-04] MEDS ORDERED: FLUCONAZOLE 100 MG TABLET (UD) PO ONE (12:10)
[2019-02-04] MEDS ORDERED: QUEtiapine FUMARATE 25 MG TABLET (FP) ONE (21:58)
[2019-02-04] MEDS: QUEtiapine FUMARATE 50 MG TABLET PO SCH (22:03)
[2019-02-05] MEDS: methylPREDNISolone NA SUCC 40 MG/1 ML VIAL IVPUSH SCH ×3 (01:18→17:12)
[2019-02-05] MEDS ORDERED: METHADONE HCL 40 MG DISPERSABLE TABLET ONE (06:23)
[2019-02-05] MEDS ORDERED: METHADONE HCL 5 MG TABLET ONE (06:23)
[2019-02-05] MEDS ORDERED: METHADONE HCL 10 MG TABLET ONE (06:24)
[2019-02-05] MEDS: clonazePAM 0.5 MG TABLET PO SCH ×3 (06:25→21:41)
[2019-02-05] MEDS: METHADONE 80 MG, METHADONE 10 MG, METHADONE 5 MG PO SCH (06:25)
[2019-02-05] MEDS: ALBUTEROL SO4 0.083% IH SOL 2.5 MG/3 ML VIAL.NEB. NEB SCH ×4 (08:30→21:30)
[2019-02-05] MEDS ORDERED: PT OWN MED DRAWER 7, Y5N ONE (09:01)
[2019-02-05] MEDS: HEPARIN NA (PORCINE) 5,000 UNITS/ML 1ML VIAL SQ SCH ×2 (09:11→21:42)
[2019-02-05] MEDS: FAMOTIDINE 20 MG TABLET PO SCH ×2 (09:11→21:41)
[2019-02-05] MEDS: NICOTINE 7 MG/24 HOURS TOPICAL PATCH TD SCH (09:12)
--- NOTE | 2019-02-05 10:34 | PN ---
Progress Note (short form) - Note Progress Note: PULMONARY MILD SUBJECTIVE IMPROVEMENT VSS/AFEBRILE Constitutional: Yes: Well Nourished, Calm Eyes: Yes: WNL HENT: Yes: WNL Neck: Yes: WNL Cardiovascular: Yes: Regular Rate and Rhythm, S1, S2 Respiratory: Yes: Wheezes (LESS WHEEZES SUDHAKAR) Gastrointestinal: Yes: Normal Bowel Sounds, Soft Extremities: Yes: WNL Edema: No Labs: REVIEWED A/E COPD/B. ASTHMA Assessment/Plan Medrol changed to 40 mg Q 6 BD TX standing and PRN Supplemental O2 as needed to maintain saturation Smoking cessation counseled Tara MULLIGAN MD
[2019-02-05] MEDS: TIOTROPIUM BROMIDE 2.5 MCG (SPIRIVA) RESPIMAT INHALER IH SCH (10:36)
--- NOTE | 2019-02-05 13:00 | PN ---
Progress Note (short form) - Note Progress Note: SOB less anxious feels better Vital Signs - 24 hr 02/04/19 02/04/19 02/04/19 14:00 18:00 22:00 Temperature 98.5 F 97.8 F Pulse Rate 77 69 Respiratory 20 20 Rate Blood Pressure 117/80 121/87 O2 Sat by Pulse 96 Oximetry (%) 02/04/19 02/05/19 22:02 06:00 Temperature 98.3 F 97.9 F Pulse Rate 77 78 Respiratory 19 18 Rate Blood Pressure 129/80 121/78 O2 Sat by Pulse Oximetry (%) Current Medications Generic Name Dose Route Start Last Admin Trade Name Freq PRN Reason Stop Dose Admin Albuterol Sulfate 1 amp 02/02/19 12:00 02/05/19 11:35 Ventolin 0.083% Nebulizer Soln - NEB 1 amp RQID CAN Administration Albuterol Sulfate 1 amp 02/02/19 11:47 Ventolin 0.083% Nebulizer Soln - NEB Q4H PRN SHORT OF BREATH/WHEEZING Clonazepam 0.5 mg 01/31/19 06:00 02/05/19 06:25 Klonopin - PO 0.5 mg TID CAN Administration Famotidine 20 mg 01/31/19 10:00 02/05/19 09:11 Pepcid - PO 20 mg BID CAN Administration Heparin Sodium (Porcine) 5,000 unit 01/31/19 10:00 02/05/19 09:11 Heparin - SQ 5,000 unit BID CAN Administration Methadone HCl 80 mg/ Methadone 95 mg 01/31/19 07:30 02/05/19 06:25 HCl 10 mg/ Methadone HCl 5 mg PO 95 mg DAILY@0600 CAN Administration Methylprednisolone Sodium Succinate 40 mg 02/05/19 10:33 Solu-Medrol - IVPUSH Q8H-IV CAN Nicotine 7 mg 01/31/19 10:00 02/05/19 09:12 Nicoderm Patch - TD 7 mg DAILY CAN Administration Quetiapine Fumarate 50 mg 01/31/19 22:00 02/04/19 22:03 Seroquel - PO 50 mg HS CAN Administration Tiotropium [place] 2 puff 02/02/19 11:45 02/04/19 09:33 Spiriva Respimat IH 2 puff DAILY CAN Administration S1 S2 RRR Lungs ronchi B/L-->decreased Abd- soft, NT no edema PLAN IV solumedrol taper slow sputum culture yeast-->received diflucan nebs scheduled O2 klonopin OOB Problem List - Problems (1) Acute chronic obstructive pulmonary disease with respiratory distress Code(s): J44.9 - CHRONIC OBSTRUCTIVE PULMONARY DISEASE, UNSPECIFIED; R06.03 - ACUTE RESPIRATORY DISTRESS (2) Acute hypoxemic respiratory failure Code(s): J96.01 - ACUTE RESPIRATORY FAILURE WITH HYPOXIA (3) COPD exacerbation Code(s): J44.1 - CHRONIC OBSTRUCTIVE PULMONARY DISEASE W (ACUTE) EXACERBATION (4) Anxiety Code(s): F41.9 - ANXIETY DISORDER, UNSPECIFIED (5) GERD (gastroesophageal reflux disease) Code(s): K21.9 - GASTRO-ESOPHAGEAL REFLUX DISEASE WITHOUT ESOPHAGITIS
[2019-02-05] MEDS ORDERED: QUEtiapine FUMARATE 25 MG TABLET (FP) ONE (21:27)
[2019-02-05] MEDS: QUEtiapine FUMARATE 50 MG TABLET PO SCH (21:42)
[2019-02-06] MEDS: methylPREDNISolone NA SUCC 40 MG/1 ML VIAL IVPUSH SCH ×4 (02:00→18:43)
[2019-02-06] MEDS ORDERED: METHADONE HCL 5 MG TABLET ONE (06:02)
[2019-02-06] MEDS ORDERED: METHADONE HCL 40 MG DISPERSABLE TABLET ONE (06:02)
[2019-02-06] MEDS ORDERED: METHADONE HCL 10 MG TABLET ONE (06:02)
[2019-02-06] MEDS: METHADONE 80 MG, METHADONE 10 MG, METHADONE 5 MG PO SCH (06:19)
[2019-02-06] MEDS: clonazePAM 0.5 MG TABLET PO SCH ×3 (06:20→21:08)
[2019-02-06] MEDS: ALBUTEROL SO4 0.083% IH SOL 2.5 MG/3 ML VIAL.NEB. NEB SCH ×4 (08:12→20:45)
--- NOTE | 2019-02-06 08:38 | PN ---
Progress Note (short form) - Note Progress Note: SOB less anxious feels better \ states he will stop smoking from now onwards Vital Signs - 24 hr 02/05/19 02/05/19 02/05/19 10:00 14:00 15:51 Temperature 97.9 F 98.5 F 98.6 F Pulse Rate 78 85 83 Respiratory 18 17 18 Rate Blood Pressure 121/78 126/80 120/82 02/05/19 02/06/19 21:40 06:00 Temperature 97.9 F 97.6 F Pulse Rate 93 H 71 Respiratory 18 18 Rate Blood Pressure 144/73 132/86 S1 S2 RRR Lungs ronchi B/L-->decreased Abd- soft, NT no edema Current Medications Generic Name Dose Route Start Last Admin Trade Name Freq PRN Reason Stop Dose Admin Albuterol Sulfate 1 amp 02/02/19 12:00 02/06/19 08:12 Ventolin 0.083% Nebulizer Soln - NEB 1 amp RQID CAN Administration Albuterol Sulfate 1 amp 02/02/19 11:47 Ventolin 0.083% Nebulizer Soln - NEB Q4H PRN SHORT OF BREATH/WHEEZING Clonazepam 0.5 mg 01/31/19 06:00 02/06/19 06:20 Klonopin - PO 0.5 mg TID CAN Administration Famotidine 20 mg 01/31/19 10:00 02/05/19 21:41 Pepcid - PO 20 mg BID CAN Administration Heparin Sodium (Porcine) 5,000 unit 01/31/19 10:00 02/05/19 21:42 Heparin - SQ 5,000 unit BID CAN Administration Methadone HCl 80 mg/ Methadone 95 mg 01/31/19 07:30 02/06/19 06:19 HCl 10 mg/ Methadone HCl 5 mg PO 95 mg DAILY@0600 CAN Administration Methylprednisolone Sodium Succinate 40 mg 02/05/19 10:33 02/06/19 02:00 Solu-Medrol - IVPUSH 40 mg Q8H-IV CAN Administration Nicotine 7 mg 01/31/19 10:00 02/05/19 09:12 Nicoderm Patch - TD 7 mg DAILY CAN Administration Quetiapine Fumarate 50 mg 01/31/19 22:00 02/05/19 21:42 Seroquel - PO 50 mg HS CAN Administration Tiotropium [place] 2 puff 02/02/19 11:45 02/05/19 10:36 Spiriva Respimat IH 2 puff DAILY CAN Administration PLAN IV solumedrol taper slow sputum culture yeast-->received diflucan nebs scheduled O2 klonopin OOB Problem List - Problems (1) Acute chronic obstructive pulmonary disease with respiratory distress Code(s): J44.9 - CHRONIC OBSTRUCTIVE PULMONARY DISEASE, UNSPECIFIED; R06.03 - ACUTE RESPIRATORY DISTRESS (2) Acute hypoxemic respiratory failure Code(s): J96.01 - ACUTE RESPIRATORY FAILURE WITH HYPOXIA (3) COPD exacerbation Code(s): J44.1 - CHRONIC OBSTRUCTIVE PULMONARY DISEASE W (ACUTE) EXACERBATION (4) Anxiety Code(s): F41.9 - ANXIETY DISORDER, UNSPECIFIED (5) GERD (gastroesophageal reflux disease) Code(s): K21.9 - GASTRO-ESOPHAGEAL REFLUX DISEASE WITHOUT ESOPHAGITIS
[2019-02-06] MEDS ORDERED: PT OWN MED DRAWER 7, Y5N ONE (11:17)
[2019-02-06] MEDS: HEPARIN NA (PORCINE) 5,000 UNITS/ML 1ML VIAL SQ SCH ×2 (11:21→21:09)
[2019-02-06] MEDS: FAMOTIDINE 20 MG TABLET PO SCH ×2 (11:21→21:09)
[2019-02-06] MEDS: NICOTINE 7 MG/24 HOURS TOPICAL PATCH TD SCH (11:22)
--- NOTE | 2019-02-06 13:24 | PN ---
Progress Note (short form) - Note Progress Note: PULMONARY SUBJECTIVE IMPROVEMENT VSS/AFEBRILE Constitutional: Yes: Well Nourished, Calm Eyes: Yes: WNL HENT: Yes: WNL Neck: Yes: WNL Cardiovascular: Yes: Regular Rate and Rhythm, S1, S2 Respiratory: Yes: Wheezes (LESS WHEEZES SUDHAKAR) Gastrointestinal: Yes: Normal Bowel Sounds, Soft Extremities: Yes: WNL Edema: No Labs: REVIEWED A/E COPD/B. ASTHMA Assessment/Plan Medrol changed to 40 mg Q 6 /Would change to oral tomorrow and consider discharge planning BD TX standing and PRN Supplemental O2 as needed to maintain saturation Smoking cessation counseled Tara MULLIGAN MD
[2019-02-06] MEDS: TIOTROPIUM BROMIDE 2.5 MCG (SPIRIVA) RESPIMAT INHALER IH SCH (13:57)
[2019-02-06] MEDS ORDERED: QUEtiapine FUMARATE 25 MG TABLET (FP) ONE (20:50)
[2019-02-06] MEDS: QUEtiapine FUMARATE 50 MG TABLET PO SCH (21:08)
[2019-02-07] MEDS: methylPREDNISolone NA SUCC 40 MG/1 ML VIAL IVPUSH SCH ×3 (03:24→22:59)
[2019-02-07] MEDS ORDERED: METHADONE HCL 40 MG DISPERSABLE TABLET ONE (06:05)
[2019-02-07] MEDS ORDERED: METHADONE HCL 10 MG TABLET ONE (06:06)
[2019-02-07] MEDS ORDERED: METHADONE HCL 5 MG TABLET ONE (06:06)
[2019-02-07] MEDS: METHADONE 80 MG, METHADONE 10 MG, METHADONE 5 MG PO SCH (06:11)
[2019-02-07] MEDS: ALBUTEROL SO4 0.083% IH SOL 2.5 MG/3 ML VIAL.NEB. NEB SCH ×3 (07:45→21:12)
[2019-02-07] MEDS: NICOTINE 7 MG/24 HOURS TOPICAL PATCH TD SCH (09:42)
[2019-02-07] MEDS: FAMOTIDINE 20 MG TABLET PO SCH ×2 (09:43→22:58)
[2019-02-07] MEDS: TIOTROPIUM BROMIDE 2.5 MCG (SPIRIVA) RESPIMAT INHALER IH SCH (09:44)
[2019-02-07] MEDS ORDERED: ALBUTEROL SO4 0.083% IH SOL 2.5 MG/3 ML VIAL.NEB. NEB PRN (12:20)
--- NOTE | 2019-02-07 12:20 | PN ---
Progress Note (short form) - Note Progress Note: PULMONARY States breathing slowly improving. Less cough and wheezing. Vital Signs Period Temp Pulse Resp BP Sys/Bermudez Pulse Ox Last 24 Hr 94.4 F-98.5 F 75-96 20-24 120-140/75-96 96 Gen: NAD at rest Heart: RRR Lung: distant breath sounds Abd: soft, nontender Ext: no edema CBC, BMP 01/31/19 06:31 01/31/19 06:31 Active Medications Famotidine (Pepcid -) 20 mg PO BID [facility] Last Admin: 02/07/19 09:43 Dose: 20 mg Methylprednisolone Sodium Succinate (Solu-Medrol -) 40 mg IVPUSH Q8H-IV [facility] Last Admin: 02/07/19 09:42 Dose: 40 mg Nicotine (Nicoderm Patch -) 7 mg TD DAILY [facility] Last Admin: 02/07/19 09:42 Dose: 7 mg Quetiapine Fumarate (Seroquel -) 50 mg PO HS [facility] Last Admin: 02/06/19 21:08 Dose: 50 mg Tiotropium [place] (Spiriva Respimat) 2 puff IH DAILY [facility] Last Admin: 02/07/19 09:44 Dose: 2 puff A/P Acute Hypoxic Respirtory Failure Acute COPD Exacerbation Anxiety Smoker - will decrease medrol to q12h - inhaled bronchodilators standing and PRN - O2 to keep SpO2 >90% - smoking cessation - DVT prophylaxis
[2019-02-07] MEDS ORDERED: METHADONE HCL 10 MG TABLET PO ONE (12:41)
--- NOTE | 2019-02-07 12:51 | PN ---
Progress Note (short form) - Note Progress Note: Pt seen/ examined chart is reviewed awake/ comfortable anxious Vital Signs Temp 94.4 F L 02/07/19 09:55 Pulse 96 H 02/07/19 09:55 Resp 20 02/07/19 09:55 BP 132/88 02/07/19 09:55 Pulse Ox 96 02/06/19 21:00 Intake & Output 02/06/19 02/07/19 02/07/19 23:59 11:59 23:59 Intake Total 1000 0 Balance 1000 0 Intake: IV 0 saline Lock 0 Oral 1000 Other: Voiding Method Toilet Toilet # Unmeasured Voids Void 1 2 Bowel Movement No No Active Medications Albuterol Sulfate (Ventolin 0.083% Nebulizer Soln -) 1 amp NEB Q4H PRN PRN Reason: SHORT OF BREATH/WHEEZING Albuterol Sulfate (Ventolin 0.083% Nebulizer Soln -) 1 amp NEB RQID CAN Famotidine (Pepcid -) 20 mg PO BID [facility] Last Admin: 02/07/19 09:43 Dose: 20 mg Methylprednisolone Sodium Succinate (Solu-Medrol -) 40 mg IVPUSH BID [facility] Nicotine (Nicoderm Patch -) 7 mg TD DAILY [facility] Last Admin: 02/07/19 09:42 Dose: 7 mg Quetiapine Fumarate (Seroquel -) 50 mg PO HS [facility] Last Admin: 02/06/19 21:08 Dose: 50 mg Tiotropium [place] (Spiriva Respimat) 2 puff IH DAILY [facility] Last Admin: 02/07/19 09:44 Dose: 2 puff CBC, BMP 01/31/19 06:31 01/31/19 06:31 Physical Exam awake/ Anxious- Chronic lungs- rhonchi cvs-- s1, s2 rrr abd- soft ext- no edema neuro- alert/ awake Psych- Chronic anxiety a/p Discussed Taper steroids F/u Labs - ordered d/c planning-- if better consider tomorrow psychology consult smoking cessation counselling Problem List - Problems (1) Acute chronic obstructive pulmonary disease with respiratory distress Code(s): J44.9 - CHRONIC OBSTRUCTIVE PULMONARY DISEASE, UNSPECIFIED; R06.03 - ACUTE RESPIRATORY DISTRESS (2) Tobacco abuse Code(s): Z72.0 - TOBACCO USE (3) Anxiety Code(s): F41.9 - ANXIETY DISORDER, UNSPECIFIED (4) Methadone dependence Code(s): F11.20 - OPIOID DEPENDENCE, UNCOMPLICATED
[2019-02-07] MEDS ORDERED: QUEtiapine FUMARATE 25 MG TABLET (FP) ONE (22:53)
[2019-02-07] MEDS: QUEtiapine FUMARATE 50 MG TABLET PO SCH (22:58)
[2019-02-08] MEDS: ALBUTEROL SO4 0.083% IH SOL 2.5 MG/3 ML VIAL.NEB. NEB SCH ×2 (08:29→12:23)
[2019-02-08] MEDS ORDERED: METHADONE HCL 10 MG TABLET (FOR DETOX USE ONLY) PO ONE (08:45)
[2019-02-08] MEDS ORDERED: METHADONE 80 MG, METHADONE 10 MG, METHADONE 5 MG PO ONE (09:00)
[2019-02-08] MEDS ORDERED: METHADONE HCL 5 MG TABLET ONE (09:03)
[2019-02-08] MEDS ORDERED: METHADONE HCL 40 MG DISPERSABLE TABLET ONE (09:03)
[2019-02-08] MEDS ORDERED: METHADONE HCL 10 MG TABLET ONE (09:04)
[2019-02-08] MEDS ORDERED: PT OWN MED DRAWER 7, Y5N ONE ×2 (09:35→10:17)
[2019-02-08] MEDS: NICOTINE 7 MG/24 HOURS TOPICAL PATCH TD SCH (09:38)
[2019-02-08] MEDS: methylPREDNISolone NA SUCC 40 MG/1 ML VIAL IVPUSH SCH (09:39)
[2019-02-08] MEDS: FAMOTIDINE 20 MG TABLET PO SCH (09:39)
[2019-02-08] MEDS: TIOTROPIUM BROMIDE 2.5 MCG (SPIRIVA) RESPIMAT INHALER IH SCH (09:44)
--- NOTE | 2019-02-08 12:02 | PN ---
Progress Note (short form) - Note Progress Note: PULMONARY Breathing continues to improve. Vital Signs Period Temp Pulse Resp BP Sys/Bermudez Pulse Ox Last 24 Hr 98.2 F-99 F 76-87 20-21 127-144/66-101 95-97 Gen: NAD at rest Heart: RRR Lung: distant breath sounds Abd: soft, nontender Ext: no edema CBC, BMP 01/31/19 06:31 01/31/19 06:31 Active Medications Albuterol Sulfate (Ventolin 0.083% Nebulizer Soln -) 1 amp NEB Q4H PRN PRN Reason: SHORT OF BREATH/WHEEZING Albuterol Sulfate (Ventolin 0.083% Nebulizer Soln -) 1 amp NEB RQID [facility] Last Admin: 02/08/19 08:29 Dose: 1 amp Famotidine (Pepcid -) 20 mg PO BID [facility] Last Admin: 02/08/19 09:39 Dose: 20 mg Methylprednisolone Sodium Succinate (Solu-Medrol -) 40 mg IVPUSH BID [facility] Last Admin: 02/08/19 09:39 Dose: 40 mg Nicotine (Nicoderm Patch -) 7 mg TD DAILY [facility] Last Admin: 02/08/19 09:38 Dose: 7 mg Quetiapine Fumarate (Seroquel -) 50 mg PO HS [facility] Last Admin: 02/07/19 22:58 Dose: 50 mg Tiotropium [place] (Spiriva Respimat) 2 puff IH DAILY [facility] Last Admin: 02/08/19 09:44 Dose: 2 puff A/P Acute Hypoxic Respirtory Failure improving Acute COPD Exacerbation Anxiety Smoker - can change steroids to PO prednisone 40mg daily and taper as outpt - inhaled bronchodilators standing and PRN - O2 to keep SpO2 >90% - smoking cessation - DVT prophylaxis
[2019-02-08] MEDS ORDERED: clonazePAM 0.5 MG TABLET PO ONE (12:26)
--- NOTE | 2019-02-08 13:09 | DS ---
Physical Examination Vital Signs: Vital Signs Temperature 98.2 F 02/08/19 11:19 Pulse Rate 85 02/08/19 12:51 Respiratory Rate 20 02/08/19 12:51 Blood Pressure 136/99 02/08/19 12:51 O2 Sat by Pulse Oximetry (%) 95 02/08/19 11:20 Constitutional: Yes: No Distress, Calm Cardiovascular: Yes: Regular Rate and Rhythm Respiratory: Yes: Diminished. No: Rales, Rhonchi, SOB Gastrointestinal: Yes: Normal Bowel Sounds, Soft, Tenderness Edema: No Labs: CBC, BMP 01/31/19 06:31 01/31/19 06:31 Discharge Summary Problems reviewed: Yes Reason For Visit: ACUTE RESPIRATORY FAILURE WITH HYPOXEMIA,ACUTE Current Active Problems Acute chronic obstructive pulmonary disease with respiratory distress (Acute) Acute hypoxemic respiratory failure (Acute) COPD exacerbation (Acute) Tobacco abuse (Acute) Health Concerns: Admitted with acute SOB Evaluated by Pulmonary Started on Solumedrol and Nebs Pt better on steroids Weaned down to 40mg daily prednisone Stable for dc home on tapering po prednisone Condition: Stable - Instructions Referrals: Parker Carter MD [Staff Physician] - Glen Ruiz MD [Staff Physician] - Disposition: HOME - Home Medications Comprehensive Discharge Medication List: Ambulatory Orders Methadone [Dolophine -] 95 mg PO DAILY 02/19/18 Quetiapine Fumarate [Seroquel -] 100 mg PO HS 02/19/18 clonazePAM [Klonopin -] 0.5 mg PO TID 02/20/18 Famotidine [Pepcid -] 20 mg PO BID #60 tablet 02/08/19 predniSONE [Deltasone -] See Taper PO DAILY 6 Days #30 tablet 02/08/19
[2019-02-08 14:10] VITALS: BP 144/104; PULSE 87
[2019-02-08 14:22] VITALS: TEMP 98.8
[2019-02-08] MEDS ORDERED: clonazePAM 0.5 MG TABLET PO SCH (17:00)
[2019-02-09] MEDS ORDERED: predniSONE 20 MG TABLET (UD) PO SCH (10:00)
== END 2019-02-08 15:22 | disposition home or self-care (01) | DRG 140 ==
LOC: JER 20:55 → JERBED 22:48 → J5S 01-31 12:16
PROVIDERS: ADMIT Internal Medicine; ATTEND Internal Medicine
DX: J44.1 Chronic obstructive pulmonary disease with (acute) exacerbation (principal); J96.01 Acute respiratory failure with hypoxia; J45.909 Unspecified asthma, uncomplicated; F11.20 Opioid dependence, uncomplicated; K21.9 Gastro-esophageal reflux disease without esophagitis; F17.210 Nicotine dependence, cigarettes, uncomplicated; F41.9 Anxiety disorder, unspecified
CPT/HCPCS: 36415; 36600; 71046-TC-FY; 80048; 80053; 82375; 82550; 82553; 82803; 83050; 83735; 83880; 84484; 85025; 87070; 87205; 87804; 93005; 93010; 94640; 99285-25; J1644; J7030

== ENCOUNTER 2019-09-27 12:59 | Inpatient (IN) | payer OTHER ==
[2019-09-27 13:13] VITALS: BMI 28.8
--- NOTE | 2019-09-27 13:23 | PDOC ---
History of Present Illness - General Chief Complaint: Pain Stated Complaint: LF ARM/LF LEG NUMBNESS Time Seen by Provider: 09/27/19 13:21 History Source: Patient Exam Limitations: No Limitations - History of Present Illness Initial Comments: 54M with hx/o asthma, COPD, smoking, anxiety d/o, disc herniation with radiculopathy presents to the ED with left sided weakness and numbness x2 days. The patient states that 2 days ago he first noticed left hand weakness 2 days ago when he dropped something out of his hand, which continued to worsen. He also had worsening numbness in the left arm and left leg (worse from baseline radiculopathy). He's had difficulty with finding words when speaking. Denies headaches, vision changes, lightheadedness/dizziness, chest pain, SOB, n/v, or abdominal pain. tPA Exclusion checklist 3-4.5h - Time Elapsed Date last known well: 09/25/19 Time last known well: 12:00 Elaspsed time: 2 Day(s) and 3 Hour(s) and 50 Minutes - Thrombolytic Therapy Candidate Is patient eligible for thrombolytic therapy: No - Exclusion Criteria 3-4.5 hr SBP greater than 185 or DBP greater than 110mmHg despite tx: No Recent IC/spinal surgery,head trauma or stroke<3mos.: No Hx IC hemorrhage, IC neoplasm, AV malformation or aneurysm: No Active internal bleeding: No Blding diathesis(low plt ct, inc PTT,INR>1.7 or use of NOAC): No Symptoms suggest subarachnoid hemorrhage: No CT demonstrates multilobar infarct(>1/3 cerebral hemiphere): No Arterial puncture at noncompressible site in previous 7 days: No Blood glucose concentration less than 50mg/dL (2.7mmol/L): No - Relative Exclusion Criteria 3-4.5 hr Care team unable to determine eligibility: No IV/IA thrombolysis/thrombectomy @ another hosp prior arrival: No Life expectancy <1 yr or severe co-morbid illness: No : No Patient/family refused: No Stroke severity too mild (non-disabling): No Recent acute [place] (w/in previous 3 months): No Seizure at onset with postictal residual neuro impairments: No Major surgery or serious trauma w/in previous 14 days: Yes Recent GI or hemorrhage (w/in previous 21 days): No - Add'l Relative Exclusion 3-4.5 hr Age > 80: No Hx of both diabetes AND prior ischemic stroke: No Taking an oral anticoagulant regardless of INR: No Severe Stroke (NIHSS >25): No - Ineligibility reason(s) Reasons No tPA given: Outside of window - delayed arrival (Arrived at ED 2 days after onset of symptoms) NIH Stroke Scale - Last Known Well Date/Time & Onset Date Last Known Well: 09/25/19 Time Last Known Well: 12:00 - Initial Evaluation Level of consciousness: Alert Ask patient the month and their age: Answers both correctly Ask patient to open & close eyes; make fist and let go: Obeys both correctly Best gaze (horizontal eye movement): Normal Visual field testing: No visual field loss Facial paresis (Show teeth/raise eyebrows/close eyes tight): Normal symmetrical movement Motor Function: Left Arm: Normal Motor Function: Right Arm: Normal (extends arm 90 (or 45) degrees for 10 seconds without drift Motor Function: Left Leg: Normal (extends leg 30 degrees for 5 seconds without drift) Motor Function: Right Leg: Normal (extends leg 30 degrees for 5 seconds without drift) Limb Ataxia: Present in one limb Sensory(Use pinprick test arms,legs,trunk,face/side to side): Mild to moderate decrease in sensation Best language (Describe picture, name items, read sentences): Mild to moderate aphasia (unable to completely assess, patient doesn't have reader glasses) Dysarthria (read several words): Mild to moderate slurring of words Extinction and Inattention: No abnormality - Total Score NIH Stroke Scale Score: 4 Past History - Medical History Allergies/Adverse Reactions: Allergies Allergy/AdvReac Type Severity Reaction Status Date / Time No Known Allergies Allergy Verified 09/27/19 13:13 Home Medications: Ambulatory Orders Methadone [Dolophine -] 95 mg PO DAILY 02/19/18 Quetiapine Fumarate [Seroquel -] 100 mg PO HS 02/19/18 clonazePAM [Klonopin -] 0.5 mg PO TID 02/20/18 Famotidine [Pepcid -] 20 mg PO BID #60 tablet 02/08/19 predniSONE [Deltasone -] See Taper PO DAILY 6 Days #30 tablet 02/08/19 Ibuprofen [Motrin -] 600 mg PO TID #30 tablet 08/24/19 Anemia: No Asthma: Yes Cancer: No Cardiac Disorders: No CVA: No COPD: Yes CHF: No Dementia: No Diabetes: No GI Disorders: No Disorders: No HTN: No Hypercholesterolemia: No Liver Disease: No Psychiatric Problems: Yes (ANXIETY) Seizures: No Thyroid Disease: No - Surgical History Abdominal Surgery: No Appendectomy: No Cardiac Surgery: No Cholecystectomy: No Lung Surgery: No Neurologic Surgery: No Orthopedic Surgery: No - Immunization History Immunization Up to Date: Yes - Psycho-Social/Smoking History Smoking History: Never smoked Have you smoked in the past 12 months: No Number of Cigarettes Smoked Daily: 1 Information on smoking cessation initiated: No 'Breaking Loose' booklet given: 01/31/19 - Substance Abuse Hx (Audit-C & DAST Scrn) How often the patient has a drink containing alcohol: Never Score: In Men: 4 or > Positive; In Women: 3 or > Positive: 0 Screen Result (Pos requires Nsg. Audit-10AR): Negative In the last yr the pt used illegal drug/Rx for NonMed reason: No Score: Yes response is considered Positive: 0 Screen Result (Positive result requires Nsg. DAST-10): Negative Review of Systems - Review of Systems Able to Perform ROS?: Yes Is the patient limited [place]an proficient: No Constitutional: No: Chills, Fever HEENTM: No: Recent change in vision Respiratory: No: Cough, Shortness of Breath Cardiac (ROS): No: Chest Pain, Edema, Lightheadedness, Syncope ABD/GI: No: Constipated, Diarrhea, Nausea, Vomiting : No: Burning, Dysuria Integumentary: No: Rash Neurological: Yes: Numbness, Paresthesia, Weakness. No: Headache, Unsteady Gait All Other Systems: Reviewed and Negative *Physical Exam - Vital Signs Last Vital Signs Temp Pulse Resp BP Pulse Ox 99.2 F 108 H 19 122/89 100 09/27/19 13:11 09/27/19 13:11 09/27/19 13:11 09/27/19 13:11 09/27/19 13:11 - Physical Exam General Appearance: Yes: Nourished, Appropriately Dressed. No: Apparent Distress HEENT: positive: EOMI, LINDA. negative: Normal Voice Neck: positive: Trachea midline. negative: Tender Respiratory/Chest: positive: Lungs Clear, Normal Breath Sounds. negative: Respiratory Distress Cardiovascular: positive: Regular Rhythm, Regular Rate, S1, S2. negative: Edema Vascular Pulses: Dorsalis-Pedis (R): 2+, Doralis-Pedis (L): 2+ Gastrointestinal/Abdominal: positive: Soft. negative: Tender Musculoskeletal: positive: Normal Inspection Extremity: positive: Normal Inspection Integumentary: positive: Normal Color, Dry, Warm Neurologic: positive: critical care technician II-XII NML intact, Fully Oriented, Alert, Normal Mood/Affect, Numbness, Sensory Deficit (left arm/leg numbness, no deficit right extremities, left face numbness). negative: Motor Strength 5/5 (5/5 strength right arm/leg, 4/5 strength left arm/leg), Facial Droop, Finger to Nose (Ataxia w/ finger to nose w/ left hand) ED Treatment Course - LABORATORY CBC & Chemistry Diagram: 09/27/19 14:00 09/27/19 14:00 Medical Decision Making - Medical Decision Making 54M with hx/o asthma, COPD, smoking, anxiety d/o, disc herniation with radiculop athy presents to the ED with left sided weakness and numbness x2 days. On exam he was AOx3, 4/5 strength Left arm, 5/5 strength left leg and right arm and leg. He appeared dysarthric. NIHSS 8. CBC and coags were unremarkable. CMP remarkable for mild hypokalemia at 3.4. Troponin negative. Noncon Head CT was negative for intracranial pathology. Patient will be admitted for management of stroke/TIA, I spoke with his PCP, Dr. Keyanna Somers who is aware of admission. Discharge - Discharge Information Problems reviewed: Yes Clinical Impression/Diagnosis: CVA (cerebral vascular accident) Qualifiers: CVA mechanism: unspecified Qualified Code(s): I63.9 - Cerebral infarction, unspecified Condition: Stable - Admission Yes - Follow up/Referral Referrals: Parker Carter MD [Primary Care Provider] - - Patient Discharge Instructions - Post Discharge Activity
[2019-09-27 14:24] LABS: BASO % 0.7 % (0-2.0); EOS % 0.9 % (0-4.5); HEMATOCRIT 40.3 % (35.4-49); HEMOGLOBIN 13.4 GM/dL (11.7-16.9); MCH 31.7 pg (25.7-33.7); MCHC 33.3 g/dl (32.0-35.9); MEAN CELL VOLUME 95.2 fl (80-96); MEAN PLT VOLUME 6.9 fl (7.5-11.1); MONO % 7.1 % (3.8-10.2); NEUT % 55.3 % (42.8-82.8); PLATELET COUNT 225 K/MM3 (134-434); RBC 4.24 M/mm3 (4.00-5.60); WHITE BLOOD COUNT 4.2 K/mm3 (4.0-10.0)
[2019-09-27 14:30] LABS: PROTHROMBIN TIME (PATIENT) 11.8 SEC (9.7-13.0)
[2019-09-27 14:32] LABS: ACTIVATED PTT 29.4 SECONDS (25.2-36.5)
[2019-09-27 14:51] LABS: CHOLESTEROL 185 mg/dL (50-200); HDL CHOLESTEROL 57 mg/dL (40-60); LDL CHOLESTEROL (ONLY SJRH) 112 mg/dL (5-100); TRIGLYCERIDES 77 mg/dL (0-150)
[2019-09-27 14:59] LABS: ALBUMIN 3.7 g/dl (3.4-5.0); ALK PHOS 62 U/L (45-117); ANION GAP 7 MMOL/L (8-16); BILIRUBIN,TOTAL 0.2 mg/dL (0.2-1); BLOOD UREA NITROGEN 9.6 mg/dL (7-18); CALCIUM 8.4 mg/dL (8.5-10.1); CHLORIDE 110 mmol/L (98-107); CO2 25 mmol/L (21-32); GLUCOSE,RANDOM 105 mg/dL (74-106); POTASSIUM 3.4 mmol/L (3.5-5.1); SGOT/AST 15 U/L (15-37); SGPT/ALT 18 U/L (13-61); SODIUM 142 mmol/L (136-145); TOT PROT 6.9 g/dl (6.4-8.2)
[2019-09-27] MEDS ORDERED: ASPIRIN 81 MG CHEWABLE TABLETS PO ONE (15:48)
--- NOTE | 2019-09-27 15:56 | PDOC ---
Attending Attestation - Resident Resident Name: Man Sexton - ED Attending Attestation I have performed the following: I have examined & evaluated the patient, The case was reviewed & discussed with the resident, I agree w/resident's findings & plan - HPI HPI: 09/27/19 15:51 54y/o M h/o anxiety, copd, chronic LLE sciatica/radiculopathy p/w 2d L arm numbness/heaviness. pt awoke 2d ago feeling well, then mid-day noted heaviness in L arm and ended up spilling his drink. ? whether his baseline radiculopathy sxs also worsened in his leg, but he was able to ambulate steadily. also notes some word-finding difficulty. endorses slurred speech but this seems more related to recent dental extractions. no cooper. no vision change. presents today for persistent sxs. - Physicial Exam PE: 09/27/19 15:53 vss alert, nad conversant, baseline stuttered speech s1s2 rrr, ctab, abd benign + pronator drift LUE, 5/5 LLE, face symmetric, fnf normal - Medical Decision Making 09/27/19 15:54 54y/o M with LUE weakness for 2d, concern for CVA. HD stable here, otherwise neuro intact. less likely seizure/radiculopathy stroke protocol initiated ct normal out of window for tpa or MT asa and lipitor admit for stroke workup Heart Score/ECG Review #1 ECG reviewed & interpreted by me at: 15:36 General ECG Interpretation: Sinus Rhythm, Normal Rate (73), Normal Intervals (qtc 414), No acute ischemic changes Discharge - Discharge Information Problems reviewed: Yes Clinical Impression/Diagnosis: CVA (cerebral vascular accident) Qualifiers: CVA mechanism: unspecified Qualified Code(s): I63.9 - Cerebral infarction, unspecified - Follow up/Referral Referrals: Parker Carter MD [Primary Care Provider] - - Patient Discharge Instructions - Post Discharge Activity
[2019-09-27] MEDS ORDERED: ATORVASTATIN CA 80 MG TABLET (FP) PO ONE (16:10)
[2019-09-27] MEDS ORDERED: ATORVASTATIN CA 80 MG TABLET (FP) ONE (16:43)
[2019-09-27] MEDS ORDERED: ASPIRIN 325 MG ENTERIC COATED TABLET (FP) ONE (16:43)
--- NOTE | 2019-09-27 17:48 | CON.NEURO ---
Consult Consult Specialty:: Sami Referred by:: ER Reason for Consultation:: Arm heaviness - History of Present Illness History of Present Illness: 54-year-old right-handed man with multiple medical problem including ETOH abuse, chronic low back pain who presents to the hospital with chief complaint of difficulty with today's with left arm heaviness. No report of any recent travel no head trauma. Patient with no chest pain patient had a CAT scan of the head which revealed no evidence of acute PRACTICE PROFESSIONAL pathology. Patient denies any prior similar symptoms. - History Source History Provided By: Patient Limitations to Obtaining History: Clinical Condition - Past Medical History Pulmonary: Yes: Asthma, Bronchitis, COPD. No: Cancer, O2 Dependent, Pneumonia, Previously Intubated, Pulmonary Embolus, Pulmonary Fibrosis, Sleep Apnea Psych: Yes: Anxiety - Past Surgical History Past Surgical History: Yes: None - Alcohol/Substance Use Hx Alcohol Use: No History of Substance Use: reports: Heroin (on methadone) - Smoking History Smoking history: Never smoked Have you smoked in the past 12 months: No Aproximately how many cigarettes per day: 1 - Social History ADL: Independent History of Recent Travel: No Home Medications - Allergies Allergies/Adverse Reactions: Allergies Allergy/AdvReac Type Severity Reaction Status Date / Time No Known Allergies Allergy Verified 09/27/19 13:13 - Home Medications Home Medications: Ambulatory Orders Methadone [Dolophine -] 95 mg PO DAILY 02/19/18 Quetiapine Fumarate [Seroquel -] 100 mg PO HS 02/19/18 clonazePAM [Klonopin -] 0.5 mg PO TID 02/20/18 Famotidine [Pepcid -] 20 mg PO BID #60 tablet 02/08/19 predniSONE [Deltasone -] See Taper PO DAILY 6 Days #30 tablet 02/08/19 Ibuprofen [Motrin -] 600 mg PO TID #30 tablet 08/24/19 Family Medical History Family History: Unremarkable Review of Systems - Review of Systems Neurological: reports: Change in Speech, Confusion, Parasthesia Physical Exam-Neuro Vital Signs: Vital Signs Temperature 98.2 F 09/27/19 17:00 Pulse Rate 72 09/27/19 17:00 Respiratory Rate 20 09/27/19 17:00 Blood Pressure 113/77 09/27/19 17:00 O2 Sat by Pulse Oximetry (%) 95 09/27/19 17:00 Constitutional: Yes: Well Nourished Neck: Yes: WNL Cardiovascular: Yes: WNL Labs: CBC, BMP 09/27/19 14:00 09/27/19 14:00 INR, PTT INR 1.00 (0.83-1.09) 09/27/19 14:00 - Neuro Exam Level Of Consciousness: Yes: Oriented to Person, Oriented to Place Eyes: Yes: PERRLA Speech: WNL Dominant Hand: Right Cranial Nerves II-XII Intact: Yes Gag: Present DTR's: 1+ Left Bicep, 1+ Right Bicep, 1+ Left Tricep, 1+ Right Tricep Response to light touch: Normal Response to pain prick: Normal Response to temperature: Normal Motor Strength: 3/5: Left Arm, Right Arm, Left Leg, Right Leg Gait: Deferred Imaging - Results Cat Scan: Image Reviewed Problem List - Problems (1) Cervical radiculopathy Code(s): M54.12 - RADICULOPATHY, CERVICAL REGION (2) CVA (cerebral vascular accident) Code(s): I63.9 - CEREBRAL INFARCTION, UNSPECIFIED Qualifiers: CVA mechanism: unspecified Qualified Code(s): I63.9 - Cerebral infarction, unspecified Assessment/Plan 1. MRI of the brain with no contrast. 2. MRI of the cervical spine with no contrast. 3. Neurontin 100 mg by mouth daily at bedtime. 4. Toxicology screen. Thank you very much for neurological referral. Rolando Gallardo M.D.
[2019-09-27] MEDS ORDERED: diazePAM 5 MG TABLET PO ONE (18:06)
[2019-09-27] MEDS ORDERED: ALBUTEROL SO4 HFA INHALER IH PRN (18:06)
--- NOTE | 2019-09-27 18:08 | HP ---
Admitting History and Physical - Primary Care Physician PCP: Parker Carter - Admission Chief Complaint: left arm heaviness History of Present Illness: History of Present Illness Initial Comments: 54M with hx/o asthma, COPD, smoking, anxiety d/o, disc herniation with radiculopathy presents to the ED with left sided weakness and numbness x2 days. The patient states that 2 days ago he first noticed left hand weakness 2 days ago when he dropped something out of his hand, which continued to worsen. He also had worsening numbness in the left arm and left leg (worse from baseline radiculopathy). He's had difficulty with finding words when speaking. Denies headaches, vision changes, lightheadedness/dizziness, chest pain, SOB, n/v, or abdominal pain. - Past Medical History Pulmonary: Yes: Asthma, Bronchitis, COPD. No: Cancer, O2 Dependent, Pneumonia, Previously Intubated, Pulmonary Embolus, Pulmonary Fibrosis, Sleep Apnea Psych: Yes: Anxiety - Past Surgical History Past Surgical History: Yes: None - Smoking History Smoking history: Never smoked Have you smoked in the past 12 months: No Aproximately how many cigarettes per day: 1 - Alcohol/Substance Use Hx Alcohol Use: No History of Substance Use: reports: Heroin (on methadone) - Social History ADL: Independent History of Recent Travel: No Home Medications - Allergies Allergies/Adverse Reactions: Allergies Allergy/AdvReac Type Severity Reaction Status Date / Time No Known Allergies Allergy Verified 09/27/19 13:13 - Home Medications Home Medications: Ambulatory Orders Methadone [Dolophine -] 95 mg PO DAILY 02/19/18 Quetiapine Fumarate [Seroquel -] 100 mg PO HS 02/19/18 clonazePAM [Klonopin -] 0.5 mg PO TID 02/20/18 Famotidine [Pepcid -] 20 mg PO BID #60 tablet 02/08/19 predniSONE [Deltasone -] See Taper PO DAILY 6 Days #30 tablet 02/08/19 Ibuprofen [Motrin -] 600 mg PO TID #30 tablet 08/24/19 Family Medical History Family Hx Cancer: Mother Family Hx Cardiac Disorders: Father Review of Systems - Review of Systems Constitutional: denies: Chills, Fever Cardiovascular: denies: Chest Pain, Edema Neurological: reports: Change in Speech, Weakness Physical Examination Vital Signs: Vital Signs Temperature 98.2 F 09/27/19 17:00 Pulse Rate 72 09/27/19 17:00 Respiratory Rate 20 09/27/19 17:00 Blood Pressure 113/77 09/27/19 17:00 O2 Sat by Pulse Oximetry (%) 95 09/27/19 17:00 Constitutional: Yes: No Distress, Anxious Cardiovascular: Yes: Regular Rate and Rhythm Respiratory: Yes: CTA Bilaterally Gastrointestinal: Yes: Normal Bowel Sounds, Soft. No: Tenderness Edema: No Neurological: Yes: Alert, Oriented, Weakness. No: Aphasia, Asterixis, Dysarthria, Facial Droop, Tremors, Unsteady Gait Labs: CBC, BMP 09/27/19 14:00 09/27/19 14:00 Imaging - Results Cat Scan: Report Reviewed (ct head negative) EKG: Image Reviewed (nsr) Problem List - Problems (1) CVA (cerebral vascular accident) Code(s): I63.9 - CEREBRAL INFARCTION, UNSPECIFIED Qualifiers: CVA mechanism: unspecified Qualified Code(s): I63.9 - Cerebral infarction, unspecified (2) Cervical radiculopathy Code(s): M54.12 - RADICULOPATHY, CERVICAL REGION (3) Anxiety Code(s): F41.9 - ANXIETY DISORDER, UNSPECIFIED (4) Methadone dependence Code(s): F11.20 - OPIOID DEPENDENCE, UNCOMPLICATED Assessment/Plan plan No overt weakness observed check MRI brain Neurology eval check lipid,cardiac enzymes DVT prophylaxis start ASA and statins PT eval
[2019-09-27] MEDS ORDERED: QUEtiapine FUMARATE 100 MG TABLET (FP) ONE (20:59)
[2019-09-27] MEDS ORDERED: clonazePAM 0.5 MG TABLET ONE (20:59)
[2019-09-27] MEDS: QUEtiapine FUMARATE 100 MG TABLET (FP) PO SCH (21:09)
[2019-09-27] MEDS: clonazePAM 0.5 MG TABLET PO SCH (21:09)
[2019-09-28] MEDS ORDERED: clonazePAM 0.5 MG TABLET ONE (06:26)
[2019-09-28] MEDS: clonazePAM 0.5 MG TABLET PO SCH (06:35)
[2019-09-28 07:33] LABS: BASO % 0.7 % (0-2.0); EOS % 1.2 % (0-4.5); HEMATOCRIT 38.7 % (35.4-49); HEMOGLOBIN 12.9 GM/dL (11.7-16.9); LYMPH % 40.8 % (8-40); MCH 31.4 pg (25.7-33.7); MCHC 33.2 g/dl (32.0-35.9); MEAN CELL VOLUME 94.4 fl (80-96); MONO % 7.8 % (3.8-10.2); NEUT % 49.5 % (42.8-82.8); PLATELET COUNT 224 K/MM3 (134-434); RDW 14.1 % (11.9-15.9); WHITE BLOOD COUNT 4.6 K/mm3 (4.0-10.0)
[2019-09-28 07:52] LABS: ALBUMIN 3.4 g/dl (3.4-5.0); BILIRUBIN,TOTAL 0.3 mg/dL (0.2-1); BLOOD UREA NITROGEN 9.2 mg/dL (7-18); CALCIUM 8.3 mg/dL (8.5-10.1); CREATININE 0.9 mg/dL (0.55-1.3); TOT PROT 6.5 g/dl (6.4-8.2)
[2019-09-28] MEDS ORDERED: METHADONE HCL 40 MG DISPERSABLE TABLET PO SCH (10:00)
[2019-09-28] MEDS ORDERED: METHADONE HCL 40 MG DISPERSABLE TABLET ONE (10:03)
[2019-09-28] MEDS ORDERED: ASPIRIN COATED 81 MG TABLET.EC ONE (10:03)
[2019-09-28] MEDS ORDERED: METHADONE HCL 10 MG TABLET ONE (10:03)
[2019-09-28] MEDS ORDERED: METHADONE HCL 5 MG TABLET ONE (10:04)
[2019-09-28] MEDS: METHADONE PO SCH (10:09)
[2019-09-28] MEDS: ASPIRIN COATED 81 MG TABLET.EC PO SCH (10:09)
[2019-09-28] MEDS ORDERED: clonazePAM 0.5 MG TABLET PO PRN (12:17)
--- NOTE | 2019-09-28 12:48 | PN ---
Progress Note (short form) - Note Progress Note: c/o medial 3 fingers of left hand heaviness and numbness extending upwards to his left shoulder and left chest wall no sob no palpitations no dizziness has left knee pain which was aspirated 1 week ago states his speech is slurred Vital Signs - 24 hr 09/27/19 09/27/19 09/27/19 13:11 15:29 17:00 Temperature 99.2 F 98.2 F Pulse Rate 108 H Pulse Rate [ 72 Left Radial] Respiratory 19 20 Rate Blood Pressure 122/89 Blood Pressure 113/77 [Left Arm] O2 Sat by Pulse 100 97 95 Oximetry (%) 09/28/19 09/28/19 09/28/19 00:48 02:18 07:12 Temperature 97.7 F 97.4 F L Pulse Rate Pulse Rate [ 83 62 Left Radial] Respiratory 20 18 Rate Blood Pressure Blood Pressure 112/82 144/53 L [Left Arm] O2 Sat by Pulse 95 99 96 Oximetry (%) 09/28/19 09/28/19 09/28/19 07:55 10:35 10:44 Temperature 98.4 F Pulse Rate Pulse Rate [ 72 Left Radial] Respiratory 18 16 16 Rate Blood Pressure Blood Pressure 125/85 [Left Arm] O2 Sat by Pulse 96 98 98 Oximetry (%) 09/28/19 11:39 Temperature 98.7 F Pulse Rate 78 Pulse Rate [ Left Radial] Respiratory 18 Rate Blood Pressure 141/83 Blood Pressure [Left Arm] O2 Sat by Pulse 100 Oximetry (%) Current Medications Generic Name Dose Route Start Last Admin Trade Name Freq PRN Reason Stop Dose Admin Albuterol Sulfate 2 puff 09/27/19 18:06 Ventolin Hfa Inhaler - IH Q4H PRN SHORT OF BREATH/WHEEZING Aspirin 81 mg 09/28/19 10:00 09/28/19 10:09 Ecotrin - PO 81 mg DAILY CAN Administration Clonazepam 0.5 mg 09/28/19 12:17 Klonopin - PO TID PRN ANXIETY Methadone HCl 80 mg/ Methadone 95 mg 09/28/19 10:00 09/28/19 10:09 HCl 15 mg PO 95 mg 0600 CAN Administration Quetiapine Fumarate 100 mg 09/27/19 22:00 09/27/19 21:09 Seroquel - PO 100 mg HS CAN Administration Laboratory Results - last 24 hr 09/27/19 09/27/19 09/27/19 14:00 14:00 14:00 WBC 4.2 RBC 4.24 Hgb 13.4 Hct 40.3 MCV 95.2 MCH 31.7 MCHC 33.3 RDW 14.0 Plt Count 225 MPV 6.9 L Absolute Neuts (auto) 2.3 Neutrophils % 55.3 D Lymphocytes % 36.0 D Monocytes % 7.1 D Eosinophils % 0.9 D Basophils % 0.7 Nucleated RBC % 0 PT with INR 11.80 INR 1.00 PTT (Actin FS) 29.4 Sodium Potassium Chloride Carbon Dioxide Anion Gap BUN Creatinine Est GFR (CKD-EPI)AfAm Est GFR (CKD-EPI)NonAf Random Glucose Hemoglobin A1c % Calcium Total Bilirubin AST ALT Alkaline Phosphatase Creatine Kinase Troponin I Total Protein Albumin Triglycerides 77 Cholesterol 185 Total LDL Cholesterol 112 H HDL Cholesterol 57 Vitamin B12 TSH Blood Type Antibody Screen 09/27/19 09/28/19 09/28/19 14:00 06:46 06:46 WBC 4.6 RBC 4.10 Hgb 12.9 Hct 38.7 MCV 94.4 MCH 31.4 MCHC 33.2 RDW 14.1 Plt Count 224 MPV 7.0 L Absolute Neuts (auto) 2.3 Neutrophils % 49.5 Lymphocytes % 40.8 H Monocytes % 7.8 Eosinophils % 1.2 Basophils % 0.7 Nucleated RBC % 0 PT with INR INR PTT (Actin FS) Sodium 142 143 Potassium 3.4 L 4.0 Chloride 110 H 110 H Carbon Dioxide 25 28 Anion Gap 7 L 5 L BUN 9.6 9.2 Creatinine 1.0 0.9 Est GFR (CKD-EPI)AfAm 99.15 112.62 Est GFR (CKD-EPI)NonAf 85.55 97.17 Random Glucose 105 88 Hemoglobin A1c % Calcium 8.4 L 8.3 L Total Bilirubin 0.2 0.3 AST 15 14 L ALT 18 17 Alkaline Phosphatase 62 52 Creatine Kinase 92 Troponin I < 0.02 Total Protein 6.9 6.5 Albumin 3.7 3.4 Triglycerides 107 Cholesterol 168 Total LDL Cholesterol Cancelled HDL Cholesterol 48 Vitamin B12 755 TSH 1.32 D Blood Type Antibody Screen 09/28/19 09/28/19 06:46 09:32 WBC RBC Hgb Hct MCV MCH MCHC RDW Plt Count MPV Absolute Neuts (auto) Neutrophils % Lymphocytes % Monocytes % Eosinophils % Basophils % Nucleated RBC % PT with INR INR PTT (Actin FS) Sodium Potassium Chloride Carbon Dioxide Anion Gap BUN Creatinine Est GFR (CKD-EPI)AfAm Est GFR (CKD-EPI)NonAf Random Glucose Hemoglobin A1c % 6.0 Calcium Total Bilirubin AST ALT Alkaline Phosphatase Creatine Kinase Troponin I Total Protein Albumin Triglycerides Cholesterol Total LDL Cholesterol HDL Cholesterol Vitamin B12 TSH Blood Type O POSITIVE Antibody Screen Negative S1 S2 RRR Anxious Lungs clear Abd- soft, NT strength is equal both sides pt is walking in the room A/P ?TIA ?radiculopathy, cervical anxiety Asthma, copd -- continue with statins and ASA -- add on cardiac markers --physical therapy eval -- mri discussed with pt Problem List - Problems (1) CVA (cerebral vascular accident) Code(s): I63.9 - CEREBRAL INFARCTION, UNSPECIFIED Qualifiers: CVA mechanism: unspecified Qualified Code(s): I63.9 - Cerebral infarction, unspecified (2) Cervical radiculopathy Code(s): M54.12 - RADICULOPATHY, CERVICAL REGION (3) Anxiety Code(s): F41.9 - ANXIETY DISORDER, UNSPECIFIED (4) Asthma Code(s): J45.909 - UNSPECIFIED ASTHMA, UNCOMPLICATED Qualifiers: Asthma severity: moderate Asthma persistence: unspecified Asthma complication type: uncomplicated Qualified Code(s): J45.909 - Unspecified asthma, uncomplicated
--- NOTE | 2019-09-28 12:56 | EKG ---
Test Reason : Blood Pressure : / mmHG Vent. Rate : 073 BPM Atrial Rate : 073 BPM P-R Int : 186 ms QRS Dur : 090 ms QT Int : 376 ms P-R-T Axes : 064 048 040 degrees QTc Int : 414 ms POOR DATA QUALITY, INTERPRETATION MAY BE ADVERSELY AFFECTED NORMAL SINUS RHYTHM WITH SINUS ARRHYTHMIA NORMAL ECG WHEN COMPARED WITH ECG OF 30-JAN-2019 22:50, NO SIGNIFICANT CHANGE WAS FOUND Confirmed by MD ABHINAV, ALIREZA ([id number]) on 09/28/2019 12:55:53 PM Referred By: Confirmed By:ALIREZA LA MD
--- NOTE | 2019-09-28 12:59 | CON.CARD ---
Consult Consult Specialty:: Cardiology Referred by:: Keyanna Somers MD Reason for Consultation:: Arm heaviness r/o stroke - History of Present Illness Chief Complaint: Arm heaviness History of Present Illness: 54-year-old right-handed man with anxiety, copd, chronic LLE sciatica/radiculopathy p/w 2d L arm numbness/heaviness ended up spilling his drink. ? whether his baseline radiculopathy sxs also worsened in his leg, but he was able to ambulate steadily. also notes some word-finding difficulty. endorses slurred speech but this seems more related to recent dental extractions. no cooper. no vision change. Patient had a CAT scan of the head which revealed no evidence of acute RENAL NURSE pathology. Patient denies any prior similar symptoms, chest pain, dyspnea, near or true syncope, palpitations, orthopnea, PND or LE edema. - History Source History Provided By: Patient Limitations to Obtaining History: No Limitations - Past Medical History Pulmonary: Yes: Asthma, Bronchitis, COPD. No: Cancer, O2 Dependent, Pneumonia, Previously Intubated, Pulmonary Embolus, Pulmonary Fibrosis, Sleep Apnea Psych: Yes: Anxiety - Past Surgical History Past Surgical History: Yes: None - Alcohol/Substance Use Hx Alcohol Use: No History of Substance Use: reports: Heroin (on methadone) - Smoking History Smoking history: Never smoked Have you smoked in the past 12 months: No Aproximately how many cigarettes per day: 1 - Social History ADL: Independent History of Recent Travel: No Home Medications - Allergies Allergies/Adverse Reactions: Allergies Allergy/AdvReac Type Severity Reaction Status Date / Time No Known Allergies Allergy Verified 09/27/19 13:13 - Home Medications Home Medications: Ambulatory Orders Methadone [Dolophine -] 95 mg PO DAILY 02/19/18 Quetiapine Fumarate [Seroquel -] 100 mg PO HS 02/19/18 clonazePAM [Klonopin -] 0.5 mg PO TID 02/20/18 Famotidine [Pepcid -] 20 mg PO BID #60 tablet 02/08/19 predniSONE [Deltasone -] See Taper PO DAILY 6 Days #30 tablet 02/08/19 Ibuprofen [Motrin -] 600 mg PO TID #30 tablet 08/24/19 Review of Systems - Review of Systems Neurological: reports: Numbness, Weakness Vital Signs: Vital Signs Temperature 98.7 F 09/28/19 11:39 Pulse Rate 78 09/28/19 11:39 Respiratory Rate 18 09/28/19 11:39 Blood Pressure 141/83 09/28/19 11:39 O2 Sat by Pulse Oximetry (%) 100 09/28/19 11:39 Constitutional: Yes: No Distress, Calm Neck: Yes: Supple Respiratory: Yes: Regular, CTA Bilaterally Gastrointestinal: Yes: Normal Bowel Sounds, Soft Cardiovascular: Yes: Regular Rate and Rhythm JVD: No Carotid Bruit: No Heart Sounds: Yes: S1, S2 Edema: No - Other Data Labs, Other Data: CBC, BMP 09/28/19 06:46 09/28/19 06:46 INR, PTT INR 1.00 (0.83-1.09) 09/27/19 14:00 Troponin, BNP 09/27/19 14:00 Troponin I < 0.02 Troponin, BNP 09/27/19 14:00 Troponin I < 0.02 NSR @ 73 w/o ST changes Tele: NSR Ejection Fraction %: LVEF > or = 40 % Imaging - Results Cat Scan: Report Reviewed (No acute changes) MRI: Report Reviewed Problem List - Problems (1) Cervical radiculopathy Code(s): M54.12 - RADICULOPATHY, CERVICAL REGION (2) Methadone dependence Code(s): F11.20 - OPIOID DEPENDENCE, UNCOMPLICATED Assessment/Plan 09/28/2019 Echo: Normal LV and RV size and fxn, tr MR, no pericardial effusion 09/28/2019 Brain MRI: No stroke 09/28/2019 c-spine MRI: Small left C6-C7 disc herniation 1. Cervical radiculopathy ruled out stroke 2. Asthma, COPD 3. Opiate dependence 4. Anxiety 1. Gabapentin per neuro, PT as tolerated 2. Epidural steroid injections if symptoms persist 3. Thank you for consultative opportunity
--- NOTE | 2019-09-28 15:32 | ECHO ---
Version: 1 Name: YESENIA KAY Exam: Adult Echocardiogram Study Date: 09/28/2019, 2:43 PM Age: 54 Years MMode/2D Measurements & Calculations IVSd: 0.83 cm LVIDs: 3.4 cm LVIDd: 4.6 cm LVPWd: 0.82 cm LAV (MOD-bp): 33.0 ml ACS: 2.10 cm Ao root diam: 2.9 cm LVOT diam: 2.03 cm LA dimension: 2.8 cm Doppler Measurements & Calculations MV E max amando: 69.6 cm/sec Med E/e': 9.6 MV A max amando: 50.3 cm/sec Med Peak E' Amando: 7.2 cm/sec MV E/A: 1.38 Lat E/e': 5.8 Lat Peak E' Amando: 12.1 cm/sec Ao max P.6 mmHg CHRIS(I,D): 2.15 cm Ao mean P.41 mmHg LV V1 mean: 47.6 cm/sec Ao V2 max: 107.2 cm/sec LV V1 mean P.04 mmHg TR max amando: 246.1 cm/sec TR max P.6 mmHg Procedure A two-dimensional transthoracic echocardiogram with color flow and Doppler was performed. The patien t was in normal sinus rhythm during the exam. Left Ventricle The left ventricle is normal in size. Left ventricular systolic function is normal. Ejection Fractio n = 55%. The transmitral spectral Doppler flow pattern is normal for age. Right Ventricle The right ventricle is normal in size and function. Atria Normal left and right atrial size and function. Mitral Valve The mitral valve is normal. There is trace mitral regurgitation. Tricuspid Valve The tricuspid valve is normal. No tricuspid regurgitation. There was insufficient TR detected to darrell culate RV systolic pressure. Aortic Valve The aortic valve is normal in structure and function. No aortic regurgitation is present. Pulmonic Valve The pulmonic valve leaflets are thin and pliable; valve motion is normal. There is no pulmonic valvu lar regurgitation. Great Vessels The aortic root is normal size. Normal aortic arch, descending and ascending aorta. Pericardium/Pleura There is no pericardial effusion. Summary Statements Left ventricular systolic function is normal. The right ventricle is normal in size and function. There is trace mitral regurgitation. There is no pericardial effusion. MD Curry Randall 09/28/2019, 3:31 PM Ordering Physician: eKyanna Somers Referring Physician: KEYANNA SOMERS Performed By: Irma Reyes
[2019-09-28] MEDS ORDERED: ACETAMINOPHEN 325 MG TABLET (FP) PO ONE (21:41)
[2019-09-28] MEDS: HEPARIN NA (PORCINE) 5,000 UNITS/ML 1ML VIAL SQ SCH (21:57)
[2019-09-28] MEDS: QUEtiapine FUMARATE 100 MG TABLET (FP) PO SCH (21:57)
[2019-09-29] MEDS ORDERED: METHADONE HCL 5 MG TABLET ONE (05:44)
[2019-09-29] MEDS ORDERED: METHADONE HCL 40 MG DISPERSABLE TABLET ONE (05:44)
[2019-09-29] MEDS: METHADONE PO SCH (06:02)
[2019-09-29 09:30] LABS: COCAINE, UR NEGATIVE ng/ml (CUTOFF=300); OPIATES, URI NEGATIVE ng/ml (CUTOFF=300); PHENCYCLIDINE,URINE NEGATIVE ng/ml (CUTOFF=25); URINE AMPHETAMINES NEGATIVE ng/ml (CUTOFF=500); URINE BARBITURATES NEGATIVE ng/ml (CUTOFF=200)
[2019-09-29] MEDS: HEPARIN NA (PORCINE) 5,000 UNITS/ML 1ML VIAL SQ SCH (09:39)
[2019-09-29] MEDS: ASPIRIN COATED 81 MG TABLET.EC PO SCH (09:39)
[2019-09-29 09:56] LABS: METHADONE, UR POSITIVE ng/ml (CUTOFF=300); URINE BENZODIAZEPINES POSITIVE ng/ml (CUTOFF=200)
[2019-09-29 10:06] VITALS: BP 128/66; PULSE 66; TEMP 98.2
--- NOTE | 2019-09-29 10:12 | PN ---
Progress Note, Physician History of Present Illness: 54-year-old right-handed man with anxiety, copd, chronic LLE sciatica/radiculopathy p/w 2d L arm numbness/heaviness ended up spilling his drink. ? whether his baseline radiculopathy sxs also worsened in his leg, but he was able to ambulate steadily. also notes some word-finding difficulty. endorses slurred speech but this seems more related to recent dental extractions. no cooper. no vision change. Patient denies any prior similar symptoms, chest pain, dyspnea, near or true syncope, palpitations, orthopnea, PND or LE edema. MRI shows no stroke, + cervical disc herniation. - Current Medication List Current Medications: Active Medications Albuterol Sulfate (Ventolin Hfa Inhaler -) 2 puff IH Q4H PRN PRN Reason: SHORT OF BREATH/WHEEZING Aspirin (Ecotrin -) 81 mg PO DAILY [facility] Last Admin: 09/29/19 09:39 Dose: 81 mg Documented by: Clonazepam (Klonopin -) 0.5 mg PO TID PRN PRN Reason: ANXIETY Heparin Sodium (Porcine) (Heparin -) 5,000 unit SQ BID [facility] Last Admin: 09/29/19 09:39 Dose: 5,000 unit Documented by: Methadone HCl 80 mg/ Methadone (HCl 15 mg) 95 mg PO 0600 [facility] Last Admin: 09/29/19 06:02 Dose: 95 mg Documented by: Quetiapine Fumarate (Seroquel -) 100 mg PO HS [facility] Last Admin: 09/28/19 21:57 Dose: 100 mg Documented by: - Objective Vital Signs: Vital Signs Temperature 98.2 F 09/29/19 09:00 Pulse Rate 66 09/29/19 09:00 Respiratory Rate 20 09/29/19 09:00 Blood Pressure 128/66 09/29/19 09:00 O2 Sat by Pulse Oximetry (%) 97 09/29/19 09:00 Constitutional: Yes: No Distress, Calm Neck: Yes: Supple Cardiovascular: Yes: Regular Rate and Rhythm Respiratory: Yes: Regular, CTA Bilaterally Gastrointestinal: Yes: Normal Bowel Sounds, Soft Edema: No Labs: CBC, BMP 09/28/19 06:46 09/28/19 06:46 INR, PTT INR 1.00 (0.83-1.09) 09/27/19 14:00 - ....Imaging EKG: Report Reviewed (Tele: NSR) Problem List - Problems (1) Cervical radiculopathy Code(s): M54.12 - RADICULOPATHY, CERVICAL REGION (2) Methadone dependence Code(s): F11.20 - OPIOID DEPENDENCE, UNCOMPLICATED Assessment/Plan 09/28/2019 Echo: Normal LV and RV size and fxn, tr MR, no pericardial effusion 09/28/2019 Brain MRI: No stroke 09/28/2019 c-spine MRI: Small left C6-C7 disc herniation 1. Cervical radiculopathy ruled out stroke 2. Asthma, COPD 3. Opiate dependence 4. Anxiety 1. Gabapentin per neuro, PT as tolerated 2. Epidural steroid injections if symptoms persist
--- NOTE | 2019-09-29 12:28 | DS ---
Physical Examination Vital Signs: Vital Signs Temperature 98.2 F 09/29/19 09:00 Pulse Rate 66 09/29/19 09:00 Respiratory Rate 20 09/29/19 09:00 Blood Pressure 128/66 09/29/19 09:00 O2 Sat by Pulse Oximetry (%) 97 09/29/19 09:00 Constitutional: Yes: No Distress, Calm Cardiovascular: Yes: Regular Rate and Rhythm Respiratory: Yes: CTA Bilaterally Gastrointestinal: Yes: Normal Bowel Sounds, Soft. No: Tenderness Edema: No Labs: CBC, BMP 09/28/19 06:46 09/28/19 06:46 Discharge Summary Problems reviewed: Yes Reason For Visit: CVA Current Active Problems CVA (cerebral vascular accident) (Acute) Cervical radiculopathy (Acute) Hospital Course: admitted for weakness of left side of body, along with numbness of left arm and slurred speech Pt has h/o anxiety, asthma, COPD, on methadone program CT head negative EKG- NSR Was admitted in telemetry for r/o CVA Evaluated by Cardiology and Neurology-->MRI brain--> no infarcts MRI C spine--> small left C6-C7 disc herniation Echo - normal EF Telemetry uneventful Does not have slurred speech Final diagnosis: _ TIA -- Cervical radiculopathy PLAN =- start Gabapentin -- needs Occupational therapy for left arm and PT eval as outpt for which he w ill be arranging -- Neurology follow up as outpt for EMG/NCV and possible epidural injections \ stable for dc home Condition: Stable - Instructions Referrals: Rolando Gallardo MD [Staff Physician] - 1 Week Parker Carter MD [Primary Care Provider] - 1 Week - Home Medications Comprehensive Discharge Medication List: Ambulatory Orders Methadone [Dolophine -] 95 mg PO DAILY 02/19/18 Quetiapine Fumarate [Seroquel -] 100 mg PO HS 02/19/18 clonazePAM [Klonopin -] 0.5 mg PO TID 02/20/18 Famotidine [Pepcid -] 20 mg PO BID #60 tablet 02/08/19 Gabapentin 100 mg PO BID #30 capsule 09/29/19
== END 2019-09-29 13:42 | disposition home or self-care (01) | DRG 47 ==
LOC: JER 12:59 → JERBED 16:24 → J4W 09-28 11:44
PROVIDERS: ADMIT Internal Medicine; ATTEND Internal Medicine
DX: G45.9 Transient cerebral ischemic attack, unspecified (principal); J44.9 Chronic obstructive pulmonary disease, unspecified; F41.9 Anxiety disorder, unspecified; M54.32 Sciatica, left side; F11.20 Opioid dependence, uncomplicated; M50.123 Cervical disc disorder at C6-C7 level with radiculopathy; J40 Bronchitis, not specified as acute or chronic
CPT/HCPCS: 36415; 70450-TC; 70551-TC; 72141-TC; 80053; 80061; 80307; 82550; 82607; 83036; 83721; 84443; 84484; 85025; 85610; 85730; 86850; 86900; 86901; 93005; 93010; 93306-TC; 97116-GP; 97161-GP; 99285-25; J1644; U0003

== ENCOUNTER 2020-03-16 13:14 | Emergency (ER) | payer OTHER ==
[2020-03-16 13:33] VITALS: TEMP 98.6; BMI 22.8
[2020-03-16 15:24] LABS: BASO % 1.1 % (0-2.0); EOS % 1.1 % (0-4.5); HEMATOCRIT 41.6 % (35.4-49); HEMOGLOBIN 13.9 GM/dL (11.7-16.9); LYMPH % 48.8 % (8-40); MCH 31.7 pg (25.7-33.7); MCHC 33.4 g/dl (32.0-35.9); MEAN CELL VOLUME 94.9 fl (80-96); MEAN PLT VOLUME 7.8 fl (7.5-11.1); MONO % 8.6 % (3.8-10.2); NEUT % 40.4 % (42.8-82.8); PLATELET COUNT 213 K/MM3 (134-434); RBC 4.38 M/mm3 (4.00-5.60); RDW 14.1 % (11.9-15.9); WHITE BLOOD COUNT 3.7 K/mm3 (4.0-10.0)
[2020-03-16 15:33] LABS: INR 1.15 (0.83-1.09); PROTHROMBIN TIME (PATIENT) 14.1 SEC (9.7-13.0)
[2020-03-16 15:35] LABS: ACTIVATED PTT 32.4 SECONDS (25.2-36.5)
[2020-03-16 15:38] LABS: CHLORIDE 107 mmol/L (98-107); SODIUM 138 mmol/L (136-145)
[2020-03-16 15:42] LABS: CALCIUM 8.6 mg/dL (8.5-10.1); CHOLESTEROL 165 mg/dL (50-200)
[2020-03-16 15:43] LABS: ALBUMIN 3.8 g/dl (3.4-5.0); ANION GAP 2 MMOL/L (8-16); BLOOD UREA NITROGEN 8.1 mg/dL (7-18); CO2 29 mmol/L (21-32); GLUCOSE,RANDOM 70 mg/dL (74-106); TRIGLYCERIDES 55 mg/dL (0-150)
[2020-03-16 15:44] LABS: LDL CHOLESTEROL (ONLY SJRH) 97 mg/dL (5-100)
[2020-03-16 15:45] LABS: HDL CHOLESTEROL 53 mg/dL (40-60)
[2020-03-16 15:46] LABS: CREATININE 0.9 mg/dL (0.55-1.3); SGOT/AST 19 U/L (15-37); SGPT/ALT 15 U/L (13-61)
[2020-03-16 15:47] LABS: TOT PROT 7.1 g/dl (6.4-8.2)
[2020-03-16 15:49] LABS: ALK PHOS 59 U/L (45-117)
[2020-03-16 16:09] LABS: BILIRUBIN,TOTAL 0.5 mg/dL (0.2-1)
[2020-03-16 19:25] LABS: PH,URINE 7.5 (5.0-8.0); URINE APPEARANCE CLOUDY; URINE BILIRUBIN NEGATIVE (NEGATIVE); URINE COLOR YELLOW; URINE GLUCOSE (UA) NEGATIVE (NEGATIVE); URINE KETONE NEGATIVE (NEGATIVE); URINE LEUK ESTERASE NEGATIVE (NEGATIVE); URINE NITRITE NEGATIVE (NEGATIVE); URINE PROTEIN NEGATIVE (NEGATIVE)
[2020-03-16 19:34] VITALS: BP 130/84; PULSE 89
[2020-03-16 20:14] LABS: COCAINE, UR NEGATIVE ng/ml (CUTOFF=300); URINE BARBITURATES NEGATIVE ng/ml (CUTOFF=200)
[2020-03-16 20:15] LABS: PHENCYCLIDINE,URINE NEGATIVE ng/ml (CUTOFF=25)
[2020-03-16 20:17] LABS: URINE AMPHETAMINES NEGATIVE ng/ml (CUTOFF=500)
[2020-03-16 20:29] LABS: URINE BENZODIAZEPINES POSITIVE ng/ml (CUTOFF=200)
[2020-03-16 20:30] LABS: METHADONE, UR POSITIVE ng/ml (CUTOFF=300); OPIATES, URI POSITIVE ng/ml (CUTOFF=300)
== END 2020-03-16 19:34 | disposition home or self-care (01) ==
LOC: JER 13:14
DX: R53.1 Weakness (principal); R20.2 Paresthesia of skin; M54.12 Radiculopathy, cervical region; R47.89 Other speech disturbances
CPT/HCPCS: 36415; 70450-TC; 71046-TC-FY; 72125-TC; 80053; 80061; 80307; 81003; 82550; 82553; 82962; 83721; 84484; 85025; 85610; 85730; 86850; 86900; 86901; 93005; 93010; 99285-25

== ENCOUNTER 2020-04-05 18:08 | Inpatient (IN) | payer OTHER ==
[2020-04-05] MEDS ORDERED: DEXAMETHASONE SOD PHOSPHATE 10 MG/1 ML VIAL IVPUSH ONE (18:54)
[2020-04-05] MEDS ORDERED: DEXAMETHASONE SOD PHOSPHATE 10 MG/1 ML VIAL ONE (19:21)
[2020-04-05 19:42] LABS: BASO % 0.9 % (0-2.0); EOS % 2.2 % (0-4.5); HEMATOCRIT 37.9 % (35.4-49); HEMOGLOBIN 12.7 GM/dL (11.7-16.9); MCH 31.7 pg (25.7-33.7); MCHC 33.6 g/dl (32.0-35.9); MEAN CELL VOLUME 94.6 fl (80-96); MEAN PLT VOLUME 7.3 fl (7.5-11.1); MONO % 8.2 % (3.8-10.2); NEUT % 37.7 % (42.8-82.8); PLATELET COUNT 246 K/MM3 (134-434); RDW 13.3 % (11.9-15.9); WHITE BLOOD COUNT 4.5 K/mm3 (4.0-10.0)
[2020-04-05 19:48] LABS: INR 1.08 (0.83-1.09); PROTHROMBIN TIME (PATIENT) 13.2 SEC (9.7-13.0)
[2020-04-05 19:51] LABS: ACTIVATED PTT 31.8 SECONDS (25.2-36.5)
[2020-04-05 20:03] LABS: POTASSIUM 4.2 mmol/L (3.5-5.1)
[2020-04-05 20:09] LABS: CALCIUM 8.3 mg/dL (8.5-10.1)
[2020-04-05 20:10] LABS: ALBUMIN 3.6 g/dl (3.4-5.0); BLOOD UREA NITROGEN 12.8 mg/dL (7-18)
[2020-04-05 20:15] LABS: BILIRUBIN,TOTAL 0.6 mg/dL (0.2-1); TOT PROT 6.6 g/dl (6.4-8.2)
[2020-04-05] MEDS ORDERED: FAMOTIDINE 20 MG TABLET ONE (23:20)
[2020-04-05] MEDS ORDERED: GABAPENTIN 100 MG CAPSULE ONE (23:20)
[2020-04-05] MEDS ORDERED: QUEtiapine FUMARATE 100 MG TABLET (FP) ONE (23:20)
[2020-04-05] MEDS ORDERED: clonazePAM 0.5 MG TABLET ONE (23:20)
[2020-04-05] MEDS: clonazePAM 0.5 MG TABLET PO SCH (23:29)
[2020-04-05] MEDS: QUEtiapine FUMARATE 100 MG TABLET (FP) PO SCH (23:30)
[2020-04-05] MEDS: GABAPENTIN 100 MG CAPSULE PO SCH (23:30)
[2020-04-05] MEDS: FAMOTIDINE 20 MG TABLET PO SCH (23:30)
[2020-04-06 04:05] VITALS: BMI 23.1
[2020-04-06] MEDS: clonazePAM 0.5 MG TABLET PO SCH ×3 (05:45→21:15)
[2020-04-06 10:08] LABS: HEMATOCRIT 45.4 % (35.4-49); HEMOGLOBIN 15.3 GM/dL (11.7-16.9); MCH 31.9 pg (25.7-33.7); MCHC 33.7 g/dl (32.0-35.9); MEAN CELL VOLUME 94.7 fl (80-96); PLATELET COUNT 282 K/MM3 (134-434); RDW 13.3 % (11.9-15.9); WHITE BLOOD COUNT 5.9 K/mm3 (4.0-10.0)
[2020-04-06 10:31] LABS: POTASSIUM 4.7 mmol/L (3.5-5.1)
[2020-04-06] MEDS ORDERED: BUPIVACAINE HCL 50 ML ONE (10:33)
[2020-04-06] MEDS ORDERED: GENTAMICIN SO4 80 MG/2 ML VIAL ONE (10:34)
[2020-04-06] MEDS ORDERED: LIDOCAINE 1%/EPI 1:100000 (50 ML MULTI DOSE VIAL) ONE (10:34)
[2020-04-06] MEDS ORDERED: BACITRACIN 15 GM TUBE TOPICAL OINTMENT ONE (10:35)
[2020-04-06] MEDS ORDERED: THROMBIN (BOVINE) 20,000 UNIT VIAL TP ONE (10:35)
[2020-04-06] MEDS: GABAPENTIN 100 MG CAPSULE PO SCH ×2 (10:50→21:15)
[2020-04-06] MEDS: FAMOTIDINE 20 MG TABLET PO SCH ×2 (10:51→21:16)
[2020-04-06 10:52] LABS: BLOOD UREA NITROGEN 11.7 mg/dL (7-18); CALCIUM 9.1 mg/dL (8.5-10.1)
[2020-04-06 10:53] LABS: ALBUMIN 4.2 g/dl (3.4-5.0); MAGNESIUM 2.4 mg/dL (1.8-2.4)
[2020-04-06 10:55] LABS: CREATININE 0.9 mg/dL (0.55-1.3)
[2020-04-06 10:56] LABS: TOT PROT 7.9 g/dl (6.4-8.2)
[2020-04-06 10:59] LABS: BILIRUBIN,TOTAL 1.4 mg/dL (0.2-1)
[2020-04-06] MEDS ORDERED: BUPIVACAINE LIPOSOME/PF (EXPAREL) 266 MG/20 ML VIAL ONE (11:39)
[2020-04-06] MEDS ORDERED: fentaNYL CITRATE 250 MCG/5 ML VIAL ONE (11:51)
[2020-04-06] MEDS ORDERED: MIDAZOLAM HCL 2 MG/2 ML SINGLE DOSE VIAL ONE (11:51)
[2020-04-06] MEDS ORDERED: PROPOFOL 20 ML ONE (11:51)
[2020-04-06] MEDS ORDERED: SUCCINYLCHOLINE CHLORIDE 200 MG/10 ML SYRINGE ONE (11:52)
[2020-04-06] MEDS ORDERED: ROCURONIUM BROMIDE 50 MG/5 ML SYRINGE ONE ×2 (11:52→13:44)
[2020-04-06] MEDS ORDERED: LIDOCAINE HCL/PF 2% SDV 5ML VIAL ONE (11:57)
[2020-04-06] MEDS ORDERED: ceFAZolin SODIUM 1 GM VIAL ONE ×2 (12:37→19:46)
[2020-04-06] MEDS ORDERED: VANCOMYCIN 1,000 MG VIAL (RESTRICTED TO ID ONLY) ONE (12:37)
[2020-04-06] MEDS ORDERED: TRANEXAMIC ACID 1000 MG/10 ML VIAL ONE (12:37)
[2020-04-06] MEDS ORDERED: LIDOCAINE 1%/EPI 1:100000 (20 ML MULTI DOSE VIAL) IJ ONE (12:38)
[2020-04-06] MEDS ORDERED: ceFAZolin SODIUM 1 GM VIAL IVPB ONE (12:38)
[2020-04-06] MEDS ORDERED: VANCOMYCIN 1,000 MG VIAL (RESTRICTED TO ID ONLY) IVPB ONE (12:38)
[2020-04-06] MEDS ORDERED: HYDROGEN PEROXIDE 473 ML PO ONE (12:58)
[2020-04-06] MEDS ORDERED: BACITRACIN 50,000 UNITS VIAL TP ONE (12:58)
[2020-04-06] MEDS ORDERED: THROMBIN (BOVINE) 5,000 UNIT VIAL TP ONE (12:58)
[2020-04-06] MEDS ORDERED: GENTAMICIN SO4 80 MG/2 ML VIAL IVPB ONE (12:58)
[2020-04-06] MEDS ORDERED: DEXAMETHASONE SOD PHOSPHATE 4 MG/1 ML VIAL ONE (13:30)
[2020-04-06] MEDS ORDERED: ONDANSETRON 4 MG/2 ML VIAL ONE (13:30)
[2020-04-06] MEDS ORDERED: NEOSTIGMINE METHYLSULFATE 0.5 MG/1 ML - 10 ML MDV ONE (14:15)
[2020-04-06] MEDS ORDERED: BUPIVACAINE HCL/PF 0.5% (5MG/ML) 10 ML VIAL IJ ONE (14:19)
[2020-04-06] MEDS ORDERED: BUPIVACAINE LIPOSOME/PF (EXPAREL) 266 MG/20 ML VIAL NR ONE (14:19)
[2020-04-06] MEDS ORDERED: diphenhydrAMINE HCL 25 MG CAPSULE (FP) PO PRN (15:01)
[2020-04-06] MEDS ORDERED: LACTATED RINGERS SOLUTION 1,000 ML/1,000 ML INFUS.BAG IV SCH (15:15)
[2020-04-06] MEDS ORDERED: ONDANSETRON 4 MG/2 ML VIAL IVPUSH PRN (15:24)
[2020-04-06] MEDS ORDERED: ACETAMINOPHEN INJECTION 100 ML IVPB ONE (15:29)
[2020-04-06] MEDS ORDERED: LACTATED RINGERS SOLUTION 1,000 ML IV SCH (15:30)
[2020-04-06] MEDS: ACETAMINOPHEN 1000 MG/100 ML VIAL (NON FORMULARY) IVPB ONE ×2 (15:30→18:08)
[2020-04-06] MEDS ORDERED: HYDROmorphone HCl 2 MG/ML VIAL ONE (16:08)
[2020-04-06] MEDS ORDERED: HYDROmorphone HCl 2 MG/ML VIAL IVPUSH PRN (16:23)
[2020-04-06] MEDS ORDERED: METHADONE HCL 40 MG DISPERSABLE TABLET ONE (18:14)
[2020-04-06] MEDS ORDERED: METHADONE HCL 10 MG TABLET ONE (18:14)
[2020-04-06] MEDS ORDERED: METHADONE HCL 5 MG TABLET ONE (18:14)
[2020-04-06] MEDS: METHADONE PO SCH (18:22)
[2020-04-06] MEDS ORDERED: DEXTROSE 5%-WATER - 50 ML IVPB ONE (19:47)
[2020-04-06] MEDS: CEFAZOLIN 1 GM in DEXTROSE 5%-WATER - 1 GM/50 ML IVPB IVPB SCH (20:16)
[2020-04-06] MEDS: DOCUSATE SODIUM 100 MG CAPSULE (FP) PO SCH (21:15)
[2020-04-06] MEDS: QUEtiapine FUMARATE 100 MG TABLET (FP) PO SCH (21:15)
[2020-04-06] MEDS: oxyCODONE HCL 5 MG TABLET PO PRN (21:16)
[2020-04-07] MEDS ORDERED: DEXTROSE 5%-WATER - 50 ML IVPB ONE ×2 (03:29→14:29)
[2020-04-07] MEDS ORDERED: ceFAZolin SODIUM 1 GM VIAL ONE ×2 (03:29→14:29)
[2020-04-07] MEDS: CEFAZOLIN 1 GM in DEXTROSE 5%-WATER - 1 GM/50 ML IVPB IVPB SCH ×2 (04:19→14:36)
[2020-04-07] MEDS ORDERED: METHADONE HCL 5 MG TABLET ONE (04:28)
[2020-04-07] MEDS ORDERED: METHADONE HCL 40 MG DISPERSABLE TABLET ONE (04:28)
[2020-04-07] MEDS ORDERED: METHADONE HCL 10 MG TABLET ONE (04:28)
[2020-04-07] MEDS: METHADONE PO SCH (05:24)
[2020-04-07] MEDS: DOCUSATE SODIUM 100 MG CAPSULE (FP) PO SCH ×3 (05:26→21:50)
[2020-04-07] MEDS: clonazePAM 0.5 MG TABLET PO SCH ×3 (05:26→21:50)
[2020-04-07] MEDS: oxyCODONE HCL 5 MG TABLET PO PRN ×3 (06:48→21:51)
[2020-04-07 08:18] LABS: HEMATOCRIT 39.8 % (35.4-49); HEMOGLOBIN 13.3 GM/dL (11.7-16.9); MCH 31.9 pg (25.7-33.7); MCHC 33.5 g/dl (32.0-35.9); MEAN CELL VOLUME 95.3 fl (80-96); MEAN PLT VOLUME 7.7 fl (7.5-11.1); PLATELET COUNT 224 K/MM3 (134-434); RBC 4.18 M/mm3 (4.00-5.60); RDW 13.5 % (11.9-15.9); WHITE BLOOD COUNT 10.4 K/mm3 (4.0-10.0)
[2020-04-07 08:54] LABS: POTASSIUM 4.1 mmol/L (3.5-5.1)
[2020-04-07] MEDS ORDERED: METHADONE HCL 10 MG TABLET PO SCH (09:00)
[2020-04-07 09:07] LABS: CALCIUM 8.4 mg/dL (8.5-10.1)
[2020-04-07 09:08] LABS: BLOOD UREA NITROGEN 11.6 mg/dL (7-18)
[2020-04-07] MEDS: FAMOTIDINE 20 MG TABLET PO SCH ×2 (10:18→21:51)
[2020-04-07] MEDS: GABAPENTIN 100 MG CAPSULE PO SCH ×2 (10:18→21:50)
[2020-04-07] MEDS: ACETAMINOPHEN 1000 MG/100 ML VIAL (NON FORMULARY) IVPB PRN ×2 (12:14→19:07)
[2020-04-07] MEDS: diazePAM 5 MG TABLET PO PRN (19:08)
[2020-04-07] MEDS: QUEtiapine FUMARATE 100 MG TABLET (FP) PO SCH (21:50)
[2020-04-08] MEDS: diazePAM 5 MG TABLET PO PRN ×3 (01:49→20:25)
[2020-04-08] MEDS: oxyCODONE HCL 5 MG TABLET PO PRN ×4 (02:57→20:25)
[2020-04-08] MEDS ORDERED: METHADONE HCL 10 MG TABLET ONE ×2 (04:37→04:42)
[2020-04-08] MEDS ORDERED: METHADONE HCL 40 MG DISPERSABLE TABLET ONE (04:42)
[2020-04-08] MEDS ORDERED: METHADONE HCL 5 MG TABLET ONE (04:42)
[2020-04-08] MEDS: ACETAMINOPHEN 1000 MG/100 ML VIAL (NON FORMULARY) IVPB PRN ×2 (04:48→11:32)
[2020-04-08] MEDS: METHADONE PO SCH (05:01)
[2020-04-08] MEDS: DOCUSATE SODIUM 100 MG CAPSULE (FP) PO SCH ×3 (05:11→21:07)
[2020-04-08] MEDS: clonazePAM 0.5 MG TABLET PO SCH ×3 (05:11→21:07)
[2020-04-08] MEDS: GABAPENTIN 100 MG CAPSULE PO SCH ×2 (10:15→21:07)
[2020-04-08] MEDS: FAMOTIDINE 20 MG TABLET PO SCH ×2 (10:15→21:08)
[2020-04-08] MEDS ORDERED: VANCOMYCIN 1 GM in D5W (PRE-DOCKED) 1,000 MG/250 ML IVPB ONE (13:00)
[2020-04-08] MEDS: QUEtiapine FUMARATE 100 MG TABLET (FP) PO SCH (21:08)
[2020-04-09] MEDS: oxyCODONE HCL 5 MG TABLET PO PRN ×4 (00:13→18:37)
[2020-04-09] MEDS ORDERED: METHADONE HCL 10 MG TABLET ONE (04:26)
[2020-04-09] MEDS ORDERED: METHADONE HCL 5 MG TABLET ONE (04:26)
[2020-04-09] MEDS ORDERED: METHADONE HCL 40 MG DISPERSABLE TABLET ONE (04:27)
[2020-04-09] MEDS: diazePAM 5 MG TABLET PO PRN (04:48)
[2020-04-09] MEDS: DOCUSATE SODIUM 100 MG CAPSULE (FP) PO SCH ×3 (06:17→21:24)
[2020-04-09] MEDS: METHADONE PO SCH (06:17)
[2020-04-09] MEDS: clonazePAM 0.5 MG TABLET PO SCH ×3 (06:18→21:24)
[2020-04-09 08:54] LABS: BASO % 0.5 % (0-2.0); EOS % 0.6 % (0-4.5); HEMATOCRIT 42.9 % (35.4-49); HEMOGLOBIN 14.6 GM/dL (11.7-16.9); LYMPH % 31.8 % (8-40); MEAN CELL VOLUME 94.3 fl (80-96); MEAN PLT VOLUME 7.8 fl (7.5-11.1); MONO % 7.7 % (3.8-10.2); NEUT % 59.4 % (42.8-82.8); PLATELET COUNT 225 K/MM3 (134-434); RBC 4.55 M/mm3 (4.00-5.60); RDW 13.1 % (11.9-15.9); WHITE BLOOD COUNT 7.5 K/mm3 (4.0-10.0)
[2020-04-09 09:15] LABS: POTASSIUM 3.6 mmol/L (3.5-5.1)
[2020-04-09 09:20] LABS: ALBUMIN 3.3 g/dl (3.4-5.0); BLOOD UREA NITROGEN 9.9 mg/dL (7-18); CALCIUM 8.7 mg/dL (8.5-10.1)
[2020-04-09 09:23] LABS: CREATININE 0.9 mg/dL (0.55-1.3)
[2020-04-09 09:25] LABS: BILIRUBIN,TOTAL 0.4 mg/dL (0.2-1); TOT PROT 6.7 g/dl (6.4-8.2)
[2020-04-09] MEDS ORDERED: PT OWN MED DRAWER 7, Y5N ONE (11:02)
[2020-04-09] MEDS: GABAPENTIN 100 MG CAPSULE PO SCH ×2 (11:17→21:24)
[2020-04-09] MEDS: FAMOTIDINE 20 MG TABLET PO SCH ×2 (11:18→21:24)
[2020-04-09] MEDS: QUEtiapine FUMARATE 100 MG TABLET (FP) PO SCH (21:24)
[2020-04-10] MEDS: oxyCODONE HCL 5 MG TABLET PO PRN (03:48)
[2020-04-10] MEDS ORDERED: METHADONE HCL 10 MG TABLET ONE (05:46)
[2020-04-10] MEDS ORDERED: METHADONE HCL 40 MG DISPERSABLE TABLET ONE (05:47)
[2020-04-10] MEDS ORDERED: METHADONE HCL 5 MG TABLET ONE (05:47)
[2020-04-10] MEDS: DOCUSATE SODIUM 100 MG CAPSULE (FP) PO SCH ×3 (05:55→22:14)
[2020-04-10] MEDS: clonazePAM 0.5 MG TABLET PO SCH ×3 (05:55→22:14)
[2020-04-10] MEDS: METHADONE PO SCH (05:57)
[2020-04-10] MEDS: FAMOTIDINE 20 MG TABLET PO SCH ×2 (09:40→22:13)
[2020-04-10] MEDS: GABAPENTIN 100 MG CAPSULE PO SCH (09:40)
[2020-04-10] MEDS: ACETAMINOPHEN 500 MG TABLET (FP) PO SCH ×3 (11:28→22:51)
[2020-04-10] MEDS: POLYETHYLENE GLYCOL 3350 119 GM BTL PO SCH (11:28)
[2020-04-10] MEDS: QUEtiapine FUMARATE 100 MG TABLET (FP) PO SCH (22:14)
[2020-04-10] MEDS: GABAPENTIN 300 MG CAPSULE PO SCH (22:14)
[2020-04-11] MEDS ORDERED: METHADONE HCL 40 MG DISPERSABLE TABLET ONE (06:03)
[2020-04-11] MEDS ORDERED: METHADONE HCL 5 MG TABLET ONE (06:03)
[2020-04-11] MEDS ORDERED: METHADONE HCL 10 MG TABLET ONE (06:03)
[2020-04-11] MEDS: clonazePAM 0.5 MG TABLET PO SCH ×3 (06:09→21:10)
[2020-04-11] MEDS: ACETAMINOPHEN 500 MG TABLET (FP) PO SCH ×4 (06:09→23:52)
[2020-04-11] MEDS: DOCUSATE SODIUM 100 MG CAPSULE (FP) PO SCH ×3 (06:09→21:09)
[2020-04-11] MEDS: METHADONE PO SCH (06:15)
[2020-04-11] MEDS ORDERED: PT OWN MED DRAWER 7, Y5N ONE (09:06)
[2020-04-11] MEDS: POLYETHYLENE GLYCOL 3350 119 GM BTL PO SCH (09:09)
[2020-04-11] MEDS: FAMOTIDINE 20 MG TABLET PO SCH ×2 (09:09→21:10)
[2020-04-11] MEDS: GABAPENTIN 300 MG CAPSULE PO SCH ×2 (09:09→21:10)
[2020-04-11] MEDS: QUEtiapine FUMARATE 100 MG TABLET (FP) PO SCH (21:10)
[2020-04-11] MEDS: oxyCODONE HCL 5 MG TABLET PO PRN (22:19)
[2020-04-12] MEDS: ACETAMINOPHEN 500 MG TABLET (FP) PO SCH ×3 (03:58→16:09)
[2020-04-12] MEDS ORDERED: METHADONE HCL 10 MG TABLET ONE ×2 (05:40→05:52)
[2020-04-12] MEDS ORDERED: METHADONE HCL 5 MG TABLET ONE (05:52)
[2020-04-12] MEDS ORDERED: METHADONE HCL 40 MG DISPERSABLE TABLET ONE (05:53)
[2020-04-12] MEDS: DOCUSATE SODIUM 100 MG CAPSULE (FP) PO SCH ×2 (05:55→13:56)
[2020-04-12] MEDS: METHADONE PO SCH (05:55)
[2020-04-12] MEDS: clonazePAM 0.5 MG TABLET PO SCH ×2 (05:55→13:56)
[2020-04-12] MEDS ORDERED: TAMSULOSIN HCL 0.4 MG CAP PO SCH (08:30)
[2020-04-12] MEDS: GABAPENTIN 300 MG CAPSULE PO SCH (09:29)
[2020-04-12] MEDS: FAMOTIDINE 20 MG TABLET PO SCH (09:29)
[2020-04-12] MEDS: oxyCODONE HCL 5 MG TABLET PO PRN (09:29)
[2020-04-12] MEDS: POLYETHYLENE GLYCOL 3350 119 GM BTL PO SCH (09:38)
[2020-04-12 15:06] VITALS: BP 122/81; PULSE 91; TEMP 98.3
== END 2020-04-12 20:45 | DRG 321 ==
LOC: JER 18:08 → JERBED 20:31 → J5S 04-06 03:11 → J8W 04-06 18:11
PROVIDERS: ADMIT Internal Medicine; ATTEND Internal Medicine
PROC: 00NW0ZZ Release Cervical Spinal Cord, Open Approach (ICD-10-PCS; 2020-04-06)
PROC: 0PS304Z Reposition Cervical Vertebra with Internal Fixation Device, Open Approach (ICD-10-PCS; 2020-04-06)
PROC: 0JX70ZB Transfer Back Subcutaneous Tissue and Fascia with Skin and Subcutaneous Tissue, Open Approach (ICD-10-PCS; 2020-04-06)
PROC: B01BZZZ Fluoroscopy of Spinal Cord (ICD-10-PCS; 2020-04-06)
PROC: 4A1004G Monitoring of Central Nervous Electrical Activity, Intraoperative, Open Approach (ICD-10-PCS; 2020-04-06)
PROC: 2W32XYZ Immobilization of Neck using Other Device (ICD-10-PCS; 2020-04-06)
PROC: 0RG2071 Fusion of 2 or more Cervical Vertebral Joints with Autologous Tissue Substitute, Posterior Approach, Posterior Column, Open Approach (ICD-10-PCS; principal; 2020-04-06 11:00)
DX: M47.12 Other spondylosis with myelopathy, cervical region (principal); M40.292 Other kyphosis, cervical region; R20.0 Anesthesia of skin; F11.20 Opioid dependence, uncomplicated; R29.898 Other symptoms and signs involving the musculoskeletal system; F41.9 Anxiety disorder, unspecified; J45.909 Unspecified asthma, uncomplicated; K21.9 Gastro-esophageal reflux disease without esophagitis; F41.0 Panic disorder [episodic paroxysmal anxiety]; M54.12 Radiculopathy, cervical region; M40.40 Postural lordosis, site unspecified; M50.20 Other cervical disc displacement, unspecified cervical region; M62.81 Muscle weakness (generalized); R26.81 Unsteadiness on feet
CPT/HCPCS: 36415; 70450-TC; 71045-TC-FY; 72125-TC; 80048; 80053; 83735; 85025; 85027; 85610; 85730; 86850; 86900; 86901; 87040; 93005; 93010; 94760; 97116-GP; 97163-GP; 99285-25; C9803; J0131; J1100; U0003

== ENCOUNTER 2020-08-16 15:57 | Emergency (ER) | payer OTHER ==
[2020-08-16 16:08] VITALS: BP 108/73; PULSE 76; TEMP 98.7; BMI 228.3
[2020-08-16] MEDS ORDERED: KETOROLAC TROMETHAMINE 30 MG/1 ML VIAL IM ONE (16:21)
[2020-08-16] MEDS ORDERED: KETOROLAC TROMETHAMINE 30 MG/1 ML VIAL ONE (16:22)
== END 2020-08-16 17:57 | disposition home or self-care (01) ==
LOC: JERFT 15:57 → JER 15:57 → JERFT 17:57
PROC: 3E0233Z Introduction of Anti-inflammatory into Muscle, Percutaneous Approach (ICD-10-PCS; principal; 2020-08-16)
DX: M25.511 Pain in right shoulder (principal)
CPT/HCPCS: 72050-TC-FY; 96372; 99284-25

== ENCOUNTER 2020-09-07 06:08 | Day surgery (SDC) | payer OTHER ==
[2020-09-04 12:48] VITALS: BMI 22.8
[2020-09-07] MEDS ORDERED: BUPIVACAINE HCL/PF 0.25% (2.5MG/ML) 10 ML VIAL ONE (07:12)
[2020-09-07] MEDS ORDERED: EPINEPHrine 1:1,000 1 MG/1 ML - 30ML VIAL (INJECTION) ONE (07:13)
[2020-09-07] MEDS ORDERED: ceFAZolin SODIUM 1 GM VIAL ONE (07:26)
[2020-09-07] MEDS ORDERED: SUCCINYLCHOLINE CHLORIDE 200 MG/10 ML SYRINGE ONE (07:26)
[2020-09-07] MEDS ORDERED: DEXAMETHASONE SOD PHOSPHATE 4 MG/1 ML VIAL ONE (07:26)
[2020-09-07] MEDS ORDERED: ONDANSETRON 4 MG/2 ML VIAL ONE (07:26)
[2020-09-07] MEDS ORDERED: LIDOCAINE HCL/PF 2% SDV 5ML VIAL ONE (07:26)
[2020-09-07] MEDS ORDERED: PROPOFOL 20 ML ONE ×3 (07:26)
[2020-09-07] MEDS ORDERED: MIDAZOLAM HCL 2 MG/2 ML SINGLE DOSE VIAL ONE (07:27)
[2020-09-07] MEDS ORDERED: LIDOCAINE HCL 2% JELLY (5 ML/TUBE) ONE (07:28)
[2020-09-07] MEDS ORDERED: KETAMINE HCL 200 MG/20 ML VIAL ONE (07:50)
[2020-09-07] MEDS ORDERED: BUPIVACAINE HCL/PF 2.5 MG/ML - 30 ML VIAL IJ ONE (08:15)
[2020-09-07] MEDS ORDERED: PROMETHAZINE HCL 25 MG/1 ML VIAL IVPB PRN (08:28)
[2020-09-07] MEDS ORDERED: oxyCODONE HCL 5 MG TABLET PO PRN ×2 (08:28)
[2020-09-07] MEDS ORDERED: ONDANSETRON 4 MG/2 ML VIAL IVPUSH PRN (08:28)
[2020-09-07 09:44] VITALS: PULSE 61; TEMP 97.8
[2020-09-07] MEDS ORDERED: ACETAMINOPHEN 500 MG TABLET (FP) ONE (10:22)
[2020-09-07 10:53] VITALS: BP 131/77
[2020-09-07] MEDS ORDERED: ACETAMINOPHEN 325 MG TABLET (FP) PO ONE (12:08)
== END 2020-09-07 10:35 | disposition home or self-care (01) ==
LOC: FASU 06:08
PROVIDERS: ATTEND Orthopaedic Surgery Sports Medicine
PROC: 0SBD4ZZ Excision of Left Knee Joint, Percutaneous Endoscopic Approach (ICD-10-PCS; principal; 2020-09-07 07:55)
PROC: 0SBD4ZZ Excision of Left Knee Joint, Percutaneous Endoscopic Approach (ICD-10-PCS; 2020-09-07 07:55)
DX: S83.242A Other tear of medial meniscus, current injury, left knee, initial encounter (principal); M94.262 Chondromalacia, left knee; M65.9 Synovitis and tenosynovitis, unspecified; X58.XXXA Exposure to other specified factors, initial encounter; Y93.9 Activity, unspecified; Y92.9 Unspecified place or not applicable
CPT/HCPCS: 29881; G0289; 88304-TC; 94760

== ENCOUNTER 2021-01-29 13:38 | Emergency (ER) | payer OTHER ==
[2021-01-29 13:59] VITALS: TEMP 97.8; BMI 25.0
[2021-01-29] MEDS ORDERED: ALBUTEROL SO4 2.5/IPRATROPIUM 0.5 INH SOL 3 ML VIAL.NEB. NEB ONE ×2 (14:28→14:43)
[2021-01-29] MEDS ORDERED: methylPREDNISolone NA SUCC 125 MG/2 ML VIAL IVPUSH ONE (16:05)
[2021-01-29] MEDS ORDERED: predniSONE 20 MG TABLET (UD) PO ONE (16:23)
[2021-01-29] MEDS ORDERED: predniSONE 20 MG TABLET (UD) ONE (16:49)
[2021-01-29] MEDS ORDERED: ALBUTEROL SO4 HFA INHALER IH PRN (17:10)
[2021-01-29] MEDS ORDERED: ALBUTEROL SO4 HFA INHALER IH ONE (17:12)
[2021-01-29 17:30] VITALS: BP 124/79; PULSE 86
== END 2021-01-29 17:40 | disposition home or self-care (01) ==
LOC: JER 13:38
PROC: 3E0F7GC Introduction of Other Therapeutic Substance into Respiratory Tract, Via Natural or Artificial Opening (ICD-10-PCS; principal; 2021-01-29)
PROC: 3E033NZ Introduction of Analgesics, Hypnotics, Sedatives into Peripheral Vein, Percutaneous Approach (ICD-10-PCS; 2021-01-29)
DX: J45.20 Mild intermittent asthma, uncomplicated (principal)
CPT/HCPCS: 71046-TC-FY; 93005; 93010; 94640; 96374; 99284-25

== ENCOUNTER 2021-04-14 08:48 | Inpatient (IN) | payer OTHER ==
[2021-04-14] MEDS ORDERED: SODIUM CHLORIDE IV ONE (09:24)
[2021-04-14] MEDS ORDERED: AZITHROMYCIN IVPB 500 MG in DEXTROSE 5%-WATER - 250 ML IVPB ONE (09:25)
[2021-04-14] MEDS ORDERED: DEXAMETHASONE SOD PHOSPHATE 10 MG/1 ML VIAL IVPUSH ONE (09:25)
[2021-04-14] MEDS ORDERED: CEFTRIAXONE 1,000 MG in DEXTROSE 5%-WATER - 50 ML IVPB ONE (09:27)
[2021-04-14] MEDS ORDERED: ACETAMINOPHEN 1000 MG/100 ML BAG IVPB ONE (09:29)
[2021-04-14] MEDS ORDERED: SODIUM CHLORIDE 0.9% 500 ML INFUS.BAG IV ONE (09:30)
[2021-04-14] MEDS ORDERED: ACETAMINOPHEN INJECTION 100 ML IVPB ONE (09:30)
[2021-04-14] MEDS ORDERED: CEFTRIAXONE 1 GM/50 ML BAG ONE (09:33)
[2021-04-14] MEDS ORDERED: DEXAMETHASONE SOD PHOSPHATE 10 MG/1 ML VIAL ONE (09:33)
[2021-04-14] MEDS ORDERED: AZITHROMYCIN IVPB 500 MG/250 ML BAG IVPB ONE (09:33)
[2021-04-14] MEDS: ALBUTEROL SO4 2.5/IPRATROPIUM 0.5 INH SOL 3 ML VIAL.NEB. NEB SCH ×4 (09:45→10:21)
[2021-04-14 10:24] LABS: VENOUS BASE EXCESS -1.7 mmol/L (-2-2); VENOUS O2 SATURATION 95.9 % (70-80); VENOUS PCO2 35.2 mmHg (38-52); VENOUS PH 7.416 (7.310-7.410)
[2021-04-14 10:25] LABS: BASO % 0.1 % (0-2.0); EOS % 0.3 % (0-4.5); HEMATOCRIT 39.2 % (35.4-49); HEMOGLOBIN 13.2 GM/dL (11.7-16.9); LYMPH % 7.6 % (8-40); MCH 30.9 pg (25.7-33.7); MCHC 33.7 g/dl (32.0-35.9); MEAN CELL VOLUME 91.7 fl (80-96); MEAN PLT VOLUME 7.5 fl (7.5-11.1); PLATELET COUNT 216 10^3/uL (134-434); RBC 4.28 M/mm3 (4.00-5.60); RDW 13.6 % (11.9-15.9); WHITE BLOOD COUNT 11.4 K/mm3 (4.0-10.0)
[2021-04-14] MEDS ORDERED: ALBUTEROL SO4 0.5 % INH SOLN 2.5 MG/0.5 ML VIAL.NEB. NEB ONE (10:26)
[2021-04-14] MEDS ORDERED: ALBUTEROL SO4 0.083% IH SOL 2.5 MG/3 ML VIAL.NEB. NEB ONE ×2 (10:42→22:01)
[2021-04-14 10:44] LABS: INR 1.42 (0.83-1.09); PROTHROMBIN TIME (PATIENT) 16.4 SEC (9.7-13.0)
[2021-04-14 10:45] LABS: ALBUMIN 3.7 g/dl (3.4-5.0); BLOOD UREA NITROGEN 8.9 mg/dL (7-18); CALCIUM 8.8 mg/dL (8.5-10.1)
[2021-04-14 10:47] LABS: ACTIVATED PTT 30.2 SECONDS (25.2-36.5)
[2021-04-14 10:49] LABS: CREATININE 0.9 mg/dL (0.55-1.3)
[2021-04-14 10:51] LABS: BILIRUBIN,TOTAL 0.5 mg/dL (0.2-1); TOT PROT 7.1 g/dl (6.4-8.2)
[2021-04-14 12:11] LABS: EPI CELLS 1 /uL (0-25.1); HYALINE CASTS 0 /uL (0-3.1); PH,URINE 5.5 (5.0-8.0); URINE APPEARANCE CLEAR; URINE BACTERIA 0 /uL (0-1359); URINE BILIRUBIN NEGATIVE (NEGATIVE); URINE COLOR YELLOW; URINE GLUCOSE (UA) NEGATIVE (NEGATIVE); URINE KETONE NEGATIVE (NEGATIVE); URINE LEUK ESTERASE NEGATIVE (NEGATIVE); URINE NITRITE NEGATIVE (NEGATIVE); URINE PROTEIN NEGATIVE (NEGATIVE); URINE RBC 9 /uL (0-23.9); URINE UROBILINOGEN 0.2 mg/dL (0.2-1.0); URINE WBC 2 /uL (0-25.8)
[2021-04-14] MEDS: ALBUTEROL SO4 0.083% IH SOL 2.5 MG/3 ML VIAL.NEB. NEB SCH ×2 (14:25→22:27)
[2021-04-14] MEDS: ENOXAPARIN NA (PORCINE) 40 MG/0.4 ML DISP.SYRIN SQ SCH (17:41)
[2021-04-14] MEDS ORDERED: ENOXAPARIN NA (PORCINE) 40 MG/0.4 ML DISP.SYRIN SQ ONE (17:41)
[2021-04-14] MEDS ORDERED: clonazePAM 0.5 MG TABLET ONE (22:01)
[2021-04-14] MEDS ORDERED: methylPREDNISolone NA SUCC 125 MG/2 ML VIAL ONE (22:02)
[2021-04-14] MEDS ORDERED: QUEtiapine FUMARATE 100 MG TABLET (FP) ONE (22:02)
[2021-04-14] MEDS: TIZANIDINE HCL 2 MG TABLET PO SCH (22:10)
[2021-04-14] MEDS: methylPREDNISolone NA SUCC 40 MG/1 ML VIAL IVPUSH SCH ×2 (22:10→22:28)
[2021-04-14] MEDS: clonazePAM 0.5 MG TABLET PO SCH (22:10)
[2021-04-14] MEDS: QUEtiapine FUMARATE 100 MG TABLET (FP) PO SCH (22:10)
[2021-04-14] MEDS ORDERED: ACETAMINOPHEN 325 MG TABLET (FP) ONE (22:23)
[2021-04-14] MEDS: ACETAMINOPHEN 325 MG TABLET (FP) PO PRN (22:28)
[2021-04-14] MEDS ORDERED: GABAPENTIN 100 MG CAPSULE ONE (23:17)
[2021-04-15] MEDS ORDERED: ALBUTEROL SO4 0.083% IH SOL 2.5 MG/3 ML VIAL.NEB. NEB ONE (02:13)
[2021-04-15] MEDS: methylPREDNISolone NA SUCC 40 MG/1 ML VIAL IVPUSH SCH ×3 (03:26→17:28)
[2021-04-15 04:08] VITALS: BMI 23.8
[2021-04-15] MEDS: ALBUTEROL SO4 0.083% IH SOL 2.5 MG/3 ML VIAL.NEB. NEB SCH ×7 (04:12→23:41)
[2021-04-15] MEDS: clonazePAM 0.5 MG TABLET PO SCH ×2 (09:42→22:26)
[2021-04-15] MEDS: ENOXAPARIN NA (PORCINE) 40 MG/0.4 ML DISP.SYRIN SQ SCH (09:43)
[2021-04-15] MEDS: TIZANIDINE HCL 2 MG TABLET PO SCH ×2 (09:44→22:26)
[2021-04-15] MEDS: AZITHROMYCIN IVPB 500 MG/250 ML BAG IVPB SCH (09:45)
[2021-04-15] MEDS ORDERED: methaDONE HCL 40 MG DISPERSABLE TABLET PO SCH ×2 (10:00→10:22)
[2021-04-15 10:30] LABS: HEMATOCRIT 40.9 % (35.4-49); HEMOGLOBIN 13.3 GM/dL (11.7-16.9); MCH 30.3 pg (25.7-33.7); MCHC 32.6 g/dl (32.0-35.9); MEAN CELL VOLUME 93.1 fl (80-96); MEAN PLT VOLUME 7.7 fl (7.5-11.1); PLATELET COUNT 256 10^3/uL (134-434); RBC 4.39 M/mm3 (4.00-5.60); RDW 13.8 % (11.9-15.9); WHITE BLOOD COUNT 11.9 K/mm3 (4.0-10.0)
[2021-04-15] MEDS ORDERED: methaDONE HCL 40 MG DISPERSABLE TABLET ONE (10:39)
[2021-04-15] MEDS ORDERED: methaDONE HCL 10 MG TABLET ONE (10:39)
[2021-04-15 11:30] LABS: ALBUMIN 3.4 g/dl (3.4-5.0); BILIRUBIN,TOTAL 0.2 mg/dL (0.2-1); BLOOD UREA NITROGEN 12.3 mg/dL (7-18); CALCIUM 9.1 mg/dL (8.5-10.1); CREATININE 0.9 mg/dL (0.55-1.3); TOT PROT 7.2 g/dl (6.4-8.2)
[2021-04-15 12:30] LABS: ANISOCYTOSIS 0; MACROCYTOSIS 1+; PLATELET ESTIMATE NORMAL
[2021-04-15] MEDS: GABAPENTIN 300 MG CAPSULE PO PRN (13:07)
[2021-04-15] MEDS: NICOTINE 7 MG/24 HOURS TOPICAL PATCH TD SCH (15:30)
[2021-04-15] MEDS: INSULIN SLIDING SCALE (NOVOLOG) 1 VIAL SQ SCH (16:14)
[2021-04-15] MEDS: ACETAMINOPHEN 325 MG TABLET (FP) PO PRN (17:28)
[2021-04-15] MEDS: QUEtiapine FUMARATE 100 MG TABLET (FP) PO SCH (22:26)
[2021-04-16] MEDS: methylPREDNISolone NA SUCC 40 MG/1 ML VIAL IVPUSH SCH ×3 (02:21→18:07)
[2021-04-16] MEDS: ALBUTEROL SO4 0.083% IH SOL 2.5 MG/3 ML VIAL.NEB. NEB SCH ×5 (04:25→20:21)
[2021-04-16] MEDS ORDERED: methaDONE HCL 10 MG TABLET ONE (05:46)
[2021-04-16] MEDS ORDERED: methaDONE HCL 40 MG DISPERSABLE TABLET ONE (05:46)
[2021-04-16] MEDS: GABAPENTIN 300 MG CAPSULE PO PRN ×2 (05:59→11:22)
[2021-04-16] MEDS: INSULIN SLIDING SCALE (NOVOLOG) 1 VIAL SQ SCH ×2 (06:01→16:14)
[2021-04-16] MEDS: clonazePAM 0.5 MG TABLET PO SCH ×2 (09:40→21:21)
[2021-04-16] MEDS: ENOXAPARIN NA (PORCINE) 40 MG/0.4 ML DISP.SYRIN SQ SCH (09:40)
[2021-04-16] MEDS: NICOTINE 7 MG/24 HOURS TOPICAL PATCH TD SCH (09:41)
[2021-04-16] MEDS: TIZANIDINE HCL 2 MG TABLET PO SCH ×2 (09:43→21:20)
[2021-04-16] MEDS: AZITHROMYCIN IVPB 500 MG/250 ML BAG IVPB SCH (09:44)
[2021-04-16] MEDS: QUEtiapine FUMARATE 100 MG TABLET (FP) PO SCH (21:20)
[2021-04-16] MEDS: ACETAMINOPHEN 325 MG TABLET (FP) PO PRN (21:23)
[2021-04-17] MEDS: ALBUTEROL SO4 0.083% IH SOL 2.5 MG/3 ML VIAL.NEB. NEB SCH ×7 (00:05→23:23)
[2021-04-17] MEDS: methylPREDNISolone NA SUCC 40 MG/1 ML VIAL IVPUSH SCH ×3 (01:51→21:43)
[2021-04-17] MEDS ORDERED: methaDONE HCL 10 MG TABLET ONE (05:29)
[2021-04-17] MEDS ORDERED: methaDONE HCL 40 MG DISPERSABLE TABLET ONE (05:30)
[2021-04-17] MEDS: INSULIN SLIDING SCALE (NOVOLOG) 1 VIAL SQ SCH ×2 (06:37→17:44)
[2021-04-17] MEDS: AZITHROMYCIN IVPB 500 MG/250 ML BAG IVPB SCH (10:05)
[2021-04-17] MEDS: ENOXAPARIN NA (PORCINE) 40 MG/0.4 ML DISP.SYRIN SQ SCH (10:05)
[2021-04-17] MEDS: TIZANIDINE HCL 2 MG TABLET PO SCH ×2 (10:06→21:43)
[2021-04-17] MEDS: clonazePAM 0.5 MG TABLET PO SCH ×2 (10:11→21:43)
[2021-04-17] MEDS: NICOTINE 7 MG/24 HOURS TOPICAL PATCH TD SCH (10:23)
[2021-04-17] MEDS: GABAPENTIN 300 MG CAPSULE PO PRN ×2 (10:37→17:46)
[2021-04-17] MEDS: QUEtiapine FUMARATE 100 MG TABLET (FP) PO SCH (21:43)
[2021-04-17] MEDS: BUDESONIDE/FORMETEROL FUMARATE 160/4.5 mcg INHALER IH SCH (21:43)
[2021-04-18] MEDS: ALBUTEROL SO4 0.083% IH SOL 2.5 MG/3 ML VIAL.NEB. NEB SCH ×5 (04:44→19:37)
[2021-04-18] MEDS ORDERED: methaDONE HCL 40 MG DISPERSABLE TABLET ONE (06:01)
[2021-04-18] MEDS ORDERED: methaDONE HCL 10 MG TABLET ONE (06:01)
[2021-04-18] MEDS: INSULIN SLIDING SCALE (NOVOLOG) 1 VIAL SQ SCH ×2 (06:12→18:03)
[2021-04-18] MEDS: GABAPENTIN 300 MG CAPSULE PO PRN ×2 (06:16→16:37)
[2021-04-18] MEDS: BUDESONIDE/FORMETEROL FUMARATE 160/4.5 mcg INHALER IH SCH ×2 (09:27→21:18)
[2021-04-18] MEDS: methylPREDNISolone NA SUCC 40 MG/1 ML VIAL IVPUSH SCH ×2 (09:27→21:18)
[2021-04-18] MEDS: ENOXAPARIN NA (PORCINE) 40 MG/0.4 ML DISP.SYRIN SQ SCH (09:27)
[2021-04-18] MEDS: clonazePAM 0.5 MG TABLET PO SCH ×2 (09:27→21:18)
[2021-04-18] MEDS: TIZANIDINE HCL 2 MG TABLET PO SCH ×2 (09:27→21:18)
[2021-04-18] MEDS: NICOTINE 7 MG/24 HOURS TOPICAL PATCH TD SCH (13:23)
[2021-04-18] MEDS: QUEtiapine FUMARATE 100 MG TABLET (FP) PO SCH (21:18)
[2021-04-19] MEDS: ALBUTEROL SO4 0.083% IH SOL 2.5 MG/3 ML VIAL.NEB. NEB SCH ×4 (00:47→11:45)
[2021-04-19] MEDS ORDERED: methaDONE HCL 40 MG DISPERSABLE TABLET ONE (06:39)
[2021-04-19] MEDS ORDERED: methaDONE HCL 10 MG TABLET ONE (06:39)
[2021-04-19] MEDS: INSULIN SLIDING SCALE (NOVOLOG) 1 VIAL SQ SCH (06:44)
[2021-04-19] MEDS: clonazePAM 0.5 MG TABLET PO SCH (10:13)
[2021-04-19] MEDS: TIZANIDINE HCL 2 MG TABLET PO SCH (10:13)
[2021-04-19] MEDS: methylPREDNISolone NA SUCC 40 MG/1 ML VIAL IVPUSH SCH (10:14)
[2021-04-19] MEDS: ENOXAPARIN NA (PORCINE) 40 MG/0.4 ML DISP.SYRIN SQ SCH (10:14)
[2021-04-19] MEDS: NICOTINE 7 MG/24 HOURS TOPICAL PATCH TD SCH (10:14)
[2021-04-19] MEDS: BUDESONIDE/FORMETEROL FUMARATE 160/4.5 mcg INHALER IH SCH (10:22)
[2021-04-19] MEDS: GABAPENTIN 300 MG CAPSULE PO PRN (10:54)
[2021-04-19 14:47] VITALS: BP 134/91; PULSE 91; TEMP 98.5
== END 2021-04-19 15:16 | disposition home or self-care (01) | DRG 191 ==
LOC: JER 08:48 → JERBED 09:28 → J5S 04-15 02:59 → J6S 04-16 23:42 → J8W 04-18 04:31
PROVIDERS: ADMIT Internal Medicine; ATTEND Internal Medicine
DX: J44.1 Chronic obstructive pulmonary disease with (acute) exacerbation (principal); F11.20 Opioid dependence, uncomplicated; J45.41 Moderate persistent asthma with (acute) exacerbation; K21.9 Gastro-esophageal reflux disease without esophagitis; M54.12 Radiculopathy, cervical region; F17.200 Nicotine dependence, unspecified, uncomplicated; F41.9 Anxiety disorder, unspecified
CPT/HCPCS: 36415; 71045-TC-FY; 80053; 81003; 82550; 82728; 82803; 82962; 83605; 83615; 84484; 85025; 85379; 85610; 85730; 87040; 87086; 87633; 87804; 87807; 87899; 93005; 93010; 94010; 94640; 94761; 99291; C9803; J1100; U0003; U0005

== ENCOUNTER 2021-07-25 09:46 | Inpatient (IN) | payer OTHER ==
[2021-07-25] MEDS ORDERED: ALBUTEROL SO4 2.5/IPRATROPIUM 0.5 INH SOL 3 ML VIAL.NEB. NEB ONE ×2 (10:32→10:41)
[2021-07-25] MEDS ORDERED: methylPREDNISolone NA SUCC 125 MG/2 ML VIAL IVPUSH ONE (10:32)
[2021-07-25] MEDS ORDERED: AZITHROMYCIN IVPB 500 MG in DEXTROSE 5%-WATER - 250 ML IVPB ONE (10:36)
[2021-07-25] MEDS ORDERED: ACETAMINOPHEN 500 MG TABLET (FP) PO ONE (10:41)
[2021-07-25] MEDS ORDERED: methylPREDNISolone NA SUCC 125 MG/2 ML VIAL ONE ×2 (10:41→21:23)
[2021-07-25] MEDS ORDERED: CEFTRIAXONE 1 GM/50 ML BAG ONE (10:42)
[2021-07-25] MEDS ORDERED: AZITHROMYCIN IVPB 500 MG/250 ML BAG IVPB ONE (10:42)
[2021-07-25 12:06] LABS: EOS % 0.5 % (0-4.5); HEMATOCRIT 39.2 % (35.4-49); HEMOGLOBIN 13.3 GM/dL (11.7-16.9); MCH 30.6 pg (25.7-33.7); MCHC 33.8 g/dl (32.0-35.9); MEAN CELL VOLUME 90.6 fl (80-96); MEAN PLT VOLUME 7.9 fl (7.5-11.1); MONO % 13.4 % (3.8-10.2); NEUT % 64.1 % (42.8-82.8); PLATELET COUNT 175 10^3/uL (134-434); RBC 4.33 M/mm3 (4.00-5.60); RDW 13.4 % (11.9-15.9); WHITE BLOOD COUNT 7.2 K/mm3 (4.0-10.0)
[2021-07-25 12:32] LABS: BLOOD UREA NITROGEN 9.1 mg/dL (7-18); CALCIUM 8.6 mg/dL (8.5-10.1)
[2021-07-25 12:33] LABS: ALBUMIN 3.4 g/dl (3.4-5.0)
[2021-07-25 12:36] LABS: MAGNESIUM 1.9 mg/dL (1.8-2.4)
[2021-07-25 12:37] LABS: BILIRUBIN,TOTAL 0.4 mg/dL (0.2-1); TOT PROT 6.9 g/dl (6.4-8.2)
[2021-07-25 12:38] LABS: CREATININE 1.1 mg/dL (0.55-1.3)
[2021-07-25] MEDS ORDERED: ACETAMINOPHEN 325 MG TABLET (FP) ONE (14:06)
[2021-07-25] MEDS ORDERED: ALBUTEROL SO4 HFA INHALER IH PRN (16:48)
[2021-07-25] MEDS ORDERED: ALBUTEROL SO4 0.083% IH SOL 2.5 MG/3 ML VIAL.NEB. NEB PRN (16:48)
[2021-07-25] MEDS ORDERED: ACETAMINOPHEN 325 MG TABLET (FP) PO PRN (16:49)
[2021-07-25] MEDS: methylPREDNISolone NA SUCC 125 MG/2 ML VIAL IVPB SCH (21:31)
[2021-07-25] MEDS: clonazePAM 0.5 MG TABLET PO PRN (22:37)
[2021-07-25] MEDS: QUEtiapine FUMARATE 100 MG TABLET (FP) PO SCH (22:37)
[2021-07-25] MEDS: GABAPENTIN 300 MG CAPSULE PO PRN (22:38)
[2021-07-25] MEDS: TIZANIDINE HCL 2 MG TABLET PO SCH (22:52)
[2021-07-26 00:49] VITALS: BMI 24.2
[2021-07-26] MEDS: methylPREDNISolone NA SUCC 125 MG/2 ML VIAL IVPB SCH ×2 (01:48→12:29)
[2021-07-26] MEDS: BUDESONIDE/FORMETEROL FUMARATE 160/4.5 mcg INHALER IH SCH ×3 (01:48→22:47)
[2021-07-26] MEDS ORDERED: methylPREDNISolone NA SUCC 40 MG/1 ML VIAL IVPB SCH (09:00)
[2021-07-26] MEDS ORDERED: methaDONE HCL 40 MG DISPERSABLE TABLET PO SCH ×2 (10:00→11:23)
[2021-07-26] MEDS: AZITHROMYCIN IVPB 500 MG/250 ML BAG IVPB SCH (10:25)
[2021-07-26] MEDS ORDERED: methaDONE HCL 10 MG TABLET ONE (11:48)
[2021-07-26] MEDS ORDERED: methaDONE HCL 40 MG DISPERSABLE TABLET ONE (11:48)
[2021-07-26] MEDS: TIZANIDINE HCL 2 MG TABLET PO SCH ×2 (11:50→22:46)
[2021-07-26] MEDS: ENOXAPARIN NA (PORCINE) 40 MG/0.4 ML DISP.SYRIN SQ SCH (11:57)
[2021-07-26] MEDS ORDERED: methylPREDNISolone NA SUCC 40 MG/1 ML VIAL IVPUSH SCH (17:00)
[2021-07-26] MEDS ORDERED: ALBUTEROL SO4 0.083% IH SOL 2.5 MG/3 ML VIAL.NEB. NEB PRN (17:07)
[2021-07-26] MEDS: ALBUTEROL SO4 2.5/IPRATROPIUM 0.5 INH SOL 3 ML VIAL.NEB. NEB SCH ×2 (19:23→19:30)
[2021-07-26] MEDS: QUEtiapine FUMARATE 100 MG TABLET (FP) PO SCH (22:46)
[2021-07-26] MEDS: clonazePAM 0.5 MG TABLET PO PRN (22:46)
[2021-07-26] MEDS: GABAPENTIN 300 MG CAPSULE PO PRN (22:46)
[2021-07-27] MEDS: methylPREDNISolone NA SUCC 40 MG/1 ML VIAL IVPUSH SCH ×4 (00:26→17:41)
[2021-07-27] MEDS ORDERED: methaDONE HCL 40 MG DISPERSABLE TABLET ONE (06:03)
[2021-07-27] MEDS ORDERED: methaDONE HCL 10 MG TABLET ONE (06:03)
[2021-07-27] MEDS: ALBUTEROL SO4 2.5/IPRATROPIUM 0.5 INH SOL 3 ML VIAL.NEB. NEB SCH ×4 (08:25→20:13)
[2021-07-27] MEDS: TIZANIDINE HCL 2 MG TABLET PO SCH ×2 (09:18→22:56)
[2021-07-27] MEDS: ENOXAPARIN NA (PORCINE) 40 MG/0.4 ML DISP.SYRIN SQ SCH (09:18)
[2021-07-27] MEDS: BUDESONIDE/FORMETEROL FUMARATE 160/4.5 mcg INHALER IH SCH ×2 (09:20→22:56)
[2021-07-27] MEDS: AZITHROMYCIN IVPB 500 MG/250 ML BAG IVPB SCH (09:21)
[2021-07-27] MEDS: clonazePAM 0.5 MG TABLET PO PRN ×2 (10:56→23:01)
[2021-07-27] MEDS: QUEtiapine FUMARATE 100 MG TABLET (FP) PO SCH (22:56)
[2021-07-27] MEDS: GABAPENTIN 300 MG CAPSULE PO PRN (23:01)
[2021-07-28] MEDS: methylPREDNISolone NA SUCC 40 MG/1 ML VIAL IVPUSH SCH ×4 (01:51→17:52)
[2021-07-28] MEDS ORDERED: methaDONE HCL 40 MG DISPERSABLE TABLET ONE (05:52)
[2021-07-28] MEDS ORDERED: methaDONE HCL 10 MG TABLET ONE (05:53)
[2021-07-28] MEDS: ALBUTEROL SO4 2.5/IPRATROPIUM 0.5 INH SOL 3 ML VIAL.NEB. NEB SCH ×4 (09:00→19:47)
[2021-07-28] MEDS: ENOXAPARIN NA (PORCINE) 40 MG/0.4 ML DISP.SYRIN SQ SCH (09:05)
[2021-07-28] MEDS: TIZANIDINE HCL 2 MG TABLET PO SCH ×2 (09:05→22:11)
[2021-07-28] MEDS: AZITHROMYCIN IVPB 500 MG/250 ML BAG IVPB SCH (09:06)
[2021-07-28] MEDS: BUDESONIDE/FORMETEROL FUMARATE 160/4.5 mcg INHALER IH SCH ×2 (09:30→22:12)
[2021-07-28] MEDS: clonazePAM 0.5 MG TABLET PO PRN ×2 (11:02→22:13)
[2021-07-28] MEDS: guaiFENesin 200 MG/10 ML 10 ML UNIT-DOSE CUPS PO PRN (11:05)
[2021-07-28] MEDS: GABAPENTIN 300 MG CAPSULE PO PRN (18:07)
[2021-07-28] MEDS: QUEtiapine FUMARATE 100 MG TABLET (FP) PO SCH (22:11)
[2021-07-29] MEDS: methylPREDNISolone NA SUCC 40 MG/1 ML VIAL IVPUSH SCH ×5 (00:48→23:59)
[2021-07-29] MEDS ORDERED: methaDONE HCL 40 MG DISPERSABLE TABLET ONE (05:29)
[2021-07-29] MEDS ORDERED: methaDONE HCL 10 MG TABLET ONE (05:29)
[2021-07-29] MEDS: ALBUTEROL SO4 2.5/IPRATROPIUM 0.5 INH SOL 3 ML VIAL.NEB. NEB SCH ×4 (07:25→19:42)
[2021-07-29] MEDS: TIZANIDINE HCL 2 MG TABLET PO SCH ×2 (10:34→21:26)
[2021-07-29] MEDS: ENOXAPARIN NA (PORCINE) 40 MG/0.4 ML DISP.SYRIN SQ SCH (10:34)
[2021-07-29] MEDS: BUDESONIDE/FORMETEROL FUMARATE 160/4.5 mcg INHALER IH SCH ×2 (10:35→21:26)
[2021-07-29] MEDS: AZITHROMYCIN IVPB 500 MG/250 ML BAG IVPB SCH (10:35)
[2021-07-29] MEDS: GABAPENTIN 300 MG CAPSULE PO PRN ×2 (11:36→21:30)
[2021-07-29] MEDS: clonazePAM 0.5 MG TABLET PO PRN ×2 (11:36→21:27)
[2021-07-29] MEDS: guaiFENesin 200 MG/10 ML 10 ML UNIT-DOSE CUPS PO PRN ×2 (11:36→21:30)
[2021-07-29] MEDS: QUEtiapine FUMARATE 100 MG TABLET (FP) PO SCH (21:26)
[2021-07-30] MEDS ORDERED: methaDONE HCL 40 MG DISPERSABLE TABLET ONE (05:01)
[2021-07-30] MEDS ORDERED: methaDONE HCL 10 MG TABLET ONE (05:01)
[2021-07-30] MEDS: methylPREDNISolone NA SUCC 40 MG/1 ML VIAL IVPUSH SCH ×5 (05:10→22:51)
[2021-07-30] MEDS: ALBUTEROL SO4 2.5/IPRATROPIUM 0.5 INH SOL 3 ML VIAL.NEB. NEB SCH ×4 (08:57→20:31)
[2021-07-30] MEDS: AZITHROMYCIN IVPB 500 MG/250 ML BAG IVPB SCH (09:58)
[2021-07-30] MEDS: ENOXAPARIN NA (PORCINE) 40 MG/0.4 ML DISP.SYRIN SQ SCH (09:58)
[2021-07-30] MEDS: TIZANIDINE HCL 2 MG TABLET PO SCH ×2 (10:03→22:51)
[2021-07-30] MEDS: BUDESONIDE/FORMETEROL FUMARATE 160/4.5 mcg INHALER IH SCH ×2 (10:03→22:52)
[2021-07-30] MEDS: clonazePAM 0.5 MG TABLET PO PRN ×2 (10:25→22:51)
[2021-07-30] MEDS: GABAPENTIN 300 MG CAPSULE PO PRN (10:25)
[2021-07-30] MEDS: guaiFENesin 200 MG/10 ML 10 ML UNIT-DOSE CUPS PO PRN ×2 (10:25→23:14)
[2021-07-30] MEDS: QUEtiapine FUMARATE 100 MG TABLET (FP) PO SCH (22:51)
[2021-07-31] MEDS ORDERED: methaDONE HCL 40 MG DISPERSABLE TABLET ONE (05:03)
[2021-07-31] MEDS ORDERED: methaDONE HCL 10 MG TABLET ONE (05:03)
[2021-07-31] MEDS: methylPREDNISolone NA SUCC 40 MG/1 ML VIAL IVPUSH SCH ×3 (05:13→22:31)
[2021-07-31] MEDS: ALBUTEROL SO4 2.5/IPRATROPIUM 0.5 INH SOL 3 ML VIAL.NEB. NEB SCH ×4 (08:50→20:00)
[2021-07-31] MEDS: clonazePAM 0.5 MG TABLET PO PRN ×2 (10:24→22:31)
[2021-07-31] MEDS: ENOXAPARIN NA (PORCINE) 40 MG/0.4 ML DISP.SYRIN SQ SCH (10:26)
[2021-07-31] MEDS: TIZANIDINE HCL 2 MG TABLET PO SCH ×2 (10:27→22:31)
[2021-07-31] MEDS: AZITHROMYCIN IVPB 500 MG/250 ML BAG IVPB SCH (10:28)
[2021-07-31] MEDS: BUDESONIDE/FORMETEROL FUMARATE 160/4.5 mcg INHALER IH SCH ×2 (10:40→22:32)
[2021-07-31] MEDS: GABAPENTIN 300 MG CAPSULE PO PRN (10:41)
[2021-07-31] MEDS: QUEtiapine FUMARATE 100 MG TABLET (FP) PO SCH (22:31)
[2021-07-31] MEDS: guaiFENesin 200 MG/10 ML 10 ML UNIT-DOSE CUPS PO PRN (22:34)
[2021-08-01] MEDS ORDERED: methaDONE HCL 40 MG DISPERSABLE TABLET ONE (05:29)
[2021-08-01] MEDS ORDERED: methaDONE HCL 10 MG TABLET ONE (05:30)
[2021-08-01] MEDS: methylPREDNISolone NA SUCC 40 MG/1 ML VIAL IVPUSH SCH ×2 (05:40→14:17)
[2021-08-01] MEDS: ALBUTEROL SO4 2.5/IPRATROPIUM 0.5 INH SOL 3 ML VIAL.NEB. NEB SCH ×2 (08:10→14:57)
[2021-08-01] MEDS: AZITHROMYCIN IVPB 500 MG/250 ML BAG IVPB SCH (11:03)
[2021-08-01] MEDS: guaiFENesin 200 MG/10 ML 10 ML UNIT-DOSE CUPS PO PRN (11:05)
[2021-08-01] MEDS: BUDESONIDE/FORMETEROL FUMARATE 160/4.5 mcg INHALER IH SCH (11:06)
[2021-08-01] MEDS: ENOXAPARIN NA (PORCINE) 40 MG/0.4 ML DISP.SYRIN SQ SCH (11:06)
[2021-08-01] MEDS: TIZANIDINE HCL 2 MG TABLET PO SCH (11:06)
[2021-08-01] MEDS: clonazePAM 0.5 MG TABLET PO PRN (11:12)
[2021-08-01] MEDS: GABAPENTIN 300 MG CAPSULE PO PRN (13:04)
[2021-08-01 14:54] VITALS: BP 116/72; PULSE 84; TEMP 97.6
== END 2021-08-01 17:29 | disposition home or self-care (01) | DRG 191 ==
LOC: JER 09:46 → JERBED 15:04 → J5S 22:32
PROVIDERS: ADMIT Internal Medicine; ATTEND Internal Medicine
DX: J44.1 Chronic obstructive pulmonary disease with (acute) exacerbation (principal); F11.20 Opioid dependence, uncomplicated; J45.909 Unspecified asthma, uncomplicated; F41.9 Anxiety disorder, unspecified; F17.210 Nicotine dependence, cigarettes, uncomplicated; K21.9 Gastro-esophageal reflux disease without esophagitis
CPT/HCPCS: 0241U-QW; 36415; 71045-TC-FY; 80053; 83735; 85025; 93005; 93010; 94640; 94761; 99285-25; C9803-CS; U0003; U0005

== ENCOUNTER 2021-12-19 12:16 | Inpatient (IN) | payer OTHER ==
[2021-12-19 12:25] VITALS: BMI 25.8
[2021-12-19] MEDS ORDERED: methylPREDNISolone NA SUCC 125 MG/2 ML VIAL IVPUSH ONE (13:55)
[2021-12-19] MEDS: ALBUTEROL SO4 2.5/IPRATROPIUM 0.5 INH SOL 3 ML VIAL.NEB. NEB SCH ×4 (14:00→16:16)
[2021-12-19] MEDS ORDERED: methylPREDNISolone NA SUCC 125 MG/2 ML VIAL ONE (14:06)
[2021-12-19 14:29] LABS: BASO % 0.9 % (0-2.0); EOS % 2.5 % (0-4.5); HEMATOCRIT 42.2 % (35.4-49); HEMOGLOBIN 14.2 GM/dL (11.7-16.9); MCH 30.5 pg (25.7-33.7); MCHC 33.6 g/dl (32.0-35.9); MEAN CELL VOLUME 90.7 fl (80-96); MEAN PLT VOLUME 7.4 fl (7.5-11.1); MONO % 6.9 % (3.8-10.2); NEUT % 61.7 % (42.8-82.8); PLATELET COUNT 226 10^3/uL (134-434); RBC 4.66 M/mm3 (4.00-5.60); RDW 13.2 % (11.9-15.9)
[2021-12-19 14:55] LABS: ALBUMIN 3.6 g/dl (3.4-5.0); BLOOD UREA NITROGEN 13.3 mg/dL (7-18); CALCIUM 8.7 mg/dL (8.5-10.1)
[2021-12-19 14:58] LABS: CREATININE 0.9 mg/dL (0.55-1.3)
[2021-12-19 15:00] LABS: BILIRUBIN,TOTAL 0.3 mg/dL (0.2-1)
[2021-12-19] MEDS ORDERED: AZITHROMYCIN IVPB 500 MG in DEXTROSE 5%-WATER - 250 ML IVPB ONE (15:30)
[2021-12-19] MEDS ORDERED: AZITHROMYCIN IVPB 500 MG/250 ML BAG IVPB ONE (16:28)
[2021-12-19] MEDS ORDERED: guaiFENesin 600 MG TABLET.ER (FP) PO ONE (17:30)
[2021-12-20] MEDS ORDERED: ALBUTEROL SO4 0.083% IH SOL 2.5 MG/3 ML VIAL.NEB. NEB PRN (04:18)
[2021-12-20] MEDS: methylPREDNISolone NA SUCC 40 MG/1 ML VIAL IVPUSH SCH ×2 (05:41→10:51)
[2021-12-20] MEDS: ALBUTEROL SO4 2.5/IPRATROPIUM 0.5 INH SOL 3 ML VIAL.NEB. NEB SCH ×4 (07:30→20:50)
[2021-12-20] MEDS: CEFTRIAXONE 1 GM in DEXTROSE 5%-WATER - 50 ML IVPB SCH (09:26)
[2021-12-20] MEDS: ENOXAPARIN NA (PORCINE) 40 MG/0.4 ML DISP.SYRIN SQ SCH (09:26)
[2021-12-20] MEDS: AZITHROMYCIN IVPB 500 MG/250 ML BAG IVPB SCH (09:26)
[2021-12-20] MEDS ORDERED: methaDONE HCL 40 MG DISPERSABLE TABLET PO SCH (10:00)
[2021-12-20] MEDS: FAMOTIDINE 20 MG TABLET PO SCH (10:49)
[2021-12-20] MEDS: ESCITALOPRAM OXALATE 20 MG TABLET PO SCH (10:51)
[2021-12-20] MEDS: clonazePAM 0.5 MG TABLET PO SCH ×2 (10:51→21:52)
[2021-12-20 11:49] LABS: BASO % 0.2 % (0-2.0); HEMATOCRIT 42.7 % (35.4-49); HEMOGLOBIN 14.1 GM/dL (11.7-16.9); LYMPH % 7.5 % (8-40); MCH 30.1 pg (25.7-33.7); MEAN CELL VOLUME 91.2 fl (80-96); MEAN PLT VOLUME 7.7 fl (7.5-11.1); MONO % 1.5 % (3.8-10.2); NEUT % 90.8 % (42.8-82.8); PLATELET COUNT 233 10^3/uL (134-434); RBC 4.68 M/mm3 (4.00-5.60); RDW 13.2 % (11.9-15.9); WHITE BLOOD COUNT 10.4 K/mm3 (4.0-10.0)
[2021-12-20 12:11] LABS: CALCIUM 8.9 mg/dL (8.5-10.1)
[2021-12-20 12:13] LABS: ALBUMIN 3.7 g/dl (3.4-5.0); BLOOD UREA NITROGEN 15.4 mg/dL (7-18)
[2021-12-20 12:15] LABS: PHOSPHOROUS 3.6 mg/dL (2.5-4.9)
[2021-12-20 12:16] LABS: BILIRUBIN,TOTAL 0.3 mg/dL (0.2-1); CREATININE 0.9 mg/dL (0.55-1.3); TOT PROT 7.3 g/dl (6.4-8.2)
[2021-12-20] MEDS: BUDESONIDE/FORMETEROL FUMARATE 160/4.5 mcg INHALER IH SCH ×2 (12:36→22:00)
[2021-12-20] MEDS ORDERED: AZITHROMYCIN 250 MG TABLET PO ONE (17:59)
[2021-12-20] MEDS: GABAPENTIN 300 MG CAPSULE PO PRN (18:40)
[2021-12-20] MEDS: PRAZOSIN HCL 1 MG CAPSULE PO SCH (21:52)
[2021-12-20] MEDS: QUEtiapine FUMARATE 100 MG TABLET (FP) PO SCH (21:52)
[2021-12-20] MEDS ORDERED: ACETAMINOPHEN 325 MG TABLET (FP) PO PRN (23:25)
[2021-12-21] MEDS: methylPREDNISolone NA SUCC 40 MG/1 ML VIAL IVPUSH SCH ×6 (00:46→21:17)
[2021-12-21] MEDS: ALBUTEROL SO4 2.5/IPRATROPIUM 0.5 INH SOL 3 ML VIAL.NEB. NEB SCH ×4 (07:25→20:30)
[2021-12-21] MEDS: ENOXAPARIN NA (PORCINE) 40 MG/0.4 ML DISP.SYRIN SQ SCH (10:46)
[2021-12-21] MEDS: clonazePAM 0.5 MG TABLET PO SCH ×2 (10:46→21:17)
[2021-12-21] MEDS: ESCITALOPRAM OXALATE 20 MG TABLET PO SCH (10:46)
[2021-12-21] MEDS: FAMOTIDINE 20 MG TABLET PO SCH (10:46)
[2021-12-21] MEDS: CEFTRIAXONE 1 GM in DEXTROSE 5%-WATER - 50 ML IVPB SCH (10:47)
[2021-12-21] MEDS: BUDESONIDE/FORMETEROL FUMARATE 160/4.5 mcg INHALER IH SCH ×2 (10:58→21:18)
[2021-12-21] MEDS: AZITHROMYCIN IVPB 500 MG/250 ML BAG IVPB SCH (17:30)
[2021-12-21] MEDS ORDERED: predniSONE 20 MG TABLET (UD) PO ONE (21:00)
[2021-12-21] MEDS: PRAZOSIN HCL 1 MG CAPSULE PO SCH (21:16)
[2021-12-21] MEDS: QUEtiapine FUMARATE 100 MG TABLET (FP) PO SCH (21:16)
[2021-12-22] MEDS: methylPREDNISolone NA SUCC 40 MG/1 ML VIAL IVPUSH SCH ×4 (03:16→22:21)
[2021-12-22] MEDS: ALBUTEROL SO4 2.5/IPRATROPIUM 0.5 INH SOL 3 ML VIAL.NEB. NEB SCH ×4 (07:30→20:40)
[2021-12-22] MEDS: BUDESONIDE/FORMETEROL FUMARATE 160/4.5 mcg INHALER IH SCH ×2 (09:26→22:25)
[2021-12-22] MEDS: FAMOTIDINE 20 MG TABLET PO SCH (09:26)
[2021-12-22] MEDS: ENOXAPARIN NA (PORCINE) 40 MG/0.4 ML DISP.SYRIN SQ SCH (09:26)
[2021-12-22] MEDS: clonazePAM 0.5 MG TABLET PO SCH ×2 (09:27→22:24)
[2021-12-22] MEDS: ESCITALOPRAM OXALATE 20 MG TABLET PO SCH (09:27)
[2021-12-22] MEDS: QUEtiapine FUMARATE 100 MG TABLET (FP) PO SCH (22:25)
[2021-12-22] MEDS: PRAZOSIN HCL 1 MG CAPSULE PO SCH (22:25)
[2021-12-23] MEDS: methylPREDNISolone NA SUCC 40 MG/1 ML VIAL IVPUSH SCH ×3 (03:09→16:15)
[2021-12-23] MEDS: ALBUTEROL SO4 2.5/IPRATROPIUM 0.5 INH SOL 3 ML VIAL.NEB. NEB SCH ×4 (08:01→19:51)
[2021-12-23] MEDS: ESCITALOPRAM OXALATE 20 MG TABLET PO SCH (09:50)
[2021-12-23] MEDS: FAMOTIDINE 20 MG TABLET PO SCH (09:50)
[2021-12-23] MEDS: clonazePAM 0.5 MG TABLET PO SCH ×2 (09:50→22:01)
[2021-12-23] MEDS: ENOXAPARIN NA (PORCINE) 40 MG/0.4 ML DISP.SYRIN SQ SCH (09:50)
[2021-12-23] MEDS: BUDESONIDE/FORMETEROL FUMARATE 160/4.5 mcg INHALER IH SCH ×2 (09:52→22:02)
[2021-12-23] MEDS ORDERED: methylPREDNISolone NA SUCC 125 MG/2 ML VIAL IVPB ONE (12:01)
[2021-12-23] MEDS: predniSONE 20 MG TABLET (UD) PO SCH (16:20)
[2021-12-23] MEDS: QUEtiapine FUMARATE 100 MG TABLET (FP) PO SCH (22:02)
[2021-12-23] MEDS: PRAZOSIN HCL 1 MG CAPSULE PO SCH (22:02)
[2021-12-24] MEDS: ALBUTEROL SO4 2.5/IPRATROPIUM 0.5 INH SOL 3 ML VIAL.NEB. NEB SCH ×4 (08:14→20:38)
[2021-12-24] MEDS: ESCITALOPRAM OXALATE 20 MG TABLET PO SCH (10:08)
[2021-12-24] MEDS: predniSONE 20 MG TABLET (UD) PO SCH (10:09)
[2021-12-24] MEDS: clonazePAM 0.5 MG TABLET PO SCH ×2 (10:09→21:21)
[2021-12-24] MEDS: ENOXAPARIN NA (PORCINE) 40 MG/0.4 ML DISP.SYRIN SQ SCH (10:09)
[2021-12-24] MEDS: FAMOTIDINE 20 MG TABLET PO SCH (10:09)
[2021-12-24] MEDS: BUDESONIDE/FORMETEROL FUMARATE 160/4.5 mcg INHALER IH SCH ×2 (10:10→21:22)
[2021-12-24 11:01] LABS: BASO % 0.3 % (0-2.0); HEMATOCRIT 43.2 % (35.4-49); HEMOGLOBIN 14.3 GM/dL (11.7-16.9); LYMPH % 31.3 % (8-40); MCH 29.9 pg (25.7-33.7); MEAN CELL VOLUME 90.6 fl (80-96); MEAN PLT VOLUME 7.5 fl (7.5-11.1); NEUT % 60.4 % (42.8-82.8); PLATELET COUNT 244 10^3/uL (134-434); RBC 4.77 M/mm3 (4.00-5.60); RDW 13.1 % (11.9-15.9); WHITE BLOOD COUNT 10.1 K/mm3 (4.0-10.0)
[2021-12-24 11:26] LABS: ALBUMIN 3.8 g/dl (3.4-5.0); CALCIUM 8.9 mg/dL (8.5-10.1); CREATININE 0.9 mg/dL (0.55-1.3)
[2021-12-24 11:27] LABS: BLOOD UREA NITROGEN 18.6 mg/dL (7-18)
[2021-12-24 11:28] LABS: BILIRUBIN,TOTAL 0.3 mg/dL (0.2-1)
[2021-12-24] MEDS: GABAPENTIN 300 MG CAPSULE PO PRN (11:29)
[2021-12-24] MEDS: methylPREDNISolone NA SUCC 40 MG/1 ML VIAL IVPUSH SCH (17:53)
[2021-12-24] MEDS: QUEtiapine FUMARATE 100 MG TABLET (FP) PO SCH (21:21)
[2021-12-24] MEDS: PRAZOSIN HCL 1 MG CAPSULE PO SCH (21:21)
[2021-12-25] MEDS: methylPREDNISolone NA SUCC 40 MG/1 ML VIAL IVPUSH SCH ×3 (01:39→17:29)
[2021-12-25] MEDS: ALBUTEROL SO4 2.5/IPRATROPIUM 0.5 INH SOL 3 ML VIAL.NEB. NEB SCH ×4 (07:30→20:19)
[2021-12-25] MEDS: ESCITALOPRAM OXALATE 20 MG TABLET PO SCH (10:16)
[2021-12-25] MEDS: ENOXAPARIN NA (PORCINE) 40 MG/0.4 ML DISP.SYRIN SQ SCH (10:16)
[2021-12-25] MEDS: FAMOTIDINE 20 MG TABLET PO SCH (10:16)
[2021-12-25] MEDS: clonazePAM 0.5 MG TABLET PO SCH ×2 (10:16→22:30)
[2021-12-25] MEDS: BUDESONIDE/FORMETEROL FUMARATE 160/4.5 mcg INHALER IH SCH ×2 (10:22→22:34)
[2021-12-25] MEDS: GABAPENTIN 300 MG CAPSULE PO PRN (20:38)
[2021-12-25] MEDS: QUEtiapine FUMARATE 100 MG TABLET (FP) PO SCH (22:30)
[2021-12-25] MEDS: PRAZOSIN HCL 1 MG CAPSULE PO SCH (22:30)
[2021-12-26] MEDS: methylPREDNISolone NA SUCC 40 MG/1 ML VIAL IVPUSH SCH ×3 (03:02→17:13)
[2021-12-26] MEDS: ALBUTEROL SO4 2.5/IPRATROPIUM 0.5 INH SOL 3 ML VIAL.NEB. NEB SCH ×4 (08:00→20:25)
[2021-12-26] MEDS: ENOXAPARIN NA (PORCINE) 40 MG/0.4 ML DISP.SYRIN SQ SCH (09:24)
[2021-12-26] MEDS: clonazePAM 0.5 MG TABLET PO SCH ×2 (09:24→21:14)
[2021-12-26] MEDS: FAMOTIDINE 20 MG TABLET PO SCH (09:24)
[2021-12-26] MEDS: ESCITALOPRAM OXALATE 20 MG TABLET PO SCH (09:24)
[2021-12-26] MEDS: BUDESONIDE/FORMETEROL FUMARATE 160/4.5 mcg INHALER IH SCH ×2 (09:25→21:20)
[2021-12-26] MEDS: GABAPENTIN 300 MG CAPSULE PO PRN (16:02)
[2021-12-26] MEDS ORDERED: clonazePAM 0.5 MG TABLET PO ONE (16:36)
[2021-12-26] MEDS: PRAZOSIN HCL 1 MG CAPSULE PO SCH (21:14)
[2021-12-26] MEDS: QUEtiapine FUMARATE 100 MG TABLET (FP) PO SCH (21:14)
[2021-12-27] MEDS: methylPREDNISolone NA SUCC 40 MG/1 ML VIAL IVPUSH SCH ×3 (01:30→18:02)
[2021-12-27] MEDS: ALBUTEROL SO4 2.5/IPRATROPIUM 0.5 INH SOL 3 ML VIAL.NEB. NEB SCH ×4 (08:18→20:20)
[2021-12-27] MEDS: ESCITALOPRAM OXALATE 20 MG TABLET PO SCH (09:21)
[2021-12-27] MEDS: FAMOTIDINE 20 MG TABLET PO SCH (09:21)
[2021-12-27] MEDS: BUDESONIDE/FORMETEROL FUMARATE 160/4.5 mcg INHALER IH SCH ×2 (09:35→22:00)
[2021-12-27] MEDS: clonazePAM 0.5 MG TABLET PO SCH ×3 (09:44→22:20)
[2021-12-27] MEDS: ENOXAPARIN NA (PORCINE) 40 MG/0.4 ML DISP.SYRIN SQ SCH ×2 (09:45→09:57)
[2021-12-27] MEDS: GABAPENTIN 300 MG CAPSULE PO PRN (14:36)
[2021-12-27] MEDS: QUEtiapine FUMARATE 100 MG TABLET (FP) PO SCH (22:20)
[2021-12-27] MEDS: PRAZOSIN HCL 1 MG CAPSULE PO SCH (22:20)
[2021-12-28] MEDS: methylPREDNISolone NA SUCC 40 MG/1 ML VIAL IVPUSH SCH ×3 (01:05→17:57)
[2021-12-28] MEDS: ALBUTEROL SO4 2.5/IPRATROPIUM 0.5 INH SOL 3 ML VIAL.NEB. NEB SCH ×4 (08:07→20:44)
[2021-12-28] MEDS: ESCITALOPRAM OXALATE 20 MG TABLET PO SCH (09:35)
[2021-12-28] MEDS: clonazePAM 0.5 MG TABLET PO SCH ×2 (09:35→21:56)
[2021-12-28] MEDS: ENOXAPARIN NA (PORCINE) 40 MG/0.4 ML DISP.SYRIN SQ SCH (09:35)
[2021-12-28] MEDS: FAMOTIDINE 20 MG TABLET PO SCH (09:35)
[2021-12-28] MEDS: BUDESONIDE/FORMETEROL FUMARATE 160/4.5 mcg INHALER IH SCH ×2 (09:39→21:55)
[2021-12-28] MEDS: GABAPENTIN 300 MG CAPSULE PO PRN ×2 (15:11→22:04)
[2021-12-28] MEDS: PRAZOSIN HCL 1 MG CAPSULE PO SCH (21:56)
[2021-12-28] MEDS: QUEtiapine FUMARATE 100 MG TABLET (FP) PO SCH (21:56)
[2021-12-29] MEDS: methylPREDNISolone NA SUCC 40 MG/1 ML VIAL IVPUSH SCH ×3 (01:06→17:44)
[2021-12-29] MEDS: ALBUTEROL SO4 2.5/IPRATROPIUM 0.5 INH SOL 3 ML VIAL.NEB. NEB SCH ×4 (07:44→20:12)
[2021-12-29] MEDS: ENOXAPARIN NA (PORCINE) 40 MG/0.4 ML DISP.SYRIN SQ SCH (10:16)
[2021-12-29] MEDS: ESCITALOPRAM OXALATE 20 MG TABLET PO SCH (10:17)
[2021-12-29] MEDS: FAMOTIDINE 20 MG TABLET PO SCH (10:17)
[2021-12-29] MEDS: clonazePAM 0.5 MG TABLET PO SCH ×2 (10:17→22:39)
[2021-12-29] MEDS: BUDESONIDE/FORMETEROL FUMARATE 160/4.5 mcg INHALER IH SCH ×2 (10:29→22:43)
[2021-12-29] MEDS: GABAPENTIN 300 MG CAPSULE PO PRN ×2 (12:33→22:39)
[2021-12-29] MEDS: QUEtiapine FUMARATE 100 MG TABLET (FP) PO SCH (22:39)
[2021-12-29] MEDS: PRAZOSIN HCL 1 MG CAPSULE PO SCH (22:39)
[2021-12-30] MEDS: methylPREDNISolone NA SUCC 40 MG/1 ML VIAL IVPUSH SCH ×3 (02:36→21:28)
[2021-12-30] MEDS: ALBUTEROL SO4 2.5/IPRATROPIUM 0.5 INH SOL 3 ML VIAL.NEB. NEB SCH ×4 (07:30→20:49)
[2021-12-30] MEDS: clonazePAM 0.5 MG TABLET PO SCH ×2 (09:21→21:29)
[2021-12-30] MEDS ORDERED: ESCITALOPRAM OXALATE 10 MG TABLET ONE (11:14)
[2021-12-30] MEDS: ENOXAPARIN NA (PORCINE) 40 MG/0.4 ML DISP.SYRIN SQ SCH (11:23)
[2021-12-30] MEDS: ESCITALOPRAM OXALATE 20 MG TABLET PO SCH (11:24)
[2021-12-30] MEDS: FAMOTIDINE 20 MG TABLET PO SCH (11:24)
[2021-12-30] MEDS: BUDESONIDE/FORMETEROL FUMARATE 160/4.5 mcg INHALER IH SCH ×2 (11:25→21:29)
[2021-12-30] MEDS: GABAPENTIN 300 MG CAPSULE PO PRN ×2 (14:04→20:59)
[2021-12-30] MEDS: QUEtiapine FUMARATE 100 MG TABLET (FP) PO SCH (21:29)
[2021-12-30] MEDS: PRAZOSIN HCL 1 MG CAPSULE PO SCH (21:29)
[2021-12-31] MEDS: ALBUTEROL SO4 2.5/IPRATROPIUM 0.5 INH SOL 3 ML VIAL.NEB. NEB SCH ×2 (07:50→11:12)
[2021-12-31 08:49] VITALS: BP 104/68; PULSE 92; RESP 18; TEMP 99.2
[2021-12-31] MEDS: methylPREDNISolone NA SUCC 40 MG/1 ML VIAL IVPUSH SCH (09:29)
[2021-12-31] MEDS: ENOXAPARIN NA (PORCINE) 40 MG/0.4 ML DISP.SYRIN SQ SCH (09:29)
[2021-12-31] MEDS: FAMOTIDINE 20 MG TABLET PO SCH (09:29)
[2021-12-31] MEDS: ESCITALOPRAM OXALATE 20 MG TABLET PO SCH (09:29)
[2021-12-31] MEDS: clonazePAM 0.5 MG TABLET PO SCH (09:30)
[2021-12-31] MEDS: BUDESONIDE/FORMETEROL FUMARATE 160/4.5 mcg INHALER IH SCH (09:30)
[2021-12-31] MEDS: GABAPENTIN 300 MG CAPSULE PO PRN (09:37)
== END 2021-12-31 11:36 | disposition home or self-care (01) | DRG 191 ==
LOC: JER 12:16 → JERBED 17:03 → J5S 12-20 02:46 → OBSVTOIN 12-20 04:18
PROVIDERS: ADMIT Internal Medicine; ATTEND Internal Medicine
DX: J44.1 Chronic obstructive pulmonary disease with (acute) exacerbation (principal); F11.20 Opioid dependence, uncomplicated; F31.9 Bipolar disorder, unspecified; J45.909 Unspecified asthma, uncomplicated; F17.210 Nicotine dependence, cigarettes, uncomplicated; F41.9 Anxiety disorder, unspecified; K21.9 Gastro-esophageal reflux disease without esophagitis; M79.10 Myalgia, unspecified site; R06.02 Shortness of breath; R05.9 Cough, unspecified; Z99.81 Dependence on supplemental oxygen; R07.89 Other chest pain
CPT/HCPCS: 0241U-QW; 36415; 71045-TC-FY; 80053; 83735; 84100; 84484; 85025; 87899; 93005; 93010; 94010; 94150; 94640; 99285-25; G0378

== ENCOUNTER 2022-07-08 10:54 | Inpatient (IN) | payer OTHER ==
[2022-07-08] MEDS ORDERED: SODIUM CHLORIDE 0.9% 500 ML INFUS.BAG IV ONE ×2 (11:29→14:00)
[2022-07-08] MEDS ORDERED: ACETAMINOPHEN 1000 MG/100 ML BAG IVPB ONE (11:29)
[2022-07-08] MEDS ORDERED: methylPREDNISolone NA SUCC 125 MG/2 ML VIAL IVPUSH ONE (11:29)
[2022-07-08] MEDS ORDERED: methylPREDNISolone NA SUCC 125 MG/2 ML VIAL ONE (11:40)
[2022-07-08] MEDS ORDERED: ALBUTEROL SO4 2.5/IPRATROPIUM 0.5 INH SOL 3 ML VIAL.NEB. NEB ONE (11:40)
[2022-07-08] MEDS ORDERED: ACETAMINOPHEN INJECTION 100 ML IVPB ONE (11:40)
[2022-07-08] MEDS: ALBUTEROL SO4 2.5/IPRATROPIUM 0.5 INH SOL 3 ML VIAL.NEB. NEB SCH ×2 (12:00→12:15)
[2022-07-08 12:22] LABS: BASO % 1.1 % (0-2.0); EOS % 0.4 % (0-4.5); HEMATOCRIT 36.7 % (35.4-49); HEMOGLOBIN 12.5 GM/dL (11.7-16.9); LYMPH % 19.9 % (8-40); MEAN CELL VOLUME 88.2 fl (80-96); MEAN PLT VOLUME 7.6 fl (7.5-11.1); MONO % 8.5 % (3.8-10.2); NEUT % 70.1 % (42.8-82.8); PLATELET COUNT 410 10^3/uL (134-434); RBC 4.16 M/mm3 (4.00-5.60); RDW 13.1 % (11.9-15.9); VENOUS BASE EXCESS 4.5 mmol/L (-2-2); VENOUS O2 SATURATION 90.5 % (70-80); VENOUS PCO2 56.4 mmHg (38-52); VENOUS PH 7.363 (7.310-7.410)
[2022-07-08 12:54] LABS: POTASSIUM 4.3 mmol/L (3.5-5.1)
[2022-07-08 12:56] LABS: CALCIUM 8.6 mg/dL (8.5-10.1)
[2022-07-08 12:57] LABS: ALBUMIN 3.3 g/dl (3.4-5.0); BLOOD UREA NITROGEN 6.8 mg/dL (7-18); MAGNESIUM 1.7 mg/dL (1.8-2.4)
[2022-07-08 13:02] LABS: BILIRUBIN,TOTAL 0.5 mg/dL (0.2-1); TOT PROT 7.3 g/dl (6.4-8.2)
[2022-07-08 13:05] LABS: N-TERMINAL BNP 252.7 pg/ml (5-125)
[2022-07-08] MEDS ORDERED: DOXYCYCLINE INJECTION 100 MG in DEXTROSE 5%-WATER 100 ML IVPB ONE (17:24)
[2022-07-08] MEDS ORDERED: CEFTRIAXONE 1 GM/50 ML BAG ONE (17:53)
[2022-07-08] MEDS ORDERED: DOXYCYCLINE HYCLATE 100 MG VIAL ONE (18:13)
[2022-07-08] MEDS ORDERED: ALBUTEROL SO4 0.083% IH SOL 2.5 MG/3 ML VIAL.NEB. NEB PRN (18:45)
[2022-07-08] MEDS ORDERED: ALBUTEROL SO4 2.5/IPRATROPIUM 0.5 INH SOL 3 ML VIAL.NEB. NEB SCH (20:00)
[2022-07-08] MEDS: QUEtiapine FUMARATE 100 MG TABLET (FP) PO SCH (21:50)
[2022-07-08] MEDS: BUDESONIDE/FORMETEROL FUMARATE 160/4.5 mcg INHALER IH SCH (21:51)
[2022-07-08] MEDS: HEPARIN NA (PORCINE) 5,000 UNITS/ML 1ML VIAL SQ SCH (21:51)
[2022-07-08] MEDS: PRAZOSIN HCL 1 MG CAPSULE PO SCH (21:51)
[2022-07-08] MEDS: DOXYCYCLINE INJECTION 100 MG in DEXTROSE 5%-WATER 100 ML IVPB SCH (21:52)
[2022-07-08 22:17] LABS: PH,URINE 5.5 (5.0-8.0); URINE APPEARANCE CLEAR; URINE BILIRUBIN NEGATIVE (NEGATIVE); URINE COLOR YELLOW; URINE GLUCOSE (UA) NEGATIVE (NEGATIVE); URINE KETONE TRACE (NEGATIVE)
[2022-07-08 22:18] LABS: URINE LEUK ESTERASE NEGATIVE (NEGATIVE); URINE NITRITE NEGATIVE (NEGATIVE); URINE PROTEIN NEGATIVE (NEGATIVE)
[2022-07-09 03:42] VITALS: BMI 26.0
[2022-07-09] MEDS ORDERED: ESCITALOPRAM OXALATE 10 MG TABLET ONE (06:04)
[2022-07-09] MEDS: ESCITALOPRAM OXALATE 20 MG TABLET PO SCH (06:07)
[2022-07-09 08:11] LABS: BASO % 0.1 % (0-2.0); HEMATOCRIT 32.3 % (35.4-49); HEMOGLOBIN 11.3 GM/dL (11.7-16.9); LYMPH % 11.2 % (8-40); MCH 30.7 pg (25.7-33.7); MEAN CELL VOLUME 87.6 fl (80-96); MEAN PLT VOLUME 7.7 fl (7.5-11.1); MONO % 5.4 % (3.8-10.2); NEUT % 83.3 % (42.8-82.8); PLATELET COUNT 330 10^3/uL (134-434); RBC 3.69 M/mm3 (4.00-5.60); RDW 12.8 % (11.9-15.9); WHITE BLOOD COUNT 8.6 K/mm3 (4.0-10.0)
[2022-07-09 08:34] LABS: POTASSIUM 4.2 mmol/L (3.5-5.1)
[2022-07-09 08:38] LABS: CALCIUM 8.7 mg/dL (8.5-10.1)
[2022-07-09 08:40] LABS: BLOOD UREA NITROGEN 10.8 mg/dL (7-18)
[2022-07-09 08:42] LABS: CREATININE 0.7 mg/dL (0.55-1.3)
[2022-07-09] MEDS: DOXYCYCLINE INJECTION 100 MG in DEXTROSE 5%-WATER 100 ML IVPB SCH ×2 (09:00→21:42)
[2022-07-09] MEDS ORDERED: methaDONE HCL 40 MG DISPERSABLE TABLET PO SCH ×2 (10:15→10:48)
[2022-07-09] MEDS: CEFTRIAXONE 1 GM in DEXTROSE 5%-WATER - 50 ML IVPB SCH (11:03)
[2022-07-09] MEDS: HEPARIN NA (PORCINE) 5,000 UNITS/ML 1ML VIAL SQ SCH ×2 (11:04→21:41)
[2022-07-09] MEDS ORDERED: ACETAMINOPHEN 325 MG TABLET (FP) PO PRN (11:21)
[2022-07-09] MEDS: BUDESONIDE/FORMETEROL FUMARATE 160/4.5 mcg INHALER IH SCH ×2 (11:27→21:42)
[2022-07-09] MEDS: TIOTROPIUM BROMIDE 2.5 MCG (SPIRIVA) RESPIMAT INHALER IH SCH (11:28)
[2022-07-09] MEDS: PRAZOSIN HCL 1 MG CAPSULE PO SCH (21:40)
[2022-07-09] MEDS: QUEtiapine FUMARATE 100 MG TABLET (FP) PO SCH (21:41)
[2022-07-09] MEDS: clonazePAM 0.5 MG TABLET PO PRN (21:41)
[2022-07-10] MEDS ORDERED: ESCITALOPRAM OXALATE 10 MG TABLET ONE (06:00)
[2022-07-10] MEDS: ESCITALOPRAM OXALATE 20 MG TABLET PO SCH (06:19)
[2022-07-10] MEDS: HEPARIN NA (PORCINE) 5,000 UNITS/ML 1ML VIAL SQ SCH ×2 (09:31→21:37)
[2022-07-10] MEDS: CEFTRIAXONE 1 GM in DEXTROSE 5%-WATER - 50 ML IVPB SCH (09:32)
[2022-07-10] MEDS: BUDESONIDE/FORMETEROL FUMARATE 160/4.5 mcg INHALER IH SCH ×2 (09:39→21:45)
[2022-07-10] MEDS: TIOTROPIUM BROMIDE 2.5 MCG (SPIRIVA) RESPIMAT INHALER IH SCH (09:39)
[2022-07-10] MEDS: DOXYCYCLINE INJECTION 100 MG in DEXTROSE 5%-WATER 100 ML IVPB SCH ×2 (11:19→21:41)
[2022-07-10] MEDS: methylPREDNISolone NA SUCC 40 MG/1 ML VIAL IVPUSH SCH ×2 (11:19→17:05)
[2022-07-10] MEDS: QUEtiapine FUMARATE 100 MG TABLET (FP) PO SCH (21:37)
[2022-07-10] MEDS: PRAZOSIN HCL 1 MG CAPSULE PO SCH ×2 (21:45→21:55)
[2022-07-10] MEDS: clonazePAM 0.5 MG TABLET PO PRN (21:48)
[2022-07-11] MEDS: methylPREDNISolone NA SUCC 40 MG/1 ML VIAL IVPUSH SCH ×3 (01:18→17:38)
[2022-07-11] MEDS ORDERED: ESCITALOPRAM OXALATE 10 MG TABLET ONE (06:29)
[2022-07-11] MEDS: ESCITALOPRAM OXALATE 20 MG TABLET PO SCH (06:55)
[2022-07-11] MEDS: CEFTRIAXONE 1 GM in DEXTROSE 5%-WATER - 50 ML IVPB SCH (09:31)
[2022-07-11] MEDS: HEPARIN NA (PORCINE) 5,000 UNITS/ML 1ML VIAL SQ SCH ×2 (09:33→21:30)
[2022-07-11] MEDS: BUDESONIDE/FORMETEROL FUMARATE 160/4.5 mcg INHALER IH SCH ×2 (09:38→21:32)
[2022-07-11] MEDS: TIOTROPIUM BROMIDE 2.5 MCG (SPIRIVA) RESPIMAT INHALER IH SCH (09:38)
[2022-07-11] MEDS: clonazePAM 0.5 MG TABLET PO PRN ×2 (09:39→21:30)
[2022-07-11] MEDS: DOXYCYCLINE INJECTION 100 MG in DEXTROSE 5%-WATER 100 ML IVPB SCH (11:48)
[2022-07-11] MEDS: DOXYCYCLINE HYCLATE 100 MG CAPSULE PO SCH (17:38)
[2022-07-11] MEDS: PRAZOSIN HCL 1 MG CAPSULE PO SCH (21:30)
[2022-07-11] MEDS: QUEtiapine FUMARATE 100 MG TABLET (FP) PO SCH (21:31)
[2022-07-12] MEDS: methylPREDNISolone NA SUCC 40 MG/1 ML VIAL IVPUSH SCH ×2 (01:52→11:26)
[2022-07-12] MEDS ORDERED: ESCITALOPRAM OXALATE 10 MG TABLET ONE (06:19)
[2022-07-12] MEDS: ESCITALOPRAM OXALATE 20 MG TABLET PO SCH (06:23)
[2022-07-12] MEDS: HEPARIN NA (PORCINE) 5,000 UNITS/ML 1ML VIAL SQ SCH ×2 (09:39→21:28)
[2022-07-12] MEDS: DOXYCYCLINE HYCLATE 100 MG CAPSULE PO SCH ×2 (09:39→17:22)
[2022-07-12] MEDS: CEFTRIAXONE 1 GM in DEXTROSE 5%-WATER - 50 ML IVPB SCH (09:39)
[2022-07-12] MEDS: clonazePAM 0.5 MG TABLET PO PRN ×2 (09:42→21:29)
[2022-07-12] MEDS: TIOTROPIUM BROMIDE 2.5 MCG (SPIRIVA) RESPIMAT INHALER IH SCH (09:53)
[2022-07-12] MEDS: BUDESONIDE/FORMETEROL FUMARATE 160/4.5 mcg INHALER IH SCH ×2 (09:54→21:34)
[2022-07-12] MEDS: GABAPENTIN 300 MG CAPSULE PO SCH ×2 (11:25→21:30)
[2022-07-12] MEDS: QUEtiapine FUMARATE 100 MG TABLET (FP) PO SCH (21:30)
[2022-07-12] MEDS: PRAZOSIN HCL 1 MG CAPSULE PO SCH (21:30)
[2022-07-13] MEDS ORDERED: ESCITALOPRAM OXALATE 10 MG TABLET ONE (05:16)
[2022-07-13] MEDS: ESCITALOPRAM OXALATE 20 MG TABLET PO SCH (06:03)
[2022-07-13 06:50] VITALS: RESP 20
[2022-07-13] MEDS: DOXYCYCLINE HYCLATE 100 MG CAPSULE PO SCH ×2 (10:16→17:13)
[2022-07-13] MEDS: clonazePAM 0.5 MG TABLET PO PRN ×2 (10:16→22:19)
[2022-07-13] MEDS: HEPARIN NA (PORCINE) 5,000 UNITS/ML 1ML VIAL SQ SCH ×2 (10:17→22:12)
[2022-07-13] MEDS: methylPREDNISolone NA SUCC 40 MG/1 ML VIAL IVPUSH SCH (10:17)
[2022-07-13] MEDS: GABAPENTIN 300 MG CAPSULE PO SCH ×2 (10:17→22:14)
[2022-07-13] MEDS: CEFTRIAXONE 1 GM in DEXTROSE 5%-WATER - 50 ML IVPB SCH (10:17)
[2022-07-13] MEDS: TIOTROPIUM BROMIDE 2.5 MCG (SPIRIVA) RESPIMAT INHALER IH SCH (10:18)
[2022-07-13] MEDS: BUDESONIDE/FORMETEROL FUMARATE 160/4.5 mcg INHALER IH SCH ×2 (10:19→22:15)
[2022-07-13] MEDS: QUEtiapine FUMARATE 100 MG TABLET (FP) PO SCH (22:13)
[2022-07-13] MEDS: PRAZOSIN HCL 1 MG CAPSULE PO SCH (22:14)
[2022-07-14] MEDS ORDERED: ESCITALOPRAM OXALATE 10 MG TABLET ONE (06:33)
[2022-07-14] MEDS: ESCITALOPRAM OXALATE 20 MG TABLET PO SCH (06:53)
[2022-07-14 09:23] VITALS: BP 118/77; PULSE 74; TEMP 98
[2022-07-14] MEDS: clonazePAM 0.5 MG TABLET PO PRN (09:30)
[2022-07-14] MEDS: DOXYCYCLINE HYCLATE 100 MG CAPSULE PO SCH (09:30)
[2022-07-14] MEDS: HEPARIN NA (PORCINE) 5,000 UNITS/ML 1ML VIAL SQ SCH (09:30)
[2022-07-14] MEDS: GABAPENTIN 300 MG CAPSULE PO SCH (09:30)
[2022-07-14] MEDS: BUDESONIDE/FORMETEROL FUMARATE 160/4.5 mcg INHALER IH SCH (09:51)
[2022-07-14] MEDS: TIOTROPIUM BROMIDE 2.5 MCG (SPIRIVA) RESPIMAT INHALER IH SCH (09:51)
[2022-07-14] MEDS ORDERED: predniSONE 20 MG TABLET (UD) PO SCH (10:30)
[2022-07-14] MEDS: CEFTRIAXONE 1 GM in DEXTROSE 5%-WATER - 50 ML IVPB SCH (11:13)
[2022-07-14] MEDS: methylPREDNISolone NA SUCC 40 MG/1 ML VIAL IVPUSH SCH (11:21)
== END 2022-07-14 13:27 | disposition home or self-care (01) | DRG 193 ==
LOC: JER 10:54 → JERBED 18:41 → J8W 20:23 → OBSVTOIN 07-10 14:25
PROVIDERS: ADMIT Internal Medicine; ATTEND Internal Medicine
DX: J18.9 Pneumonia, unspecified organism (principal); J96.21 Acute and chronic respiratory failure with hypoxia; J96.22 Acute and chronic respiratory failure with hypercapnia; F11.20 Opioid dependence, uncomplicated; J44.1 Chronic obstructive pulmonary disease with (acute) exacerbation; J45.901 Unspecified asthma with (acute) exacerbation; J44.0 Chronic obstructive pulmonary disease with (acute) lower respiratory infection; Z99.81 Dependence on supplemental oxygen; K21.9 Gastro-esophageal reflux disease without esophagitis; F41.9 Anxiety disorder, unspecified
CPT/HCPCS: 0241U-QW; 36415; 70450-TC; 71045-TC-FY; 71046-TC-FY; 71275-TC; 80048; 80053; 81003; 82803; 83735; 83880; 84484; 85025; 87086; 87899; 93005; 93010; 97116-GP; 97162-GP; 99285-25; G0378; J1644; Q9967

== ENCOUNTER 2022-08-07 11:41 | Inpatient (IN) | payer OTHER ==
[2022-08-07 11:54] VITALS: BMI 25.0
[2022-08-07] MEDS ORDERED: ALBUTEROL SO4 2.5/IPRATROPIUM 0.5 INH SOL 3 ML VIAL.NEB. NEB ONE ×3 (12:21→19:55)
[2022-08-07] MEDS ORDERED: MAGNESIUM SULF 50% (8.12 MEQ/2 ML-1 GM VIAL) IVPB ONE (12:21)
[2022-08-07] MEDS ORDERED: methylPREDNISolone NA SUCC 125 MG/2 ML VIAL IVPB ONE (12:21)
[2022-08-07] MEDS: ALBUTEROL SO4 2.5/IPRATROPIUM 0.5 INH SOL 3 ML VIAL.NEB. NEB SCH ×4 (13:05→20:02)
[2022-08-07] MEDS ORDERED: MAGNESIUM SULFATE IN WATER 2 GM/50 ML IVPB IVPB ONE (13:19)
[2022-08-07] MEDS ORDERED: methylPREDNISolone NA SUCC 125 MG/2 ML VIAL ONE (13:19)
[2022-08-07 13:22] LABS: BASO % 0.3 % (0-2.0); EOS % 0.3 % (0-4.5); HEMATOCRIT 40.5 % (35.4-49); HEMOGLOBIN 13.3 GM/dL (11.7-16.9); MCH 29.3 pg (25.7-33.7); MCHC 32.7 g/dl (32.0-35.9); MEAN CELL VOLUME 89.6 fl (80-96); MEAN PLT VOLUME 7.4 fl (7.5-11.1); NEUT % 83.4 % (42.8-82.8); PLATELET COUNT 243 10^3/uL (134-434); RBC 4.52 M/mm3 (4.00-5.60); RDW 14.2 % (11.9-15.9); WHITE BLOOD COUNT 4.2 K/mm3 (4.0-10.0)
[2022-08-07 14:06] LABS: CHLORIDE 108 mmol/L (98-107); POTASSIUM 4.1 mmol/L (3.5-5.1); SODIUM 140 mmol/L (136-145)
[2022-08-07 14:08] LABS: CALCIUM 9.1 mg/dL (8.5-10.1)
[2022-08-07 14:09] LABS: ALBUMIN 3.8 g/dl (3.4-5.0); ANION GAP 3 MMOL/L (8-16); BLOOD UREA NITROGEN 9.1 mg/dL (7-18); CO2 29 mmol/L (21-32); GLUCOSE,RANDOM 96 mg/dL (74-106)
[2022-08-07 14:12] LABS: CREATININE 0.9 mg/dL (0.55-1.3); SGOT/AST 14 U/L (15-37); SGPT/ALT 16 U/L (13-61)
[2022-08-07 14:14] LABS: BILIRUBIN,TOTAL 0.3 mg/dL (0.2-1); TOT PROT 7.5 g/dl (6.4-8.2)
[2022-08-07 14:15] LABS: ALK PHOS 76 U/L (45-117)
[2022-08-07 14:17] LABS: N-TERMINAL BNP 31.3 pg/ml (5-125)
[2022-08-07] MEDS ORDERED: PIPERACILLIN/TAZOB 4.5 GM 4.5 GM in DEXTROSE 5%-WATER 100 ML IVPB ONE (15:39)
[2022-08-07] MEDS ORDERED: VANCOMYCIN 1 GM in D5W (PRE-DOCKED) 1,000 MG/250 ML (RESTRICTED TO ID ONLY IVPB ONE (15:42)
[2022-08-07] MEDS ORDERED: PIPERACILLIN/TAZOB 4.5 GM 4.5 GM/100 ML BAG IVPB ONE (15:46)
[2022-08-07] MEDS ORDERED: VANCOMYCIN/WATER FOR INJ (PEG) 1,000 MG/200 ML BAG IVPB ONE (15:47)
[2022-08-07] MEDS ORDERED: ACETAMINOPHEN 325 MG TABLET (FP) PO PRN (17:09)
[2022-08-07] MEDS ORDERED: methylPREDNISolone NA SUCC 40 MG/1 ML VIAL ONE (19:34)
[2022-08-07] MEDS: methylPREDNISolone NA SUCC 40 MG/1 ML VIAL IVPB SCH (19:45)
[2022-08-07 20:45] LABS: PH,URINE 5.5 (5.0-8.0); URINE APPEARANCE CLEAR; URINE BILIRUBIN NEGATIVE (NEGATIVE); URINE COLOR YELLOW; URINE GLUCOSE (UA) NEGATIVE (NEGATIVE); URINE KETONE TRACE (NEGATIVE); URINE LEUK ESTERASE NEGATIVE (NEGATIVE); URINE NITRITE NEGATIVE (NEGATIVE); URINE PROTEIN NEGATIVE (NEGATIVE); URINE UROBILINOGEN 0.2 mg/dL (0.2-1.0)
[2022-08-07] MEDS ORDERED: PIPERACILLIN/TAZOB 4.5 GM 4.5 GM in DEXTROSE 5%-WATER 100 ML IVPB SCH (22:00)
[2022-08-07] MEDS: QUEtiapine FUMARATE 200 MG TABLET PO SCH (22:24)
[2022-08-07] MEDS: CEFTRIAXONE 1 GM in DEXTROSE 5%-WATER - 50 ML IVPB SCH (22:24)
[2022-08-07] MEDS: clonazePAM 0.5 MG TABLET PO SCH (22:24)
[2022-08-07] MEDS: PRAZOSIN HCL 1 MG CAPSULE PO SCH (22:49)
[2022-08-07] MEDS: BUDESONIDE/FORMETEROL FUMARATE 160/4.5 mcg INHALER IH SCH (22:50)
[2022-08-07] MEDS: DOXYCYCLINE INJECTION 100 MG in DEXTROSE 5%-WATER 100 ML IVPB SCH (22:50)
[2022-08-08] MEDS: methylPREDNISolone NA SUCC 40 MG/1 ML VIAL IVPB SCH ×3 (01:10→18:13)
[2022-08-08 08:15] LABS: BASO % 0.1 % (0-2.0); HEMATOCRIT 36.6 % (35.4-49); HEMOGLOBIN 12.5 GM/dL (11.7-16.9); LYMPH % 9.9 % (8-40); MCH 30.2 pg (25.7-33.7); MEAN CELL VOLUME 88.7 fl (80-96); MEAN PLT VOLUME 7.6 fl (7.5-11.1); MONO % 2.7 % (3.8-10.2); NEUT % 87.3 % (42.8-82.8); PLATELET COUNT 226 10^3/uL (134-434); RBC 4.13 M/mm3 (4.00-5.60); RDW 14.1 % (11.9-15.9); WHITE BLOOD COUNT 10.2 K/mm3 (4.0-10.0)
[2022-08-08 08:31] LABS: POTASSIUM 4.3 mmol/L (3.5-5.1)
[2022-08-08 08:33] LABS: ALBUMIN 3.4 g/dl (3.4-5.0); BLOOD UREA NITROGEN 12.2 mg/dL (7-18); CALCIUM 9.1 mg/dL (8.5-10.1)
[2022-08-08 08:36] LABS: CREATININE 0.7 mg/dL (0.55-1.3)
[2022-08-08 08:38] LABS: BILIRUBIN,TOTAL 0.2 mg/dL (0.2-1); TOT PROT 6.8 g/dl (6.4-8.2)
[2022-08-08] MEDS: methaDONE 80 MG, methaDONE 20 MG PO SCH (08:41)
[2022-08-08] MEDS: ALBUTEROL SO4 2.5/IPRATROPIUM 0.5 INH SOL 3 ML VIAL.NEB. NEB SCH ×5 (08:44→20:00)
[2022-08-08] MEDS ORDERED: methaDONE HCL 40 MG DISPERSABLE TABLET PO SCH (10:00)
[2022-08-08] MEDS ORDERED: ESCITALOPRAM OXALATE 10 MG TABLET ONE (10:17)
[2022-08-08] MEDS: clonazePAM 0.5 MG TABLET PO SCH ×2 (10:25→21:09)
[2022-08-08] MEDS: DOXYCYCLINE INJECTION 100 MG in DEXTROSE 5%-WATER 100 ML IVPB SCH ×2 (10:26→21:14)
[2022-08-08] MEDS: CEFTRIAXONE 1 GM in DEXTROSE 5%-WATER - 50 ML IVPB SCH (10:26)
[2022-08-08] MEDS: BUDESONIDE/FORMETEROL FUMARATE 160/4.5 mcg INHALER IH SCH ×2 (10:30→21:14)
[2022-08-08] MEDS: ESCITALOPRAM OXALATE 20 MG TABLET PO SCH (10:58)
[2022-08-08] MEDS: TIOTROPIUM BROMIDE 2.5 MCG (SPIRIVA) RESPIMAT INHALER IH SCH (11:53)
[2022-08-08] MEDS: QUEtiapine FUMARATE 200 MG TABLET PO SCH (21:09)
[2022-08-08] MEDS: PRAZOSIN HCL 1 MG CAPSULE PO SCH (21:09)
[2022-08-09] MEDS: methylPREDNISolone NA SUCC 40 MG/1 ML VIAL IVPB SCH ×2 (01:24→09:47)
[2022-08-09] MEDS: methaDONE 80 MG, methaDONE 20 MG PO SCH (05:32)
[2022-08-09] MEDS ORDERED: ESCITALOPRAM OXALATE 10 MG TABLET ONE (09:13)
[2022-08-09] MEDS: ALBUTEROL SO4 2.5/IPRATROPIUM 0.5 INH SOL 3 ML VIAL.NEB. NEB SCH ×4 (09:33→20:25)
[2022-08-09] MEDS: CEFTRIAXONE 1 GM in DEXTROSE 5%-WATER - 50 ML IVPB SCH (09:47)
[2022-08-09] MEDS: clonazePAM 0.5 MG TABLET PO SCH ×2 (09:48→21:38)
[2022-08-09] MEDS: DOXYCYCLINE INJECTION 100 MG in DEXTROSE 5%-WATER 100 ML IVPB SCH ×2 (09:48→21:37)
[2022-08-09] MEDS: BUDESONIDE/FORMETEROL FUMARATE 160/4.5 mcg INHALER IH SCH ×2 (09:50→21:38)
[2022-08-09] MEDS: ESCITALOPRAM OXALATE 20 MG TABLET PO SCH (09:50)
[2022-08-09] MEDS: TIOTROPIUM BROMIDE 2.5 MCG (SPIRIVA) RESPIMAT INHALER IH SCH (09:50)
[2022-08-09] MEDS ORDERED: ENOXAPARIN NA (PORCINE) 40 MG/0.4 ML DISP.SYRIN SQ ONE (14:18)
[2022-08-09] MEDS: methylPREDNISolone NA SUCC 40 MG/1 ML VIAL IVPUSH SCH (17:08)
[2022-08-09] MEDS: PRAZOSIN HCL 1 MG CAPSULE PO SCH (21:38)
[2022-08-09] MEDS: QUEtiapine FUMARATE 200 MG TABLET PO SCH (21:38)
[2022-08-10] MEDS: methylPREDNISolone NA SUCC 40 MG/1 ML VIAL IVPUSH SCH ×3 (02:10→17:07)
[2022-08-10] MEDS: methaDONE 80 MG, methaDONE 20 MG PO SCH (05:31)
[2022-08-10] MEDS: ALBUTEROL SO4 2.5/IPRATROPIUM 0.5 INH SOL 3 ML VIAL.NEB. NEB SCH ×4 (07:25→20:35)
[2022-08-10] MEDS ORDERED: ESCITALOPRAM OXALATE 10 MG TABLET ONE (08:41)
[2022-08-10] MEDS: clonazePAM 0.5 MG TABLET PO SCH ×2 (09:00→22:11)
[2022-08-10] MEDS: ESCITALOPRAM OXALATE 20 MG TABLET PO SCH (09:01)
[2022-08-10] MEDS: CEFTRIAXONE 1 GM in DEXTROSE 5%-WATER - 50 ML IVPB SCH (09:01)
[2022-08-10] MEDS: GABAPENTIN 300 MG CAPSULE PO PRN ×2 (09:11→22:19)
[2022-08-10] MEDS: TIOTROPIUM BROMIDE 2.5 MCG (SPIRIVA) RESPIMAT INHALER IH SCH (09:14)
[2022-08-10] MEDS: BUDESONIDE/FORMETEROL FUMARATE 160/4.5 mcg INHALER IH SCH ×2 (09:15→22:19)
[2022-08-10] MEDS: ENOXAPARIN NA (PORCINE) 40 MG/0.4 ML DISP.SYRIN SQ SCH (09:15)
[2022-08-10] MEDS: DOXYCYCLINE INJECTION 100 MG in DEXTROSE 5%-WATER 100 ML IVPB SCH ×2 (10:14→22:11)
[2022-08-10] MEDS: QUEtiapine FUMARATE 200 MG TABLET PO SCH (22:11)
[2022-08-10] MEDS: PRAZOSIN HCL 1 MG CAPSULE PO SCH (22:11)
[2022-08-11] MEDS: methylPREDNISolone NA SUCC 40 MG/1 ML VIAL IVPUSH SCH ×3 (01:56→17:47)
[2022-08-11] MEDS: methaDONE 80 MG, methaDONE 20 MG PO SCH (06:04)
[2022-08-11] MEDS: ALBUTEROL SO4 2.5/IPRATROPIUM 0.5 INH SOL 3 ML VIAL.NEB. NEB SCH ×4 (08:06→20:10)
[2022-08-11] MEDS ORDERED: ESCITALOPRAM OXALATE 10 MG TABLET ONE (09:12)
[2022-08-11] MEDS: ESCITALOPRAM OXALATE 20 MG TABLET PO SCH (09:14)
[2022-08-11] MEDS: clonazePAM 0.5 MG TABLET PO SCH ×2 (09:14→21:20)
[2022-08-11] MEDS: ENOXAPARIN NA (PORCINE) 40 MG/0.4 ML DISP.SYRIN SQ SCH (09:15)
[2022-08-11] MEDS: CEFTRIAXONE 1 GM in DEXTROSE 5%-WATER - 50 ML IVPB SCH (09:15)
[2022-08-11] MEDS: BUDESONIDE/FORMETEROL FUMARATE 160/4.5 mcg INHALER IH SCH ×2 (09:23→21:20)
[2022-08-11] MEDS: TIOTROPIUM BROMIDE 2.5 MCG (SPIRIVA) RESPIMAT INHALER IH SCH (10:13)
[2022-08-11] MEDS: DOXYCYCLINE INJECTION 100 MG in DEXTROSE 5%-WATER 100 ML IVPB SCH ×2 (11:07→21:20)
[2022-08-11] MEDS: GABAPENTIN 300 MG CAPSULE PO PRN (11:55)
[2022-08-11] MEDS: LORATADINE 10 MG TABLET PO SCH (11:55)
[2022-08-11] MEDS: PRAZOSIN HCL 1 MG CAPSULE PO SCH (21:18)
[2022-08-11] MEDS: QUEtiapine FUMARATE 200 MG TABLET PO SCH (21:19)
[2022-08-12] MEDS: methylPREDNISolone NA SUCC 40 MG/1 ML VIAL IVPUSH SCH ×3 (02:18→17:38)
[2022-08-12] MEDS: methaDONE 80 MG, methaDONE 20 MG PO SCH (05:50)
[2022-08-12] MEDS: ALBUTEROL SO4 2.5/IPRATROPIUM 0.5 INH SOL 3 ML VIAL.NEB. NEB SCH ×3 (07:35→16:15)
[2022-08-12] MEDS ORDERED: ESCITALOPRAM OXALATE 10 MG TABLET ONE (09:23)
[2022-08-12] MEDS: ESCITALOPRAM OXALATE 20 MG TABLET PO SCH (09:27)
[2022-08-12] MEDS: LORATADINE 10 MG TABLET PO SCH (09:27)
[2022-08-12] MEDS: GABAPENTIN 300 MG CAPSULE PO PRN ×2 (09:27→22:06)
[2022-08-12] MEDS: clonazePAM 0.5 MG TABLET PO SCH ×2 (09:27→22:01)
[2022-08-12] MEDS: TIOTROPIUM BROMIDE 2.5 MCG (SPIRIVA) RESPIMAT INHALER IH SCH (09:44)
[2022-08-12] MEDS: BUDESONIDE/FORMETEROL FUMARATE 160/4.5 mcg INHALER IH SCH ×2 (09:44→22:28)
[2022-08-12] MEDS: ENOXAPARIN NA (PORCINE) 40 MG/0.4 ML DISP.SYRIN SQ SCH (09:44)
[2022-08-12] MEDS: CEFTRIAXONE 1 GM in DEXTROSE 5%-WATER - 50 ML IVPB SCH (09:45)
[2022-08-12] MEDS: DOXYCYCLINE INJECTION 100 MG in DEXTROSE 5%-WATER 100 ML IVPB SCH ×2 (10:52→22:01)
[2022-08-12] MEDS: ALBUTEROL SO4 2.5/IPRATROPIUM 0.5 INH SOL 3 ML VIAL.NEB. NEB PRN (20:38)
[2022-08-12] MEDS: PRAZOSIN HCL 1 MG CAPSULE PO SCH (22:02)
[2022-08-12] MEDS: QUEtiapine FUMARATE 200 MG TABLET PO SCH (22:02)
[2022-08-13] MEDS: methylPREDNISolone NA SUCC 40 MG/1 ML VIAL IVPUSH SCH ×3 (02:13→21:23)
[2022-08-13] MEDS: methaDONE 80 MG, methaDONE 20 MG PO SCH (05:36)
[2022-08-13] MEDS: ALBUTEROL SO4 2.5/IPRATROPIUM 0.5 INH SOL 3 ML VIAL.NEB. NEB PRN ×2 (07:40→20:12)
[2022-08-13] MEDS ORDERED: ESCITALOPRAM OXALATE 10 MG TABLET ONE (10:04)
[2022-08-13] MEDS: clonazePAM 0.5 MG TABLET PO SCH ×2 (10:09→21:23)
[2022-08-13] MEDS: GABAPENTIN 300 MG CAPSULE PO PRN ×2 (10:09→21:25)
[2022-08-13] MEDS: LORATADINE 10 MG TABLET PO SCH (10:09)
[2022-08-13] MEDS: DOXYCYCLINE INJECTION 100 MG in DEXTROSE 5%-WATER 100 ML IVPB SCH ×2 (10:10→21:23)
[2022-08-13] MEDS: ESCITALOPRAM OXALATE 20 MG TABLET PO SCH (10:10)
[2022-08-13] MEDS: ENOXAPARIN NA (PORCINE) 40 MG/0.4 ML DISP.SYRIN SQ SCH (10:10)
[2022-08-13] MEDS: BUDESONIDE/FORMETEROL FUMARATE 160/4.5 mcg INHALER IH SCH ×2 (13:35→21:23)
[2022-08-13] MEDS: TIOTROPIUM BROMIDE 2.5 MCG (SPIRIVA) RESPIMAT INHALER IH SCH (13:35)
[2022-08-13] MEDS: QUEtiapine FUMARATE 200 MG TABLET PO SCH (21:23)
[2022-08-13] MEDS: PRAZOSIN HCL 1 MG CAPSULE PO SCH (21:23)
[2022-08-14] MEDS: methaDONE 80 MG, methaDONE 20 MG PO SCH (05:48)
[2022-08-14] MEDS: ALBUTEROL SO4 2.5/IPRATROPIUM 0.5 INH SOL 3 ML VIAL.NEB. NEB PRN (08:09)
[2022-08-14] MEDS ORDERED: ESCITALOPRAM OXALATE 10 MG TABLET ONE (09:00)
[2022-08-14] MEDS: clonazePAM 0.5 MG TABLET PO SCH (09:06)
[2022-08-14] MEDS: LORATADINE 10 MG TABLET PO SCH (09:06)
[2022-08-14] MEDS: ESCITALOPRAM OXALATE 20 MG TABLET PO SCH (09:06)
[2022-08-14] MEDS: GABAPENTIN 300 MG CAPSULE PO PRN ×2 (09:06→21:20)
[2022-08-14] MEDS: methylPREDNISolone NA SUCC 40 MG/1 ML VIAL IVPUSH SCH ×2 (09:07→21:04)
[2022-08-14] MEDS: ENOXAPARIN NA (PORCINE) 40 MG/0.4 ML DISP.SYRIN SQ SCH (09:07)
[2022-08-14] MEDS: DOXYCYCLINE INJECTION 100 MG in DEXTROSE 5%-WATER 100 ML IVPB SCH (09:08)
[2022-08-14] MEDS: BUDESONIDE/FORMETEROL FUMARATE 160/4.5 mcg INHALER IH SCH ×2 (09:13→21:21)
[2022-08-14] MEDS: TIOTROPIUM BROMIDE 2.5 MCG (SPIRIVA) RESPIMAT INHALER IH SCH (09:17)
[2022-08-14 15:58] VITALS: RESP 20
[2022-08-14] MEDS: PRAZOSIN HCL 1 MG CAPSULE PO SCH (21:02)
[2022-08-14] MEDS: QUEtiapine FUMARATE 200 MG TABLET PO SCH (21:02)
[2022-08-14] MEDS ORDERED: clonazePAM 0.5 MG TABLET PO ONE (21:56)
[2022-08-15] MEDS: methaDONE 80 MG, methaDONE 20 MG PO SCH (05:20)
[2022-08-15] MEDS ORDERED: ESCITALOPRAM OXALATE 10 MG TABLET ONE (10:48)
[2022-08-15] MEDS: ENOXAPARIN NA (PORCINE) 40 MG/0.4 ML DISP.SYRIN SQ SCH (10:51)
[2022-08-15] MEDS: LORATADINE 10 MG TABLET PO SCH (10:51)
[2022-08-15] MEDS: ESCITALOPRAM OXALATE 20 MG TABLET PO SCH (10:52)
[2022-08-15] MEDS: BUDESONIDE/FORMETEROL FUMARATE 160/4.5 mcg INHALER IH SCH (10:56)
[2022-08-15] MEDS: TIOTROPIUM BROMIDE 2.5 MCG (SPIRIVA) RESPIMAT INHALER IH SCH (10:56)
[2022-08-15] MEDS: methylPREDNISolone NA SUCC 40 MG/1 ML VIAL IVPUSH SCH (11:01)
[2022-08-15 12:48] VITALS: BP 121/78; PULSE 88; TEMP 97.6
== END 2022-08-15 12:51 | disposition home or self-care (01) | DRG 190 ==
LOC: JER 11:41 → JERBED 15:03 → J6S 20:43 → OBSVTOIN 08-08 10:16
PROVIDERS: ADMIT Internal Medicine; ATTEND Internal Medicine
DX: J44.1 Chronic obstructive pulmonary disease with (acute) exacerbation (principal); J18.9 Pneumonia, unspecified organism; F11.20 Opioid dependence, uncomplicated; J44.0 Chronic obstructive pulmonary disease with (acute) lower respiratory infection; R09.02 Hypoxemia; F17.210 Nicotine dependence, cigarettes, uncomplicated; K21.9 Gastro-esophageal reflux disease without esophagitis
CPT/HCPCS: 0241U-QW; 36415; 71046-TC-FY; 71250-TC; 80053; 81003; 82550; 83605; 83880; 84484; 85025; 85379; 87040; 87070; 87205; 87899; 93005; 93010; 94640; 99285-25; G0378

== ENCOUNTER 2022-10-23 10:59 | Inpatient (IN) | payer OTHER ==
[2022-10-23 11:12] VITALS: BMI 24.2
[2022-10-23] MEDS: ALBUTEROL SO4 2.5/IPRATROPIUM 0.5 INH SOL 3 ML VIAL.NEB. NEB SCH ×3 (11:30→12:00)
[2022-10-23] MEDS ORDERED: DEXAMETHASONE SOD PHOSPHATE 10 MG/1 ML VIAL IVPUSH ONE (11:31)
[2022-10-23] MEDS ORDERED: ACETAMINOPHEN 1000 MG/100 ML BAG IVPB ONE (11:32)
[2022-10-23] MEDS ORDERED: ACETAMINOPHEN INJECTION 100 ML IVPB ONE (11:34)
[2022-10-23] MEDS ORDERED: NALOXONE HCL 0.4 MG/ML VIAL IVPUSH ONE (12:23)
[2022-10-23] MEDS ORDERED: DEXAMETHASONE SOD PHOSPHATE 10 MG/1 ML VIAL ONE (12:38)
[2022-10-23] MEDS ORDERED: NALOXONE HCL (KLOXXADO) 8 MG SPRAY NS ONE (12:43)
[2022-10-23] MEDS ORDERED: VANCOMYCIN/WATER 1250 MG 1,250 MG/250 ML BAG IVPB ONE ×2 (13:00→13:05)
[2022-10-23] MEDS ORDERED: PIPERACILLIN/TAZOB 4.5 GM 4.5 GM in DEXTROSE 5%-WATER 100 ML IVPB ONE (13:01)
[2022-10-23] MEDS ORDERED: PIPERACILLIN/TAZOB 4.5 GM 4.5 GM/100 ML BAG IVPB ONE (13:05)
[2022-10-23] MEDS ORDERED: NALOXONE HCL 0.4 MG/ML VIAL ONE (13:06)
[2022-10-23 13:23] LABS: BASO % 0.6 % (0-2.0); EOS % 0.8 % (0-4.5); HEMATOCRIT 38.2 % (35.4-49); HEMOGLOBIN 12.4 GM/dL (11.7-16.9); LYMPH % 29.6 % (8-40); MCH 29.5 pg (25.7-33.7); MCHC 32.5 g/dl (32.0-35.9); MEAN PLT VOLUME 7.8 fl (7.5-11.1); PLATELET COUNT 191 10^3/uL (134-434)
[2022-10-23 13:29] LABS: INR 1.27 (0.83-1.09); PROTHROMBIN TIME (PATIENT) 14.7 SEC (9.7-13.0)
[2022-10-23 13:32] LABS: ACTIVATED PTT 32.3 SECONDS (25.2-36.5)
[2022-10-23 13:45] LABS: POTASSIUM 3.8 mmol/L (3.5-5.1)
[2022-10-23 13:47] LABS: CALCIUM 8.3 mg/dL (8.5-10.1)
[2022-10-23 13:48] LABS: ALBUMIN 3.6 g/dl (3.4-5.0); BLOOD UREA NITROGEN 8.7 mg/dL (7-18)
[2022-10-23 13:52] LABS: BILIRUBIN,TOTAL 0.4 mg/dL (0.2-1)
[2022-10-23] MEDS ORDERED: GABAPENTIN 300 MG CAPSULE PO PRN (20:13)
[2022-10-23] MEDS ORDERED: ACETAMINOPHEN 325 MG TABLET (FP) PO PRN (20:16)
[2022-10-23 22:11] LABS: EPI CELLS 1 /uL (0-25.1); HYALINE CASTS 0 /uL (0-3.1); PH,URINE 5.5 (5.0-8.0); URINE APPEARANCE CLEAR; URINE BACTERIA 2 /uL (0-1359); URINE BILIRUBIN NEGATIVE (NEGATIVE); URINE COLOR YELLOW; URINE GLUCOSE (UA) NEGATIVE (NEGATIVE); URINE KETONE 1+ (NEGATIVE); URINE LEUK ESTERASE NEGATIVE (NEGATIVE); URINE NITRITE NEGATIVE (NEGATIVE); URINE PROTEIN NEGATIVE (NEGATIVE); URINE RBC 177 /uL (0-23.9); URINE WBC 2 /uL (0-25.8)
[2022-10-23] MEDS: clonazePAM 0.5 MG TABLET PO SCH (22:25)
[2022-10-23] MEDS: D5-1/2NS+20 MEQ KCL - 20 MEQ/1,000 ML INFUS.BAG IV SCH (22:26)
[2022-10-23] MEDS: HEPARIN NA (PORCINE) 5,000 UNITS/ML 1ML VIAL SQ SCH (22:26)
[2022-10-23] MEDS: PRAZOSIN HCL 1 MG CAPSULE PO SCH (22:27)
[2022-10-23] MEDS: QUEtiapine FUMARATE 200 MG TABLET PO SCH (22:28)
[2022-10-24] MEDS: methylPREDNISolone NA SUCC 40 MG/1 ML VIAL IVPUSH SCH ×3 (01:40→19:07)
[2022-10-24] MEDS: PIPERACILLIN/TAZOB 3.375 GM 3.375 GM in DEXTROSE 5%-WATER - 50 ML IVPB SCH ×3 (01:42→19:07)
[2022-10-24] MEDS ORDERED: PIPERACILLIN/TAZOB 3.375 GM 3.375 GM in DEXTROSE 5%-WATER - 50 ML IVPB SCH (02:00)
[2022-10-24] MEDS: BUDESONIDE/FORMETEROL FUMARATE 160/4.5 mcg INHALER IH SCH ×3 (06:19→21:51)
[2022-10-24 07:42] LABS: BASO % 0.3 % (0-2.0); HEMATOCRIT 39.4 % (35.4-49); LYMPH % 13.5 % (8-40); MCH 29.9 pg (25.7-33.7); MCHC 32.9 g/dl (32.0-35.9); MONO % 2.9 % (3.8-10.2); NEUT % 83.3 % (42.8-82.8); PLATELET COUNT 203 10^3/uL (134-434); RBC 4.33 M/mm3 (4.00-5.60); RDW 13.9 % (11.9-15.9); WHITE BLOOD COUNT 5.6 K/mm3 (4.0-10.0)
[2022-10-24 07:54] LABS: POTASSIUM 4.3 mmol/L (3.5-5.1)
[2022-10-24 08:01] LABS: ALBUMIN 3.2 g/dl (3.4-5.0); CALCIUM 8.9 mg/dL (8.5-10.1); MAGNESIUM 2.5 mg/dL (1.8-2.4)
[2022-10-24 08:02] LABS: BLOOD UREA NITROGEN 9.6 mg/dL (7-18)
[2022-10-24 08:04] LABS: CREATININE 0.7 mg/dL (0.55-1.3)
[2022-10-24 08:06] LABS: BILIRUBIN,TOTAL 0.3 mg/dL (0.2-1); TOT PROT 6.9 g/dl (6.4-8.2)
[2022-10-24] MEDS: ALBUTEROL SO4 2.5/IPRATROPIUM 0.5 INH SOL 3 ML VIAL.NEB. NEB SCH ×4 (08:50→21:00)
[2022-10-24] MEDS ORDERED: methaDONE HCL 40 MG DISPERSABLE TABLET PO SCH (10:00)
[2022-10-24] MEDS ORDERED: ESCITALOPRAM OXALATE 20 MG TABLET PO SCH (10:00)
[2022-10-24 10:38] VITALS: RESP 18
[2022-10-24] MEDS: clonazePAM 0.5 MG TABLET PO SCH ×2 (11:22→21:46)
[2022-10-24] MEDS: HEPARIN NA (PORCINE) 5,000 UNITS/ML 1ML VIAL SQ SCH ×2 (11:23→21:46)
[2022-10-24] MEDS ORDERED: methaDONE HCL 10 MG TABLET PO SCH (13:15)
[2022-10-24] MEDS: PRAZOSIN HCL 1 MG CAPSULE PO SCH (21:48)
[2022-10-24] MEDS: QUEtiapine FUMARATE 200 MG TABLET PO SCH (21:49)
[2022-10-25] MEDS: methylPREDNISolone NA SUCC 40 MG/1 ML VIAL IVPUSH SCH ×3 (02:32→17:39)
[2022-10-25] MEDS: D5-1/2NS+20 MEQ KCL - 20 MEQ/1,000 ML INFUS.BAG IV SCH (02:33)
[2022-10-25] MEDS: ALBUTEROL SO4 2.5/IPRATROPIUM 0.5 INH SOL 3 ML VIAL.NEB. NEB SCH ×4 (07:45→20:15)
[2022-10-25] MEDS ORDERED: GABAPENTIN 300 MG CAPSULE PO PRN (08:40)
[2022-10-25] MEDS ORDERED: D5-1/2NS+20 MEQ KCL - 20 MEQ/1,000 ML INFUS.BAG IV SCH (08:40)
[2022-10-25] MEDS ORDERED: ACETAMINOPHEN 325 MG TABLET (FP) PO PRN (08:40)
[2022-10-25] MEDS ORDERED: PIPERACILLIN/TAZOB 3.375 GM 3.375 GM in DEXTROSE 5%-WATER - 50 ML IVPB SCH (10:00)
[2022-10-25] MEDS ORDERED: methylPREDNISolone NA SUCC 40 MG/1 ML VIAL IVPUSH SCH (10:00)
[2022-10-25] MEDS: clonazePAM 0.5 MG TABLET PO SCH ×2 (10:28→22:58)
[2022-10-25] MEDS: ESCITALOPRAM OXALATE 20 MG TABLET PO SCH (10:28)
[2022-10-25] MEDS: FAMOTIDINE 20 MG TABLET PO SCH (10:29)
[2022-10-25] MEDS: CEFTRIAXONE 1 GM in DEXTROSE 5%-WATER - 50 ML IVPB SCH (10:31)
[2022-10-25] MEDS: HEPARIN NA (PORCINE) 5,000 UNITS/ML 1ML VIAL SQ SCH ×2 (10:45→22:57)
[2022-10-25] MEDS: BUDESONIDE/FORMETEROL FUMARATE 160/4.5 mcg INHALER IH SCH ×2 (10:46→22:58)
[2022-10-25] MEDS: PRAZOSIN HCL 1 MG CAPSULE PO SCH (22:58)
[2022-10-25] MEDS: QUEtiapine FUMARATE 200 MG TABLET PO SCH (22:58)
[2022-10-26] MEDS: methylPREDNISolone NA SUCC 40 MG/1 ML VIAL IVPUSH SCH ×3 (02:19→17:47)
[2022-10-26] MEDS: ALBUTEROL SO4 2.5/IPRATROPIUM 0.5 INH SOL 3 ML VIAL.NEB. NEB SCH ×4 (07:15→19:55)
[2022-10-26] MEDS: FAMOTIDINE 20 MG TABLET PO SCH (10:21)
[2022-10-26] MEDS: clonazePAM 0.5 MG TABLET PO SCH ×2 (10:21→22:17)
[2022-10-26] MEDS: BUDESONIDE/FORMETEROL FUMARATE 160/4.5 mcg INHALER IH SCH ×2 (10:22→22:20)
[2022-10-26] MEDS: HEPARIN NA (PORCINE) 5,000 UNITS/ML 1ML VIAL SQ SCH ×2 (10:23→22:18)
[2022-10-26] MEDS: ESCITALOPRAM OXALATE 20 MG TABLET PO SCH (10:28)
[2022-10-26] MEDS: CEFTRIAXONE 1 GM in DEXTROSE 5%-WATER - 50 ML IVPB SCH (10:28)
[2022-10-26] MEDS: QUEtiapine FUMARATE 200 MG TABLET PO SCH (22:16)
[2022-10-26] MEDS: PRAZOSIN HCL 1 MG CAPSULE PO SCH (22:16)
[2022-10-27] MEDS: methylPREDNISolone NA SUCC 40 MG/1 ML VIAL IVPUSH SCH ×3 (01:14→17:36)
[2022-10-27] MEDS: ALBUTEROL SO4 2.5/IPRATROPIUM 0.5 INH SOL 3 ML VIAL.NEB. NEB SCH ×4 (07:20→19:18)
[2022-10-27] MEDS: FAMOTIDINE 20 MG TABLET PO SCH (09:49)
[2022-10-27] MEDS: ESCITALOPRAM OXALATE 20 MG TABLET PO SCH (09:49)
[2022-10-27] MEDS: clonazePAM 0.5 MG TABLET PO SCH ×2 (09:49→22:15)
[2022-10-27] MEDS: CEFTRIAXONE 1 GM in DEXTROSE 5%-WATER - 50 ML IVPB SCH (09:50)
[2022-10-27] MEDS: HEPARIN NA (PORCINE) 5,000 UNITS/ML 1ML VIAL SQ SCH ×2 (09:50→22:15)
[2022-10-27] MEDS: BUDESONIDE/FORMETEROL FUMARATE 160/4.5 mcg INHALER IH SCH ×2 (09:51→22:16)
[2022-10-27] MEDS: QUEtiapine FUMARATE 200 MG TABLET PO SCH (22:15)
[2022-10-27] MEDS: PRAZOSIN HCL 1 MG CAPSULE PO SCH (22:16)
[2022-10-28] MEDS: methylPREDNISolone NA SUCC 40 MG/1 ML VIAL IVPUSH SCH ×4 (01:22→22:22)
[2022-10-28] MEDS: ALBUTEROL SO4 2.5/IPRATROPIUM 0.5 INH SOL 3 ML VIAL.NEB. NEB SCH ×4 (07:55→20:40)
[2022-10-28] MEDS: clonazePAM 0.5 MG TABLET PO SCH ×2 (09:49→22:22)
[2022-10-28] MEDS: ESCITALOPRAM OXALATE 20 MG TABLET PO SCH (09:50)
[2022-10-28] MEDS: HEPARIN NA (PORCINE) 5,000 UNITS/ML 1ML VIAL SQ SCH ×2 (09:50→22:23)
[2022-10-28] MEDS: FAMOTIDINE 20 MG TABLET PO SCH (09:50)
[2022-10-28] MEDS: FLUTICASONE/UMECLIDIN/VILANTER(200-62.5-25 TRELEGY ELLIPTA) INAHLER IH SCH (11:27)
[2022-10-28] MEDS: CEFUROXIME AXETIL 500 MG TABLET PO SCH ×2 (15:08→22:22)
[2022-10-28] MEDS: QUEtiapine FUMARATE 200 MG TABLET PO SCH (22:23)
[2022-10-28] MEDS: PRAZOSIN HCL 1 MG CAPSULE PO SCH (22:23)
[2022-10-29] MEDS: ALBUTEROL SO4 2.5/IPRATROPIUM 0.5 INH SOL 3 ML VIAL.NEB. NEB SCH ×2 (08:10→11:51)
[2022-10-29] MEDS: FAMOTIDINE 20 MG TABLET PO SCH (10:00)
[2022-10-29] MEDS: ESCITALOPRAM OXALATE 20 MG TABLET PO SCH (10:00)
[2022-10-29] MEDS: CEFUROXIME AXETIL 500 MG TABLET PO SCH (10:00)
[2022-10-29] MEDS: clonazePAM 0.5 MG TABLET PO SCH (10:00)
[2022-10-29] MEDS: HEPARIN NA (PORCINE) 5,000 UNITS/ML 1ML VIAL SQ SCH (10:01)
[2022-10-29] MEDS: FLUTICASONE/UMECLIDIN/VILANTER(200-62.5-25 TRELEGY ELLIPTA) INAHLER IH SCH (10:04)
[2022-10-29] MEDS: methylPREDNISolone NA SUCC 40 MG/1 ML VIAL IVPUSH SCH (10:04)
[2022-10-29 14:20] VITALS: BP 120/77; PULSE 76; TEMP 97.7
[2022-10-30] MEDS ORDERED: predniSONE 20 MG TABLET (UD) PO SCH (10:00)
== END 2022-10-29 15:11 | disposition home or self-care (01) | DRG 191 ==
LOC: JER 10:59 → JERBED 14:30 → J4W 20:48 → J5S 10-25 08:33
PROVIDERS: ADMIT Internal Medicine; ATTEND Internal Medicine
DX: J44.1 Chronic obstructive pulmonary disease with (acute) exacerbation (principal); F11.20 Opioid dependence, uncomplicated; I10 Essential (primary) hypertension; K21.9 Gastro-esophageal reflux disease without esophagitis; F41.9 Anxiety disorder, unspecified; R50.9 Fever, unspecified; F17.200 Nicotine dependence, unspecified, uncomplicated; M50.20 Other cervical disc displacement, unspecified cervical region; R47.89 Other speech disturbances; Z86.19 Personal history of other infectious and parasitic diseases; Z99.81 Dependence on supplemental oxygen
CPT/HCPCS: 0241U-QW; 36415; 71045-TC-FY; 71275-TC; 76604; 80053; 81003; 82962; 83605; 83735; 84484; 85025; 85610; 85730; 86850; 86900; 86901; 87040; 87086; 93005; 93010; 93308; 93971-LT; 94640; 99285-25; J1100; J1644; Q9967

== ENCOUNTER 2023-01-03 09:13 | Emergency (ER) | payer OTHER ==
[2023-01-03 09:23] VITALS: RESP 20; BMI 22.6
[2023-01-03] MEDS ORDERED: ALBUTEROL SO4 2.5/IPRATROPIUM 0.5 INH SOL 3 ML VIAL.NEB. NEB ONE ×2 (09:42→10:11)
[2023-01-03] MEDS ORDERED: methylPREDNISolone NA SUCC 125 MG/2 ML VIAL IVPUSH ONE (09:43)
[2023-01-03] MEDS ORDERED: methylPREDNISolone NA SUCC 125 MG/2 ML VIAL ONE (10:11)
[2023-01-03 10:13] LABS: BASO % 0.7 % (0-2.0); EOS % 3.7 % (0-4.5); HEMATOCRIT 39.8 % (35.4-49); HEMOGLOBIN 13.2 GM/dL (11.7-16.9); LYMPH % 40.3 % (8-40); MCH 29.8 pg (25.7-33.7); MCHC 33.1 g/dl (32.0-35.9); MEAN PLT VOLUME 6.9 fl (7.5-11.1); MONO % 6.9 % (3.8-10.2); NEUT % 48.4 % (42.8-82.8); PLATELET COUNT 255 10^3/uL (134-434); RBC 4.43 M/mm3 (4.00-5.60); RDW 13.8 % (11.9-15.9)
[2023-01-03 10:39] LABS: POTASSIUM 3.9 mmol/L (3.5-5.1)
[2023-01-03 10:41] LABS: CALCIUM 8.6 mg/dL (8.5-10.1)
[2023-01-03 10:42] LABS: ALBUMIN 3.6 g/dl (3.4-5.0); BLOOD UREA NITROGEN 6.4 mg/dL (7-18)
[2023-01-03 10:45] LABS: CREATININE 0.7 mg/dL (0.55-1.3)
[2023-01-03 10:46] LABS: BILIRUBIN,TOTAL 0.3 mg/dL (0.2-1)
[2023-01-03 10:47] LABS: TOT PROT 6.8 g/dl (6.4-8.2)
[2023-01-03 11:38] VITALS: BP 125/101; PULSE 78; TEMP 98.1
== END 2023-01-03 12:35 | disposition home or self-care (01) ==
LOC: JER 09:13
PROC: 3E033GC Introduction of Other Therapeutic Substance into Peripheral Vein, Percutaneous Approach (ICD-10-PCS; principal; 2023-01-03)
PROC: 3E0F7GC Introduction of Other Therapeutic Substance into Respiratory Tract, Via Natural or Artificial Opening (ICD-10-PCS; 2023-01-03)
DX: J44.1 Chronic obstructive pulmonary disease with (acute) exacerbation (principal); R05.9 Cough, unspecified; R09.81 Nasal congestion; R09.89 Other specified symptoms and signs involving the circulatory and respiratory systems; R06.02 Shortness of breath; R09.3 Abnormal sputum; Z20.822 Contact with and (suspected) exposure to COVID-19
CPT/HCPCS: 0241U-QW; 36415; 71045-TC-FY; 80053; 83735; 85025; 93005; 93010; 99285-25

== ENCOUNTER 2023-09-03 11:24 | Observation (INO) | payer OTHER ==
[2023-09-03] MEDS ORDERED: ALBUTEROL SO4 2.5/IPRATROPIUM 0.5 INH SOL 3 ML VIAL.NEB. NEB ONE (12:50)
[2023-09-03] MEDS: ALBUTEROL SO4 2.5/IPRATROPIUM 0.5 INH SOL 3 ML VIAL.NEB. NEB SCH (12:54)
[2023-09-03] MEDS ORDERED: DEXAMETHASONE SOD PHOSPHATE 10 MG/1 ML VIAL ONE (13:08)
[2023-09-03] MEDS: DEXAMETHASONE SOD PHOSPHATE 10 MG/1 ML VIAL IM ONE (13:13)
[2023-09-03] MEDS: methylPREDNISolone NA SUCC 125 MG/2 ML VIAL IVPB ONE (13:38)
[2023-09-03 15:34] LABS: BASO % 0.7 % (0-2.0); EOS % 1.1 % (0-4.5); HEMATOCRIT 38.8 % (35.4-49); HEMOGLOBIN 13.2 GM/dL (11.7-16.9); LYMPH % 25.5 % (8-40); MCH 30.8 pg (25.7-33.7); MCHC 33.9 g/dl (32.0-35.9); MEAN PLT VOLUME 7.1 fl (7.5-11.1); MONO % 2.8 % (3.8-10.2); NEUT % 69.9 % (42.8-82.8); PLATELET COUNT 210 10^3/uL (134-434); RBC 4.27 M/mm3 (4.00-5.60); RDW 13.6 % (11.9-15.9); WHITE BLOOD COUNT 3.8 K/mm3 (4.0-10.0)
[2023-09-03 15:53] LABS: POTASSIUM 4.7 mmol/L (3.5-5.1)
[2023-09-03 15:56] LABS: ALBUMIN 3.8 g/dl (3.4-5.0); BLOOD UREA NITROGEN 8.2 mg/dL (7-18); CALCIUM 8.7 mg/dL (8.5-10.1)
[2023-09-03 15:59] LABS: CREATININE 0.9 mg/dL (0.55-1.3)
[2023-09-03 16:01] LABS: BILIRUBIN,TOTAL 0.3 mg/dL (0.2-1); TOT PROT 7.1 g/dl (6.4-8.2)
[2023-09-03] MEDS ORDERED: ALBUTEROL SO4 0.083% IH SOL 2.5 MG/3 ML VIAL.NEB. NEB ONE (16:01)
[2023-09-03] MEDS ORDERED: MAGNESIUM SULFATE IN WATER 2 GM/50 ML IVPB IVPB ONE (16:02)
[2023-09-03] MEDS: ALBUTEROL SO4 0.083% IH SOL 2.5 MG/3 ML VIAL.NEB. NEB ONE (16:16)
[2023-09-03] MEDS: MAGNESIUM SULFATE IN WATER 2 GM/50 ML IVPB IVPB ONE (16:16)
[2023-09-03] MEDS ORDERED: ALBUTEROL SO4 0.083% IH SOL 2.5 MG/3 ML VIAL.NEB. NEB PRN (22:32)
[2023-09-03 23:07] VITALS: BMI 23.1
[2023-09-03] MEDS: GABAPENTIN 300 MG CAPSULE PO SCH (23:14)
[2023-09-03] MEDS: MELATONIN 5 MG TABLETS PO PRN (23:14)
[2023-09-03] MEDS: QUEtiapine FUMARATE 200 MG TABLET PO SCH (23:14)
[2023-09-04] MEDS: methylPREDNISolone NA SUCC 40 MG/1 ML VIAL IVPUSH SCH (02:31)
[2023-09-04 06:49] LABS: BASO % 0.1 % (0-2.0); HEMATOCRIT 39.8 % (35.4-49); HEMOGLOBIN 13.8 GM/dL (11.7-16.9); LYMPH % 13.6 % (8-40); MCH 31.5 pg (25.7-33.7); MCHC 34.5 g/dl (32.0-35.9); MEAN CELL VOLUME 91.2 fl (80-96); MONO % 1.2 % (3.8-10.2); NEUT % 85.1 % (42.8-82.8); PLATELET COUNT 211 10^3/uL (134-434); RBC 4.37 M/mm3 (4.00-5.60); RDW 13.1 % (11.9-15.9); WHITE BLOOD COUNT 6.3 K/mm3 (4.0-10.0)
[2023-09-04 07:37] LABS: POTASSIUM 4.3 mmol/L (3.5-5.1)
[2023-09-04 07:40] LABS: ALBUMIN 3.7 g/dl (3.4-5.0)
[2023-09-04 07:41] LABS: BLOOD UREA NITROGEN 9.4 mg/dL (7-18)
[2023-09-04 07:43] LABS: CREATININE 0.9 mg/dL (0.55-1.3)
[2023-09-04 07:45] LABS: BILIRUBIN,TOTAL 0.3 mg/dL (0.2-1); TOT PROT 6.9 g/dl (6.4-8.2)
[2023-09-04] MEDS: ESCITALOPRAM OXALATE 20 MG TABLET PO SCH (09:57)
[2023-09-04] MEDS: LORATADINE 10 MG TABLET PO SCH (09:57)
[2023-09-04] MEDS: clonazePAM 0.5 MG TABLET PO PRN (10:09)
[2023-09-04] MEDS: BUDESONIDE/FORMETEROL FUMARATE 160/4.5 mcg INHALER IH SCH (10:31)
[2023-09-04] MEDS ORDERED: methaDONE HCL 40 MG DISPERSABLE TABLET PO SCH (11:49)
[2023-09-04] MEDS: HEPARIN NA (PORCINE) 5,000 UNITS/ML 1ML VIAL SQ SCH (13:23)
[2023-09-04] MEDS: methaDONE HCL 40 MG DISPERSABLE TABLET PO SCH (17:41)
[2023-09-04] MEDS ORDERED: QUEtiapine FUMARATE 50 MG TABLET PO SCH (22:00)
[2023-09-04] MEDS: PRAZOSIN HCL 1 MG CAPSULE PO SCH (22:04)
[2023-09-05] MEDS: ALBUTEROL SO4 2.5/IPRATROPIUM 0.5 INH SOL 3 ML VIAL.NEB. NEB PRN (09:59)
[2023-09-06] MEDS: methylPREDNISolone NA SUCC 40 MG/1 ML VIAL IVPUSH SCH (23:05)
[2023-09-07] MEDS: clonazePAM 0.5 MG TABLET PO PRN (11:08)
[2023-09-07 14:00] VITALS: RESP 20
[2023-09-08 12:59] VITALS: BP 129/91; PULSE 85; TEMP 98.6
== END 2023-09-08 15:26 | disposition home or self-care (01) ==
LOC: JER 11:24 → JERBED 16:12 → J7W 21:54
PROVIDERS: ADMIT Internal Medicine; ATTEND Internal Medicine
PROC: 3E0F7GC Introduction of Other Therapeutic Substance into Respiratory Tract, Via Natural or Artificial Opening (ICD-10-PCS; principal; 2023-09-03)
PROC: 3E023GC Introduction of Other Therapeutic Substance into Muscle, Percutaneous Approach (ICD-10-PCS; 2023-09-03)
PROC: 3E033GC Introduction of Other Therapeutic Substance into Peripheral Vein, Percutaneous Approach (ICD-10-PCS; 2023-09-03)
DX: J45.901 Unspecified asthma with (acute) exacerbation (principal); R06.02 Shortness of breath; Z91.199 Patient's noncompliance with other medical treatment and regimen due to unspecified reason; K21.9 Gastro-esophageal reflux disease without esophagitis; B19.20 Unspecified viral hepatitis C without hepatic coma; Z87.891 Personal history of nicotine dependence
CPT/HCPCS: 0241U-QW; 36415; 71046-TC-FY; 80053; 83735; 85025; 93005; 93010; 94640; 94761; 96365; 96372; 96375; 99285-25; G0378; J1100; J1644

== ENCOUNTER 2024-05-09 12:58 | Inpatient (IN) | payer OTHER ==
[~2024-05-09 12:58] MED LIST: FLU VACCINE (FLULAVAL) PF 45 MCG/0.5 ML SYRINGE 2024-2025 IM ONE
[2024-05-09 13:43] VITALS: BMI 23.3
[2024-05-09] MEDS ORDERED: IPRATROPIUM BR 0.02% 0.5 MG/2.5 ML VIAL.NEB. NEB ONE (14:11)
[2024-05-09 14:51] LABS: BASO % 0.1 % (0-2.0); EOS % 0.1 % (0-4.5); HEMATOCRIT 39.4 % (35.4-49); HEMOGLOBIN 13.4 GM/dL (11.7-16.9); LYMPH % 4.1 % (8-40); MCH 30.9 pg (25.7-33.7); MCHC 33.9 g/dl (32.0-35.9); MEAN CELL VOLUME 91.1 fl (80-96); MEAN PLT VOLUME 6.4 fl (7.5-11.1); MONO % 7.3 % (3.8-10.2); NEUT % 88.4 % (42.8-82.8); PLATELET COUNT 250 10^3/uL (134-434); RBC 4.32 M/mm3 (4.00-5.60); RDW 13.5 % (11.9-15.9); WHITE BLOOD COUNT 6.6 K/mm3 (4.0-10.0)
[2024-05-09] MEDS: IPRATROPIUM BR 0.02% 0.5 MG/2.5 ML VIAL.NEB. NEB ONE (14:52)
[2024-05-09 15:02] LABS: VENOUS BASE EXCESS 2.1 mmol/L (-2-2); VENOUS O2 SATURATION 91.9 % (70-80); VENOUS PCO2 49.6 mmHg (38-52); VENOUS PH 7.373 (7.310-7.410)
[2024-05-09] MEDS ORDERED: LEVALBUTEROL HCL 0.63 MG/3 ML VIAL.NEB. IH ONE (15:08)
[2024-05-09] MEDS ORDERED: methylPREDNISolone NA SUCC 125 MG/2 ML VIAL ONE (15:09)
[2024-05-09 15:15] LABS: POTASSIUM 4.2 mmol/L (3.5-5.1)
[2024-05-09] MEDS: LEVALBUTEROL HCL 0.63 MG/3 ML VIAL.NEB. IH ONE (15:15)
[2024-05-09] MEDS: methylPREDNISolone NA SUCC 125 MG/2 ML VIAL IVPUSH ONE (15:15)
[2024-05-09 15:17] LABS: ALBUMIN 3.7 g/dl (3.4-5.0)
[2024-05-09 15:18] LABS: BLOOD UREA NITROGEN 11.3 mg/dL (7-18)
[2024-05-09 15:22] LABS: CREATININE 0.8 mg/dL (0.55-1.3)
[2024-05-09 15:23] LABS: BILIRUBIN,TOTAL 0.5 mg/dL (0.2-1)
[2024-05-09] MEDS ORDERED: CEFTRIAXONE 1 G/50 ML PREMIX 50 ML IVPB ONE (16:48)
[2024-05-09] MEDS ORDERED: AZITHROMYCIN IVPB 500 MG/250 ML BAG IVPB ONE (16:49)
[2024-05-09] MEDS: AZITHROMYCIN IVPB 500 MG in DEXTROSE 5%-WATER - 250 ML IVPB ONE (17:00)
[2024-05-09] MEDS ORDERED: ALBUTEROL SO4 2.5/IPRATROPIUM 0.5 INH SOL 3 ML VIAL.NEB. NEB PRN (17:39)
[2024-05-09] MEDS: ACETAMINOPHEN 325 MG TABLET (FP) PO PRN (20:20)
[2024-05-09] MEDS: QUEtiapine FUMARATE 100 MG TABLET (FP) PO SCH (21:09)
[2024-05-09] MEDS: methylPREDNISolone NA SUCC 40 MG/1 ML VIAL IVPUSH SCH (21:09)
[2024-05-09] MEDS: PRAZOSIN HCL 1 MG CAPSULE PO SCH (21:09)
[2024-05-09] MEDS: clonazePAM 0.5 MG TABLET PO SCH (21:09)
[2024-05-10 09:48] LABS: BASO % 0.1 % (0-2.0); HEMATOCRIT 42.4 % (35.4-49); HEMOGLOBIN 14.1 GM/dL (11.7-16.9); LYMPH % 6.9 % (8-40); MCH 30.5 pg (25.7-33.7); MCHC 33.3 g/dl (32.0-35.9); MEAN CELL VOLUME 91.6 fl (80-96); MEAN PLT VOLUME 6.6 fl (7.5-11.1); MONO % 2.9 % (3.8-10.2); NEUT % 90.1 % (42.8-82.8); PLATELET COUNT 287 10^3/uL (134-434); RBC 4.63 M/mm3 (4.00-5.60); RDW 13.5 % (11.9-15.9); WHITE BLOOD COUNT 8.3 K/mm3 (4.0-10.0)
[2024-05-10] MEDS ORDERED: ESCITALOPRAM OXALATE 20 MG TABLET PO SCH (10:00)
[2024-05-10] MEDS ORDERED: methaDONE HCL 10 MG TABLET PO SCH (10:30)
[2024-05-10] MEDS: ENOXAPARIN NA (PORCINE) 40 MG/0.4 ML DISP.SYRIN SQ SCH (10:52)
[2024-05-10] MEDS: methaDONE 80 MG, methaDONE 20 MG PO SCH (10:53)
[2024-05-10 11:03] LABS: POTASSIUM 4.3 mmol/L (3.5-5.1)
[2024-05-10 11:04] LABS: CALCIUM 9.2 mg/dL (8.5-10.1)
[2024-05-10 11:05] LABS: ALBUMIN 3.8 g/dl (3.4-5.0); BLOOD UREA NITROGEN 16.1 mg/dL (7-18)
[2024-05-10 11:08] LABS: CREATININE 0.8 mg/dL (0.55-1.3)
[2024-05-10 11:10] LABS: BILIRUBIN,TOTAL 0.4 mg/dL (0.2-1); TOT PROT 7.5 g/dl (6.4-8.2)
[2024-05-10] MEDS: ALBUTEROL SO4 0.083% IH SOL 2.5 MG/3 ML VIAL.NEB. NEB SCH (12:01)
[2024-05-10] MEDS: AZITHROMYCIN IVPB 250 MG in DEXTROSE 5%-WATER - 250 ML IVPB SCH (15:19)
[2024-05-10] MEDS: FLUTICASONE/UMECLIDIN/VILANTER(200-62.5-25 TRELEGY ELLIPTA) INAHLER IH SCH (17:03)
[2024-05-10 18:48] LABS: HIV INTERPRETATION NEGATIVE (NEGATIVE)
[2024-05-11] MEDS: ALBUTEROL SO4 0.083% IH SOL 2.5 MG/3 ML VIAL.NEB. NEB PRN (03:30)
[2024-05-13] MEDS: ALBUTEROL SO4 0.083% IH SOL 2.5 MG/3 ML VIAL.NEB. NEB PRN (03:53)
[2024-05-13] MEDS: methylPREDNISolone NA SUCC 40 MG/1 ML VIAL IVPUSH SCH (18:21)
[2024-05-14] MEDS: ACETYLCYSTEINE 20% 200MG/ML 4 ML VIAL *FOR ORAL / INH USE ONLY NEB SCH (11:40)
[2024-05-14] MEDS ORDERED: ACETYLCYSTEINE 20% 200MG/ML 30 ML VIAL *FOR ORAL / INH USE ONLY NEB SCH (12:00)
[2024-05-14] MEDS: clonazePAM 0.5 MG TABLET PO SCH (14:29)
[2024-05-15] MEDS: guaiFENesin 200 MG/10 ML 10 ML UNIT-DOSE CUPS PO PRN (12:48)
[2024-05-16 08:54] LABS: BASO % 0.1 % (0-2.0); HEMATOCRIT 37.6 % (35.4-49); HEMOGLOBIN 12.2 GM/dL (11.7-16.9); LYMPH % 6.3 % (8-40); MCH 30.1 pg (25.7-33.7); MCHC 32.4 g/dl (32.0-35.9); MEAN PLT VOLUME 6.8 fl (7.5-11.1); MONO % 3.8 % (3.8-10.2); NEUT % 89.8 % (42.8-82.8); PLATELET COUNT 256 10^3/uL (134-434); RBC 4.04 M/mm3 (4.00-5.60); RDW 13.3 % (11.9-15.9); WHITE BLOOD COUNT 14.7 K/mm3 (4.0-10.0)
[2024-05-16 09:12] LABS: POTASSIUM 4.4 mmol/L (3.5-5.1)
[2024-05-16 09:22] LABS: ALBUMIN 3.1 g/dl (3.4-5.0); BLOOD UREA NITROGEN 17.4 mg/dL (7-18); CALCIUM 8.4 mg/dL (8.5-10.1)
[2024-05-16 09:25] LABS: BILIRUBIN,TOTAL 0.2 mg/dL (0.2-1)
[2024-05-16 09:26] LABS: CREATININE 0.8 mg/dL (0.55-1.3)
[2024-05-16] MEDS: methylPREDNISolone NA SUCC 40 MG/1 ML VIAL IVPUSH SCH (21:35)
[2024-05-17] MEDS: GABAPENTIN 300 MG CAPSULE PO PRN (09:25)
[2024-05-17] MEDS ORDERED: ACETAMINOPHEN 1000 MG/100 ML BAG IVPB PRN (11:09)
[2024-05-17] MEDS: POLYETHYLENE GLYCOL (HEALTHYLAX) 3350 17 GM PACKET PO SCH (11:31)
[2024-05-17] MEDS: MELATONIN 5 MG TABLETS PO PRN (21:20)
[2024-05-18] MEDS: methaDONE 80 MG, methaDONE 20 MG PO SCH (07:58)
[2024-05-18 18:52] LABS: VENOUS BASE EXCESS 6.4 mmol/L (-2-2); VENOUS O2 SATURATION 97.9 % (70-80); VENOUS PH 7.377 (7.310-7.410)
[2024-05-21 17:43] VITALS: BP 110/60; PULSE 82; RESP 28; TEMP 98
== END 2024-05-21 13:00 | disposition home or self-care (01) | DRG 191 ==
LOC: JER 12:58 → JERBED 16:18 → J6S 18:47
PROVIDERS: ADMIT Internal Medicine; ATTEND Internal Medicine
DX: J44.0 Chronic obstructive pulmonary disease with (acute) lower respiratory infection (principal); F11.20 Opioid dependence, uncomplicated; J96.11 Chronic respiratory failure with hypoxia; J44.1 Chronic obstructive pulmonary disease with (acute) exacerbation; J45.909 Unspecified asthma, uncomplicated; J20.9 Acute bronchitis, unspecified; F41.9 Anxiety disorder, unspecified
CPT/HCPCS: 0241U-QW; 36415; 71045-TC-FY; 80053; 82803; 84484; 85025; 86803; 87389; 93005; 93010; 94640; 94660; 99285-25

== ENCOUNTER 2024-05-22 11:25 | Observation (INO) | payer OTHER ==
[2024-05-22 11:34] VITALS: BMI 22.6
[2024-05-22] MEDS ORDERED: ALBUTEROL SO4 0.083% IH SOL 2.5 MG/3 ML VIAL.NEB. NEB ONE (12:20)
[2024-05-22] MEDS: ALBUTEROL SO4 2.5/IPRATROPIUM 0.5 INH SOL 3 ML VIAL.NEB. NEB ONE (12:30)
[2024-05-22 12:50] LABS: BASO % 0.2 % (0-2.0); EOS % 0.6 % (0-4.5); HEMATOCRIT 39.8 % (35.4-49); HEMOGLOBIN 12.9 GM/dL (11.7-16.9); LYMPH % 19.4 % (8-40); MCH 30.1 pg (25.7-33.7); MCHC 32.5 g/dl (32.0-35.9); MEAN CELL VOLUME 92.6 fl (80-96); MEAN PLT VOLUME 6.8 fl (7.5-11.1); MONO % 7.7 % (3.8-10.2); NEUT % 72.1 % (42.8-82.8); PLATELET COUNT 222 10^3/uL (134-434); RDW 13.5 % (11.9-15.9); WHITE BLOOD COUNT 11.5 K/mm3 (4.0-10.0)
[2024-05-22 12:51] LABS: VENOUS BASE EXCESS 6.1 mmol/L (-2-2); VENOUS O2 SATURATION 94.1 % (70-80); VENOUS PCO2 64.5 mmHg (38-52); VENOUS PH 7.34 (7.310-7.410)
[2024-05-22 13:11] LABS: ALBUMIN 3.7 g/dl (3.4-5.0); CALCIUM 8.8 mg/dL (8.5-10.1)
[2024-05-22 13:14] LABS: CREATININE 1.3 mg/dL (0.55-1.3)
[2024-05-22 13:16] LABS: BILIRUBIN,TOTAL 0.4 mg/dL (0.2-1); TOT PROT 6.6 g/dl (6.4-8.2)
[2024-05-22 14:06] LABS: HCV DIAGNOSTIC IN-HOUSE W/RFLX NON-REACTIVE (NONREACTIVE)
[2024-05-22 14:07] LABS: HIV INTERPRETATION NEGATIVE (NEGATIVE)
[2024-05-22] MEDS ORDERED: DOCUSATE SODIUM 100 MG CAPSULE (FP) PO PRN (23:27)
[2024-05-23] MEDS ORDERED: MELATONIN 5 MG TABLETS PO PRN (06:08)
[2024-05-23] MEDS ORDERED: GABAPENTIN 300 MG CAPSULE PO PRN ×2 (06:08→07:45)
[2024-05-23] MEDS: methaDONE HCL 10 MG TABLET PO SCH (07:49)
[2024-05-23 07:50] LABS: BASO % 0.2 % (0-2.0); EOS % 0.7 % (0-4.5); HEMATOCRIT 37.5 % (35.4-49); HEMOGLOBIN 12.1 GM/dL (11.7-16.9); LYMPH % 26.5 % (8-40); MCHC 32.2 g/dl (32.0-35.9); MEAN CELL VOLUME 93.1 fl (80-96); MEAN PLT VOLUME 6.7 fl (7.5-11.1); NEUT % 65.6 % (42.8-82.8); PLATELET COUNT 196 10^3/uL (134-434); RBC 4.03 M/mm3 (4.00-5.60); RDW 13.3 % (11.9-15.9); WHITE BLOOD COUNT 8.4 K/mm3 (4.0-10.0)
[2024-05-23 08:10] LABS: POTASSIUM 4.1 mmol/L (3.5-5.1)
[2024-05-23 08:29] LABS: CALCIUM 8.2 mg/dL (8.5-10.1)
[2024-05-23 08:30] LABS: BLOOD UREA NITROGEN 20.7 mg/dL (7-18)
[2024-05-23 08:33] LABS: CREATININE 0.8 mg/dL (0.55-1.3)
[2024-05-23] MEDS: ALBUTEROL SO4 0.083% IH SOL 2.5 MG/3 ML VIAL.NEB. NEB SCH (08:40)
[2024-05-23] MEDS: ACETYLCYSTEINE 20% 200MG/ML 4 ML VIAL *FOR ORAL / INH USE ONLY NEB SCH (08:40)
[2024-05-23] MEDS: methaDONE 80 MG, methaDONE 20 MG PO SCH (09:10)
[2024-05-23] MEDS: predniSONE 20 MG TABLET (UD) PO SCH (09:13)
[2024-05-23] MEDS: ESCITALOPRAM OXALATE 20 MG TABLET PO SCH (09:14)
[2024-05-23] MEDS: clonazePAM 0.5 MG TABLET PO SCH (10:37)
[2024-05-23] MEDS: FLUTICASONE/UMECLIDIN/VILANTER(200-62.5-25 TRELEGY ELLIPTA) INAHLER IH SCH (10:37)
[2024-05-23] MEDS: ENOXAPARIN NA (PORCINE) 40 MG/0.4 ML DISP.SYRIN SQ SCH (12:27)
[2024-05-23] MEDS: QUEtiapine FUMARATE 200 MG TABLET PO SCH (21:12)
[2024-05-23] MEDS: PRAZOSIN HCL 1 MG CAPSULE PO SCH (21:13)
[2024-05-26 06:44] VITALS: TEMP 98.6
[2024-05-26 09:16] VITALS: BP 116/82; PULSE 79; RESP 14
== END 2024-05-26 10:40 | disposition home or self-care (01) ==
LOC: JER 11:25 → JERBED 18:56 → J7W 05-23 05:39
PROVIDERS: ADMIT Internal Medicine; ATTEND Internal Medicine
PROC: 3E0F7GC Introduction of Other Therapeutic Substance into Respiratory Tract, Via Natural or Artificial Opening (ICD-10-PCS; principal; 2024-05-22)
PROC: 3E023GC Introduction of Other Therapeutic Substance into Muscle, Percutaneous Approach (ICD-10-PCS; 2024-05-22)
DX: R06.09 Other forms of dyspnea (principal); J44.9 Chronic obstructive pulmonary disease, unspecified; B19.20 Unspecified viral hepatitis C without hepatic coma; F41.9 Anxiety disorder, unspecified; F41.0 Panic disorder [episodic paroxysmal anxiety]; K21.9 Gastro-esophageal reflux disease without esophagitis; F11.20 Opioid dependence, uncomplicated; Z87.891 Personal history of nicotine dependence
CPT/HCPCS: 0241U-QW; 36415; 71045-TC-FY; 71275-TC; 80048; 80053; 82803; 84484; 85025; 86803; 87389; 93005; 93010; 94640; 96372; 99285-25; G0378; Q9967